=== PATIENT | female | born 1975 | race Caucasian/White ===

== ENCOUNTER → 2020-01-06 13:43 | Outpatient (BNVA) | payer OTHER, SELFPAY | PROVIDERS: Visit Provider Urology | DX: N13.30 Unspecified hydronephrosis (principal); Z87.440 Personal history of urinary (tract) infections | CPT/HCPCS: 81003; 99213 ==

== ENCOUNTER 2020-01-13 16:01 | Emergency (ER) | payer OTHER, SELFPAY ==
[2020-01-13 16:17] VITALS: BP 121/76; PULSE 82; RESP 17; TEMP 37.1; O2SAT 98
--- NOTE | 2020-01-13 16:25 | XR_ITS ---
EXAMINATION: XR CHEST CLINICAL INFORMATION: Cough, shortness of breath COMPARISON: Chest radiographs 01/02/2019 TECHNIQUE: Frontal view of the chest was obtained. FINDINGS: There are low lung volumes. The vascularity is normal. The lungs are clear. There is no airspace consolidation, groundglass opacity, or effusion. The cardiac and hilar and mediastinal contours are unremarkable. No acute bony abnormality. IMPRESSION: Unremarkable examination.
--- NOTE | 2020-01-13 16:42 | ED_ITS ---
HPI - SOB/Dyspnea General Chief Complaint: Dyspnea Stated Complaint: DIFFICULTY BREATHING Time Seen by Provider: 01/13/20 16:12 Source: patient Mode of arrival: ambulatory History of Present Illness HPI Narrative: 44-year-old female with a PMHx asthma, thrush, c/o dry cough, SOB, generalized fatigue x1 week. Admits tested negative for COVID-19 in late November. Reports has been using inhalers at home w/some relief, however believes she has thrush again. Reports ran out of nystatin at home. Admits to mild sore throat. Denies chest pain, productive cough, LE edema, recent travel, sick contacts, history of clots MD elicited complaint: shortness of breath and cough Pertinent past history: asthma Related Data Home Medications Medication Instructions Recorded Confirmed albuterol sulfate mg INHALATION 01/04/20 01/06/20 albuterol sulfate 90 mcg/actuation INHALATION 01/04/20 01/06/20 aerosol inhaler fluconazole 150 mg tablet 150 mg PO ONCE 01/04/20 01/06/20 fluticasone 232 mcg-salmeterol 14 1 inh PO BID 01/04/20 01/06/20 mcg/actuation breath activated powdr fluticasone propionate 50 2 spray INTRANASAL DAILY 01/04/20 01/06/20 mcg/actuation nasal spray,suspension levothyroxine 50 mcg tablet 50 mcg PO DAILY 01/04/20 01/06/20 mometasone-formoterol HFA 200 2 puff PO BID 01/04/20 01/06/20 mcg-5 mcg/actuation aerosol inhaler montelukast 10 mg tablet 10 mg PO DAILY 01/04/20 01/06/20 Previous Rx's Medication Instructions Recorded nitrofurantoin 1 cap PO DAILY #30 cap 01/06/20 monohydrate/macrocrystals 100 mg capsule albuterol sulfate 2.5 mg INHALATION Q4H PRN #30 ea 01/13/20 benzonatate [Tessalon Perles] 100 mg PO BID PRN #14 cap 01/13/20 nystatin 1 ml PO QID 7 Days #28 ml 01/13/20 Allergies Allergy/AdvReac Type Severity Reaction Status Date / Time doxycycline [DOXYCYCLINE] Allergy Intermediate ITCHY, Unverified 12/19/19 17:59 itching, itching amoxicillin [Augmentin] Allergy Unknown itching Verified 07/02/18 00:00 azithromycin [From ZITHROMAX] Allergy Unknown HIVES Unverified 12/19/19 17:59 ciprofloxacin [From CIPRO] Allergy Unknown ITCH Unverified 12/19/19 17:59 clavulanic acid [Augmentin] Allergy Unknown itching Verified 07/02/18 00:00 mold [MOLD] Allergy Unknown STUFFY NOSE Unverified 12/19/19 17:59 mushroom [MUSHROOM] Allergy Unknown DIARRHEA Unverified 12/19/19 17:59 Yeast [YEAST] Allergy Unknown DIARRHEA Unverified 12/19/19 17:59 From CIPRO Allergy Unknown ITCH Uncoded 12/19/19 17:59 Zithromax Allergy Unknown hives Uncoded 11/25/19 00:00 Review of Systems Review of Systems: Constitutional: No Weight loss, No Fever, No Chills ENT/Mouth: No Ear Pain, No Nasal Congestion, No Sinus Pain, No Hoarseness, + sore throat, No Rhinorrhea, No Swallowing Difficulty Cardiovascular: No Chest Pain, + SOB Respiratory: + Cough, No Sputum, No Wheezing Musculoskeletal: No LE edema Skin: No Skin Lesions, No rash Yes all other systems are reviewed and are negative PMFSH Past Medical History Attestation statement: The following information was validated with the patient. Medical History (Updated 01/13/20 @ 17:34 by TREE Lowe) Asthma History of urinary reflux History of urinary tract infection Thrush Social History Social History Smoking Status: Never smoker Use of substances other than those prescribed or required for medical reasons: No Advance Directives: No Advance Directives Information Provided: No Physical Exam Vital Signs: Vital Signs: Vital Signs Temp Pulse Resp BP Pulse Ox 01/13/20 16:17 98.8 F 82 17 121/76 98 Body Mass Index 0.8 Const: General: cooperative and healthy appearing Orientation/consciousness: patient oriented x3 Limitations: no limitations HENMT: Other: erythematous patches noted to tongue, no white patches appreciated. Posterior oropharynx WNL. Tonsils WNL Head: Yes normal to inspection Ears: hearing grossly normal bilaterally General nose exam: Normal external nose present Face and sinus: Yes normal facial exam Mouth: no drooling Throat: Yes posterior oropharynx normal and Yes uvula midline Eyes: General: appearance normal, both eyes and all related structures EOM: EOMs intact bilaterally Neck: Neck: Yes normal visual inspection, Yes no lymphadenopathy and Yes no meningeal signs Resp: Effort & Inspection: normal respiratory effort Auscultation: clear to auscultation bilaterally, no rales, no rhonchi and no wheezes Cardio: Rate: regular rate Heart sounds: S1 normal heart sound present and S2 normal heart sound present Skin: Rashes: no rashes Wounds: no wounds Neuro: General: patient oriented x3 and no meningeal signs Gait exam (Neuro): Normal gait present Extrem: General: Yes normal to inspection Course Course Course Narrative: - CXR unremarkable MDM - SOB/Dyspnea MDM Narrative Medical decision making narrative: On exam VSS, NAD/ well-appearing, lungs CTA. Oropharynx with red patches noted to tongue, likely early thrush. Concern for viral syndrome/COVID-19 vs asthma exacerbation. Low concern for ACS /PE. R/o PNA plan: CXR, COVID-19 Differential Diagnosis Differential diagnosis: Likely pneumonia and asthma with exacerbation Discharge Plan Discharge Clinical Impression: Thrush, Acute viral syndrome Patient Disposition: Home, Self-Care Instructions: COVID-19 (Coronavirus Disease 2019) (ED), Oral Candidiasis (ED) Additional Instructions: your x-ray was unremarkable today in the ED. You were tested for COVID-19, the results should be back in about 72 hours, we will call you positive or negative In the meantime you need to self isolate Use albuterol inhaler/ nebulizer at home Tessalon Perles for cough Nystatin cream is for your the oral thrush You need to follow-up with her doctor Based on your symptoms and history we have sent a COVID-19. Although your RESULT IS PENDING at this time. RESULTS should return within 72 hours. At this time you will be contacted with either NEGATIVE OR POSITIVE results. -Please wait until we contact you for your results. At this time you will be okay for discharge. Please plan for self quarantine for up to 14 days. Do not expose yourself to others. You may not go to work. If testing does come back negative you may return to activities as long as you are no longer having any symptoms for at least 3 days. Please continue to follow cold instructions and wash your hands frequently. You may take Tylenol as directed on the bottle for pain or fever. Patient seen in the emergency department on 09/27/2019 and should be excused from work until negative test results AND until 72 hours without any symptoms AND at least 10 days have passed since symptoms first appeared or since last exposure to COVID-19 positive patient CDC Guidelines for home isolation: - Stay away from others - WEAR A MASK if you are sick AND STAY HOME - Cover your mouth and nose with a tissue when you cough or sneeze. Dispose of tissues in a lined trash can and wash your hands immediately with soap and water for at least 20 seconds. If soap and water are not available, clean hands with alcohol-based hand circulating process inspector that contains at least 60% alcohol. - Clean your hands often with soap and water for at least 20 seconds - Avoid touching your eyes, nose and mouth with unwashed hands - Do not share dishes, drinking glasses, cups, eating utensils, towels, or bedding with other people in your home. After using these items, wash them thoroughly with soap and water or put in the psychologist experimental. - Clean high-touch surfaces in your isolation area ( sick room and bathroom) every day; let a caregiver clean and disinfect high-touch surfaces in other areas of the home. Clean the area or item with soap and water or another detergent if it is dirty. Then, use a household disinfectant. - Limit contact with pets and animals: If you must care for a pet, wash your hands before and after interacting with them) Prescriptions: New nystatin 100,000 unit/mL suspension 1 ml PO QID 7 Days Qty: 28 RF: 0 albuterol sulfate 2.5 mg/0.5 mL solution for nebulization 2.5 mg inhalation Q4H PRN (Reason: shortness of breath or wheezing) Qty: 30 RF: 0 benzonatate [Tessalon Perles] 100 mg capsule 100 mg PO BID PRN (Reason: cough) Qty: 14 RF: 0 No Action nitrofurantoin monohyd/m-cryst 100 mg capsule 1 cap PO DAILY Qty: 30 RF: 6 montelukast 10 mg tablet 10 mg PO DAILY RF: 0 Dulera 200-5 mcg/actuation HFA aerosol inhaler 2 puff PO BID RF: 0 albuterol sulfate 90 mcg/actuation HFA aerosol inhaler inhalation RF: 0 fluconazole 150 mg tablet 150 mg PO ONCE RF: 0 albuterol sulfate 2.5 mg /3 mL (0.083 %) solution for nebulization inhalation RF: 0 levothyroxine 50 mcg tablet 50 mcg PO DAILY RF: 0 fluticasone propionate 50 mcg/actuation spray,suspension 2 spray intranasal DAILY RF: 0 fluticasone propion-salmeterol 232-14 mcg/actuation aerosol powdr breath activated 1 inh PO BID RF: 0 Referrals: Physician,None [Primary Care Provider] - 3 days
== END 2020-01-13 18:16 | disposition home or self-care (01) ==
PROVIDERS: Physician Assistant; Emergency Provider Internal Medicine
DX: B34.9 Viral infection, unspecified (principal); Z20.828 Contact with and (suspected) exposure to other viral communicable diseases; B37.0 Candidal stomatitis; J45.909 Unspecified asthma, uncomplicated; Z79.899 Other long term (current) drug therapy; Z87.440 Personal history of urinary (tract) infections
CPT/HCPCS: 71045; 87635; 99283

== ENCOUNTER 2020-04-07 17:20 | Emergency (ER) | payer OTHER, SELFPAY ==
[2020-04-07 19:24] VITALS: BP 140/64; PULSE 85; RESP 18; TEMP 36.9; O2SAT 98; BMI 38.9
--- NOTE | 2020-04-07 20:22 | ED_ITS ---
HPI - URI/Sore Throat General Chief Complaint: Upper Respiratory Symptoms Stated Complaint: Flu like Time Seen by Provider: 04/07/20 20:02 Source: patient Mode of arrival: ambulatory Limitations: no limitations History of Present Illness HPI Narrative: Patient comes to emergency room complaining of cough for 1 week. Patient states it is mild, has history of asthma. Patient states that she has no significant symptoms, however her daughter brought in a friend to the house, whose family tested positive for coronavirus. Patient denies fever, no chills, no body aches MD elicited complaint: cough Related Data Home Medications Medication Instructions Recorded Confirmed albuterol sulfate mg INHALATION 01/04/20 01/06/20 albuterol sulfate 90 mcg/actuation INHALATION 01/04/20 01/06/20 aerosol inhaler fluconazole 150 mg tablet 150 mg PO ONCE 01/04/20 01/06/20 fluticasone 232 mcg-salmeterol 14 1 inh PO BID 01/04/20 01/06/20 mcg/actuation breath activated powdr fluticasone propionate 50 2 spray INTRANASAL DAILY 01/04/20 01/06/20 mcg/actuation nasal spray,suspension levothyroxine 50 mcg tablet 50 mcg PO DAILY 01/04/20 01/06/20 mometasone-formoterol HFA 200 2 puff PO BID 01/04/20 01/06/20 mcg-5 mcg/actuation aerosol inhaler Previous Rx's Medication Instructions Recorded nitrofurantoin 1 cap PO DAILY #30 cap 01/06/20 monohydrate/macrocrystals 100 mg capsule albuterol sulfate 2.5 mg INHALATION Q4H PRN #30 ea 01/13/20 benzonatate [Tessalon Perles] 100 mg PO BID PRN #14 cap 01/13/20 nystatin 1 ml PO QID 7 Days #28 ml 01/13/20 fluticasone 232mcg-salmeterol 1 inh INHALATION BID 30 Days #1 ea 02/07/20 14mcg/actuation breath act,powder sensor nitrofurantoin 25 mg/5 mL oral 50 mg PO BEDTIME 30 Days #20 ml 02/13/20 suspension montelukast 10 mg tablet 10 mg PO DAILY #30 tab 04/06/20 albuterol sulfate 2 puff INHALATION Q4-6H PRN #8.5 g 04/07/20 mometasone-formoterol [Dulera] 2 puff INHALATION BID #13 g 04/07/20 prednisone 50 mg PO DAILY #5 tab 04/07/20 Allergies Allergy/AdvReac Type Severity Reaction Status Date / Time doxycycline [DOXYCYCLINE] Allergy Intermediate ITCHY, Verified 04/07/20 19:24 itching, itching amoxicillin [Augmentin] Allergy Unknown itching Verified 04/07/20 19:24 azithromycin [From ZITHROMAX] Allergy Unknown HIVES Verified 04/07/20 19:24 ciprofloxacin [From CIPRO] Allergy Unknown ITCH Verified 04/07/20 19:24 clavulanic acid [Augmentin] Allergy Unknown itching Verified 04/07/20 19:24 mold [MOLD] Allergy Unknown STUFFY NOSE Verified 04/07/20 19:24 mushroom [MUSHROOM] Allergy Unknown DIARRHEA Verified 04/07/20 19:24 Yeast [YEAST] Allergy Unknown DIARRHEA Verified 04/07/20 19:24 From CIPRO Allergy Unknown ITCH Uncoded 12/19/19 17:59 Zithromax Allergy Unknown hives Uncoded 11/25/19 00:00 Review of Systems Review of Systems: Constitutional : No Weight loss, No Fever, No Chills, No Night Sweats, No Fatigue, No Malaise ENT/Mouth : No Hearing loss, No Ear Pain, No Nasal Congestion, No Sinus Pain, No Hoarseness, No sore throat, No Rhinorrhea, No Swallowing Difficulty Eyes: No Eye Pain, No Swelling, No Redness, No Foreign Body, No Discharge, No Vision Changes Cardiovascular : No Chest Pain, No SOB, No Dyspnea on Exertion, No Orthopnea, No Edema, No Palpitations Respiratory : Complaining of Cough, No Sputum, No Wheezing, No Smoke Exposure, No Dyspnea Gastrointestinal : No Nausea, No Vomiting, No Diarrhea, No Constipation, No abdominal Pain, No Hematochezia, No Melena Genitourinary : no irregular bleeding, No Dysuria, No Urinary Frequency, No Hematuria, No Urinary Incontinence, No Urgency, No Flank Pain, No Urinary Flow Changes, No Hesitancy Musculoskeletal : No joint pain, No Myalgias, No Joint Swelling Skin : No Skin Lesions, No rash Neuro : No Weakness, No Numbness, No Paresthesias, No Loss of Consciousness, No Dizziness, No Headache Psych : No Anxiety/Panic, No Depression, No SI/HI/AH/VH, No Social Issues, Heme/Lymph: No Bruising, No Bleeding,No Lymphadenopathy Endocrine : No Polyuria, No Polydipsia, No Temperature Intolerance [facility] Past Medical History Medical History Asthma History of urinary reflux History of urinary tract infection Thrush Social History Social History Alcohol intake: never Smoking Status: Never smoker Smoked in Last 30 Days: No Use of substances other than those prescribed or required for medical reasons: No Advance Directives: No Advance Directives Information Provided: Yes Physical Exam Vital Signs: Vital Signs: Last Vital Signs Temp 98.0 F 04/07/20 22:51 Pulse 78 04/07/20 22:51 Resp 16 04/07/20 22:51 BP 125/72 04/07/20 22:51 Pulse Ox 100 04/07/20 22:54 Body Mass Index 38.9 Appearance: Alert. Oriented X3. No acute distress. Eyes: Pupils equal, round and reactive to light. ENT: Pharynx normal. Neck: Normal inspection. Neck supple. No lymph nodes noted. No crepitus CVS: Normal heart rate and rhythm. Pulses normal. Normal S1 and S2 Respiratory: No respiratory distress. Breath sounds normal. No Wheezing. No rales Abdomen: Soft and nontender. No rigidity. No distention. good BS x4 Skin: Skin warm and dry. Normal skin color. Normal skin turgor. Extremities: No lower extremity edema. No lower extremity edema. No Lacerations. No Rash Neuro: Oriented X 3. No motor deficit. No sensory deficit. Moving all extermities. No slurred speech. Course Course Course Narrative: Patient tested for RSV/influenza, COVID-19. Patient's lung sounds are clear, no breathing treatment needed. Negative for coronavirus and influenza. MDM - URI/Sore Throat Lab Data Labs: Lab Results 04/07/20 Range/Units 20:37 Coronavirus (PCR) NEGATIVE (Negative) Influenza Type A (PCR) NEGATIVE (Negative) Influenza Type B (PCR) NEGATIVE (Negative) RSV RNA Qual (PCR) NEGATIVE (Negative) Discharge Plan Discharge Clinical Impression: Cough, Encounter for medication refill Patient Disposition: Home, Self-Care Instructions: Acute Cough (ED) Additional Instructions: Your test for COVID is negative. Please follow-up with your primary care physician tomorrow. If you have any worsening or new symptoms, please return to the emergency room or call 911 Prescriptions: New Dulera 200-5 mcg/actuation HFA aerosol inhaler 2 puff inhalation BID Qty: 13 RF: 0 albuterol sulfate 90 mcg/actuation HFA aerosol inhaler 2 puff inhalation Q4-6H PRN (Reason: shortness of breath or wheezing) Qty: 8.5 RF: 0 prednisone 50 mg tablet 50 mg PO DAILY Qty: 5 RF: 0 No Action AirDuo Digihaler 232-14 mcg/actuation aero powdr breath act w/sensor 1 inh inhalation BID 30 Days Qty: 1 RF: 3 nitrofurantoin 25 mg/5 mL suspension 50 mg PO BEDTIME 30 Days Qty: 20 RF: 3 montelukast 10 mg tablet 10 mg PO DAILY Qty: 30 RF: 1 nystatin 100,000 unit/mL suspension 1 ml PO QID 7 Days Qty: 28 RF: 0 albuterol sulfate 2.5 mg/0.5 mL solution for nebulization 2.5 mg inhalation Q4H PRN (Reason: shortness of breath or wheezing) Qty: 30 RF: 0 benzonatate [Tessalon Perles] 100 mg capsule 100 mg PO BID PRN (Reason: cough) Qty: 14 RF: 0 nitrofurantoin monohyd/m-cryst 100 mg capsule 1 cap PO DAILY Qty: 30 RF: 6 Dulera 200-5 mcg/actuation HFA aerosol inhaler 2 puff PO BID RF: 0 albuterol sulfate 90 mcg/actuation HFA aerosol inhaler inhalation RF: 0 fluconazole 150 mg tablet 150 mg PO ONCE RF: 0 albuterol sulfate 2.5 mg /3 mL (0.083 %) solution for nebulization inhalation RF: 0 levothyroxine 50 mcg tablet 50 mcg PO DAILY RF: 0 fluticasone propionate 50 mcg/actuation spray,suspension 2 spray intranasal DAILY RF: 0 fluticasone propion-salmeterol 232-14 mcg/actuation aerosol powdr breath activated 1 inh PO BID RF: 0
[2020-04-07 21:22] LABS: Influenza A PCR NEGATIVE (Negative); Influenza B PCR NEGATIVE (Negative); Resp Syncy Virus RNA Qual PCR NEGATIVE (Negative); SARS COV2 PCR INHOUSE NEGATIVE (Negative)
[2020-04-07 22:51] VITALS: BP 125/72; PULSE 78; RESP 16; TEMP 36.7; O2SAT 100
[2020-04-07 22:54] VITALS: O2SAT 100
== END 2020-04-07 23:45 | disposition home or self-care (01) ==
PROVIDERS: Emergency Provider Emergency Medicine
DX: R05 Cough (principal); Z20.828 Contact with and (suspected) exposure to other viral communicable diseases; J45.909 Unspecified asthma, uncomplicated; Z76.0 Encounter for issue of repeat prescription
CPT/HCPCS: 0241U; 36415; 99283; 99285

== ENCOUNTER 2020-04-13 14:29 | Outpatient (REF) | payer OTHER, SELFPAY ==
--- NOTE | 2020-04-13 14:37 | XR_ITS ---
EXAMINATION: XR CHEST CLINICAL INFORMATION: Asthma. COMPARISON: None TECHNIQUE: 2 views of the chest were obtained. FINDINGS: No significant abnormality is noted involving the heart, lungs, mediastinum, bony thorax or soft tissues. XR/XR chest 2V IMPRESSION: Unremarkable chest exam.
== END 2020-04-13 14:30 | disposition home or self-care (01) ==
LOC: HO.XRAY 14:29
PROVIDERS: Visit Provider Internal Medicine
DX: R05 Cough (principal); J40 Bronchitis, not specified as acute or chronic; J45.909 Unspecified asthma, uncomplicated
CPT/HCPCS: 71046

== ENCOUNTER 2020-04-19 16:08 | Emergency (ER) | payer OTHER, SELFPAY ==
[2020-04-19 16:49] VITALS: BP 119/60; PULSE 96; RESP 18; TEMP 36.3; O2SAT 97; BMI 38.9
[2020-04-19 16:59] VITALS: BP 119/60; PULSE 96; RESP 18; TEMP 36.3; O2SAT 97
--- NOTE | 2020-04-19 17:10 | ED_ITS ---
HPI - General Adult General Chief complaint: General Medical Stated complaint: Covid Symptoms Time Seen by Provider: 04/19/20 16:53 Source: patient Mode of arrival: ambulatory Limitations: no limitations History of Present Illness HPI narrative: Patient comes emergency room complaining of sinus pain in her forehead and under her eyes. Patient states that she is prone to sinus infections the rapidly complicate. Patient denies any fever, complaining of chills, headache. Denies cough, no vomiting no diarrhea. Patient was seen here on April 07, this is negative for COVID-19. MD complaint: Cold-like symptoms Related Data Home Medications Medication Instructions Recorded Confirmed albuterol sulfate mg INHALATION 01/04/20 01/06/20 albuterol sulfate 90 mcg/actuation INHALATION 01/04/20 01/06/20 aerosol inhaler fluconazole 150 mg tablet 150 mg PO ONCE 01/04/20 01/06/20 fluticasone 232 mcg-salmeterol 14 1 inh PO BID 01/04/20 01/06/20 mcg/actuation breath activated powdr fluticasone propionate 50 2 spray INTRANASAL DAILY 01/04/20 01/06/20 mcg/actuation nasal spray,suspension levothyroxine 50 mcg tablet 50 mcg PO DAILY 01/04/20 01/06/20 mometasone-formoterol HFA 200 2 puff PO BID 01/04/20 01/06/20 mcg-5 mcg/actuation aerosol inhaler Previous Rx's Medication Instructions Recorded nitrofurantoin 1 cap PO DAILY #30 cap 01/06/20 monohydrate/macrocrystals 100 mg capsule albuterol sulfate 2.5 mg INHALATION Q4H PRN #30 ea 01/13/20 benzonatate [Tessalon Perles] 100 mg PO BID PRN #14 cap 01/13/20 nystatin 1 ml PO QID 7 Days #28 ml 01/13/20 fluticasone 232mcg-salmeterol 1 inh INHALATION BID 30 Days #1 ea 02/07/20 14mcg/actuation breath act,powder sensor nitrofurantoin 25 mg/5 mL oral 50 mg PO BEDTIME 30 Days #20 ml 02/13/20 suspension montelukast 10 mg tablet 10 mg PO DAILY #30 tab 04/06/20 albuterol sulfate 2 puff INHALATION Q4-6H PRN #8.5 g 04/07/20 mometasone-formoterol [Dulera] 2 puff INHALATION BID #13 g 04/07/20 prednisone 50 mg PO DAILY #5 tab 04/07/20 levofloxacin 500 mg PO DAILY #7 tab 04/19/20 Allergies Allergy/AdvReac Type Severity Reaction Status Date / Time doxycycline [DOXYCYCLINE] Allergy Intermediate ITCHY, Verified 04/07/20 19:24 itching, itching amoxicillin [Augmentin] Allergy Unknown itching Verified 04/07/20 19:24 azithromycin [From ZITHROMAX] Allergy Unknown HIVES Verified 04/07/20 19:24 ciprofloxacin [From CIPRO] Allergy Unknown ITCH Verified 04/07/20 19:24 clavulanic acid [Augmentin] Allergy Unknown itching Verified 04/07/20 19:24 mold [MOLD] Allergy Unknown STUFFY NOSE Verified 04/07/20 19:24 mushroom [MUSHROOM] Allergy Unknown DIARRHEA Verified 04/07/20 19:24 Yeast [YEAST] Allergy Unknown DIARRHEA Verified 04/07/20 19:24 From CIPRO Allergy Unknown ITCH Uncoded 12/19/19 17:59 Zithromax Allergy Unknown hives Uncoded 11/25/19 00:00 Review of Systems Review of Systems: Constitutional : No Weight loss, No Fever, complaining of Chills, No Night Sweats, No Fatigue, No Malaise ENT/Mouth : , Complaining of sinus pain , complaining of copious discharge from the nostrils, No Hearing loss, No Ear Pain, No Nasal Congestion, No Sinus Pain, No Hoarseness, No sore throat, No Rhinorrhea, No Swallowing Difficulty Eyes: No Eye Pain, No Swelling, No Redness, No Foreign Body, No Discharge, No Vision Changes Cardiovascular : No Chest Pain, No SOB, No Dyspnea on Exertion, No Orthopnea, No Edema, No Palpitations Respiratory : No Cough, No Sputum, No Wheezing, No Smoke Exposure, No Dyspnea Gastrointestinal : No Nausea minimal, No Vomiting, No Diarrhea, No Constipation, No abdominal Pain, No Hematochezia, No Melena Genitourinary : no irregular bleeding, No Dysuria, No Urinary Frequency, No Hematuria, No Urinary Incontinence, No Urgency, No Flank Pain, No Urinary Flow Changes, No Hesitancy Musculoskeletal : No joint pain, No Myalgias, No Joint Swelling Skin : No Skin Lesions, No rash Neuro : No Weakness, No Numbness, No Paresthesias, No Loss of Consciousness, No Dizziness, No Headache Psych : No Anxiety/Panic, No Depression, No SI/HI/AH/VH, No Social Issues, Heme/Lymph: No Bruising, No Bleeding,No Lymphadenopathy Endocrine : No Polyuria, No Polydipsia, No Temperature Intolerance [facility] Past Medical History Medical History Asthma History of urinary reflux History of urinary tract infection Thrush Social History Social History Alcohol intake: never Smoking Status: Never smoker Smoked in Last 30 Days: No Use of substances other than those prescribed or required for medical reasons: No Advance Directives: No Advance Directives Information Provided: No Physical Exam Vital Signs: Vital Signs: Last Vital Signs Temp 97.4 F 04/19/20 16:59 Pulse 96 04/19/20 16:59 Resp 18 04/19/20 16:59 BP 119/60 04/19/20 16:59 Pulse Ox 97 04/19/20 16:59 Body Mass Index 38.9 Appearance: Alert. Oriented X3. No acute distress. Eyes: Pupils equal, round and reactive to light. ENT: Pharynx normal. Pre to palpation over the maxillary and frontal sinuses, n o significant discharge seen Neck: Normal inspection. Neck supple. No lymph nodes noted. No crepitus CVS: Normal heart rate and rhythm. Pulses normal. Normal S1 and S2 Respiratory: No respiratory distress. Breath sounds normal. No Wheezing. No rales Abdomen: Soft and nontender. No rigidity. No distention. good BS x4 Skin: Skin warm and dry. Normal skin color. Normal skin turgor. Extremities: No lower extremity edema. No lower extremity edema. No Lacerations. No Rash Neuro: Oriented X 3. No motor deficit. No sensory deficit. Moving all extermities. No slurred speech. Course Course Course Narrative: Patient's oxygen saturation within normal limits, lungs sound clear, no respiratory distress. Patient has multiple allergies to antibiotics, states that the only thing that works for her is Levaquin. Patient is allergic to ciprofloxacin, causing itching, but has never had any reaction to levofloxacin. Patient was tested for COVID-19, results pending Of note, Mendez test was order because there are no SARS-COV-2 PCR tests available in the hospital today Discharge Plan Discharge Clinical Impression: Sinusitis Qualifiers: Sinusitis location: maxillary Chronicity: acute Recurrence: recurrent Qualified Code(s): J01.01 - Acute recurrent maxillary sinusitis Patient Disposition: Home, Self-Care Instructions: Sinusitis (ED) Additional Instructions: You were tested for COVID-19, if your results are positive, you will receive a phone call in the next 72 hours. In the meantime, self quarantine until you get your results. Please follow-up with your primary care physician tomorrow. If you have any worsening or new symptoms, please return to the emergency room or call 911 Prescriptions: New levofloxacin 500 mg tablet 500 mg PO DAILY Qty: 7 RF: 0 No Action AirDuo Digihaler 232-14 mcg/actuation aero powdr breath act w/sensor 1 inh inhalation BID 30 Days Qty: 1 RF: 3 nitrofurantoin 25 mg/5 mL suspension 50 mg PO BEDTIME 30 Days Qty: 20 RF: 3 montelukast 10 mg tablet 10 mg PO DAILY Qty: 30 RF: 1 Dulera 200-5 mcg/actuation HFA aerosol inhaler 2 puff inhalation BID Qty: 13 RF: 0 albuterol sulfate 90 mcg/actuation HFA aerosol inhaler 2 puff inhalation Q4-6H PRN (Reason: shortness of breath or wheezing) Qty: 8.5 RF: 0 prednisone 50 mg tablet 50 mg PO DAILY Qty: 5 RF: 0 nystatin 100,000 unit/mL suspension 1 ml PO QID 7 Days Qty: 28 RF: 0 albuterol sulfate 2.5 mg/0.5 mL solution for nebulization 2.5 mg inhalation Q4H PRN (Reason: shortness of breath or wheezing) Qty: 30 RF: 0 benzonatate [Tessalon Perles] 100 mg capsule 100 mg PO BID PRN (Reason: cough) Qty: 14 RF: 0 nitrofurantoin monohyd/m-cryst 100 mg capsule 1 cap PO DAILY Qty: 30 RF: 6 Dulera 200-5 mcg/actuation HFA aerosol inhaler 2 puff PO BID RF: 0 albuterol sulfate 90 mcg/actuation HFA aerosol inhaler inhalation RF: 0 fluconazole 150 mg tablet 150 mg PO ONCE RF: 0 albuterol sulfate 2.5 mg /3 mL (0.083 %) solution for nebulization inhalation RF: 0 levothyroxine 50 mcg tablet 50 mcg PO DAILY RF: 0 fluticasone propionate 50 mcg/actuation spray,suspension 2 spray intranasal DAILY RF: 0 fluticasone propion-salmeterol 232-14 mcg/actuation aerosol powdr breath activated 1 inh PO BID RF: 0 Interventions: ED Discharge Assessment Last Done: 04/19/20 17:42
[2020-04-19 18:26] LABS: COVID-19 Test Positive (Negative); IDNOW Serial# 9DD0AD1C
== END 2020-04-19 18:23 | disposition home or self-care (01) ==
PROVIDERS: Emergency Provider Emergency Medicine
DX: J01.01 Acute recurrent maxillary sinusitis (principal); R51.9 Headache, unspecified; Z20.822 Contact with and (suspected) exposure to COVID-19; Z79.899 Other long term (current) drug therapy
CPT/HCPCS: 36415; 87635; 99283; 99284

== ENCOUNTER → 2020-06-01 14:36 | Outpatient (BNVA) | payer SELFPAY | PROVIDERS: PCP Internal Medicine; Visit Provider Internal Medicine ==

== ENCOUNTER 2020-07-31 09:27 | Outpatient (REF) | payer OTHER, SELFPAY ==
[2020-07-31 09:47] LABS: COVID-19 Test Negative (Negative)
== END 2020-07-31 09:28 | disposition home or self-care (01) ==
LOC: HO.LAB 09:27
PROVIDERS: Visit Provider Internal Medicine
DX: Z20.822 Contact with and (suspected) exposure to COVID-19 (principal)
CPT/HCPCS: 36415; 87635; C9803

== ENCOUNTER 2020-08-14 09:25 | Emergency (ER) | payer OTHER, SELFPAY ==
--- NOTE | ~2020-08-14 | XR_ITS ---
EXAMINATION: XR KNEE, LEFT CLINICAL INFORMATION: Fall with pain COMPARISON: None TECHNIQUE: Four views of the left knee. FINDINGS: Joint spaces are maintained. There is mild spurring of the patellofemoral joint. No effusion is seen. There is a 3 mm bony density seen about the proximal posterior aspect of the fibula which could represent an acute or chronic avulsion injury. XR/XR knee LT 4V IMPRESSION: Patellofemoral joint mild degenerative change. No left knee effusion. Either acute or chronic small avulsion fragment about the posterior proximal fibula.
[2020-08-14 10:21] VITALS: BP 133/82; PULSE 79; RESP 18; BMI 39.0
--- NOTE | 2020-08-14 11:38 | ED_ITS ---
HPI - General Adult General Chief complaint: Fall Stated complaint: FALL BODY ACHES Time Seen by Provider: 08/14/20 11:37 Source: patient Limitations: no limitations History of Present Illness HPI narrative: Patient complaining of left knee pain. Patient states last week she fell at [employer]. Patient states pain increases with range of motion and palpation symptoms have improved since the fall though. Patient felt a popping sound from the left knee. Symptoms mild to moderate. Patient complaining of chronic back pain from left trapezius says at times the lower back. Patient has had COVID-19 a pass and has been fully vaccinated. No other complaints this time no nausea vomiting chest pain shortness of breath. Related Data Home Medications Medication Instructions Recorded Confirmed levothyroxine 50 mcg tablet 50 mcg PO DAILY 01/04/20 01/06/20 Previous Rx's Medication Instructions Recorded nitrofurantoin 1 cap PO DAILY #30 cap 01/06/20 monohydrate/macrocrystals 100 mg capsule nystatin 1 ml PO QID 7 Days #28 ml 01/13/20 nitrofurantoin 25 mg/5 mL oral 50 mg PO BEDTIME 30 Days #20 ml 02/13/20 suspension montelukast 10 mg tablet 10 mg PO DAILY #30 tab 04/06/20 prednisone 50 mg PO DAILY #5 tab 04/07/20 fluticasone propionate 50 2 spray INTRANASAL DAILY 30 Days 06/01/20 mcg/actuation nasal #16 g spray,suspension mometasone-formoterol HFA 200 2 puff INHALATION BID 30 Days #13 g 06/01/20 mcg-5 mcg/actuation aerosol inhaler fluconazole 150 mg tablet 150 mg PO DAILY 2 Days #2 tab 07/15/20 albuterol sulfate 2.5 mg INHALATION Q4-6H PRN 30 08/11/20 Days #90 ml albuterol sulfate 90 mcg/actuation 2 puff INHALATION Q4-6H PRN #8.5 g 08/11/20 aerosol inhaler methocarbamol 750 mg PO TID PRN #20 tab 08/14/20 Allergies Allergy/AdvReac Type Severity Reaction Status Date / Time doxycycline [DOXYCYCLINE] Allergy Intermediate ITCHY, Verified 06/01/20 14:37 itching, itching amoxicillin [Augmentin] Allergy Unknown itching Verified 06/01/20 14:37 azithromycin [From ZITHROMAX] Allergy Unknown HIVES Verified 06/01/20 14:37 ciprofloxacin [From CIPRO] Allergy Unknown ITCH Verified 06/01/20 14:37 clavulanic acid [Augmentin] Allergy Unknown itching Verified 06/01/20 14:37 mold [MOLD] Allergy Unknown STUFFY NOSE Verified 06/01/20 14:37 mushroom [MUSHROOM] Allergy Unknown DIARRHEA Verified 06/01/20 14:37 Yeast [YEAST] Allergy Unknown DIARRHEA Verified 06/01/20 14:37 Review of Systems Constitutional: Constitutional: Reports as per HPI, Denies body ache(s), Denies chills, Denies fever(s) and Denies headache(s) Eyes: Eyes: Denies loss of vision ENT: Denies headache(s) Cardiovascular: Cardiovascular: Denies chest pain and Denies dyspnea Respiratory: Respiratory: Denies cough and Denies dyspnea Gastrointestinal: Gastrointestinal: Denies diarrhea, Denies nausea and Denies vomiting Musculoskeletal: Comments: Left knee pain Left upper back pain Integumentary/Breasts: Skin/Breast: Denies rash Neurologic: Denies headache(s) and Denies loss of vision Comments: Alert oriented x3 Hematologic/Lymphatic: Hematologic/Lymphatic: Denies easy bleeding Allergic/Immunologic: Allergic/Immunologic: Denies urticaria PMFSH Past Medical History Attestation statement: The following information was validated with the patient. Medical History Allergic rhinitis Asthma COVID-19 History of urinary reflux History of urinary tract infection Thrush Social History Social History Alcohol intake: never Smoking Status: Never smoker Advance Directives: No Advance Directives Information Provided: No Patient : No Physical Exam Vital Signs: Vital Signs: Last Vital Signs Pulse 79 08/14/20 10:21 Resp 18 08/14/20 10:21 BP 133/82 08/14/20 10:21 Body Mass Index 39.0 vital signs have been reviewed as normal and appeared to be correct. Blood pressure normal. Heart rate normal. Respiration rate normal. Temperature normal. Oxygen saturation normal. Appearance: Alert. Oriented X3. No acute distress. Head: Normal external exam. Normocephalic. Atraumatic. Eyes: PERRLA. EOMI. ENT: Pharynx normal. Uvula midline. Moist mucous membranes. Neck: Soft full range of motion CVS: Heart regular rate and rhythm no murmurs and rubs Respiratory: Breath sounds are clear to auscultation bilaterally. No accessory muscle use noted. Back: left trapezius tenderness Skin: Skin warm and dry. Normal skin color. Extremities: Left knee positive joint line tenderness no joint laxity positive range of motion Neuro: Oriented X 3. No motor deficit. No sensory deficit. Reflexes normal. Course Course Course Narrative: Differential diagnosis: Left knee contusion Left knee sprain Left knee fracture Left-sided trapezius 12:22 p.m. x-ray left knee is negative symptoms are consistent with her fall with a left knee contusion and left trapezius strain. Medical Decision Making Imaging Data knee: Radiologist's impression: [address] [id number] ReportSigned Patient: Liz Russell#: [id number]: 1975Acct:[id number]/Sex: 44 / FADM Date: 08/14/20Loc: HO.EDAttending Dr: Ordering Physician: Fernando Dockery Date of Service: 08/14/20 Procedure(s): XR knee LT 4V Accession Number(s): [id number] cc: Fernando Dockery ~ EXAMINATION: XR KNEE, LEFT CLINICAL INFORMATION: Fall with pain COMPARISON: None TECHNIQUE: Four views of the left knee. FINDINGS: Joint spaces are maintained. There is mild spurring of the patellofemoral joint. No effusion is seen. There is a 3 mm bony density seen about the proximal posterior aspect of the fibula which could represent an acute or chronic avulsion injury. XR/XR knee LT 4V IMPRESSION: Patellofemoral joint mild degenerative change. No left knee effusion. Either acute or chronic small avulsion fragment about the posterior proximal fibula. Dictated By:PIPO KHAN V MDSigned By:<Electronically signed by PIPO KHAN MD in OV>08/14/20 1215 DD/ [id number]/TT: Motor Equipment Captain: Discharge Plan Discharge Clinical Impression: Knee contusion, Trapezius muscle spasm Patient Disposition: Home, Self-Care Instructions: Knee Pain (ED) Additional Instructions: Rest ice elevation of the left knee X-rays negative for fracture or effusion Follow-up with the PCP as directed Prescriptions: New methocarbamol 750 mg tablet 750 mg PO TID PRN (Reason: pain (scale score 4-6)) Qty: 20 RF: 0 No Action nitrofurantoin 25 mg/5 mL suspension 50 mg PO BEDTIME 30 Days Qty: 20 RF: 3 montelukast 10 mg tablet 10 mg PO DAILY Qty: 30 RF: 1 fluconazole [Diflucan] 150 mg tablet 150 mg PO DAILY 2 Days Qty: 2 RF: 0 albuterol sulfate 2.5 mg /3 mL (0.083 %) solution for nebulization 2.5 mg inhalation Q4-6H PRN (Reason: shortness of breath or wheezing) 30 Days Qty: 90 RF: 3 albuterol sulfate 90 mcg/actuation HFA aerosol inhaler 2 puff inhalation Q4-6H PRN (Reason: shortness of breath or wheezing) Qty: 8.5 RF: 0 prednisone 50 mg tablet 50 mg PO DAILY Qty: 5 RF: 0 nystatin 100,000 unit/mL suspension 1 ml PO QID 7 Days Qty: 28 RF: 0 nitrofurantoin monohyd/m-cryst 100 mg capsule 1 cap PO DAILY Qty: 30 RF: 6 levothyroxine 50 mcg tablet 50 mcg PO DAILY RF: 0 Dulera 200-5 mcg/actuation HFA aerosol inhaler 2 puff inhalation BID 30 Days Qty: 13 RF: 3 fluticasone propionate [Children's Flonase Allergy Rlf] 50 mcg/actuation spray,suspension 2 spray intranasal DAILY 30 Days Qty: 16 RF: 3 Referrals: Pedro Walden MD [Primary Care Provider] - 2 days
== END 2020-08-14 12:35 | disposition home or self-care (01) ==
PROVIDERS: Emergency Provider Emergency Medicine; PCP Internal Medicine
DX: S80.02XA Contusion of left knee, initial encounter (principal); M25.562 Pain in left knee; M62.838 Other muscle spasm; W19.XXXA Unspecified fall, initial encounter; Y93.9 Activity, unspecified; Y92.512 Supermarket, store or market as the place of occurrence of the external cause; Y99.9 Unspecified external cause status; Z79.899 Other long term (current) drug therapy
CPT/HCPCS: 73564; 99283

== ENCOUNTER 2020-09-20 18:15 | Emergency (ER) | payer OTHER, SELFPAY ==
--- NOTE | ~2020-09-20 | XR_ITS ---
EXAMINATION: XR CHEST CLINICAL INFORMATION: Shortness of breath COMPARISON: 04/13/2020 TECHNIQUE: 2 views of the chest were obtained. FINDINGS: No focal consolidation, pulmonary edema, or pleural effusion. Stable cardiomediastinal silhouette. XR/XR chest 2V IMPRESSION: Unremarkable examination.
[2020-09-20 18:24] VITALS: BP 142/89; PULSE 87; RESP 18; TEMP 37; O2SAT 99; BMI 42.5
[2020-09-20 20:35] LABS: COVID-19 Test Negative (Negative)
--- NOTE | 2020-09-20 20:46 | ED.GENADULT ---
HPI - General Adult General Chief complaint: General Medical Stated complaint: mutiple complaints Time Seen by Provider: 09/20/20 20:37 Source: patient Mode of arrival: ambulatory Limitations: no limitations History of Present Illness HPI narrative: 44 yo female with history of asthma, allergic rhinitis, COVID in April 2020, history of pneumonia who presents to the ER with multiple complaints. She reports for the last 4-5 days she has had a dry cough, runny nose, post nasal drip and generally feeling unwell. She also has an itchy rash on her bilateral breasts, worse on the right. It has been keeping her up at night. No changes in soaps, lotions or detergents. She is not having fever or chills. Her had similar symptoms but felt better after a couple of days. She has been compliant with her asthma and allergy medications. MD complaint: URI symptoms Onset (ago): day(s) (5) Location: chest Radiation: non-radiation Severity: moderate Quality: aching Pain Consistency: intermittent Relieving factors: none Exacerbating factors: none Associated symptoms: cough, malaise and rash Treatments prior to arrival: none Related Data Home Medications Medication Instructions Recorded Confirmed levothyroxine 50 mcg tablet 50 mcg PO DAILY 01/04/20 01/06/20 Previous Rx's Medication Instructions Recorded nitrofurantoin 1 cap PO DAILY #30 cap 01/06/20 monohydrate/macrocrystals 100 mg capsule nystatin 1 ml PO QID 7 Days #28 ml 01/13/20 nitrofurantoin 25 mg/5 mL oral 50 mg PO BEDTIME 30 Days #20 ml 02/13/20 suspension montelukast 10 mg tablet 10 mg PO DAILY #30 tab 04/06/20 prednisone 50 mg PO DAILY #5 tab 04/07/20 fluticasone propionate 50 2 spray INTRANASAL DAILY 30 Days 06/01/20 mcg/actuation nasal #16 g spray,suspension mometasone-formoterol HFA 200 2 puff INHALATION BID 30 Days #13 g 06/01/20 mcg-5 mcg/actuation aerosol inhaler fluconazole 150 mg tablet 150 mg PO DAILY 2 Days #2 tab 07/15/20 methocarbamol 750 mg PO TID PRN #20 tab 08/14/20 albuterol sulfate 2.5 mg INHALATION Q4-6H PRN 30 08/24/20 Days #90 ml albuterol sulfate 90 mcg/actuation 2 puff INHALATION Q4-6H PRN #8.5 g 09/17/20 aerosol inhaler amoxicillin-pot clavulanate 1 tab PO BID #14 tab 09/20/20 [Augmentin] hydrocortisone 1 appl TOPICAL BID PRN #28 g 09/20/20 prednisone 40 mg PO DAILY #10 tab 09/20/20 Allergies Allergy/AdvReac Type Severity Reaction Status Date / Time doxycycline [DOXYCYCLINE] Allergy Intermediate ITCHY, Verified 06/01/20 14:37 itching, itching amoxicillin [Augmentin] Allergy Unknown itching Verified 06/01/20 14:37 azithromycin [From ZITHROMAX] Allergy Unknown HIVES Verified 06/01/20 14:37 ciprofloxacin [From CIPRO] Allergy Unknown ITCH Verified 06/01/20 14:37 clavulanic acid [Augmentin] Allergy Unknown itching Verified 06/01/20 14:37 mold [MOLD] Allergy Unknown STUFFY NOSE Verified 06/01/20 14:37 mushroom [MUSHROOM] Allergy Unknown DIARRHEA Verified 06/01/20 14:37 Yeast [YEAST] Allergy Unknown DIARRHEA Verified 06/01/20 14:37 Review of Systems Review of Systems: Constitutional: No Fever, No Chills ENT/Mouth: + sore throat, + Rhinorrhea, No Swallowing Difficulty Eyes: No Eye Pain, No Swelling, No Redness Cardiovascular: No Chest Pain, No SOB, No Orthopnea, No Edema Respiratory: + Cough, No Sputum, No Wheezing, No dyspnea Gastrointestinal: No Nausea, No Vomiting, No Diarrhea, No abdominal Pain, No Hematochezia, No Melena Genitourinary: No Dysuria, No Urinary Frequency, No Hematuria Musculoskeletal: No joint pain, + Myalgias Skin: No Skin Lesions, + rash Neuro: No Weakness, No Numbness, No Dizziness, + Headache Psych: No Anxiety/Panic, No Depression Heme/Lymph: No Bruising, No Lymphadenopathy Endocrine: No Polyuria, No Polydipsia PMFSH Past Medical History Attestation statement: The following information was validated with the patient. Medical History Allergic rhinitis Asthma COVID-19 History of urinary reflux History of urinary tract infection Thrush Social History Social History Alcohol intake: never Advance Directives: No Advance Directives Information Provided: No Patient : No Physical Exam Vital Signs: Vital Signs: Last Vital Signs Temp 98.6 F 09/20/20 18:24 Pulse 87 09/20/20 18:24 Resp 18 09/20/20 18:24 BP 142/89 H 09/20/20 18:24 Pulse Ox 99 09/20/20 18:24 Body Mass Index 42.5 Appearance: Alert. Oriented X3. No acute distress. Eyes: Pupils equal, round and reactive to light. ENT: Pharynx with mild generalized erythema, no exudates Neck: Normal inspection. Neck supple. CVS: Normal heart rate and rhythm. Pulses normal. Respiratory: No respiratory distress. Breath sounds diminished at the bilateral bases Abdomen: Soft and nontender. +BS x4 Skin: Skin warm and dry. Normal skin color. Normal skin turgor. mild pruritic maclopapular erythematous rash to lateral aspects of both breasts, no warmth or oozing Extremities: No lower extremity edema. Neuro: Oriented X 3. No motor deficit. No sensory deficit. Course Course Course Narrative: 44 y/o female presenting with URI and allergy type symptoms not improving with her home allergy and asthma medications. Hx bronchitis and pneumonia which she is concerned about now. She appears well and lung sounds slightly diminished at the bases. Will get CXR and COVID swab. Reevaluation(s) Reevaluation #1: CXR is normal. COVID negative. Given her asthma history will treat for acute bronchitis with abx and prednisone. She is agreeable with plan and stable for discharge home. Encouraged to f/u with her PCP. Medical Decision Making Lab Data Labs: Lab Results 09/20/20 Range/Units 20:15 COVID-19 (ROMA) Negative (Negative) COVID-19 Clin Com See Note Critical Care Time Critical Care Time Critical Care Time: No Discharge Plan Discharge Clinical Impression: Bronchitis Patient Disposition: Home, Self-Care Instructions: Acute Bronchitis (ED), Allergies (ED) Additional Instructions: Your chest x-ray was normal. Your COVID swab was negative. Take the prescribed medications as directed starting tomorrow, you were given 1st doses in the ER. Follow up with your doctor next week. Continue all of your allergy medications. Rest and stay hydrated. Recommend topical benadryl spray (over the counter) for the rash on your chest. Prescriptions: New prednisone 20 mg tablet 40 mg PO DAILY Qty: 10 RF: 0 amoxicillin-pot clavulanate [Augmentin] 875-125 mg tablet 1 tab PO BID Qty: 14 RF: 0 hydrocortisone 2.5 % cream 1 appl topical BID PRN (Reason: itching) Qty: 28 RF: 0 No Action nitrofurantoin 25 mg/5 mL suspension 50 mg PO BEDTIME 30 Days Qty: 20 RF: 3 montelukast 10 mg tablet 10 mg PO DAILY Qty: 30 RF: 1 fluconazole [Diflucan] 150 mg tablet 150 mg PO DAILY 2 Days Qty: 2 RF: 0 albuterol sulfate 2.5 mg /3 mL (0.083 %) solution for nebulization 2.5 mg inhalation Q4-6H PRN (Reason: shortness of breath or wheezing) 30 Days Qty: 90 RF: 3 albuterol sulfate 90 mcg/actuation HFA aerosol inhaler 2 puff inhalation Q4-6H PRN (Reason: for wheezing) Qty: 8.5 RF: 0 prednisone 50 mg tablet 50 mg PO DAILY Qty: 5 RF: 0 methocarbamol 750 mg tablet 750 mg PO TID PRN (Reason: pain (scale score 4-6)) Qty: 20 RF: 0 nystatin 100,000 unit/mL suspension 1 ml PO QID 7 Days Qty: 28 RF: 0 nitrofurantoin monohyd/m-cryst 100 mg capsule 1 cap PO DAILY Qty: 30 RF: 6 levothyroxine 50 mcg tablet 50 mcg PO DAILY RF: 0 Dulera 200-5 mcg/actuation HFA aerosol inhaler 2 puff inhalation BID 30 Days Qty: 13 RF: 3 fluticasone propionate [Children's Flonase Allergy Rlf] 50 mcg/actuation spray,suspension 2 spray intranasal DAILY 30 Days Qty: 16 RF: 3 Interventions: ED Discharge Assessment Last Done: 09/20/20 21:51 Discharge Date/Time: 09/20/20 21:53
[2020-09-20] MEDS: predniSONE 20 MG TABLET 40 MG PO (21:34)
[2020-09-20] MEDS: Amoxicillin/Potassium Clav 875 MG TABLET PO (21:34)
--- NOTE | 2020-09-20 21:38 | PC.NURSE ---
PT DOES IS NOT ALLERGIC TO AUGMENTIN BY JUST HAD BECOME ITCHY FROM IT ONE TIME. PT HAS TAKEN IT IN THE PAST. PT DOES WANT TO RECIEVE IT TODAY AND SHE WILL D/C IF SHE HAS ANY REACTION.
--- NOTE | 2020-09-20 21:49 | PC.NURSE ---
TREE LEONE SPOKE WITH PT AND SHE WILL GET AUGMENTIN AND SHE WILL WATCH FOR SENSITIVITIES AND D/C IF SHE HAS A REACTION. PT DOSE NOT WANT TO WAIT HERE SHE HAS TAKEN IT AND THE PAST AND HAD NO REACTIONS.
== END 2020-09-20 21:53 | disposition home or self-care (01) ==
PROVIDERS: Emergency Provider Emergency Medicine; PCP Internal Medicine
DX: J40 Bronchitis, not specified as acute or chronic (principal); J45.909 Unspecified asthma, uncomplicated; Z79.899 Other long term (current) drug therapy; Z20.822 Contact with and (suspected) exposure to COVID-19; Z86.16 Personal history of COVID-19
CPT/HCPCS: 36415; 71046; 87635; 99283

== ENCOUNTER → 2020-10-19 15:03 | Outpatient (BNVA) | payer OTHER, SELFPAY | PROVIDERS: PCP Internal Medicine; Visit Provider Internal Medicine | DX: J30.9 Allergic rhinitis, unspecified (principal); J45.909 Unspecified asthma, uncomplicated; B37.0 Candidal stomatitis | CPT/HCPCS: 99212 ==

== ENCOUNTER 2020-10-20 08:28 | Outpatient (REF) | payer OTHER, SELFPAY | END 2020-10-20 08:29 | disposition home or self-care (01) | LOC: HO.LAB 08:28 | PROVIDERS: PCP Internal Medicine; Visit Provider Internal Medicine | DX: Z20.822 Contact with and (suspected) exposure to COVID-19 (principal) | CPT/HCPCS: C9803; U0003; U0005 ==

== ENCOUNTER 2020-11-27 17:58 | Emergency (ER) | payer OTHER, SELFPAY ==
[2020-11-27 18:04] VITALS: BP 142/77; PULSE 97; RESP 18; TEMP 36.9; O2SAT 98; BMI 38.9
[2020-11-27 19:50] LABS: Influenza A PCR NEGATIVE (Negative); Influenza B PCR NEGATIVE (Negative); Resp Syncy Virus RNA Qual PCR NEGATIVE (Negative); SARS COV2 PCR INHOUSE NEGATIVE (Negative)
--- NOTE | 2020-11-27 20:45 | PC.NURSE ---
pt to room #14 with c/o facial swelling and pressure. pt arrives alert, respirations easy, n/l. skin w/d. will continue to monitor pt.
--- NOTE | 2020-11-27 21:46 | ED_ITS ---
HPI - General Adult General Chief complaint: General Medical Stated complaint: facial swelling Time Seen by Provider: 11/27/20 21:46 Source: patient Mode of arrival: ambulatory History of Present Illness HPI narrative: 44-year-old female who presents with left facial sinus infection that patient states has been ongoing for 1 week but denies any associated fever, chills but she states that has had some swelling. Related Data Home Medications Medication Instructions Recorded Confirmed ferrous sulfate 325 mg (65 mg 325 mg PO QAM 10/19/20 iron) tablet,delayed release levothyroxine 50 mcg tablet 75 mcg PO DAILY tab 10/19/20 Previous Rx's Medication Instructions Recorded montelukast 10 mg tablet 10 mg PO DAILY #30 tab 04/06/20 methocarbamol 750 mg tablet 750 mg PO TID PRN #20 tab 08/14/20 hydrocortisone 2.5 % topical cream 1 appl TOPICAL BID PRN #28 g 09/20/20 fluticasone 232mcg-salmeterol 1 inh INHALATION BID 30 Days #1 ea 10/19/20 14mcg/actuation breath act,powder sensor (AirDuo Digihaler) fluticasone propionate 50 2 spray INTRANASAL DAILY 30 Days 10/19/20 mcg/actuation nasal #16 g spray,suspension (Children's Flonase Allergy Relief) nystatin 100,000 unit/mL oral 1 ml PO QID 7 Days #28 ml 10/19/20 suspension albuterol sulfate 0.8333 mg INHALATION Q4-6H PRN #90 11/12/20 ml albuterol sulfate 90 mcg/actuation 2 puff PO Q4-6H PRN #8.5 g 11/12/20 aerosol inhaler cefdinir 300 mg capsule 300 mg PO Q12H 7 Days #14 cap 11/27/20 Allergies Allergy/AdvReac Type Severity Reaction Status Date / Time doxycycline [DOXYCYCLINE] Allergy Intermediate ITCHY, Verified 11/27/20 18:03 itching, itching amoxicillin [Augmentin] Allergy Unknown itching Verified 11/27/20 18:03 azithromycin [From ZITHROMAX] Allergy Unknown HIVES Verified 11/27/20 18:03 ciprofloxacin [From CIPRO] Allergy Unknown ITCH Verified 11/27/20 18:03 clavulanic acid [Augmentin] Allergy Unknown itching Verified 11/27/20 18:03 mold [MOLD] Allergy Unknown STUFFY NOSE Verified 11/27/20 18:03 mushroom [MUSHROOM] Allergy Unknown DIARRHEA Verified 11/27/20 18:03 Yeast [YEAST] Allergy Unknown DIARRHEA Verified 11/27/20 18:03 Review of Systems Review of Systems: Pertinent positives and negatives as stated in HPI 10 point review of systems otherwise negative. [facility] Past Medical History Source: nursing notes reviewed Medical History Allergic rhinitis Asthma COVID-19 History of urinary reflux History of urinary tract infection Thrush Social History Social History Alcohol intake: never Advance Directives: No Advance Directives Information Provided: Yes Patient : No Physical Exam Vital Signs: Vital Signs: Last Vital Signs Temp 98.5 F 11/27/20 18:04 Pulse 97 11/27/20 18:04 Resp 18 11/27/20 18:04 BP 142/77 H 11/27/20 18:04 Pulse Ox 98 11/27/20 18:04 Body Mass Index 38.9 VITAL SIGNS: Reviewed. GENERAL: Well developed, well nourished, in no acute distress. HEAD: Normocephalic/atraumatic, tenderness on palpation over left maxilla with mild swelling noted EYES: PERRLA, EOMI EARS: Ext canals without abnormality, TMs non-bulging and non-erythematous NOSE: Nares patent bilateral, no drainage, no boggy turbinates OROPHARYNX: no oral lesions noted, posterior pharynx clear, multiple dental caries NECK: Supple, no adenopathy LUNGS: Normal breath sounds. No adventitious sounds or accessory muscle use. SpO2<98> CARDIOVASCULAR: Regular rate and rhythm without noted murmurs ABDOMEN: Soft, non-tender, non-distended with bowel sounds. No rigidity. No guarding. No palpable masses or hernias noted NEUROLOGIC: Alert and oriented x 4. Course Course Course Narrative: 44-year-old female with history and clinical presentation most consistent with sinusitis but possible involvement of dental infection. Will treat with antibiotics and discharged with follow-up with her primary care provider. Medical Decision Making Lab Data Labs: Lab Results 11/27/20 Range/Units 18:08 Coronavirus (PCR) NEGATIVE (Negative) Influenza Type A (PCR) NEGATIVE (Negative) Influenza Type B (PCR) NEGATIVE (Negative) RSV RNA Qual (PCR) NEGATIVE (Negative) Discharge Plan Discharge Clinical Impression: Sinusitis Patient Disposition: Home, Self-Care Instructions: Sinusitis (ED) Additional Instructions: 1. Resume all home medications as prescribed. 2. Follow-up with your primary care provider in the next 2-3 days for re- evaluation. Return to the ER for acute worsening of symptoms. Prescriptions: New cefdinir 300 mg capsule 300 mg PO Q12H 7 Days Qty: 14 RF: 0 No Action montelukast 10 mg tablet 10 mg PO DAILY Qty: 30 RF: 1 albuterol sulfate 90 mcg/actuation HFA aerosol inhaler 2 puff PO Q4-6H PRN (Reason: for wheezing) Qty: 8.5 RF: 0 albuterol sulfate 2.5 mg /3 mL (0.083 %) solution for nebulization 0.8333 mg inhalation Q4-6H PRN (Reason: for wheezing) Qty: 90 RF: 1 methocarbamol 750 mg tablet 750 mg PO TID PRN (Reason: pain (scale score 4-6)) Qty: 20 RF: 0 hydrocortisone 2.5 % cream 1 appl topical BID PRN (Reason: itching) Qty: 28 RF: 0 levothyroxine 50 mcg tablet 75 mcg PO DAILY RF: 0 ferrous sulfate 325 mg (65 mg iron) tablet,delayed release (DR/EC) 325 mg PO QAM RF: 0 fluticasone propionate [Children's Flonase Allergy Rlf] 50 mcg/actuation spray,suspension 2 spray intranasal DAILY 30 Days Qty: 16 RF: 3 nystatin 100,000 unit/mL suspension 1 ml PO QID 7 Days Qty: 28 RF: 0 AirDuo Digihaler 232-14 mcg/actuation aero powdr breath act w/sensor 1 inh inhalation BID 30 Days Qty: 1 RF: 0 Referrals: Pedro Walden MD [Primary Care Provider] - 2 days
[2020-11-27] MEDS: Acetaminophen 325 MG TABLET 975 MG PO (22:06)
[2020-11-27] MEDS: Ibuprofen 400 MG TABLET PO (22:07)
== END 2020-11-27 22:29 | disposition home or self-care (01) ==
PROVIDERS: Emergency Provider Student in an Organized Health Care Education/Training Program; PCP Internal Medicine
DX: J32.9 Chronic sinusitis, unspecified (principal); Z20.822 Contact with and (suspected) exposure to COVID-19
CPT/HCPCS: 0241U; 36415; 99283

== ENCOUNTER 2021-02-12 09:54 | Emergency (ER) | payer SELFPAY ==
--- NOTE | ~2021-02-12 | XR_ITS ---
EXAMINATION: XR CHEST CLINICAL INFORMATION: Cough and wheezing COMPARISON: Previous chest x-ray most recent September 2020 TECHNIQUE: Frontal view of the chest was obtained. FINDINGS: No significant abnormality is noted involving the heart, lungs, mediastinum, bony thorax or soft tissues. XR/XR chest 1V IMPRESSION: Unremarkable examination.
[2021-02-12 09:55] VITALS: BP 139/78; PULSE 83; RESP 16; TEMP 36.7; O2SAT 98; BMI 38.9
--- NOTE | 2021-02-12 10:14 | ED.GENADULT ---
HPI - General Adult General Chief complaint: General Medical Stated complaint: UTI? Time Seen by Provider: 02/12/21 10:13 History of Present Illness HPI narrative: Patient is 45 years old presents today with having pain on urination. No fever no chills. Minimal coughing. Patient is vaccinated. Also claims she has a history of asthma. No diaphoresis. Symptoms been ongoing for few days. She has a long histo of urinary tract infection in the past. There is no vaginal discharge. Related Data Home Medications Medication Instructions Recorded Confirmed ferrous sulfate 325 mg (65 mg 325 mg PO QAM 10/19/20 iron) tablet,delayed release levothyroxine 50 mcg tablet 75 mcg PO DAILY tab 10/19/20 Previous Rx's Medication Instructions Recorded methocarbamol 750 mg tablet 750 mg PO TID PRN #20 tab 08/14/20 hydrocortisone 2.5 % topical cream 1 appl TOPICAL BID PRN #28 g 09/20/20 nystatin 100,000 unit/mL oral 1 ml PO QID 7 Days #28 ml 10/19/20 suspension cefdinir 300 mg capsule 300 mg PO Q12H 7 Days #14 cap 11/27/20 Ventolin HFA 90 mcg/actuation 2 puff PO Q4-6H PRN #18 g NS 12/17/20 aerosol inhaler (albuterol sulfate) fluticasone propionate 50 2 spray INTRANASAL DAILY 30 Days 12/17/20 mcg/actuation nasal #16 g spray,suspension (Children's Flonase Allergy Relief) montelukast 10 mg tablet 10 mg PO DAILY #30 tab 12/21/20 albuterol sulfate 2.5 mg (3 mL) INHALATION Q4-6H PRN 01/06/21 #180 ml fluticasone 232 mcg-salmeterol 14 1 inh PO BID #1 ea 01/19/21 mcg/actuation breath activated powdr (AirDuo RespiClick) fluconazole 150 mg tablet 150 mg PO DAILY #1 tab 02/12/21 (Diflucan) Allergies Allergy/AdvReac Type Severity Reaction Status Date / Time doxycycline [DOXYCYCLINE] Allergy Intermediate ITCHY, Verified 11/27/20 18:03 itching, itching amoxicillin [Augmentin] Allergy Unknown itching Verified 11/27/20 18:03 azithromycin [From ZITHROMAX] Allergy Unknown HIVES Verified 11/27/20 18:03 ciprofloxacin [From CIPRO] Allergy Unknown ITCH Verified 11/27/20 18:03 clavulanic acid [Augmentin] Allergy Unknown itching Verified 11/27/20 18:03 mold [MOLD] Allergy Unknown STUFFY NOSE Verified 11/27/20 18:03 mushroom [MUSHROOM] Allergy Unknown DIARRHEA Verified 11/27/20 18:03 Yeast [YEAST] Allergy Unknown DIARRHEA Verified 11/27/20 18:03 Review of Systems Review of Systems: Positive pain on urination Positive frequency All systems reviewed otherwise negative PMFSH Past Medical History Attestation statement: The following information was validated with the patient. Medical History Allergic rhinitis Asthma COVID-19 History of urinary reflux History of urinary tract infection Thrush Social History Social History Alcohol intake: never Advance Directives: No Advance Directives Information Provided: No Patient : No Physical Exam Vital Signs: Vital Signs: Last Vital Signs Temp 98.1 F 02/12/21 09:55 Pulse 83 02/12/21 09:55 Resp 16 02/12/21 09:55 BP 139/78 02/12/21 09:55 Pulse Ox 98 02/12/21 09:55 Body Mass Index 38.9 Appearance: Alert. Oriented X3. No acute distress. Eyes: Pupils equal, round and reactive to light. ENT: Pharynx normal. Neck: Normal inspection. Neck supple. No lymph nodes noted. No crepitus CVS: Normal heart rate and rhythm. Pulses normal. Normal S1 and S2 Respiratory: No respiratory distress. Breath sounds normal. No Wheezing. No rales Abdomen: Soft and nontender. No rigidity. No distention. good BS x4 Skin: Skin warm and dry. Normal skin color. Normal skin turgor. Extremities: No lower extremity edema. Neurovascular intact to all extremities. No Lacerations. No Rash Neuro: Oriented X 3. No motor deficit. No sensory deficit. Moving all extermities. No slurred speech Medical Decision Making MDM Narrative Medical decision making narrative: Well-appearing no acute distress. Patient's urine has no signs of infection. test was negative. Patient claims she has numerous yeast infection in the past. Has some whitish discharge. Patient is monogamous wit 1 partner. She claims she has had Diflucan in the past to work well for her. Will prescribe a dose of Diflucan. Currently in stable condition with discharge home Lab Data Labs: Lab Results 02/12/21 02/12/21 Range/Units 10:26 10:26 Urine Color YELLOW Urine Appearance CLEAR Urine pH 5.5 (5.0-8.0) Ur Specific [place] 1.010 (1.005-1.025) Urine Protein NEG (NEG-TRACE) MG/DL Urine Glucose (UA) NEG (NEG) MG/DL Urine Ketones NEG (NEG) MG/DL Urine Blood TRACE (NEG) Urine Nitrite NEG (NEG) Ur Leukocyte Esterase NEG (NEG) Urine RBC 0-2 (0) /HPF Urine WBC 0 (0-4) /HPF Ur Squamous Epith Cells TRACE /LPF Urine Bacteria NONE /LPF Urine Test NEGATIVE (NEGATIVE) Discharge Plan Discharge Clinical Impression: Vaginal yeast infection Patient Disposition: Home, Self-Care Instructions: Yeast Infection (ED) Prescriptions: New fluconazole [Diflucan] 150 mg tablet 150 mg PO DAILY Qty: 1 RF: 0 No Action fluticasone propionate [Children's Flonase Allergy Rlf] 50 mcg/actuation spray,suspension 2 spray intranasal DAILY 30 Days Qty: 16 RF: 3 albuterol sulfate [Ventolin HFA] 90 mcg/actuation HFA aerosol inhaler 2 puff PO Q4-6H PRN (Reason: for wheezing) Qty: 18 RF: 0 montelukast 10 mg tablet 10 mg PO DAILY Qty: 30 RF: 1 albuterol sulfate 2.5 mg /3 mL (0.083 %) solution for nebulization 2.5 mg inhalation Q4-6H PRN (Reason: for wheezing) Qty: 180 RF: 1 fluticasone propion-salmeterol [AirDuo RespiClick] 232-14 mcg/actuation aerosol powdr breath activated 1 inh PO BID Qty: 1 RF: 3 methocarbamol 750 mg tablet 750 mg PO TID PRN (Reason: pain (scale score 4-6)) Qty: 20 RF: 0 hydrocortisone 2.5 % cream 1 appl topical BID PRN (Reason: itching) Qty: 28 RF: 0 cefdinir 300 mg capsule 300 mg PO Q12H 7 Days Qty: 14 RF: 0 levothyroxine 50 mcg tablet 75 mcg PO DAILY RF: 0 ferrous sulfate 325 mg (65 mg iron) tablet,delayed release (DR/EC) 325 mg PO QAM RF: 0 nystatin 100,000 unit/mL suspension 1 ml PO QID 7 Days Qty: 28 RF: 0
[2021-02-12 10:34] LABS: Appearance Urine CLEAR; Color Urine YELLOW; Glucose Urine UA NEG (NEG); Leukocyte Esterase Urine NEG (NEG); Nitrite Urine NEG (NEG); PH 5.5 (5.0-8.0); UACC Culture Trigger NO; Urine Blood TRACE (NEG); Urine Ketones NEG (NEG); Urine Protein NEG (NEG-TRACE)
[2021-02-12 10:35] LABS: UPreg QC Valid YES
[2021-02-12 10:36] LABS: Urine Pregnancy NEGATIVE (NEGATIVE)
[2021-02-12 10:52] LABS: RBC Urine 0-2 /HPF (0); Squamous Epithelial Cell Urine TRACE /LPF; WBC Urine 0 /HPF (0-4)
== END 2021-02-12 11:45 | disposition home or self-care (01) ==
PROVIDERS: Emergency Provider Emergency Medicine Emergency Medical Services; PCP Internal Medicine
DX: B37.3 Candidiasis of vulva and vagina (principal); J45.909 Unspecified asthma, uncomplicated
CPT/HCPCS: 71045; 81001; 81025; 99282; 99283

== ENCOUNTER → 2021-03-15 15:14 | Outpatient (BNVA) | payer SELFPAY | PROVIDERS: PCP Internal Medicine; Visit Provider Internal Medicine | DX: J30.9 Allergic rhinitis, unspecified (principal); J45.909 Unspecified asthma, uncomplicated; E66.9 Obesity, unspecified | CPT/HCPCS: 99212 ==

== ENCOUNTER 2021-04-16 09:42 | Outpatient (REF) | payer SELFPAY ==
[2021-04-16 10:43] LABS: Binax Internal Control QC Valid; Binax Lot number: 9864; Binax Now Covid-19 Ag Negative (Negative)
== END 2021-04-16 09:43 | disposition home or self-care (01) ==
LOC: HO.LAB 09:42
PROVIDERS: Visit Provider Internal Medicine
DX: Z20.822 Contact with and (suspected) exposure to COVID-19 (principal)
CPT/HCPCS: C9803

== ENCOUNTER 2021-04-21 12:36 | Outpatient (REF) | payer OTHER, SELFPAY ==
[2021-04-21 13:21] LABS: COVID-19 Test Negative (Negative); IDNOW Serial# 16C4AD1C
== END 2021-04-21 12:37 | disposition home or self-care (01) ==
LOC: HO.LAB 12:36
PROVIDERS: Visit Provider Internal Medicine
DX: Z20.822 Contact with and (suspected) exposure to COVID-19 (principal)
CPT/HCPCS: 87635; C9803

== ENCOUNTER 2021-04-28 10:39 | Outpatient (REF) | payer SELFPAY ==
[2021-04-28 11:12] LABS: Binax Internal Control QC Valid; Binax Now Covid-19 Ag Negative (Negative)
== END 2021-04-28 10:40 | disposition home or self-care (01) ==
LOC: HO.LAB 10:39
PROVIDERS: Visit Provider Internal Medicine
DX: Z20.822 Contact with and (suspected) exposure to COVID-19 (principal)
CPT/HCPCS: C9803

== ENCOUNTER 2021-04-29 09:39 | Outpatient (REF) | payer SELFPAY ==
[2021-04-29 10:43] LABS: Appearance Urine CLEAR; Color Urine YELLOW; Glucose Urine UA NEG (NEG); Leukocyte Esterase Urine NEG (NEG); Nitrite Urine NEG (NEG); PH 5.5 (5.0-8.0); Specific Gravity - Urine 1.015 (1.005-1.025); Urine Blood TRACE (NEG); Urine Ketones NEG (NEG); Urine Protein NEG (NEG-TRACE)
[2021-04-29 11:07] LABS: Mucus Urine TRACE /LPF; RBC Urine 0 /HPF (0); Squamous Epithelial Cell Urine 1+ /LPF; WBC Urine 0-2 /HPF (0-4)
== END 2021-04-29 09:40 | disposition home or self-care (01) ==
LOC: HO.LAB 09:39
PROVIDERS: PCP Internal Medicine; Visit Provider Urology
DX: Z87.440 Personal history of urinary (tract) infections (principal)
CPT/HCPCS: 81001; 87086

== ENCOUNTER 2021-05-10 14:28 | Outpatient (REF) | payer OTHER, SELFPAY ==
[2021-05-10 14:51] LABS: COVID-19 Test Negative (Negative); IDNOW Serial# 16C4AD1C
== END 2021-05-10 14:29 | disposition home or self-care (01) ==
LOC: HO.LAB 14:28
PROVIDERS: PCP Internal Medicine; Visit Provider Internal Medicine
DX: Z20.822 Contact with and (suspected) exposure to COVID-19 (principal)
CPT/HCPCS: 87635; C9803

== ENCOUNTER 2021-07-03 12:23 | Emergency (ER) | payer SELFPAY ==
[2021-07-03 12:29] VITALS: BP 120/79; PULSE 87; RESP 18; TEMP 36.8; O2SAT 96; BMI 39.8
--- NOTE | 2021-07-03 12:39 | ED.GENADULT ---
HPI - General Adult General Chief complaint: Upper Respiratory Symptoms Stated complaint: flu like symptoms/body aches Time Seen by Provider: 07/03/21 12:39 Source: patient Mode of arrival: ambulatory Limitations: no limitations History of Present Illness HPI narrative: Patient is a 45 year old female presenting to the emergency department today with a cough and feeling generally unwell. Patient states that for the last few days, she has felt generally unwell. Patient states that she has had a cough and the cough medicine she's gotten in the past does not help. Patient denies any dizziness, lightheadedness, abdominal pain, nausea, vomiting, fever, chills, blurry vision, double vision, loss of vision, chest pain, difficulty breathing, shortness of breath, back pain, night sweats, pain with urination, increased urinary frequency, increased urinary urgency, blood in his urine or stool, syncope or a near syncopal episode, recent trauma or falls, bowel incontinence, bladder incontinence, bowel retention, bladder retention, or any other complaints at this time. Onset (ago): day(s) Relieving factors: none Exacerbating factors: none Associated symptoms: cough Treatments prior to arrival: none Related Data Home Medications Medication Instructions Recorded Confirmed ferrous sulfate 325 mg (65 mg 325 mg PO QAM 10/19/20 03/15/21 iron) tablet,delayed release levothyroxine 50 mcg tablet 75 mcg PO DAILY tab 10/19/20 03/15/21 Previous Rx's Medication Instructions Recorded methocarbamol 750 mg tablet 750 mg PO TID PRN #20 tab 08/14/20 hydrocortisone 2.5 % topical cream 1 appl TOPICAL BID PRN #28 g 09/20/20 nystatin 100,000 unit/mL oral 1 ml PO QID 7 Days #28 ml 10/19/20 suspension fluticasone 232 mcg-salmeterol 14 1 inh PO BID 30 Days #1 ea 03/15/21 mcg/actuation breath activated powdr (AirDuo RespiClick) fluticasone propionate 50 2 spray INTRANASAL DAILY 30 Days 03/16/21 mcg/actuation nasal #16 g spray,suspension (Children's Flonase Allergy Relief) Ventolin HFA 90 mcg/actuation 2 puff PO Q4-6H PRN #18 g NS 06/28/21 aerosol inhaler (albuterol sulfate) albuterol sulfate 2.5 mg (3 mL) INHALATION Q4-6H PRN 07/01/21 #90 ml albuterol sulfate 90 mcg/actuation 2 puff INHALATION Q4-6H PRN 30 07/01/21 aerosol inhaler (ProAir HFA) Days #8.5 g montelukast 10 mg tablet 10 mg PO DAILY #30 tab 07/01/21 Allergies Allergy/AdvReac Type Severity Reaction Status Date / Time doxycycline [DOXYCYCLINE] Allergy Intermediate ITCHY, Verified 03/15/21 15:42 itching, itching amoxicillin [Augmentin] Allergy Unknown itching Verified 03/15/21 15:42 azithromycin [From ZITHROMAX] Allergy Unknown HIVES Verified 03/15/21 15:42 ciprofloxacin [From CIPRO] Allergy Unknown ITCH Verified 03/15/21 15:42 clavulanic acid [Augmentin] Allergy Unknown itching Verified 03/15/21 15:42 mold [MOLD] Allergy Unknown STUFFY NOSE Verified 03/15/21 15:42 mushroom [MUSHROOM] Allergy Unknown DIARRHEA Verified 03/15/21 15:42 Yeast [YEAST] Allergy Unknown DIARRHEA Verified 03/15/21 15:42 Review of Systems Constitutional: Constitutional: Reports no additional constitutional complaints, Denies chills, Denies fever(s) and Denies night sweats Eyes: Eyes: Reports no additional eye complaints, Denies blurry vision, Denies change in vision, Denies diplopia, Denies eye discharge, Denies loss of vision and Denies eye pain ENT: Denies dizziness Cardiovascular: Cardiovascular: Reports no additional cardiovascular complaints, Denies chest pain, Denies lightheadedness, Denies Loss of Consciousness and Denies dyspnea Respiratory: Respiratory: Reports no additional respiratory complaints, Reports cough and Denies dyspnea Gastrointestinal: Gastrointestinal: Reports no additional gastrointestinal complaints, Denies abdominal pain, Denies melena, Denies hematochezia, Denies change in bowel habits and Denies change in stool character Genitourinary: Genitourinary: Denies hematuria, Denies urinary frequency, Denies dysuria, Denies urinary incontinence, Denies urinary hesitancy and Denies urinary urgency Musculoskeletal: Musculoskeletal: Reports no additional musculoskeletal complaints, Denies numbness and Denies tingling Neurologic: Denies dizziness, Denies loss of vision, Denies numbness and Denies tingling Psychiatric: Psychiatric: Reports no additional psychiatric complaints Endocrine: Endocrine: Reports no additional endocrine complaints Hematologic/Lymphatic: Hematologic/Lymphatic: Reports no additional hematologic/lymphatic complaints Allergic/Immunologic: Allergic/Immunologic: Reports no additional allergic/immunologic complaints PMFSH Past Medical History Attestation statement: The following information was validated with the patient. Source: old records reviewed Medical History Allergic rhinitis Asthma COVID-19 History of urinary reflux History of urinary tract infection Obesity Thrush Social History Social History Alcohol intake: never Advance Directives: No Advance Directives Information Provided: No Patient : No Physical Exam ED Vital Signs: Vital Signs - 24 hr 07/03/21 12:29 Temperature 98.2 F Pulse Rate 87 Respiratory Rate 18 Blood Pressure 120/79 Pulse Oximetry 96 BMI result Body Mass Index 39.8 Const General: cooperative, no acute distress, alert and awake Nutritional Appearance: well nourished Orientation/consciousness: patient oriented x3 Limitations: no limitations HENMT Head: Yes normal to inspection and Yes atraumatic Ears: hearing grossly normal bilaterally and external ears normal General nose exam: Normal external nose present, no nasal discharge noted and no epistaxis Face and sinus: Yes normal facial exam, No abrasion and No laceration Mouth: Normal oral and palatal mucosa present, no drooling and no muffled voice Eyes General: appearance normal, both eyes and all related structures Periorbital: periorbital findings normal Eyelids: Yes eyelids normal Conjunctivae: conjunctivae normal Pupils: Equal, round and reactive pupils present EOM: EOMs intact bilaterally Neck Neck: Yes normal visual inspection, Yes full ROM and Yes no lymphadenopathy Chest Chest palpation & inspection: normal inspection of the chest Resp Effort & Inspection: normal respiratory effort and able to speak in complete sentences Auscultation: clear to auscultation bilaterally Cardio Rate: regular rate Rhythm: regular rhythm GI Inspection: Yes normal to inspection Neuro General: patient oriented x3 and moves all extremities Cranial nerves: Yes Equal, round and reactive pupils present Cognition (Neuro): normal cognition Motor exam (neuro): 5/5 motor strength present throughout Sensory Exam: Normal double simultaneous stimulation for sensation Coordination: [id number] test normal Extrem General: Yes normal to inspection, Yes full ROM and Yes capillary refill normal Psych Appearance: grossly normal Mental Status: mental status grossly normal Affect: normal affect Attitude: cooperative Thought process: Normal thought process present Thought content: Normal thought content present Insight: Good insight present (Psych) Medical Decision Making MDM Narrative Medical decision making narrative: Patient is a 45 year old female presenting to the emergency department today with a cough and feeling generally unwell. Patient's physical exam was unremarkable. Patient's rapid COVID-19, Influenza, and Strep tests were negative. I explained my physical exam findings as well as all test results to the patient. I answered all questions asked by the patient. I stressed the importance of the patient taking her medication as prescribed. I stressed the importance of the patient following up with her primary care provider. I stressed the importance of the patient returning to the emergency department immediately if her symptoms were to worsen or if she were to develop any dizziness, shortness of breath, difficulty breathing, chest pain, blurry vision, loss of vision, nausea, vomiting, abdominal pain, fever, chills, back pain, or any other complaints. Patient verbalized agreement and understanding with this treatment plan and discharge. Differential Diagnosis Differential Diagnosis: URI, viral illness Medical Records Medical records reviewed: Yes I reviewed the patient's medical records. Lab Data Lab results reviewed: Yes I reviewed the patient's lab results. Labs: Lab Results 07/03/21 07/03/21 07/03/21 Range/Units 12:47 12:47 12:47 COVID-19 (ROMA) Negative (Negative) COVID-19 Clin Com See Note Influenza Type A (LACHELLE) Negative (Negative) Influenza Type B (LACHELLE) Negative (Negative) Influenza A & B Note See Note S. pyogenes GrpA LACHELLE Negative (Negative) Discharge Plan Discharge Clinical Impression: Upper respiratory infection Patient Disposition: Home, Self-Care Instructions: Upper Respiratory Infection (DC) Additional Instructions: Follow up with your primary care provider. Return to the emergency department immediately if your symptoms worsen or if you develop any dizziness, shortness of breath, difficulty breathing, chest pain, blurry vision, loss of vision, nausea, vomiting, abdominal pain, fever, chills, back pain, or any other complaints. Prescriptions: No Action fluticasone propionate [Children's Flonase Allergy Rlf] 50 mcg/actuation spray,suspension 2 spray intranasal DAILY 30 Days Qty: 16 3RF Rx Instructions: administer into each nostril albuterol sulfate [Ventolin HFA] 90 mcg/actuation HFA aerosol inhaler 2 puff PO Q4-6H PRN (Reason: for wheezing) Qty: 18 0RF albuterol sulfate 2.5 mg /3 mL (0.083 %) solution for nebulization 2.5 mg inhalation Q4-6H PRN (Reason: for wheezing) Qty: 90 3RF montelukast 10 mg tablet 10 mg PO DAILY Qty: 30 1RF albuterol sulfate [ProAir HFA] 90 mcg/actuation HFA aerosol inhaler 2 puff inhalation Q4-6H PRN (Reason: shortness of breath or wheezing) 30 Days Qty: 8.5 3RF methocarbamol 750 mg tablet 750 mg PO TID PRN (Reason: pain (scale score 4-6)) Qty: 20 0RF hydrocortisone 2.5 % cream 1 appl topical BID PRN (Reason: itching) Qty: 28 0RF levothyroxine 50 mcg tablet 75 mcg PO DAILY 0RF ferrous sulfate 325 mg (65 mg iron) tablet,delayed release (DR/EC) 325 mg PO QAM 0RF nystatin 100,000 unit/mL suspension 1 ml PO QID 7 Days Qty: 28 0RF Rx Instructions: swish and swallow fluticasone propion-salmeterol [AirDuo RespiClick] 232-14 mcg/actuation aerosol powdr breath activated 1 inh PO BID 30 Days Qty: 1 5RF Referrals: Pedro Walden MD [Primary Care Provider] - 2 days Interventions: ED Discharge Assessment Last Done: 07/03/21 13:57 Discharge Date/Time: 07/03/21 13:57 Print Language: Ethiopian
[2021-07-03 13:17] LABS: COVID-19 Test Negative (Negative); IDNOW Serial# 16C4AD1C
[2021-07-03 13:19] LABS: Strep A Nucleic Acid Negative (Negative)
[2021-07-03 13:29] LABS: IDNOW Serial# 08D9AD1C; Influenza A Negative (Negative); Influenza B2 Negative (Negative)
== END 2021-07-03 13:57 | disposition home or self-care (01) ==
PROVIDERS: Physician Assistant Medical; Emergency Provider Emergency Medicine; PCP Internal Medicine
DX: J06.9 Acute upper respiratory infection, unspecified (principal); Z20.822 Contact with and (suspected) exposure to COVID-19; J45.909 Unspecified asthma, uncomplicated
CPT/HCPCS: 87502; 87635; 87651; 99283

== ENCOUNTER 2021-07-10 09:54 | Emergency (ER) | payer SELFPAY ==
[2021-07-10 09:57] VITALS: BP 135/81; PULSE 78; RESP 16; TEMP 36.1; O2SAT 96; BMI 39.8
--- NOTE | 2021-07-10 10:05 | ED.URI ---
HPI - URI/Sore Throat General Chief Complaint: Upper Respiratory Symptoms Stated Complaint: SOB/Cough/Ear pain Time Seen by Provider: 07/10/21 10:05 Source: patient Mode of arrival: ambulatory Limitations: no limitations History of Present Illness HPI Narrative: Patient is a 45 year old female presenting to the emergency department today with a cough and feeling generally unwell. Patient states that she was evaluated here 1 week ago and advised it was a viral illness and to wait an additional week before beginning any sort of antibiotic course. Patient states that she was starting to get better and now it has gotten worse. Patient denies any dizziness, lightheadedness, abdominal pain, nausea, vomiting, fever, chills, blurry vision, double vision, loss of vision, chest pain, difficulty breathing, shortness of breath, back pain, night sweats, pain with urination, increased urinary frequency, increased urinary urgency, blood in her urine or stool, syncope or a near syncopal episode, recent trauma or falls, bowel incontinence, bladder incontinence, bowel retention, bladder retention, or any other complaints at this time. MD elicited complaint: cough Treatments prior to arrival: none Related Data Home Medications Medication Instructions Recorded Confirmed ferrous sulfate 325 mg (65 mg 325 mg PO QAM 10/19/20 03/15/21 iron) tablet,delayed release levothyroxine 50 mcg tablet 75 mcg PO DAILY tab 10/19/20 03/15/21 Previous Rx's Medication Instructions Recorded methocarbamol 750 mg tablet 750 mg PO TID PRN #20 tab 08/14/20 hydrocortisone 2.5 % topical cream 1 appl TOPICAL BID PRN #28 g 09/20/20 nystatin 100,000 unit/mL oral 1 ml PO QID 7 Days #28 ml 10/19/20 suspension fluticasone 232 mcg-salmeterol 14 1 inh PO BID 30 Days #1 ea 03/15/21 mcg/actuation breath activated powdr (AirDuo RespiClick) fluticasone propionate 50 2 spray INTRANASAL DAILY 30 Days 03/16/21 mcg/actuation nasal #16 g spray,suspension (Children's Flonase Allergy Relief) Ventolin HFA 90 mcg/actuation 2 puff PO Q4-6H PRN #18 g NS 06/28/21 aerosol inhaler (albuterol sulfate) albuterol sulfate 2.5 mg (3 mL) INHALATION Q4-6H PRN 07/01/21 #90 ml albuterol sulfate 90 mcg/actuation 2 puff INHALATION Q4-6H PRN 30 07/01/21 aerosol inhaler (ProAir HFA) Days #8.5 g montelukast 10 mg tablet 10 mg PO DAILY #30 tab 07/01/21 albuterol sulfate 90 mcg/actuation 2 inh INHALATION Q6-8H PRN 7 Days 07/10/21 aerosol inhaler (ProAir HFA) #6.7 g levofloxacin 750 mg tablet 750 mg PO DAILY 5 Days #5 tab 07/10/21 prednisone 20 mg tablet 20 mg PO DAILY 12 Days #26 tab 07/10/21 Allergies Allergy/AdvReac Type Severity Reaction Status Date / Time doxycycline [DOXYCYCLINE] Allergy Intermediate ITCHY, Verified 03/15/21 15:42 itching, itching amoxicillin [Augmentin] Allergy Unknown itching Verified 03/15/21 15:42 azithromycin [From ZITHROMAX] Allergy Unknown HIVES Verified 03/15/21 15:42 ciprofloxacin [From CIPRO] Allergy Unknown ITCH Verified 03/15/21 15:42 clavulanic acid [Augmentin] Allergy Unknown itching Verified 03/15/21 15:42 mold [MOLD] Allergy Unknown STUFFY NOSE Verified 03/15/21 15:42 mushroom [MUSHROOM] Allergy Unknown DIARRHEA Verified 03/15/21 15:42 Yeast [YEAST] Allergy Unknown DIARRHEA Verified 03/15/21 15:42 Review of Systems Constitutional: Constitutional: Reports no additional constitutional complaints, Denies chills, Denies fever(s) and Denies night sweats Eyes: Eyes: Reports no additional eye complaints, Denies blurry vision, Denies change in vision, Denies diplopia, Denies eye discharge, Denies loss of vision and Denies eye pain ENT: Denies dizziness Cardiovascular: Cardiovascular: Reports no additional cardiovascular complaints, Denies chest pain, Denies lightheadedness, Denies Loss of Consciousness and Denies dyspnea Respiratory: Respiratory: Reports no additional respiratory complaints, Reports cough and Denies dyspnea Gastrointestinal: Gastrointestinal: Reports no additional gastrointestinal complaints, Denies abdominal pain, Denies melena, Denies hematochezia, Denies change in bowel habits and Denies change in stool character Genitourinary: Genitourinary: Denies hematuria, Denies urinary frequency, Denies dysuria, Denies urinary incontinence, Denies urinary hesitancy and Denies urinary urgency Musculoskeletal: Musculoskeletal: Reports no additional musculoskeletal complaints, Denies numbness and Denies tingling Neurologic: Denies dizziness, Denies loss of vision, Denies numbness and Denies tingling Psychiatric: Psychiatric: Reports no additional psychiatric complaints Endocrine: Endocrine: Reports no additional endocrine complaints Hematologic/Lymphatic: Hematologic/Lymphatic: Reports no additional hematologic/lymphatic complaints Allergic/Immunologic: Allergic/Immunologic: Reports no additional allergic/immunologic complaints [facility] Past Medical History Attestation statement: The following information was validated with the patient. Source: old records reviewed Medical History Allergic rhinitis Asthma COVID-19 History of urinary reflux History of urinary tract infection Obesity Thrush Social History Social History Alcohol intake: never Advance Directives: No Advance Directives Information Provided: No Physical Exam Vital Signs: Vital Signs: Last Vital Signs Temp 96.9 F 07/10/21 09:57 Pulse 78 07/10/21 09:57 Resp 16 07/10/21 09:57 BP 135/81 07/10/21 09:57 Pulse Ox 96 07/10/21 09:57 BMI result Body Mass Index 39.8 Const: General: cooperative, no acute distress, alert and awake Nutritional Appearance: well nourished Orientation/consciousness: patient oriented x3 Limitations: no limitations HEENT: Head: Yes normal to inspection and Yes atraumatic Ears: hearing grossly normal bilaterally and external ears normal General nose exam: Normal external nose present, no nasal discharge noted and no epistaxis Face and sinus: Yes normal facial exam, No abrasion and No laceration Mouth: Normal oral and palatal mucosa present, no drooling and no muffled voice Eyes: General: appearance normal, both eyes and all related structures Periorbital: periorbital findings normal Eyelids: Yes eyelids normal Conjunctivae: conjunctivae normal Pupils: Equal, round and reactive pupils present EOM: EOMs intact bilaterally Neck: Neck: Yes normal visual inspection, Yes full ROM and Yes no lymphadenopathy Chest: Chest palpation & inspection: normal inspection of the chest Resp: Effort & Inspection: normal respiratory effort and able to speak in complete sentences Auscultation: clear to auscultation bilaterally Cardio: Rate: regular rate Rhythm: regular rhythm GI: Inspection: Yes normal to inspection Neuro: General: patient oriented x3 and moves all extremities Cranial nerves: Yes Equal, round and reactive pupils present Cognition (Neuro): normal cognition Motor exam (neuro): 5/5 motor strength present throughout Sensory Exam: Normal double simultaneous stimulation for sensation Coordination: [id number] test normal Extrem: General: Yes normal to inspection, Yes full ROM and Yes capillary refill normal Psych: Appearance: grossly normal Mental Status: mental status grossly normal Affect: normal affect Attitude: cooperative Thought process: Normal thought process present Thought content: Normal thought content present Insight: Good insight present (Psych) MDM - URI/Sore Throat MDM Narrative Medical decision making narrative: Patient is a 45 year old female presenting to the emergency department today with a cough and feeling generally unwell. Patient's physical exam was unremarkable. I explained my physical exam findings to the patient. I answered all questions asked by the patient. Together we discussed the risks vs. benefits of COVID-19 testing, influenza testing, and imaging. At this time, the patient stated she would rather be treated as though the infection is bacterial due to the length of time she has had it. Patient stated that she has had levoquin before and would prefer that antibiotic as it works best for her and she has had issues with other ABX before. I stressed the importance of the patient taking her medication as prescribed. I stressed the importance of the patient following up with her primary care provider. I stressed the importance of the patient returning to the emergency department immediately if her symptoms were to worsen or if she were to develop any dizziness, shortness of breath, difficulty breathing, chest pain, blurry vision, loss of vision, nausea, vomiting, abdominal pain, fever, chills, back pain, or any other complaints. Patient verbalized agreement and understanding with this treatment plan and discharge. Differential Diagnosis Differential diagnosis: Likely upper respiratory infection and bronchitis Medical Records Attestation: I reviewed the patient's medical records. Discharge Plan Discharge Clinical Impression: Bronchitis, Upper respiratory disease Patient Disposition: Home, Self-Care Instructions: Acute Bronchitis (ED) Additional Instructions: Follow up with your primary care provider. Return to the emergency department immediately if your symptoms worsen or if you develop any dizziness, shortness of breath, difficulty breathing, chest pain, blurry vision, loss of vision, nausea, vomiting, abdominal pain, fever, chills, back pain, or any other complaints. Prescriptions: New levofloxacin 750 mg tablet 750 mg PO DAILY 5 Days Qty: 5 0RF albuterol sulfate [ProAir HFA] 90 mcg/actuation HFA aerosol inhaler 2 inh inhalation Q6-8H PRN (Reason: shortness of breath or wheezing) 7 Days Qty: 6.7 0RF prednisone 20 mg tablet 20 mg PO DAILY 12 Days Qty: 26 0RF Rx Instructions: Take 3 tablets for 5 days THEN; Take 2 tablets for 4 days THEN; Take 1 tablet for 3 days No Action fluticasone propionate [Children's Flonase Allergy Rlf] 50 mcg/actuation spray,suspension 2 spray intranasal DAILY 30 Days Qty: 16 3RF Rx Instructions: administer into each nostril albuterol sulfate [Ventolin HFA] 90 mcg/actuation HFA aerosol inhaler 2 puff PO Q4-6H PRN (Reason: for wheezing) Qty: 18 0RF albuterol sulfate 2.5 mg /3 mL (0.083 %) solution for nebulization 2.5 mg inhalation Q4-6H PRN (Reason: for wheezing) Qty: 90 3RF montelukast 10 mg tablet 10 mg PO DAILY Qty: 30 1RF albuterol sulfate [ProAir HFA] 90 mcg/actuation HFA aerosol inhaler 2 puff inhalation Q4-6H PRN (Reason: shortness of breath or wheezing) 30 Days Qty: 8.5 3RF methocarbamol 750 mg tablet 750 mg PO TID PRN (Reason: pain (scale score 4-6)) Qty: 20 0RF hydrocortisone 2.5 % cream 1 appl topical BID PRN (Reason: itching) Qty: 28 0RF levothyroxine 50 mcg tablet 75 mcg PO DAILY 0RF ferrous sulfate 325 mg (65 mg iron) tablet,delayed release (DR/EC) 325 mg PO QAM 0RF nystatin 100,000 unit/mL suspension 1 ml PO QID 7 Days Qty: 28 0RF Rx Instructions: swish and swallow fluticasone propion-salmeterol [AirDuo RespiClick] 232-14 mcg/actuation aerosol powdr breath activated 1 inh PO BID 30 Days Qty: 1 5RF Referrals: Pedro Walden MD [Primary Care Provider] - (Follow up with your PCP as needed. ) Interventions: ED Discharge Assessment Last Done: 07/10/21 10:19 Discharge Date/Time: 07/10/21 10:20 Print Language: Liberian
== END 2021-07-10 10:20 | disposition home or self-care (01) ==
PROVIDERS: Emergency Provider Emergency Medicine; PCP Internal Medicine
DX: J40 Bronchitis, not specified as acute or chronic (principal); J06.9 Acute upper respiratory infection, unspecified
CPT/HCPCS: 99283

== ENCOUNTER 2021-09-06 15:39 | Emergency (ER) | payer OTHER, SELFPAY ==
[2021-09-06 15:58] VITALS: BP 152/90; PULSE 88; RESP 20; TEMP 36.8; O2SAT 98; BMI 39.8
[2021-09-06 16:27] LABS: COVID-19 Test Negative (Negative); IDNOW Serial# 16C4AD1C; Influenza A Negative (Negative); Influenza B2 Negative (Negative)
--- NOTE | 2021-09-06 18:01 | ED.URI ---
HPI - URI/Sore Throat General Chief Complaint: Headache Stated Complaint: ? Bronchitis Sinus Infection Time Seen by Provider: 09/06/21 17:52 Source: patient Mode of arrival: ambulatory Limitations: no limitations History of Present Illness HPI Narrative: Patient presents emergency department with concerns of a sinus infection. She states for 1 week she is developing sinus pressure, congestion, and headache that has become progressively worse. Has a scratchy throat but reports postnasal drip. She took an at home COVID-19 test which was negative. In addition, she reports rash to her tongue, secondary to the use of her inhalers despite ribs in her mouth, reports that she ran out of nystatin and is requesting refill. Denies fevers, chills, headache, vision changes, neck pain, neck stiffness, chest pain, palpitations, shortness of breath, difficulty breathing, nausea, vomiting, abdominal pain. Related Data Home Medications Medication Instructions Recorded Confirmed ferrous sulfate 325 mg (65 mg 325 mg PO QAM 10/19/20 03/15/21 iron) tablet,delayed release levothyroxine 50 mcg tablet 75 mcg PO DAILY tab 10/19/20 03/15/21 Previous Rx's Medication Instructions Recorded methocarbamol 750 mg tablet 750 mg PO TID PRN #20 tab 08/14/20 hydrocortisone 2.5 % topical cream 1 appl TOPICAL BID PRN #28 g 09/20/20 nystatin 100,000 unit/mL oral 1 ml PO QID 7 Days #28 ml 10/19/20 suspension fluticasone 232 mcg-salmeterol 14 1 inh PO BID 30 Days #1 ea 03/15/21 mcg/actuation breath activated powdr (AirDuo RespiClick) fluticasone propionate 50 2 spray INTRANASAL DAILY 30 Days 03/16/21 mcg/actuation nasal #16 g spray,suspension (Children's Flonase Allergy Relief) Ventolin HFA 90 mcg/actuation 2 puff PO Q4-6H PRN #18 g NS 06/28/21 aerosol inhaler (albuterol sulfate) albuterol sulfate 90 mcg/actuation 2 puff INHALATION Q4-6H PRN 30 07/01/21 aerosol inhaler (ProAir HFA) Days #8.5 g albuterol sulfate 90 mcg/actuation 2 inh INHALATION Q6-8H PRN 7 Days 07/10/21 aerosol inhaler (ProAir HFA) #6.7 g levofloxacin 750 mg tablet 750 mg PO DAILY 5 Days #5 tab 07/10/21 prednisone 20 mg tablet 20 mg PO DAILY 12 Days #26 tab 07/10/21 montelukast 10 mg tablet 10 mg PO DAILY #30 tab 07/27/21 albuterol sulfate 2.5 mg (3 mL) INHALATION Q4-6H PRN 08/13/21 #90 ml levofloxacin 750 mg tablet 750 mg PO DAILY 5 Days #5 tab 09/06/21 nystatin 100,000 unit/mL oral 1 ml PO DAILY #473 ml 09/06/21 suspension Allergies Allergy/AdvReac Type Severity Reaction Status Date / Time doxycycline [DOXYCYCLINE] Allergy Intermediate ITCHY, Verified 03/15/21 15:42 itching, itching amoxicillin [Augmentin] Allergy Unknown itching Verified 03/15/21 15:42 azithromycin [From ZITHROMAX] Allergy Unknown HIVES Verified 03/15/21 15:42 ciprofloxacin [From CIPRO] Allergy Unknown ITCH Verified 03/15/21 15:42 clavulanic acid [Augmentin] Allergy Unknown itching Verified 03/15/21 15:42 mold [MOLD] Allergy Unknown STUFFY NOSE Verified 03/15/21 15:42 mushroom [MUSHROOM] Allergy Unknown DIARRHEA Verified 03/15/21 15:42 Yeast [YEAST] Allergy Unknown DIARRHEA Verified 03/15/21 15:42 Review of Systems Review of Systems: Constitutional: No fever. No chills. No weakness. No fatigue. ENT/ Mouth: No Ear Pain, positive Nasal Congestion, positive sore throat, No Rhinorrhea, No Swallowing Difficulty. Positive discomfort to tongue Skin: No rash or itching. Cardiovascular: No chest pain. No palpitations. Respiratory: No shortness of breath. Positive cough. No sputum production. Gastrointestinal: No nausea. No vomiting. No diarrhea. No abdominal pain. Genitourinary: No burning micturition. No urinary frequency. Neurologic: No headache. No dizziness. No syncope. No numbness or tingling in the extremities. Musculoskeletal: No muscle pain. No back pain. No joint pain or stiffness. Yes all other systems are reviewed and are negative PMFSH Past Medical History Attestation statement: The following information was validated with the patient. Source: old records reviewed Medical History Allergic rhinitis Asthma COVID-19 History of urinary reflux History of urinary tract infection Obesity Thrush Social History Social History Alcohol intake: never Advance Directives: Yes Advance Directives Information Provided: Yes Advance Directives on File: No Physical Exam Vital Signs: Vital Signs: Last Vital Signs Temp 98.2 F 09/06/21 15:58 Pulse 88 09/06/21 15:58 Resp 20 09/06/21 15:58 BP 152/90 H 09/06/21 15:58 Pulse Ox 98 09/06/21 15:58 BMI result Body Mass Index 39.8 Vital signs have been reviewed as normal and appeared to be correct. Blood pressure normal.? Heart rate normal.? Respiration rate normal. Temperature normal.? Oxygen saturation normal. Appearance: Alert.?Oriented to person, place and time. No acute distress.?Normal affect. Eyes: Pupils equal, round and reactive to light.? ENT: TM normal bilaterally. Pharynx normal.??Uvula midline, no tonsillar adenopathy. White plaque to tongue. Tenderness over the maxillary sinuses. Neck: Normal inspection.? Neck supple.??No cervical adenopathy CVS: Heart sounds normal. Normal heart rate and rhythm.? Pulses normal.?? Respiratory: No respiratory distress.? Lung sounds clear to auscultation bilaterally?? Abdomen: Soft and non-tender. Normoactive bowel sounds. Skin: Skin warm and dry.? Normal skin color.? ? Extremities: No lower extremity edema.? Neuro: Moves all extremities spontaneously. Sensation intact bilaterally. No motor deficits. Ambulates with normal steady gait. Course Course Course Narrative: Patient is a 45-year-old female with past medical history of allergic rhinitis, asthma, thrush presenting for evaluation of upper respiratory symptoms, and sinus pain/pressure. COVID-19 testing negative. Influenza testing negative. At this time history and physical exam not consistent with ACS/PE/pneumonia. Well-appearing, nontoxic, afebrile, no tachycardia or tachypnea/hypoxia. Speaking clear full sentences, ambulatory with steady gait. Symptoms consistent with acute maxillary sinusitis, and oral thrush. Discussed conservative treatment including rest, hydration, Tylenol/ibuprofen as needed for fever and body aches, saline nasal spray, humidifier, [id number] cold medication. Given patient's medication allergies, she has taken Levaquin in the past without complication, will treat sinusitis with Levaquin x5 days, nystatin oral suspension for thrush. Advised to follow-up with primary care provider as needed, discussed reasons to return back to the emergency department. All questions were answered. Patient discharged home in stable condition. MDM - URI/Sore Throat Medical Records Attestation: I reviewed the patient's medical records. Lab Data Attestation: I reviewed the patient's lab results. Labs: Lab Results 09/06/21 09/06/21 Range/Units 16:04 16:04 COVID-19 (ROMA) Negative (Negative) COVID-19 Clin Com See Note Influenza Type A (LACHELLE) Negative (Negative) Influenza Type B (LACHELLE) Negative (Negative) Influenza A & B Note See Note Discharge Plan Discharge Clinical Impression: Acute maxillary sinusitis, Candidiasis of mouth Patient Disposition: Home, Self-Care Instructions: Sinusitis (ED), Oral Candidiasis (ED) Additional Instructions: Prescriptions were sent to your pharmacy, nystatin for thrush, Levaquin for sinus infection. Please remain well hydrated, drink plenty of fluids and rest as much as possible. Additional [id number] medications such as saline nasal spray, Flonase, Mucinex may assist in improvement congestion and phlegm expectoration. Tylenol/ibuprofen may be used as needed for headache/pain. Please return to the emergency department any new or worsening symptoms or concerns. Follow-up with the primary care provider as needed. Prescriptions: New levofloxacin 750 mg tablet 750 mg PO DAILY 5 Days Qty: 5 0RF nystatin 100,000 unit/mL suspension 1 ml PO DAILY Qty: 473 0RF Rx Instructions: swish and swallow No Action fluticasone propionate [Children's Flonase Allergy Rlf] 50 mcg/actuation spray,suspension 2 spray intranasal DAILY 30 Days Qty: 16 3RF Rx Instructions: administer into each nostril albuterol sulfate [Ventolin HFA] 90 mcg/actuation HFA aerosol inhaler 2 puff PO Q4-6H PRN (Reason: for wheezing) Qty: 18 0RF albuterol sulfate [ProAir HFA] 90 mcg/actuation HFA aerosol inhaler 2 puff inhalation Q4-6H PRN (Reason: shortness of breath or wheezing) 30 Days Qty: 8.5 3RF montelukast 10 mg tablet 10 mg PO DAILY Qty: 30 1RF albuterol sulfate 2.5 mg /3 mL (0.083 %) solution for nebulization 2.5 mg inhalation Q4-6H PRN (Reason: for wheezing) Qty: 90 2RF methocarbamol 750 mg tablet 750 mg PO TID PRN (Reason: pain (scale score 4-6)) Qty: 20 0RF hydrocortisone 2.5 % cream 1 appl topical BID PRN (Reason: itching) Qty: 28 0RF levofloxacin 750 mg tablet 750 mg PO DAILY 5 Days Qty: 5 0RF albuterol sulfate [ProAir HFA] 90 mcg/actuation HFA aerosol inhaler 2 inh inhalation Q6-8H PRN (Reason: shortness of breath or wheezing) 7 Days Qty: 6.7 0RF prednisone 20 mg tablet 20 mg PO DAILY 12 Days Qty: 26 0RF Rx Instructions: Take 3 tablets for 5 days THEN; Take 2 tablets for 4 days THEN; Take 1 tablet for 3 days levothyroxine 50 mcg tablet 75 mcg PO DAILY 0RF ferrous sulfate 325 mg (65 mg iron) tablet,delayed release (DR/EC) 325 mg PO QAM 0RF nystatin 100,000 unit/mL suspension 1 ml PO QID 7 Days Qty: 28 0RF Rx Instructions: swish and swallow fluticasone propion-salmeterol [AirDuo RespiClick] 232-14 mcg/actuation aerosol powdr breath activated 1 inh PO BID 30 Days Qty: 1 5RF
== END 2021-09-06 18:55 | disposition home or self-care (01) ==
PROVIDERS: Emergency Provider Emergency Medicine; PCP Internal Medicine
DX: J01.00 Acute maxillary sinusitis, unspecified (principal); B37.0 Candidal stomatitis; Z20.822 Contact with and (suspected) exposure to COVID-19
CPT/HCPCS: 87502; 87635; 99283

== ENCOUNTER 2021-09-16 16:02 | Outpatient (REF) | payer OTHER, SELFPAY ==
[2021-09-16 16:56] LABS: Alanine Aminotransferase 22 U/L (0-31); Albumin Level 4.1 g/dL (3.5-5.0); Alkaline Phosphatase 91 U/L (39-117); Aspartate Amino Transferase 18 U/L (5-31); Bilirubin Direct 0.2 mg/dL (0.0-0.5); Bilirubin Total 0.5 mg/dL (0.0-1.0); Total Protein 6.8 g/dL (6.5-8.0)
== END 2021-09-16 16:03 | disposition home or self-care (01) ==
LOC: HO.LAB 16:02
PROVIDERS: PCP Internal Medicine; Visit Provider Podiatrist
DX: B35.1 Tinea unguium (principal)
CPT/HCPCS: 36415; 80076

== ENCOUNTER → 2021-09-20 14:30 | Outpatient (BNVA) | payer OTHER, SELFPAY | PROVIDERS: PCP Internal Medicine; Visit Provider Internal Medicine | DX: J45.909 Unspecified asthma, uncomplicated (principal); J30.9 Allergic rhinitis, unspecified; E66.9 Obesity, unspecified; Z68.41 Body mass index [BMI] 40.0-44.9, adult; Z79.899 Other long term (current) drug therapy | CPT/HCPCS: 99212 ==

== ENCOUNTER 2021-11-02 16:24 | Inpatient (IN) | payer OTHER, SELFPAY ==
--- NOTE | ~2021-11-02 | US_ITS ---
EXAMINATION: US RETROPERITONEAL LIMITED (RENAL ONLY) CLINICAL INFORMATION: Pyelonephritis. COMPARISON: Ultrasound 12/22/2019 TECHNIQUE: Routine retroperitoneal imaging of kidneys was performed. FINDINGS: RIGHT KIDNEY: 10.4 x 4.3 x 4.4 cm (SAG x AP x TRV). The kidney is normal in size, contour, and echogenicity. Renal cortical thickness is normal. No calculi or focal parenchymal lesions. There is an echogenic calcification in the midpole compression small calcified vessel. There is no acoustic shadowing. No hydronephrosis. LEFT KIDNEY: 13.1 x 6.0 x 5.6 cm (SAG x AP x TRV). The kidney is normal in size, contour, and echogenicity except for mild heterogeneous texture lateral cortex. Renal cortical thickness is normal. No calculi or focal parenchymal lesions. There are clusters of cortical calcification in midpole and lower pole without any acoustic shadowing. They measure 0.6 x 0.2 x 0.5 cm. Incidental finding of a hypertrophied column of between in midpole. Nonspecific trace fluid surrounding the upper pole left kidney US/US renal BI IMPRESSION: Non shadowing calcifications in both kidneys without caliectasis or hydronephrosis. The left kidney is minimally larger compared to right kidney. Nonspecific trace fluid anterior to upper pole left kidney. Heterogeneous appearing lateral cortex left kidney likely represents edema secondary to pyelonephritis.
[2021-11-02 18:40] VITALS: BP 144/80; BP 186/99; PULSE 112; PULSE 113; RESP 18; TEMP 37.7; O2SAT 97; O2SAT 98; BMI 56.7
[2021-11-02 18:58] LABS: Basophils Percent Auto 0.1 % (0-2); Hematocrit 31.8 % (37.0-47.0); Imm Gran Abs Auto 0.17 X10*3/uL (0.00-0.03); Imm Gran Pct Auto 0.8 % (0.0-0.4); Lymphocytes Absolute Auto 0.8 X10*3/uL (1.2-4.9); Lymphocytes Percent Auto 3.5 % (20-40); MANUAL DIFF FLAG SCAN; Mean Corpuscular HGB Conc 31.4 g/dl (31.0-35.0); Mean Corpuscular Hemoglobin 23.1 pg (27.0-33.0); Mean Corpuscular Volume 73.4 fL (80.0-98.0); Mean Platelet Volume 10.3 fL (9.4-12.3); Monocytes Absolute Auto 2.1 X10*3/uL (0.1-1.2); Monocytes Percent Auto 9.6 % (2-11); Neutrophils Absolute Auto 18.9 x10*3/uL (2.0-8.3); Platelet Count 266 X10*3/uL (160-400); Red Blood Count 4.33 X10*6/uL (4.20-5.50); SCAN SMEAR FLAG 1; White Blood Count 21.9 X10*3/uL (4.8-10.8)
[2021-11-02 19:21] LABS: SLIDE REVIEW VERIFIED
[2021-11-02 19:23] LABS: Alanine Aminotransferase 18 U/L (0-31); Albumin Level 4.1 g/dL (3.5-5.0); Alkaline Phosphatase 91 U/L (39-117); Anion Gap 16 (12-20); Aspartate Amino Transferase 15 U/L (5-31); Bilirubin Total 0.8 mg/dL (0.0-1.0); Blood Urea Nitrogen 10 mg/dL (9-16); Carbon Dioxide 22 mmol/L (22-29); Chloride 99 mmol/L (96-108); Creatinine Clr Calc Pharmacy 86.2; Estimated Glomerular Filt Rate 51; Glucose Random 131 mg/dL (60-115); Sodium 133 mmol/L (135-145)
[2021-11-02 20:14] VITALS: BP 133/74; PULSE 115; RESP 16; TEMP 39.2; O2SAT 96
--- NOTE | 2021-11-02 20:15 | ED_ITS ---
HPI - General Adult General Chief complaint: General Medical Stated complaint: fever Time Seen by Provider: 11/02/21 20:00 Source: patient Mode of arrival: ambulatory Limitations: no limitations History of Present Illness HPI narrative: Patient comes to emergency room complaining of fevers, general body aches, urin hetal frequency, and low-grade temperature of less than 100.1. Denies URI symptoms, no abdominal pain Related Data Home Medications Medication Instructions Recorded Confirmed ferrous sulfate 325 mg (65 mg 325 mg PO QAM 10/19/20 03/15/21 iron) tablet,delayed release levothyroxine 50 mcg tablet 75 mcg PO DAILY 10/19/20 03/15/21 Previous Rx's Medication Instructions Recorded methocarbamol 750 mg tablet 750 mg PO TID PRN pain (scale 08/14/20 score 4-6) #20 tabs hydrocortisone 2.5 % topical cream 1 appl topical BID PRN itching #28 09/20/20 grams fluticasone 232 mcg-salmeterol 14 1 inh PO BID aSTHMA 30 days #1 ea 03/15/21 mcg/actuation breath activated powdr (AirDuo RespiClick) fluticasone propionate 50 2 spray intranasal DAILY 30 days 03/16/21 mcg/actuation nasal #16 grams spray,suspension (Children's Flonase Allergy Relief) albuterol sulfate 90 mcg/actuation 2 inh inhalation Q6-8H PRN 07/10/21 aerosol inhaler (ProAir HFA) shortness of breath or wheezing 7 days #6.7 grams montelukast 10 mg tablet 10 mg PO DAILY #30 tabs 07/27/21 albuterol sulfate 2.5 mg/3 mL 2.5 mg (3 mL) inhalation Q4-6H PRN 08/13/21 (0.083 %) solution for nebulization for wheezing #90 mL nystatin 100,000 unit/mL oral 1 ml PO DAILY #473 mL 09/06/21 suspension Allergies Allergy/AdvReac Type Severity Reaction Status Date / Time doxycycline [DOXYCYCLINE] Allergy Intermediate ITCHY, Verified 11/02/21 18:40 itching, itching amoxicillin [Augmentin] Allergy Unknown itching Verified 11/02/21 18:40 azithromycin [From ZITHROMAX] Allergy Unknown HIVES Verified 11/02/21 18:40 ciprofloxacin [From CIPRO] Allergy Unknown ITCH Verified 11/02/21 18:40 clavulanic acid [Augmentin] Allergy Unknown itching Verified 11/02/21 18:40 mold [MOLD] Allergy Unknown STUFFY NOSE Verified 11/02/21 18:40 mushroom [MUSHROOM] Allergy Unknown DIARRHEA Verified 11/02/21 18:40 Yeast [YEAST] Allergy Unknown DIARRHEA Verified 11/02/21 18:40 Review of Systems Review of Systems: Constitutional : No Weight loss, laying of fever and chills, No Night Sweats, No Fatigue, No Malaise ENT/Mouth : No Hearing loss, No Ear Pain, No Nasal Congestion, No Sinus Pain, No Hoarseness, No sore throat, No Rhinorrhea, No Swallowing Difficulty Eyes: No Eye Pain, No Swelling, No Redness, No Foreign Body, No Discharge, No Vision Changes Cardiovascular : No Chest Pain, No SOB, No Dyspnea on Exertion, No Orthopnea, No Edema, No Palpitations Respiratory : No Cough, No Sputum, No Wheezing, No Smoke Exposure, No Dyspnea Gastrointestinal : No Nausea, No Vomiting, No Diarrhea, No Constipation, No abdominal Pain, No Hematochezia, No Melena Genitourinary : Complaining of mild dysuria and dark color urine, No Urinary Frequency, No Hematuria, No Urinary Incontinence, No Urgency, No Flank Pain, No Urinary Flow Changes, No Hesitancy Musculoskeletal : No joint pain, No Myalgias, No Joint Swelling Skin : No Skin Lesions, No rash Neuro : No Weakness, No Numbness, No Paresthesias, No Loss of Consciousness, No Dizziness, No Headache Psych : No Anxiety/Panic, No Depression, No SI/HI/AH/VH, No Social Issues, Heme/Lymph: No Bruising, No Bleeding,No Lymphadenopathy Endocrine : No Polyuria, No Polydipsia, No Temperature Intolerance PMF Past Medical History Medical History Allergic rhinitis Asthma COVID-19 History of urinary reflux History of urinary tract infection Obesity Thrush Social History Social History Alcohol intake: never Patient Tobacco Use Status: Never used Tobacco Use of substances other than those prescribed or required for medical reasons: No Advance Directives: No Advance Directives Information Provided: No Patient : No Physical Exam ED Vital Signs: Vital Signs - 24 hr 11/02/21 18:40 11/02/21 20:14 Temperature 99.8 F 102.6 F H Pulse Rate 113 H 115 H Respiratory Rate 18 16 Blood Pressure 186/99 H 133/74 Pulse Oximetry 97 96 Oxygen Delivery Method Room Air BMI result Body Mass Index 56.7 Const Other: Appearance: Alert. Oriented X3. No acute distress. Eyes: Pupils equal, round and reactive to light. ENT: Pharynx normal. Bilateral ear canals within normal limits, normal tympanic membranes Neck: Normal inspection. Neck supple. No lymph nodes noted. No crepitus CVS: Normal heart rate and rhythm. Pulses normal. Normal S1 and S2 Respiratory: No respiratory distress. Breath sounds normal. No Wheezing. No rales Abdomen: Soft and nontender. No rigidity. No distention. No CVA tenderness Skin: Skin warm and dry. Normal skin color. Normal skin turgor. Extremities: No lower extremity edema. No Lacerations. No Rash Neuro: Oriented X 3. No motor deficit. No sensory deficit. Moving all extrem ities. No slurred speech. CN 2 through 12 grossly intact Psych: calm, cooperative, normal affect Course Course Course Narrative: Patient's white blood cell count is elevated, likely secondary to UTI given the reported symptoms. Urinalysis is not available at this time. (20:20). COVID test pending too At this time, patient is empirically being treated with IV fluids 2 L, and ceftriaxone 1 g. At this time, the weight does not seem to be accurate, I have asked to recheck the patient's weight, patient does not seem to weigh 145 kg as documented. Patient estimates that she has approximately 100 kg. Patient was given 3 L of fluid, ceftriaxone. Patient now reports flank pain. Clinically, patient has pyelonephritis. I discussed the patient with Dr. Villalta, patient being admitted. As of now, 21:08, the patient has real weight has not been updated I discussed the patient with Dr. Villalta, patient being admitted Medical Decision Making Lab Data Result diagrams: 11/02/21 18:51 11/02/21 18:51 Labs: Lab Results 11/02/21 11/02/21 11/02/21 Range/Units 18:51 18:51 20:28 WBC 21.9 H (4.8-10.8) X10*3/uL RBC 4.33 (4.20-5.50) X10*6/uL Hgb 10.0 L (12.0-16.0) g/dl Hct 31.8 L (37.0-47.0) % MCV 73.4 L (80.0-98.0) fL MCH 23.1 L (27.0-33.0) pg MCHC 31.4 (31.0-35.0) g/dl RDW 18.0 H (11.0-16.0) % Plt Count 266 (160-400) X10*3/uL MPV 10.3 (9.4-12.3) fL Immature Gran % (Auto) 0.8 H (0.0-0.4) % Neut % (Auto) 86.0 H (45-73) % Lymph % (Auto) 3.5 L (20-40) % [place] % (Auto) 9.6 (2-11) % Eos % (Auto) 0.0 (0-4) % Baso % (Auto) 0.1 (0-2) % Lymph # (Auto) 0.8 L (1.2-4.9) X10*3/uL [place] # (Auto) 2.1 H (0.1-1.2) X10*3/uL Eos # (Auto) 0.0 (0.0-0.4) X10*3/uL Baso # (Auto) 0.0 (0.0-0.2) X10*3/uL Abs Immat Gran (auto) 0.17 H (0.00-0.03) X10*3/uL Absolute Neuts (auto) 18.9 H (2.0-8.3) x10*3/uL Absolute Nucleated RBC 0.000 (0.0-0.012) X10*3/uL Nucleated RBC % (auto) 0.0 (0.0-0.2) /100WBC Smear Tech's Comments VERIFIED Sodium 133 L (135-145) mmol/L Potassium 4.0 (3.3-5.1) mmol/L Chloride 99 (96-108) mmol/L Carbon Dioxide 22 (22-29) mmol/L Anion Gap 16 (12-20) BUN 10 (9-16) mg/dL Creatinine 1.14 (0.5-1.4) mg/dL Estim Creat Clear Calc 86.2 Estimated GFR 51 Random Glucose 131 H (60-115) mg/dL Calcium 9.0 (8.4-10.2) mg/dL Total Bilirubin 0.8 (0.0-1.0) mg/dL AST 15 (5-31) U/L ALT 18 (0-31) U/L Alkaline Phosphatase 91 (39-117) U/L Total Protein 7.0 (6.5-8.0) g/dL Albumin 4.1 (3.5-5.0) g/dL Urine Color Urine Appearance Urine pH (5.0-8.0) Ur Specific [place] (1.005-1.025) Urine Protein (NEG-TRACE) MG/DL Urine Glucose (UA) (NEG) MG/DL Urine Ketones (NEG) MG/DL Urine Blood (NEG) Urine Nitrite (NEG) Ur Leukocyte Esterase (NEG) Urine RBC (0) /HPF Urine WBC (0-4) /HPF Ur Squamous Epith Cells /LPF Urine Bacteria /LPF COVID-19 (ROMA) Negative (Negative) COVID-19 Clin Com See Note 11/02/21 Range/Units 20:28 WBC (4.8-10.8) X10*3/uL RBC (4.20-5.50) X10*6/uL Hgb (12.0-16.0) g/dl Hct (37.0-47.0) % MCV (80.0-98.0) fL MCH (27.0-33.0) pg MCHC (31.0-35.0) g/dl RDW (11.0-16.0) % Plt Count (160-400) X10*3/uL MPV (9.4-12.3) fL Immature Gran % (Auto) (0.0-0.4) % Neut % (Auto) (45-73) % Lymph % (Auto) (20-40) % [place] % (Auto) (2-11) % Eos % (Auto) (0-4) % Baso % (Auto) (0-2) % Lymph # (Auto) (1.2-4.9) X10*3/uL [place] # (Auto) (0.1-1.2) X10*3/uL Eos # (Auto) (0.0-0.4) X10*3/uL Baso # (Auto) (0.0-0.2) X10*3/uL Abs Immat Gran (auto) (0.00-0.03) X10*3/uL Absolute Neuts (auto) (2.0-8.3) x10*3/uL Absolute Nucleated RBC (0.0-0.012) X10*3/uL Nucleated RBC % (auto) (0.0-0.2) /100WBC Smear Tech's Comments Sodium (135-145) mmol/L Potassium (3.3-5.1) mmol/L Chloride (96-108) mmol/L Carbon Dioxide (22-29) mmol/L Anion Gap (12-20) BUN (9-16) mg/dL Creatinine (0.5-1.4) mg/dL Estim Creat Clear Calc Estimated GFR Random Glucose (60-115) mg/dL Calcium (8.4-10.2) mg/dL Total Bilirubin (0.0-1.0) mg/dL AST (5-31) U/L ALT (0-31) U/L Alkaline Phosphatase (39-117) U/L Total Protein (6.5-8.0) g/dL Albumin (3.5-5.0) g/dL Urine Color YELLOW Urine Appearance HAZY Urine pH 6.0 (5.0-8.0) Ur Specific [place] 1.025 (1.005-1.025) Urine Protein 2+ H (NEG-TRACE) MG/DL Urine Glucose (UA) NEG (NEG) MG/DL Urine Ketones 40 (NEG) MG/DL Urine Blood 3+ H (NEG) Urine Nitrite POS H (NEG) Ur Leukocyte Esterase 1+ H (NEG) Urine RBC 10-14 H (0) /HPF Urine WBC 15-29 H (0-4) /HPF Ur Squamous Epith Cells 1+ /LPF Urine Bacteria 3+ /LPF COVID-19 (ROMA) (Negative) COVID-19 Clin Com Discharge Plan Discharge Clinical Impression: Pyelonephritis Patient Disposition: Admitted As Inpatient Prescriptions: No Action fluticasone propionate [Children's Flonase Allergy Rlf] 50 mcg/actuation spray,suspension 2 spray intranasal DAILY 30 Days Qty: 16 3RF Rx Instructions: administer into each nostril montelukast 10 mg tablet 10 mg PO DAILY Qty: 30 1RF albuterol sulfate 2.5 mg /3 mL (0.083 %) solution for nebulization 2.5 mg inhalation Q4-6H PRN (Reason: for wheezing) Qty: 90 2RF methocarbamol 750 mg tablet 750 mg PO TID PRN (Reason: pain (scale score 4-6)) Qty: 20 0RF hydrocortisone 2.5 % cream 1 appl topical BID PRN (Reason: itching) Qty: 28 0RF albuterol sulfate [ProAir HFA] 90 mcg/actuation HFA aerosol inhaler 2 inh inhalation Q6-8H PRN (Reason: shortness of breath or wheezing) 7 Days Qty: 6.7 0RF nystatin 100,000 unit/mL suspension 1 ml PO DAILY Qty: 473 0RF Rx Instructions: swish and swallow levothyroxine 50 mcg tablet 75 mcg PO DAILY ferrous sulfate 325 mg (65 mg iron) tablet,delayed release (DR/EC) 325 mg PO QAM fluticasone propion-salmeterol [AirDuo RespiClick] 232-14 mcg/actuation aerosol powdr breath activated 1 inh PO BID 30 Days Qty: 1 5RF
--- NOTE | 2021-11-02 20:32 | PC.NURSE ---
Pt ambulated to bathroom with steady gait. No complications or dizziness.
[2021-11-02] MEDS: Acetaminophen 325 MG TABLET 975 MG PO (20:37)
[2021-11-02 20:39] LABS: Appearance Urine HAZY; Color Urine YELLOW; Glucose Urine UA NEG (NEG); Leukocyte Esterase Urine 1+ (NEG); Nitrite Urine POS (NEG); Specific Gravity - Urine 1.025 (1.005-1.025); UACC Culture Trigger YES; Urine Blood 3+ (NEG); Urine Ketones 40 MG/DL (NEG); Urine Protein 2+ MG/DL (NEG-TRACE)
[2021-11-02 20:50] LABS: Bacteria Urine 3+ /LPF; Squamous Epithelial Cell Urine 1+ /LPF
[2021-11-02] MEDS: 0.9 % Sodium Chloride 2,000 ML 999 ML IVCONT (20:55)
[2021-11-02 20:56] LABS: COVID-19 Test Negative (Negative)
[2021-11-02] MEDS: cefTRIAXone sodium 1 GM in 0.9 % Sodium Chloride 50 ML IV (20:56)
[2021-11-02] MEDS: 0.9 % Sodium Chloride 1,000 ML 999 ML IVCONT (21:20)
[2021-11-02] MEDS: Enoxaparin Sodium 40 MG/0.4 ML SYRINGE SUBCUT (21:20)
[2021-11-02] MEDS: HYDROmorphone HCl 0.5 MG/0.5 ML SYRINGE IVPUSH (21:20)
--- NOTE | 2021-11-02 22:06 | PHA.MEDREC ---
Pharmacy Consult ? Medication Reconciliation Pharmacy has completed the medication reconciliation.
--- NOTE | 2021-11-02 22:34 | MHC.CM.PN ---
CM attempted to meet with admitted patient with bed assignment pending, but patient is sleeping. Review of medical record: Lives with . HCP/ Amauri Hope ([phone]). HCP #2 Kayli Russell ([phone]). CM will need to meet with patient to complete D/C planning.
[2021-11-02 23:56] LABS: Lactic Acid 1.2 mmol/L (0.5-2.0)
--- NOTE | 2021-11-02 23:57 | P.HPHOSP_ITS ---
History of Present Illness Date of Service: 11/02/21 Chief Complaint: Dysuria 45-year-old female with a past medical history of asthma, obesity, history of COVID-19 infection, history of UTI presented to the hospital today with a chief complaint of dysuria. Patient reported that for the past 3-4 days she has been having urinary frequency and dysuria. Also had pain in her right flank; denies any associated nausea vomiting. Denies any blood in the urine. Denies any chest pain palpitations lightheadedness or dizziness. Review of all other systems is negative except mentioned above ER course: Per ER team patient noted to have right flank tenderness; urinalysis abnormal consistent with UTI. Concern for pyelonephritis. Admitted to the hospital for further management. [facility] Medical History Allergic rhinitis Asthma COVID-19 History of urinary reflux History of urinary tract infection Obesity Thrush Pertinent family history: parents have diabetes Social History Household Members: Spouse and Children Housing: House Do you presently have visiting nurse or other home services: No Alcohol intake: never Patient Tobacco Use Status: Never used Tobacco Advance Directives Date on File: 11/03/21 service: No Current occupational status: unemployed Meds Allergies Allergy/AdvReac Type Severity Reaction Status Date / Time doxycycline [DOXYCYCLINE] Allergy Intermediate ITCHY, Verified 11/02/21 18:40 itching, itching amoxicillin [Augmentin] Allergy Unknown itching Verified 11/02/21 18:40 azithromycin [From ZITHROMAX] Allergy Unknown HIVES Verified 11/02/21 18:40 ciprofloxacin [From CIPRO] Allergy Unknown ITCH Verified 11/02/21 18:40 clavulanic acid [Augmentin] Allergy Unknown itching Verified 11/02/21 18:40 mold [MOLD] Allergy Unknown STUFFY NOSE Verified 11/02/21 18:40 mushroom [MUSHROOM] Allergy Unknown DIARRHEA Verified 11/02/21 18:40 Yeast [YEAST] Allergy Unknown DIARRHEA Verified 11/02/21 18:40 Active Medications: Current Medications Acetaminophen (Acetaminophen 325 Mg Tablet) 650 mg PO Q6H PRN PRN Reason: Pain, Mild (Pain Scale 1-3) Enoxaparin Sodium (Enoxaparin Sodium 40 Mg/0.4 Ml Syringe) 40 mg SUBCUT Q24H COUNTS INCLUDE 234 BEDS AT THE [facility] Last Admin: 11/02/21 21:20 Dose: 40 mg Hydromorphone HCl (Hydromorphone Hcl 0.5 Mg/0.5 Ml Syringe) 0.5 mg IVPUSH Q4H PRN; Protocol PRN Reason: Pain, Severe (Pain Scale 7-10) Last Admin: 11/02/21 21:20 Dose: 0.5 mg Ceftriaxone Sodium 1 gm/ (Sodium Chloride) 50 mls @ 100 mls/hr IV Q24H COUNTS INCLUDE 234 BEDS AT THE [facility] Melatonin (Melatonin 3 Mg Tablet) 6 mg PO BEDTIME PRN PRN Reason: Insomnia Senna (Sennosides 8.6 Mg Tablet) 17.2 mg PO BEDTIME PRN PRN Reason: Constipation Sodium Chloride (0.9 % Sodium Chloride Flush 3 Ml Syringe) 3 ml IVFLUSH QSHIFT COUNTS INCLUDE 234 BEDS AT THE [facility] Home Medications Medication Instructions Recorded Confirmed Last Taken Type ferrous sulfate 325 mg (65 mg 325 mg PO DAILY 10/19/20 11/02/21 11/02/21 History iron) tablet,delayed release albuterol sulfate 90 mcg/actuation 2 inh inhalation Q4-6H PRN 11/02/21 11/02/21 11/02/21 History aerosol inhaler (ProAir HFA) shortness of breath or wheezing famotidine 20 mg tablet (Pepcid) 20 mg PO BID 11/02/21 11/02/21 11/02/21 History hydroxyzine HCl 10 mg tablet 1 tab PO Q8H PRN itch 11/02/21 11/02/21 Unknown History ibuprofen 200 mg tablet (Advil) 200 mg PO DAILY PRN Pain (Scale 11/02/21 11/02/21 11/02/21 History Score 1-3) levothyroxine 75 mcg tablet 1 tab PO QAM 11/02/21 11/02/21 11/02/21 History pseudoephedrine HCl 30 mg tablet 30 mg PO BID PRN Allergy Symptoms 11/02/21 11/02/21 11/02/21 History (Sudafed) terbinafine HCl 250 mg tablet 1 tab PO DAILY 11/02/21 11/02/21 11/01/21 History Physical Exam Vital Signs and Narrative: Vital Signs: Last Vital Signs Temp 102.6 F H 11/02/21 20:14 Pulse 115 H 11/02/21 20:14 Resp 16 11/02/21 20:14 BP 133/74 11/02/21 20:14 Pulse Ox 96 11/02/21 20:14 O2 Del Method 11/02/21 20:14 BMI result Body Mass Index 56.7 Gen: Appears be in no acute distress HEENT: NCAT, Moist mucosa. Pulmonary: Vesicular breath sounds, fair air entry CVS: Normal S1-S2 Abdomen: BS+, Soft, Tender in the right flank, mild right CVA tenderness positive. Extremities: Warm well perfused Neuro: Alert and awake. Results Labs CBC and Chem 7: 11/04/21 05:42 11/04/21 05:42 Labs: Laboratory Results - last 24 hr 11/02/21 11/02/21 11/02/21 18:51 18:51 20:28 MCV 73.4 L MCH 23.1 L MCHC 31.4 RDW 18.0 H Plt Count 266 MPV 10.3 Immature Gran % (Auto) 0.8 H Neut % (Auto) 86.0 H Lymph % (Auto) 3.5 L [place] % (Auto) 9.6 Eos % (Auto) 0.0 Baso % (Auto) 0.1 Lymph # (Auto) 0.8 L [place] # (Auto) 2.1 H Eos # (Auto) 0.0 Baso # (Auto) 0.0 Abs Immat Gran (auto) 0.17 H Absolute Neuts (auto) 18.9 H Absolute Nucleated RBC 0.000 Nucleated RBC % (auto) 0.0 Smear Tech's Comments VERIFIED Anion Gap 16 Estim Creat Clear Calc 86.2 Estimated GFR 51 Random Glucose 131 H Lactic Acid Calcium 9.0 Total Bilirubin 0.8 AST 15 ALT 18 Alkaline Phosphatase 91 Total Protein 7.0 Albumin 4.1 Urine Color Urine Appearance Urine pH Ur Specific [place] Urine Protein Urine Glucose (UA) Urine Ketones Urine Blood Urine Nitrite Ur Leukocyte Esterase Urine RBC Urine WBC Ur Squamous Epith Cells Urine Bacteria COVID-19 (ROMA) Negative COVID-19 Clin Com See Note 11/02/21 11/02/21 20:28 23:41 MCV MCH MCHC RDW Plt Count MPV Immature Gran % (Auto) Neut % (Auto) Lymph % (Auto) [place] % (Auto) Eos % (Auto) Baso % (Auto) Lymph # (Auto) [place] # (Auto) Eos # (Auto) Baso # (Auto) Abs Immat Gran (auto) Absolute Neuts (auto) Absolute Nucleated RBC Nucleated RBC % (auto) Smear Tech's Comments Anion Gap Estim Creat Clear Calc Estimated GFR Random Glucose Lactic Acid 1.2 Calcium Total Bilirubin AST ALT Alkaline Phosphatase Total Protein Albumin Urine Color YELLOW Urine Appearance HAZY Urine pH 6.0 Ur Specific [place] 1.025 Urine Protein 2+ H Urine Glucose (UA) NEG Urine Ketones 40 Urine Blood 3+ H Urine Nitrite POS H Ur Leukocyte Esterase 1+ H Urine RBC 10-14 H Urine WBC 15-29 H Ur Squamous Epith Cells 1+ Urine Bacteria 3+ COVID-19 (ROMA) COVID-19 Clin Com Assessment and Plan (1) Pyelonephritis: Status: Acute Plan 45-year-old female with a past medical history of asthma, obesity, history of COVID-19 infection, history of UTI presented to the hospital today with a chief complaint of dysuria. Noted to have pyelonephritis. Admitted for further management. Pyelonephritis: Continue ceftriaxone Follow-up cultures Pain control Renal USG History of asthma: Stable History of GERD: Continue home Pepcid History of hypothyroidism: Continue home levothyroxine DVT prophylaxis: Lovenox Code status: Full code Quality Stroke Does the patient have a stroke diagnosis?: No VTE Prior VTE?: No VTE Risk Level:: Medical - moderate - high VTE Device Contraindication: Treatment Not Indicated VTE Drug Contraindication: N/A - Med Ordered
[2021-11-03] VITALS (8 sets, daily range): BP systolic 94–152; BP diastolic 58–87; PULSE 89–111; RESP 14–20; TEMP 36.7–37.2; O2SAT 96–100; BMI 38.9
[2021-11-03] MEDS: Ibuprofen 200 MG TABLET PO ×2 (00:29→21:36)
[2021-11-03] MEDS: 0.9 % Sodium Chloride Flush 3 ML SYRINGE IVFLUSH ×4 (00:43→21:37)
[2021-11-03] MEDS: 0.9 % Sodium Chloride 1,000 ML 999 ML IV (04:27)
[2021-11-03 06:32] LABS: Basophils Percent Auto 0.2 % (0-2); Hematocrit 27.7 % (37.0-47.0); Hemoglobin 8.3 g/dl (12.0-16.0); Imm Gran Abs Auto 0.11 X10*3/uL (0.00-0.03); Imm Gran Pct Auto 0.6 % (0.0-0.4); Lymphocytes Percent Auto 5.6 % (20-40); MANUAL DIFF FLAG SCAN; Mean Corpuscular Hemoglobin 22.6 pg (27.0-33.0); Mean Corpuscular Volume 75.5 fL (80.0-98.0); Mean Platelet Volume 10.7 fL (9.4-12.3); Monocytes Percent Auto 11.5 % (2-11); Neutrophils Absolute Auto 14.2 x10*3/uL (2.0-8.3); Neutrophils Percent Auto 82.1 % (45-73); Platelet Count 215 X10*3/uL (160-400); Red Blood Count 3.67 X10*6/uL (4.20-5.50); Red Cell Distribution Width 18.2 % (11.0-16.0); SCAN SMEAR FLAG 1; White Blood Count 17.4 X10*3/uL (4.8-10.8)
[2021-11-03] MEDS: Levothyroxine Sodium 75 MCG TABLET PO (06:33)
[2021-11-03 06:54] LABS: Anion Gap 15 (12-20); Blood Urea Nitrogen 10 mg/dL (9-16); Carbon Dioxide 19 mmol/L (22-29); Chloride 107 mmol/L (96-108); Creatinine Clr Calc Pharmacy 91.8; Estimated Glomerular Filt Rate 55; Glucose Random 112 mg/dL (60-115); Potassium 3.7 mmol/L (3.3-5.1); Sodium 137 mmol/L (135-145)
[2021-11-03 07:03] LABS: SLIDE REVIEW VERIFIED
[2021-11-03 07:23] LABS: Calcium 7.4 mg/dL (8.4-10.2)
[2021-11-03] MEDS: Famotidine 20 MG TABLET PO ×2 (08:46→21:36)
[2021-11-03] MEDS: Ferrous Sulfate 324 MG TABLET.DR PO (08:46)
[2021-11-03] MEDS: Acetaminophen 325 MG TABLET 650 MG PO ×2 (08:51→15:06)
--- NOTE | 2021-11-03 09:20 | P.PNIM_ITS ---
Subjective Subjective Date of Service: 11/03/21 Interval History: cc: left flank pain, fevers interval history:ongoing left flank pain Respiratory Respiratory: Reports no additional respiratory complaints Gastrointestinal Gastrointestinal: Reports no additional gastrointestinal complaints Physical Exam Vital Signs: Vital Signs: Last Vital Signs Temp 98.4 F 11/03/21 07:14 Pulse 97 11/03/21 07:14 Resp 14 11/03/21 07:14 BP 110/63 11/03/21 07:14 Pulse Ox 97 11/03/21 07:14 O2 Del Method 11/03/21 07:14 BMI result Body Mass Index 56.7 General: AO X 3, no acute distress Resp: CTA bilateral, no accessory muscles used CVS: S1,S2,RRR GI: soft, non tender, non distended Neuro: motor grossly intact, alert Psych: appropriate affect, appropriate insight : left flank tenderness Objective Data Active Medications Acetaminophen (Acetaminophen 325 Mg Tablet) 650 mg PO Q6H PRN PRN Reason: Pain, Mild (Pain Scale 1-3) Last Admin: 11/03/21 08:51 Dose: 650 mg Documented By: NATASHA Albuterol Sulfate (Albuterol Sulfate (0.083%) 2.5 Mg/3 Ml Vial.Neb) 2.5 mg INHALE Q4H PRN PRN Reason: for wheezing Albuterol Sulfate (Albuterol Sulfate 90 Mcg 8 Gm Inhaler) 2 puff INHALE Q4H PRN PRN Reason: shortness of breath or wheezing Enoxaparin Sodium (Enoxaparin Sodium 40 Mg/0.4 Ml Syringe) 40 mg SUBCUT Q24H [facility] Last Admin: 11/02/21 21:20 Dose: 40 mg Documented By: KYLE Famotidine (Famotidine 20 Mg Tablet) 20 mg PO BID [facility] Last Admin: 11/03/21 08:46 Dose: 20 mg Documented By: NATASHA Ferrous Sulfate (Ferrous Sulfate 324 Mg Tablet.) 324 mg PO DAILY [facility] Last Admin: 11/03/21 08:46 Dose: 324 mg Documented By: NATASHA Fluticasone Propionate (Fluticasone Propionate Nasal 16 Gm Timbo) 2 spray NOSTRIL-B DAILY [facility] Hydromorphone HCl (Hydromorphone Hcl 0.5 Mg/0.5 Ml Syringe) 0.5 mg IVPUSH Q4H PRN; Protocol PRN Reason: Pain, Severe (Pain Scale 7-10) Last Admin: 11/02/21 21:20 Dose: 0.5 mg Documented By: KYLE Hydroxyzine HCl (Hydroxyzine Hcl 10 Mg Tablet) 10 mg PO Q8H PRN PRN Reason: itch Ceftriaxone Sodium 1 gm/ (Sodium Chloride) 50 mls @ 100 mls/hr IV Q24H [facility] Ibuprofen (Ibuprofen 200 Mg Tablet) 200 mg PO DAILY PRN PRN Reason: Pain (Scale Score 1-3) Last Admin: 11/03/21 00:29 Dose: 200 mg Documented By: KYLE Levothyroxine Sodium (Levothyroxine Sodium 75 Mcg Tablet) 75 mcg PO DAILY@0630 [facility] Last Admin: 11/03/21 06:33 Dose: 75 mcg Documented By: KYLE Melatonin (Melatonin 3 Mg Tablet) 6 mg PO BEDTIME PRN PRN Reason: Insomnia Montelukast Sodium (Montelukast Sodium 10 Mg Tablet) 10 mg PO BEDTIME [facility] Non-Formulary Medication (Terbinafine Hcl) 1 tab PO DAILY [facility] Pseudoephedrine HCl (Pseudoephedrine Hcl 30 Mg Tablet) 30 mg PO BID PRN PRN Reason: Allergy Symptoms Senna (Sennosides 8.6 Mg Tablet) 17.2 mg PO BEDTIME PRN PRN Reason: Constipation Sodium Chloride (0.9 % Sodium Chloride Flush 3 Ml Syringe) 3 ml IVFLUSH QSHIFT [facility] Last Admin: 11/03/21 08:46 Dose: 3 ml Documented By: NATASHA Labs CBC & Chem 7: 11/03/21 05:41 11/03/21 05:41 Labs: Laboratory Results - last 24 hr 11/02/21 11/02/21 11/02/21 18:51 18:51 20:28 MCV 73.4 L MCH 23.1 L MCHC 31.4 RDW 18.0 H Plt Count 266 MPV 10.3 Immature Gran % (Auto) 0.8 H Neut % (Auto) 86.0 H Lymph % (Auto) 3.5 L [place] % (Auto) 9.6 Eos % (Auto) 0.0 Baso % (Auto) 0.1 Lymph # (Auto) 0.8 L [place] # (Auto) 2.1 H Eos # (Auto) 0.0 Baso # (Auto) 0.0 Abs Immat Gran (auto) 0.17 H Absolute Neuts (auto) 18.9 H Absolute Nucleated RBC 0.000 Nucleated RBC % (auto) 0.0 Smear Tech's Comments VERIFIED Anion Gap 16 Estim Creat Clear Calc 86.2 Estimated GFR 51 Random Glucose 131 H Lactic Acid Calcium 9.0 Total Bilirubin 0.8 AST 15 ALT 18 Alkaline Phosphatase 91 Total Protein 7.0 Albumin 4.1 Urine Color Urine Appearance Urine pH Ur Specific [place] Urine Protein Urine Glucose (UA) Urine Ketones Urine Blood Urine Nitrite Ur Leukocyte Esterase Urine RBC Urine WBC Ur Squamous Epith Cells Urine Bacteria COVID-19 ([facility]) Negative COVID-19 Clin Com See Note 11/02/21 11/02/21 11/03/21 20:28 23:41 05:41 MCV 75.5 L MCH 22.6 L MCHC 30.0 L RDW 18.2 H Plt Count 215 MPV 10.7 Immature Gran % (Auto) 0.6 H Neut % (Auto) 82.1 H Lymph % (Auto) 5.6 L [place] % (Auto) 11.5 H Eos % (Auto) 0.0 Baso % (Auto) 0.2 Lymph # (Auto) 1.0 L [place] # (Auto) 2.0 H Eos # (Auto) 0.0 Baso # (Auto) 0.0 Abs Immat Gran (auto) 0.11 H Absolute Neuts (auto) 14.2 H Absolute Nucleated RBC 0.000 Nucleated RBC % (auto) 0.0 Smear Tech's Comments VERIFIED Anion Gap Estim Creat Clear Calc Estimated GFR Random Glucose Lactic Acid 1.2 Calcium Total Bilirubin AST ALT Alkaline Phosphatase Total Protein Albumin Urine Color YELLOW Urine Appearance HAZY Urine pH 6.0 Ur Specific [place] 1.025 Urine Protein 2+ H Urine Glucose (UA) NEG Urine Ketones 40 Urine Blood 3+ H Urine Nitrite POS H Ur Leukocyte Esterase 1+ H Urine RBC 10-14 H Urine WBC 15-29 H Ur Squamous Epith Cells 1+ Urine Bacteria 3+ COVID-19 ([facility]) COVID-19 Clin Com 11/03/21 05:41 MCV MCH MCHC RDW Plt Count MPV Immature Gran % (Auto) Neut % (Auto) Lymph % (Auto) [place] % (Auto) Eos % (Auto) Baso % (Auto) Lymph # (Auto) [place] # (Auto) Eos # (Auto) Baso # (Auto) Abs Immat Gran (auto) Absolute Neuts (auto) Absolute Nucleated RBC Nucleated RBC % (auto) Smear Tech's Comments Anion Gap 15 Estim Creat Clear Calc 91.8 Estimated GFR 55 Random Glucose 112 Lactic Acid Calcium 7.4 L D Total Bilirubin AST ALT Alkaline Phosphatase Total Protein Albumin Urine Color Urine Appearance Urine pH Ur Specific [place] Urine Protein Urine Glucose (UA) Urine Ketones Urine Blood Urine Nitrite Ur Leukocyte Esterase Urine RBC Urine WBC Ur Squamous Epith Cells Urine Bacteria COVID-19 ([facility]) COVID-19 Clin Com Assessment and Plan (1) Pyelonephritis: Status: Acute Plan 45F presented with fever and left flank sepsis present on admission due to acute recurrent left pyelonephritis ceftriaxone, follow up cultures moderate persistent asthma stable, singulair, albuterol prn GERD pepcid hypothyroid synthroid dvt prophylaxis - lovenox full code reason for continued hospitalization:awaiting defervenscence and cultures Quality Stroke Does the patient have a stroke diagnosis?: No VTE Prior VTE?: No VTE Risk Level:: Medical - moderate - high VTE Device Contraindication: Treatment Not Indicated VTE Drug Contraindication: N/A - Med Ordered
--- NOTE | 2021-11-03 10:18 | MHC.CM.PN ---
Attempted to meet with patient in regards to discharge planning. Patient currently sleeping. No family present. Will attempt to meet again. Continue to monitor for d/c needs.
--- NOTE | 2021-11-03 11:30 | PC.NURSE ---
called floor to give report, had to tiger text nurse, awaiting call back
--- NOTE | 2021-11-03 11:47 | PC.NURSE ---
report given, room is being cleaned.
--- NOTE | 2021-11-03 15:42 | MHC.CM.PN ---
Female 45 DX Fever. UTI+ Patient lives with family. She is independent with all functional mobility. Vax 2x Pfizer. HCP on file. DP home no services C shuttle needed for transportation home.
[2021-11-03] MEDS: cefTRIAXone sodium 1 GM in 0.9 % Sodium Chloride 50 ML IV (21:35)
[2021-11-03] MEDS: Montelukast Sodium 10 MG TABLET PO (21:36)
[2021-11-03] MEDS: Enoxaparin Sodium 40 MG/0.4 ML SYRINGE SUBCUT (21:37)
[2021-11-04 03:44] VITALS: BP 100/60; PULSE 85; RESP 20; TEMP 36.8; O2SAT 98
[2021-11-04] MEDS: Levothyroxine Sodium 75 MCG TABLET PO (05:52)
[2021-11-04 05:59] LABS: Hematocrit 27.3 % (37.0-47.0); Hemoglobin 8.3 g/dl (12.0-16.0); Mean Corpuscular HGB Conc 30.4 g/dl (31.0-35.0); Mean Corpuscular Hemoglobin 22.7 pg (27.0-33.0); Mean Corpuscular Volume 74.8 fL (80.0-98.0); Mean Platelet Volume 10.4 fL (9.4-12.3); Platelet Count 220 X10*3/uL (160-400); Red Blood Count 3.65 X10*6/uL (4.20-5.50); Red Cell Distribution Width 18.2 % (11.0-16.0); White Blood Count 14.1 X10*3/uL (4.8-10.8)
[2021-11-04 06:16] LABS: Anion Gap 12 (12-20); Blood Urea Nitrogen 10 mg/dL (9-16); Calcium 8.2 mg/dL (8.4-10.2); Carbon Dioxide 22 mmol/L (22-29); Chloride 106 mmol/L (96-108); Creatinine Clr Calc Pharmacy 75.3; Estimated Glomerular Filt Rate 57; Glucose Fasting 115 mg/dL (60-99); Potassium 3.4 mmol/L (3.3-5.1); Sodium 137 mmol/L (135-145)
[2021-11-04 07:26] VITALS: BP 135/79; PULSE 98; RESP 20; TEMP 37.2; O2SAT 99
[2021-11-04] MEDS: 0.9 % Sodium Chloride Flush 3 ML SYRINGE IVFLUSH (10:13)
[2021-11-04] MEDS: Fluticasone Propionate Nasal 16 GM SPRAY 2 SPRAY NOSTRIL-B (10:13)
[2021-11-04] MEDS: Famotidine 20 MG TABLET PO (10:14)
[2021-11-04] MEDS: Ferrous Sulfate 324 MG TABLET.DR PO (10:14)
[2021-11-04] MEDS: Ibuprofen 200 MG TABLET PO (10:15)
--- NOTE | 2021-11-04 10:31 | PM.DS ---
DS: Providers Provider Date of Service: 11/04/21 Date of admission: 11/02/21 21:07 Primary care physician: Marcela Abbott NP DS: Diagnosis Discharge Diagnosis (1) Pyelonephritis: Status: Acute DS: Summary Hospital Course Hospital Course: from initial hpi: Chief Complaint: ? Dysuria ?45-year-old female with a past medical history of asthma, obesity, history of COVID-19 infection, history of UTI presented to the hospital today with a chief complaint of dysuria.? Patient reported that for the past 3-4 days she has been having urinary frequency and dysuria.? Also had pain in her right flank; denies any associated nausea vomiting.? Denies any blood in the urine.? Denies any chest pain palpitations lightheadedness or dizziness.? Review of all other systems is negative except mentioned above ER course: Per ER team patient noted to have right flank tenderness; urinalysis abnormal consistent with UTI.? Concern for pyelonephritis.? Admitted to the hospital for further management. hospital course: Patient was admitted for sepsis secondary to acute recurrent left pyelonephritis. She was ceftriaxone. Her blood cultures were negative. Her urine culture grew pansensitive E coli. Sepsis resolved. She will be transitioned to 7 days p.o. Levaquin. For moderate persistent asthma she will continue Singulair. For GERD she will continue Pepcid. For hypothyroidism she will continue Synthroid. For iron deficiency she will continue iron supplement. Time Spent with Patient Time attestation: Total time spent providing and/or coordinating discharge services: Discharge coordination time: Greater than 30 minutes Quality: Safe Use of Opioids Does Pt have an Active Cancer Diagnosis on the Problem List?: No Quality: Stroke Does the patient have a stroke diagnosis?: No Physical Exam Vital Signs: Vital Signs: Last Vital Signs Temp 98.9 F 11/04/21 07:26 Pulse 98 11/04/21 07:26 Resp 20 11/04/21 07:26 BP 135/79 11/04/21 07:26 Pulse Ox 99 11/04/21 07:26 O2 Del Method 11/04/21 07:26 BMI result Body Mass Index 38.9 General: AO X 3, no acute distress Resp: CTA bilateral, no accessory muscles used CVS: S1,S2,RRR GI: soft, non tender, non distended Neuro: motor grossly intact, alert Psych: appropriate affect, appropriate insight DS: Data Data Completed and Pending Labs on day of discharge: Laboratory Results - last 24 hr 11/04/21 11/04/21 05:42 05:42 WBC 14.1 H RBC 3.65 L Hgb 8.3 L Hct 27.3 L MCV 74.8 L MCH 22.7 L MCHC 30.4 L RDW 18.2 H Plt Count 220 MPV 10.4 Absolute Nucleated RBC 0.000 Nucleated RBC % (auto) 0.0 Sodium 137 Potassium 3.4 Chloride 106 Carbon Dioxide 22 Anion Gap 12 BUN 10 Creatinine 1.04 Estim Creat Clear Calc 75.3 Estimated GFR 57 Fasting Glucose 115 H Calcium 8.2 L D Preliminary micro results at discharge 11/02/21 23:54 Blood Culture - Preliminary Blood - Venous No growth after 24 hours. 11/02/21 23:50 Blood Culture - Preliminary Blood - Venous No growth after 24 hours. Discharge Plan Discharge Patient Disposition: Home, Self-Care Discharge Diagnosis: sepsis, pyelonephritis Referrals: Marcela Abbott PIPE [employer]TER SUPERVISOR [Primary Care Provider] - 1 Week Discharge Medications: New levofloxacin 750 mg tablet 750 mg PO DAILY Qty: 7 0RF oxycodone 5 mg tablet 5 mg PO QID PRN (Reason: moderate p) Qty: 10 0RF Rx Instructions: Partial Fill upon patient request. Continued fluticasone propionate [Children's Flonase Allergy Rlf] 50 mcg/actuation spray,suspension 2 spray intranasal DAILY 30 Days Qty: 16 3RF Rx Instructions: administer into each nostril montelukast 10 mg tablet 10 mg PO DAILY Qty: 30 1RF albuterol sulfate 2.5 mg /3 mL (0.083 %) solution for nebulization 2.5 mg inhalation Q4-6H PRN (Reason: for wheezing) Qty: 90 2RF levothyroxine 75 mcg tablet 1 tab PO QAM terbinafine HCl 250 mg tablet 1 tab PO DAILY hydroxyzine HCl 10 mg tablet 1 tab PO Q8H PRN (Reason: itch) albuterol sulfate [ProAir HFA] 90 mcg/actuation HFA aerosol inhaler 2 inh inhalation Q4-6H PRN (Reason: shortness of breath or wheezing) famotidine [Pepcid] 20 mg Tablet 20 mg PO BID ibuprofen [Advil] 200 mg Tablet 200 mg PO DAILY PRN (Reason: Pain (Scale Score 1-3)) pseudoephedrine HCl [Sudafed] 30 mg Tablet 30 mg PO BID PRN (Reason: Allergy Symptoms) Rx Instructions: DNExceed 4 doses/24h ferrous sulfate 325 mg (65 mg iron) tablet,delayed release (DR/EC) 325 mg PO DAILY Discharge Orders: Discharge Order (Routine); Ordered 11/04/21 Ordered By: Morgan Napier Diet: Advance to usual diet Activity on Discharge: As tolerated Stand Alone Forms: Patient Portal Discharge page Care Plan Goals: reocvery Health Concerns: recurrent pyelonephritis Plan of Treatment: 7 days levaquin, return for recurrent symptoms/fevers, follow up for prevention Assessment: see above
--- NOTE | 2021-11-04 11:53 | MHC.CM.PN ---
Female 45 DX UTI She is discharged today to home . No home services ordered or needed. The patient transporting home via Shuttle. A coupon was provided to the patient for the shuttle.
== END 2021-11-04 13:10 | disposition home or self-care (01) | DRG 720 ==
LOC: HO.ED 21:12 → HO.EDOVER 21:27 → HO.IMC 11-03 11:13
PROVIDERS: Admitting Provider Hospitalist; Emergency Provider Emergency Medicine; PCP Nurse Practitioner Family; Visit Provider Internal Medicine
DX: A41.9 Sepsis, unspecified organism (principal); B96.20 Unspecified Escherichia coli [E. coli] as the cause of diseases classified elsewhere; E03.9 Hypothyroidism, unspecified; K21.9 Gastro-esophageal reflux disease without esophagitis; E66.9 Obesity, unspecified; J45.40 Moderate persistent asthma, uncomplicated; Z20.822 Contact with and (suspected) exposure to COVID-19; Z87.440 Personal history of urinary (tract) infections; Z68.39 Body mass index [BMI] 39.0-39.9, adult; Z86.16 Personal history of COVID-19; Z56.0 Unemployment, unspecified; Z79.51 Long term (current) use of inhaled steroids; Z88.0 Allergy status to penicillin; Z88.1 Allergy status to other antibiotic agents; Z79.899 Other long term (current) drug therapy
CPT/HCPCS: 36415; 76775; 80048; 80053; 81001; 83605; 85025; 85027; 87040; 87086; 87088; 87186; 87635; 96361; 96374; 96375; 99285; J0696; J1170; J1650

== ENCOUNTER 2022-01-27 10:52 | Emergency (ER) | payer SELFPAY ==
--- NOTE | ~2022-01-27 | XR_ITS ---
EXAMINATION: XR CHEST CLINICAL INFORMATION: Cough and rhinorrhea COMPARISON: Chest radiograph 02/12/2021 TECHNIQUE: 2 views of the chest were obtained. FINDINGS: No significant abnormality is noted involving the heart, lungs, mediastinum, bony thorax or soft tissues. XR/XR chest 2V IMPRESSION: Unremarkable examination.
[2022-01-27 11:29] VITALS: BP 139/83; PULSE 77; RESP 18; TEMP 37.2; O2SAT 99; BMI 40.7
[2022-01-27 12:03] LABS: COVID-19 Test Negative (Negative); IDNOW Serial# 16C4AD1C
[2022-01-27 12:04] LABS: Strep A Nucleic Acid Negative (Negative)
--- OUTSIDE RECORDS SUMMARY | 2022-01-27 12:08 | XMS_ITS | Continuity of Care Document ---
:[address] [facility] [place] [facility] Address [address] [place] [address]- Care Team Providers Name Role Phone Victor M CLARKE, Jez Primary Care Physician [place] [facility] [place]): 12/08/20 - 01/07/[address] [facility] [place] [facility] [address] [place], [place] [address] Allergies, Adverse Reactions, Alerts Substance Reaction Severity Status Cipro Active Zithromax Active Augmentin Active Immunizations Given and Recorded Vaccine Date Status Refusal Reason Adacel (Tdap) (oldterm) 06/27/16 Given Medications Aerochamber See Instructions, # 1 each, Maintenance, for use with Dulera, 07/10/17 15:43:32 EDT, Compound Start Date: 07/10/17 Status: Orderedalbuterol 0.083% inhalation solution 3 mL = 2.5 mg, Inhalation, Every 6 hours, # 1,080 mL, 3 Refills, Maintenance, 11/28/17 12:40:00 EDT,Inhalation Solution Start Date: 11/28/17 Status: OrderedDaily Multi oral tablet TAKE 1 TABLET DAILY., 12/11/12 9:00:00 Start Date: 12/11/12 Status: Ordereddesoximetasone 0.25% topical cream APPLY TO AFFECTED AREA(S) TWICE DAILY NEEDED., 09/26/13 0:00:00 Start Date: 09/26/13 Status: OrderedDulera 200 mcg-5 mcg/inh inhalation aerosol 2 puffs, Inhalation, 2 times a day, rinse mouth and throat after use, # 1 cartridge, 11 Refills, Maintenance, 05/30/18 15:34:00 EST, Aerosol, ICD Code J45.909, 2 puffs Inhalation 2 times a day,Instr:rinse mouth and throat after use Start Date: 05/30/18 Status: OrderedDulera 200 mcg-5 mcg/inh inhalation aerosol 2 puffs, Inhalation, 2 times a day, rinse mouth and throat after use J45.909, # 1 each, 6 Refills, Maintenance, 03/15/18 14:07:00 EST, Aerosol, Will need PA, please fax to us and we will take care of this., 2 puffs Inhalation 2 times a day,Instr:rins... Start Date: 03/15/18 Status: Orderedformoterol-mometasone 5 mcg-200 mcg/inh inhalation aerosol 2 puffs, Inhalation, 2 times a day, # 13 Gm, 0 Refills, Maintenance, 08/22/17 17:06:00 EDT, Aerosol,2 puffs Inhalation 2 times a day,x30 days Start Date: 08/22/17 Stop Date: 09/21/17 Status: Orderedformoterol-mometasone 5 mcg-200 mcg/inh inhalation aerosol 2 puffs, Inhalation, 2 times a day, # 13 Gm, 0 Refills, Maintenance, 02/27/17 15:09:00, Aerosol Start Date: 02/27/17 Stop Date: 03/29/17 Status: OrderedhydrOXYzine hydrochloride 10 mg oral tablet 2 tablet = 20 mg, By Mouth, 4 times a day, 0 Refills, Maintenance, 06/27/16 11:20:21 Start Date: 06/27/16 Status: Orderedlevalbuterol CFC free 45 mcg/inh inhalation aerosol 2 puffs, Inhalation, Every 6 hours, # 15 Gm, 4 Refills, Maintenance, 01/02/18 15:01:25 EDT, Aerosol Start Date: 01/02/18 Status: Orderedlevothyroxine 0.05 mg oral tablet 1 tablet = 50 mcg, By Mouth, Daily, # 30 tablet, 0 Refills, Maintenance, 02/27/17 15:09:00, Tablet Start Date: 02/27/17 Stop Date: 03/29/17 Status: Orderedmultivitamin with iron Vitamin B Complex with Iron oral tablet 1 tablet, By Mouth, Daily, # 30 tablet, 11 Refills, Maintenance, 03/10/16 9:22:00, 1 tablet By MouthDaily Start Date: 03/10/16 Status: Orderedomeprazole 20 mg oral delayed release tablet = 20 mg, By Mouth, Daily, # 30 capsule, 0 Refills, Maintenance, 02/27/17 15:09:00, EC Tablet Start Date: 02/27/17 Stop Date: 03/29/17 Status: OrderedProAir HFA 90 mcg/inh inhalation aerosol with adapter 2, puffs, Inhalation, Every 4 hours, PRN, # 3 each, Refills 3, Tot. Refills 3, Maintenance, 05/30/1914:34:00 EST, Aerosol, Route to Pharmacy Electronically, [id number], [id number], ICD Code J45.909 Start Date: 05/30/18 Status: OrderedProAir HFA 90 mcg/inh inhalation aerosol with adapter 2, puffs, Inhalation, Every 4 hours, PRN, use with spacer chamber, # 3 each, Refills 3, Tot. Refills3, Maintenance, 03/15/18 13:07:30 EST, Aerosol, Route to Pharmacy Electronically, [id number], [id number], IC... Start Date: 03/15/18 Status: OrderedXopenex HFA 45 mcg/inh inhalation aerosol 2 puffs = 90 mcg, Inhalation, Every 4 hours, PRN for wheezing, # 1 each, 6 Refills, Maintenance, 09/28/17 16:20:29 EDT, Aerosol Start Date: 09/28/17 Status: OrderedZyrTEC 10 mg oral tablet 1 tablet = 10 mg, By Mouth, Daily, 0 Refills, Maintenance, 06/27/16 11:19:56 Start Date: 06/27/16 Status: Ordered Problem List Condition Effective Dates Status Health Status Informant Acquired deviated nasal Active septum(Confirmed) Allergic rhinitis(Confirmed) Active Anemia(Confirmed) Active Asthma(Confirmed) 06/27/93 Active Atopic dermatitis(Confirmed) Active Chronic sinusitis(Confirmed) Active Eustachian tube dysfunction(Confirmed) Active Epistaxis(Confirmed) Active Encounter for preventive health Active examination(Confirmed) Social History Social History Type Response Smoking Status Never smoker entered on: 06/27/16 Sex
[2022-01-27 12:16] LABS: Influenza A Negative (Negative); Influenza B2 Negative (Negative)
--- NOTE | 2022-01-27 13:09 | ED_ITS ---
HPI - URI/Sore Throat General Chief Complaint: Upper Respiratory Symptoms Stated Complaint: cold symptoms Time Seen by Provider: 01/27/22 12:22 Source: patient Mode of arrival: ambulatory History of Present Illness HPI Narrative: 46 year old female with a PMHx of asthma and allergic rhinitis, presenting to the ED c/o rhinorrhea and productive cough with greenish sputum x 4 days. She reports sick contact with RSV. Admits has been using inhaler and neb machine at home with relief, denies recent steroid use. Also c/o left ear itchiness and right nasal tenderness. denies fever, chills, sore throat, GUILLEN, chest pain, SOB, recent travel, pedal edema MD elicited complaint: cough, rhinorrhea and nasal congestion Pertinent past history: asthma and seasonal allergies Onset (ago): day(s) (4) Description of mucous: green Able to tolerate fluids by mouth: Yes Relieving factors: nothing Context: sick contacts (Grandson,+RSV) Related Data Home Medications Medication Instructions Recorded Confirmed ferrous sulfate 325 mg (65 mg 325 mg PO DAILY 10/19/20 11/02/21 iron) tablet,delayed release famotidine 20 mg tablet (Pepcid) 20 mg PO BID 11/02/21 11/02/21 hydroxyzine HCl 10 mg tablet 1 tab PO Q8H PRN itch 11/02/21 11/02/21 ibuprofen 200 mg tablet (Advil) 200 mg PO DAILY PRN Pain (Scale 11/02/21 11/02/21 Score 1-3) levothyroxine 75 mcg tablet 1 tab PO QAM 11/02/21 11/02/21 pseudoephedrine HCl 30 mg tablet 30 mg PO BID PRN Allergy Symptoms 11/02/21 11/02/21 (Sudafed) terbinafine HCl 250 mg tablet 1 tab PO DAILY 11/02/21 11/02/21 Previous Rx's Medication Instructions Recorded fluticasone propionate 50 2 spray intranasal DAILY 30 days 03/16/21 mcg/actuation nasal #16 grams spray,suspension (Children's Flonase Allergy Relief) albuterol sulfate 2.5 mg/3 mL 2.5 mg (3 mL) inhalation Q4-6H PRN 08/13/21 (0.083 %) solution for nebulization for wheezing #90 mL levofloxacin 750 mg tablet 750 mg PO DAILY #7 tabs 11/04/21 oxycodone 5 mg tablet 5 mg PO QID PRN moderate p #10 tabs 11/04/21 montelukast 10 mg tablet 10 mg PO DAILY #30 tabs 12/08/21 albuterol sulfate 90 mcg/actuation 2 puff inhalation Q4-6H PRN for 01/18/22 aerosol inhaler wheezing #1 ea prednisone 20 mg tablet 40 mg PO DAILY 5 days #10 tabs 01/27/22 Allergies Allergy/AdvReac Type Severity Reaction Status Date / Time doxycycline [DOXYCYCLINE] Allergy Intermediate ITCHY, Verified 11/02/21 18:40 itching, itching amoxicillin [Augmentin] Allergy Unknown itching Verified 11/02/21 18:40 azithromycin [From ZITHROMAX] Allergy Unknown HIVES Verified 11/02/21 18:40 ciprofloxacin [From CIPRO] Allergy Unknown ITCH Verified 11/02/21 18:40 clavulanic acid [Augmentin] Allergy Unknown itching Verified 11/02/21 18:40 mold [MOLD] Allergy Unknown STUFFY NOSE Verified 11/02/21 18:40 mushroom [MUSHROOM] Allergy Unknown DIARRHEA Verified 11/02/21 18:40 Yeast [YEAST] Allergy Unknown DIARRHEA Verified 11/02/21 18:40 Review of Systems Review of Systems: Constitutional: No Fever, No Chills ENT/Mouth: No Ear Pain, +Ear itchiness, +Nasal Congestion, No Sinus Pain, No Hoarseness, No sore throat, +Rhinorrhea, No Swallowing Difficulty Cardiovascular: No Chest Pain, No SOB Respiratory: + Cough, + Sputum, No Wheezing Gastrointestinal: No Nausea, No Vomiting, No Diarrhea, No Constipation, No Abdominal pain Genitourinary: No Dysuria, No Urinary Frequency, No Hematuria, No Urinary Incontinence/retention, No Urgency, No Flank Pain Musculoskeletal: No joint pain, No Myalgias, No Joint Swelling Skin: No Skin Lesions, No rash Neuro: No Weakness, No Numbness, No Paresthesias Constitutional: Constitutional: Reports as per HPI, Reports no additional constitutional complaints, Denies fever(s), Denies headache(s), Denies night sweats and Denies poor appetite Eyes: Eyes: Reports as per HPI and Reports no additional eye complaints ENT: Denies headache(s) Neurologic: Denies headache(s) [facility] Past Medical History Attestation statement: The following information was validated with the patient. Medical History Allergic rhinitis Asthma COVID-19 History of urinary reflux History of urinary tract infection Obesity Thrush Social History Social History Household Members: Spouse and Children Housing: House Do you presently have visiting nurse or other home services: No Alcohol intake: never Patient Tobacco Use Status: Never used Tobacco Advance Directives: Yes Advance Directives on File: Yes Advance Directives Date on File: 11/03/21 service: No Current occupational status: unemployed Physical Exam Vital Signs: Vital Signs: Last Vital Signs Temp 98.9 F 01/27/22 11:29 Pulse 77 01/27/22 11:29 Resp 18 01/27/22 11:29 BP 139/83 01/27/22 11:29 Pulse Ox 99 01/27/22 11:29 O2 Del Method 01/27/22 11:29 BMI result Body Mass Index 40.7 Const: General: cooperative, no acute distress, alert, awake and Physically active HEENT: Head: Yes normal to inspection and Yes atraumatic Ears: external ears normal, TM's normal bilaterally, EAC's normal and mastoids normal General nose exam: Normal external nose present and Normal nares present Face and sinus: Yes normal facial exam and Yes sinuses nontender Mouth: Normal oral and palatal mucosa present, tongue normal and no muffled voice Throat: Yes posterior oropharynx normal, Yes tonsils normal, Yes uvula midline, No peritonsillar mass, No uvula laterally displaced and No uvular edema Eyes: General: appearance normal, both eyes and all related structures Pupils: Equal, round and reactive pupils present Neck: Neck: Yes normal visual inspection, Yes no lymphadenopathy, Yes no m eningeal signs, Yes supple and No anterior neck swelling Chest: Chest palpation & inspection: normal inspection of the chest Resp: Effort & Inspection: normal respiratory effort, able to speak in complete sentences, Actively coughing and no stridor Auscultation: clear to auscultation bilaterally, no crackles, no rales, no rhonchi and no wheezes Cardio: Rate: regular rate Rhythm: regular rhythm Heart sounds: S1 normal heart sound present and S2 normal heart sound present Skin: General skin exam: no rashes or lesions noted Neuro: General: gait normal, tone normal, moves all extremities and no meningeal signs Cranial nerves: Yes Equal, round and reactive pupils present Extrem: General: Yes normal to inspection, Yes no pedal edema and Yes no calf tenderness Course Course Course Narrative: -[id number]--COVID-19/influenza/RSV negative. CXR unremarkable Results discussed with patient including worrisome signs and symptoms and strict return precautions, and when to return to the emergency department. They verbalized understanding and feel safe for discharge at this time. MDM - URI/Sore Throat MDM Narrative Medical decision making narrative: 46 year old female with a PMHx of asthma and allergic rhinitis, presenting to the ED c/o rhinorrhea and productive cough with greenish sputum x 4 days. On examination VSS, lungs CTA, TM unremarkable bilaterally. No lymphadenopathy, no exudates, uvula midline, no pedal edema. Concern for viral infection including RSV vs asthma exacerbation vs Bronchitis vs Pneumonia vs pharyngitis. Low suspicion for ACS, PE, CHF. No evidence of otitis or [employer] Plan: Xray, RSV/Flu/COVID, Rapid strep Differential Diagnosis Differential diagnosis: Likely upper respiratory infection, bronchitis, influenza and pharyngitis Medical Records Attestation: I reviewed the patient's medical records. Lab Data Attestation: I reviewed the patient's lab results. Labs: Lab Results 01/27/22 01/27/22 01/27/22 Range/Units 11:43 11:43 11:43 COVID-19 (ROMA) Negative (Negative) COVID-19 Clin Com See Note Influenza Type A (LACHELLE) Negative (Negative) Influenza Type A (PCR) (Negative) Influenza Type B (LACHELLE) Negative (Negative) Influenza Type B (PCR) (Negative) Influenza A & B Note See Note RSV RNA Qual (PCR) (Negative) SARS-CoV-2 RNA (RT-PCR) (Negative) S. pyogenes GrpA LACHELLE Negative (Negative) 01/27/22 Range/Units 13:38 COVID-19 (ROMA) (Negative) COVID-19 Clin Com Influenza Type A (LACHELLE) (Negative) Influenza Type A (PCR) NEGATIVE (Negative) Influenza Type B (LACHELLE) (Negative) Influenza Type B (PCR) NEGATIVE (Negative) Influenza A & B Note RSV RNA Qual (PCR) NEGATIVE (Negative) SARS-CoV-2 RNA (RT-PCR) NEGATIVE (Negative) S. pyogenes GrpA LACHELLE (Negative) Discharge Plan Discharge Clinical Impression: Upper respiratory infection Patient Disposition: Home, Self-Care Instructions: Upper Respiratory Infection (ED) Additional Instructions: Your x-rays unremarkable. You tested negative for COVID-19, flu, and RSV Please continue using neb machine and inhalers at home, additionally prednisone dysuria, please take as prescribed Rest Stay hydrated Please follow-up with her doctor If symptoms persist or worsen return to the emergency department Prescriptions: New prednisone 20 mg tablet 40 mg PO DAILY 5 Days Qty: 10 0RF No Action fluticasone propionate [Children's Flonase Allergy Rlf] 50 mcg/actuation spray,suspension 2 spray intranasal DAILY 30 Days Qty: 16 3RF Rx Instructions: administer into each nostril albuterol sulfate 2.5 mg /3 mL (0.083 %) solution for nebulization 2.5 mg inhalation Q4-6H PRN (Reason: for wheezing) Qty: 90 2RF montelukast 10 mg tablet 10 mg PO DAILY Qty: 30 1RF albuterol sulfate 90 mcg/actuation HFA aerosol inhaler 2 puff inhalation Q4-6H PRN (Reason: for wheezing) Qty: 1 3RF levothyroxine 75 mcg tablet 1 tab PO QAM terbinafine HCl 250 mg tablet 1 tab PO DAILY hydroxyzine HCl 10 mg tablet 1 tab PO Q8H PRN (Reason: itch) famotidine [Pepcid] 20 mg Tablet 20 mg PO BID ibuprofen [Advil] 200 mg Tablet 200 mg PO DAILY PRN (Reason: Pain (Scale Score 1-3)) pseudoephedrine HCl [Sudafed] 30 mg Tablet 30 mg PO BID PRN (Reason: Allergy Symptoms) Rx Instructions: DNExceed 4 doses/24h levofloxacin 750 mg tablet 750 mg PO DAILY Qty: 7 0RF oxycodone 5 mg tablet 5 mg PO QID PRN (Reason: moderate p) Qty: 10 0RF Rx Instructions: Partial Fill upon patient request. ferrous sulfate 325 mg (65 mg iron) tablet,delayed release (DR/EC) 325 mg PO DAILY Referrals: Philly Newton MD [Primary Care Provider] - 5 days Interventions: ED Discharge Assessment Last Done: 01/27/22 15:15 Discharge Date/Time: 01/27/22 15:16
[2022-01-27 14:27] LABS: Influenza A PCR NEGATIVE (Negative); Influenza B PCR NEGATIVE (Negative); Resp Syncy Virus RNA Qual PCR NEGATIVE (Negative); SARS COV2 PCR INHOUSE NEGATIVE (Negative)
== END 2022-01-27 15:16 | disposition home or self-care (01) ==
PROVIDERS: Physician Assistant; Emergency Provider Emergency Medicine; PCP Internal Medicine
DX: J06.9 Acute upper respiratory infection, unspecified (principal); J34.89 Other specified disorders of nose and nasal sinuses; R05.9 Cough, unspecified; Z20.822 Contact with and (suspected) exposure to COVID-19; Z79.899 Other long term (current) drug therapy
CPT/HCPCS: 0241U; 71046; 87502; 87635; 87651; 99282; 99283

== ENCOUNTER 2022-02-08 09:55 | Emergency (ER) | payer SELFPAY ==
--- NOTE | ~2022-02-08 | XR_ITS ---
EXAMINATION: XR chest 2V CLINICAL INFORMATION: Cough COMPARISON: No prior chest x-ray available in our system for comparison at the time of this dictation. TECHNIQUE: XR chest 2V Lungs and Darby: Both lungs are clear. Pleura: Normal. Costophrenic angles are sharp. No pneumothorax. Heart: The heart is normal in size. Mediastinum: The mediastinum is within normal limits.. Bones: Skeletal structures included are normal for patient's age. XR/XR chest 2V IMPRESSION: No radiographic evidence of acute cardiopulmonary disease, no evidence of pneumonia.
[2022-02-08 10:05] VITALS: BP 131/73; PULSE 85; RESP 20; TEMP 36.4; O2SAT 100; BMI 38.9
== END 2022-02-08 16:35 | disposition left against medical advice (07) ==
PROVIDERS: Emergency Provider Emergency Medicine; PCP Internal Medicine
DX: R05.9 Cough, unspecified (principal); R09.81 Nasal congestion
CPT/HCPCS: 71046; 99281; 99283

== ENCOUNTER 2022-03-13 18:11 | Emergency (ER) | payer OTHER, SELFPAY ==
[2022-03-13 18:26] VITALS: BP 139/83; PULSE 84; RESP 18; TEMP 36.7; O2SAT 100; BMI 38.9
--- NOTE | 2022-03-13 19:16 | ED_ITS ---
HPI - General Adult General Source: patient, RN notes reviewed and old records reviewed Mode of arrival: ambulatory Limitations: no limitations History of Present Illness HPI narrative: 46 years old female with past medical history of pyelonephritis, allergic rhinitis, COVID 19, asthma is here today for complaining of bilateral sinus tenderness. Patient was diagnosed with sinusitis and bronchitis couple weeks ag o and was placed on doxycycline. Patient states that she continues to have sinus pressure, blowing her nose with green discharge. Patient denies fever or chills. Denies any respiratory distress. Denies any CP, PND, presyncope or syncope. Onset (ago): week(s) Related Data Home Medications Medication Instructions Recorded Confirmed ferrous sulfate 325 mg (65 mg 325 mg PO DAILY 10/19/20 11/02/21 iron) tablet,delayed release famotidine 20 mg tablet (Pepcid) 20 mg PO BID 11/02/21 11/02/21 hydroxyzine HCl 10 mg tablet 1 tab PO Q8H PRN itch 11/02/21 11/02/21 ibuprofen 200 mg tablet (Advil) 200 mg PO DAILY PRN Pain (Scale 11/02/21 11/02/21 Score 1-3) levothyroxine 75 mcg tablet 1 tab PO QAM 11/02/21 11/02/21 pseudoephedrine HCl 30 mg tablet 30 mg PO BID PRN Allergy Symptoms 11/02/21 11/02/21 (Sudafed) terbinafine HCl 250 mg tablet 1 tab PO DAILY 11/02/21 11/02/21 Previous Rx's Medication Instructions Recorded fluticasone propionate 50 2 spray intranasal DAILY 30 days 03/16/21 mcg/actuation nasal #16 grams spray,suspension (Children's Flonase Allergy Relief) levofloxacin 750 mg tablet 750 mg PO DAILY #7 tabs 11/04/21 oxycodone 5 mg tablet 5 mg PO QID PRN moderate p #10 tabs 11/04/21 albuterol sulfate 90 mcg/actuation 2 puff inhalation Q4-6H PRN for 01/18/22 aerosol inhaler wheezing #1 ea prednisone 20 mg tablet 40 mg PO DAILY 5 days #10 tabs 01/27/22 clindamycin HCl 300 mg capsule 300 mg PO Q8H 7 days #21 caps 03/13/22 tramadol 50 mg tablet 50 mg PO BID PRN pain #7 tabs 03/13/22 albuterol sulfate 2.5 mg/3 mL 2.5 mg (3 mL) inhalation Q4-6H PRN 03/14/22 (0.083 %) solution for nebulization for wheezing #90 mL montelukast 10 mg tablet 10 mg PO DAILY #30 tabs 03/31/22 Allergies Allergy/AdvReac Type Severity Reaction Status Date / Time doxycycline [DOXYCYCLINE] Allergy Intermediate ITCHY, Verified 11/02/21 18:40 itching, itching amoxicillin [Augmentin] Allergy Unknown itching Verified 11/02/21 18:40 azithromycin [From ZITHROMAX] Allergy Unknown HIVES Verified 11/02/21 18:40 ciprofloxacin [From CIPRO] Allergy Unknown ITCH Verified 11/02/21 18:40 clavulanic acid [Augmentin] Allergy Unknown itching Verified 11/02/21 18:40 mold [MOLD] Allergy Unknown STUFFY NOSE Verified 11/02/21 18:40 mushroom [MUSHROOM] Allergy Unknown DIARRHEA Verified 11/02/21 18:40 Yeast [YEAST] Allergy Unknown DIARRHEA Verified 11/02/21 18:40 Review of Systems Review of Systems: Constitutional : No Weight loss, No Fever, No Chills, No Night Sweats, No Fatigue, No Malaise ENT/Mouth : No Hearing loss, No Ear Pain, Nasal Congestion, Sinus Pain, No Hoarseness, No sore throat, Rhinorrhea, No Swallowing Difficulty Eyes: No Eye Pain, No Swelling, No Redness, No Foreign Body, No Discharge, No Vision Changes Cardiovascular : No Chest Pain, No SOB, No Dyspnea on Exertion, No Orthopnea, No Edema, No Palpitations Respiratory : No Cough, No Sputum, No Wheezing, No Smoke Exposure, No Dyspnea Musculoskeletal : No joint pain, No Myalgias, No Joint Swelling Skin : No Skin Lesions, No rash Yes all other systems are reviewed and are negative PMFSH Past Medical History Medical History Allergic rhinitis Asthma COVID-19 History of urinary reflux History of urinary tract infection Obesity Thrush Social History Social History Household Members: Spouse and Children Housing: House Do you presently have visiting nurse or other home services: No Alcohol intake: never Patient Tobacco Use Status: Never used Tobacco Advance Directives on File: Yes Advance Directives Date on File: 11/03/21 service: No Current occupational status: unemployed Physical Exam ED Vital Signs: Vital Signs - 24 hr 03/13/22 18:26 Temperature 98.1 F Pulse Rate 84 Respiratory Rate 18 Blood Pressure 139/83 Pulse Oximetry 100 Oxygen Delivery Method Room Air BMI result Body Mass Index 38.9 Const General: cooperative, healthy appearing and comfortable Nutritional Appearance: average body habitus Orientation/consciousness: patient oriented x3 Limitations: no limitations HENMT Head: Yes normal to inspection, Yes normocephalic and Yes atraumatic Ears: hearing grossly normal bilaterally and TM's normal bilaterally Face and sinus: Yes sinus tenderness Mouth: Normal oral and palatal mucosa present Neck Neck: Yes normal visual inspection, Yes full ROM and Yes trachea midline Cardio Rate: regular rate Rhythm: regular rhythm Heart sounds: S1 normal heart sound present and S2 normal heart sound present GI Inspection: Yes normal to inspection General: Yes Bimanual renal exam normal bilaterally Neuro General: patient oriented x3 Course Course Course Narrative: 46 years old female with past medical history of pyelonephritis, allergic rhinitis, COVID 19, asthma is here today for complaining of bilateral sinus tenderness. Patient was diagnosed with sinusitis and bronchitis couple weeks ago and was placed on doxycycline. Patient states that she continues to have sinus pressure, blowing her nose with green discharge. Patient denies fever or chills. Denies any respiratory distress. Denies any CP, PND, presyncope or syncope. Will medicate patient with clindamycin. Check for COVID, flu, RSV. Reevaluation(s) Reevaluation #1: Patient continues to have sinus pressure and pain. Will give patient Ultram for pain. Patient states that she took ibuprofen and Tylenol throughout the day without any results. Swab negative for COVID, flu, RSV. Patient will be sent home on antibiotic and pain management Medications Administered Discontinued Medications Generic Name Dose Route Start Last Admin Trade Name Robinq PRN Reason Stop Dose Admin Clindamycin HCl 300 mg 03/13/22 19:18 03/13/22 19:27 Clindamycin Hcl 300 Mg Capsule PO 03/13/22 19:19 300 mg ONCE ONE Administration Tramadol HCl 50 mg 03/13/22 20:17 03/13/22 20:21 Tramadol Hcl 50 Mg Tablet PO 03/13/22 20:18 50 mg ONCE ONE Administration Discharge Plan Discharge Clinical Impression: Sinusitis Patient Disposition: Home, Self-Care Instructions: Sinusitis (ED) Additional Instructions: You were seen here today for facial pain. Please make sure you take all the antibiotics. You will be also given pain medication. Make sure that you do not drink alcohol when taking this medication or drive while on this medication. Please return to emergency department if your symptoms will get worse or if you experience any additional concerning symptoms. Prescriptions: New clindamycin HCl 300 mg capsule 300 mg PO Q8H 7 Days Qty: 21 0RF tramadol 50 mg tablet 50 mg PO BID PRN (Reason: pain) Qty: 7 0RF No Action fluticasone propionate [Children's Flonase Allergy Rlf] 50 mcg/actuation spray,suspension 2 spray intranasal DAILY 30 Days Qty: 16 3RF Rx Instructions: administer into each nostril albuterol sulfate 90 mcg/actuation HFA aerosol inhaler 2 puff inhalation Q4-6H PRN (Reason: for wheezing) Qty: 1 3RF albuterol sulfate 2.5 mg /3 mL (0.083 %) solution for nebulization 2.5 mg inhalation Q4-6H PRN (Reason: for wheezing) Qty: 90 3RF montelukast 10 mg tablet 10 mg PO DAILY Qty: 30 1RF levothyroxine 75 mcg tablet 1 tab PO QAM terbinafine HCl 250 mg tablet 1 tab PO DAILY hydroxyzine HCl 10 mg tablet 1 tab PO Q8H PRN (Reason: itch) famotidine [Pepcid] 20 mg Tablet 20 mg PO BID ibuprofen [Advil] 200 mg Tablet 200 mg PO DAILY PRN (Reason: Pain (Scale Score 1-3)) pseudoephedrine HCl [Sudafed] 30 mg Tablet 30 mg PO BID PRN (Reason: Allergy Symptoms) Rx Instructions: DNExceed 4 doses/24h levofloxacin 750 mg tablet 750 mg PO DAILY Qty: 7 0RF oxycodone 5 mg tablet 5 mg PO QID PRN (Reason: moderate p) Qty: 10 0RF Rx Instructions: Partial Fill upon patient request. prednisone 20 mg tablet 40 mg PO DAILY 5 Days Qty: 10 0RF ferrous sulfate 325 mg (65 mg iron) tablet,delayed release (DR/EC) 325 mg PO DAILY Interventions: ED Discharge Assessment Last Done: 03/13/22 20:32 Discharge Date/Time: 03/13/22 20:35
[2022-03-13] MEDS: Clindamycin HCL 300 MG CAPSULE PO (19:27)
[2022-03-13 20:19] LABS: Influenza A PCR NEGATIVE (Negative); Influenza B PCR NEGATIVE (Negative); Resp Syncy Virus RNA Qual PCR NEGATIVE (Negative); SARS COV2 PCR INHOUSE NEGATIVE (Negative)
[2022-03-13] MEDS: traMADoL HCL 50 MG TABLET PO (20:21)
== END 2022-03-13 20:35 | disposition home or self-care (01) ==
PROVIDERS: Nurse Practitioner Family; Emergency Provider Internal Medicine
DX: J32.9 Chronic sinusitis, unspecified (principal); Z20.822 Contact with and (suspected) exposure to COVID-19; Z79.899 Other long term (current) drug therapy
CPT/HCPCS: 0241U; 99283; 99284

== ENCOUNTER → 2022-05-24 15:12 | Outpatient (BNVA) | payer OTHER, SELFPAY | PROVIDERS: PCP Internal Medicine; Visit Provider Internal Medicine | DX: J45.909 Unspecified asthma, uncomplicated (principal); E66.9 Obesity, unspecified; Z68.35 Body mass index [BMI] 35.0-35.9, adult | CPT/HCPCS: 99212 ==

== ENCOUNTER → 2022-06-08 09:10 | Outpatient (BNVA) | payer OTHER, SELFPAY | PROVIDERS: PCP Internal Medicine; Visit Provider Nurse Practitioner Family | DX: N39.0 Urinary tract infection, site not specified (principal); Z87.440 Personal history of urinary (tract) infections | CPT/HCPCS: 51798; 99202 ==

== ENCOUNTER 2022-07-12 12:16 | Emergency (ER) | payer OTHER, SELFPAY ==
[2022-07-12 12:25] VITALS: BP 140/96; PULSE 86; RESP 18; TEMP 36.4; O2SAT 98; BMI 38.8
--- NOTE | 2022-07-12 12:25 | ED.NAVMDI ---
HPI - Nausea/Vomiting/Diarrhea General Chief complaint: Nausea/Vomiting/Diarrhea <TREE Villanueva Last Filed: 07/12/22 12:30> Stated complaint: Diarrhea/yeast infection <TREE Villanueva Last Filed: 07/12/22 12:30> Time Seen by Provider: 07/12/22 13:21 <TREE Villanueva Last Filed: 07/12/22 12:30> Source: patient <TREE Garrett Last Filed: 07/12/22 14:12> Mode of arrival: ambulatory <TREE Garrett Last Filed: 07/12/22 14:12> Limitations: no limitations <TREE Garrett Last Filed: 07/12/22 14:12> History of Present Illness HPI Narrative: Patient is a 46 year old assigned female at with a history of asthma presenting to the emergency department today with diarrhea and a vaginal yeast infection. Patient states that over the last couple days she has had loose stools every 1/2 but they have now stopped. Patient states that she is having yeast like vaginal symptoms. Patient denies any dizziness, lightheadedness, abdominal pain, nausea, vomiting, fever, chills, blurry vision, double vision, loss of vision, chest pain, difficulty breathing, shortness of breath, back pain, night sweats, pain with urination, increased urinary frequency, increased urinary urgency, blood in her urine or stool, syncope or a near syncopal episode, recent trauma or falls, bowel incontinence, bladder incontinence, bowel retention, bladder retention, or any other complaints at this time. <TREE Garrett Last Filed: 07/12/22 14:12> MD elicited complaint: diarrhea <TREE Garrett Last Filed: 07/12/22 14:12> Related Data Home medications: Home Medications Medication Instructions Recorded Confirmed ferrous sulfate 325 mg (65 mg 325 mg PO DAILY 10/19/20 11/02/21 iron) tablet,delayed release famotidine 20 mg tablet (Pepcid) 20 mg PO BID 11/02/21 11/02/21 hydroxyzine HCl 10 mg tablet 1 tab PO Q8H PRN itch 11/02/21 11/02/21 ibuprofen 200 mg tablet (Advil) 200 mg PO DAILY PRN Pain (Scale 11/02/21 11/02/21 Score 1-3) levothyroxine 75 mcg tablet 1 tab PO QAM 11/02/21 11/02/21 pseudoephedrine HCl 30 mg tablet 30 mg PO BID PRN Allergy Symptoms 11/02/21 11/02/21 (Sudafed) Previous Rx's Medication Instructions Recorded tramadol 50 mg tablet 50 mg PO BID PRN pain #7 tabs 03/13/22 montelukast 10 mg tablet 10 mg PO DAILY #30 tabs 03/31/22 fluticasone propionate 50 2 spray intranasal DAILY #16 grams 04/07/22 mcg/actuation nasal spray,suspension nitrofurantoin macrocrystal 50 mg 50 mg PO BEDTIME 90 days #90 caps 06/08/22 capsule nystatin 100,000 unit/gram topical 1 appl topical TID #15 grams 06/08/22 powder Ventolin HFA 90 mcg/actuation 2 puff PO Q4-6H PRN for wheezing 06/20/22 aerosol inhaler (albuterol sulfate) 30 days #18 grams albuterol sulfate 2.5 mg/3 mL 2.5 mg (3 mL) inhalation Q4-6H PRN 06/20/22 (0.083 %) solution for nebulization for wheezing #180 mL fluticasone 232 mcg-salmeterol 14 1 inh PO BID #1 ea 06/20/22 mcg/actuation breath activated powdr (AirDuo RespiClick) fluconazole 150 mg tablet 150 mg PO Q3D 2 doses #2 tabs 07/12/22 (Diflucan) <TREE Villanueva - Last Filed: 07/12/22 12:30> Allergies/Adverse reactions: Allergies Allergy/AdvReac Type Severity Reaction Status Date / Time doxycycline [DOXYCYCLINE] Allergy Intermediate ITCHY, Verified 07/12/22 12:29 itching, itching amoxicillin [Augmentin] Allergy Unknown itching Verified 07/12/22 12:29 azithromycin [From ZITHROMAX] Allergy Unknown HIVES Verified 07/12/22 12:29 ciprofloxacin [From CIPRO] Allergy Unknown ITCH Verified 07/12/22 12:29 clavulanic acid [Augmentin] Allergy Unknown itching Verified 07/12/22 12:29 mold [MOLD] Allergy Unknown STUFFY NOSE Verified 07/12/22 12:29 mushroom [MUSHROOM] Allergy Unknown DIARRHEA Verified 07/12/22 12:29 Yeast [YEAST] Allergy Unknown DIARRHEA Verified 07/12/22 12:29 <TREE Villanueva - Last Filed: 07/12/22 12:30> Review of Systems Constitutional: Constitutional: Reports no additional constitutional complaints, Denies chills, Denies fever(s) and Denies night sweats <TREE Garrett Last Filed: 07/12/22 14:12> Eyes: Eyes: Reports no additional eye complaints, Denies blurry vision, Denies change in vision, Denies diplopia, Denies eye discharge, Denies loss of vision and Denies eye pain <TREE Garrett - Last Filed: 07/12/22 14:12> ENT: Denies dizziness <TREE Garrett - Last Filed: 07/12/22 14:12> Cardiovascular: Cardiovascular: Reports no additional cardiovascular complaints, Denies chest pain, Denies lightheadedness, Denies Loss of Consciousness and Denies dyspnea <TREE Garrett Last Filed: 07/12/22 14:12> Respiratory: Respiratory: Reports no additional respiratory complaints and Denies dyspnea <TREE Garrett Last Filed: 07/12/22 14:12> Gastrointestinal: Gastrointestinal: Reports no additional gastrointestinal complaints, Denies abdominal pain, Denies melena, Denies hematochezia, Denies change in bowel habits, Denies change in stool character and Reports diarrhea <TREE Garrett Last Filed: 07/12/22 14:12> Genitourinary: Genitourinary: Denies hematuria, Denies urinary frequency, Denies dysuria, Denies urinary incontinence, Denies urinary hesitancy, Denies urinary urgency and Reports vaginal discharge (white) <TREE Garrett Last Filed: 07/12/22 14:12> Musculoskeletal: Musculoskeletal: Reports no additional musculoskeletal complaints, Denies numbness and Denies tingling <TREE Garrett Last Filed: 07/12/22 14:12> Neurologic: Denies dizziness, Denies loss of vision, Denies numbness and Denies tingling <TREE Garrett - Last Filed: 07/12/22 14:12> Psychiatric: Psychiatric: Reports no additional psychiatric complaints <TREE Garrett - Last Filed: 07/12/22 14:12> Endocrine: Endocrine: Reports no additional endocrine complaints <TREE Garrett - Last Filed: 07/12/22 14:12> Hematologic/Lymphatic: Hematologic/Lymphatic: Reports no additional hematologic/lymphatic complaints <TREE Garrett - Last Filed: 07/12/22 14:12> Allergic/Immunologic: Allergic/Immunologic: Reports no additional allergic/immunologic complaints <TREE Garrett - Last Filed: 07/12/22 14:12> COUNT INCLUDES THE [facility] Past Medical History Attestation statement: The following information was validated with the patient. <TREE Garrett - Last Filed: 07/12/22 14:12> Source: old records reviewed and nursing notes reviewed <TREE Garrett - Last Filed: 07/12/22 14:12> Medical History: Medical History Allergic rhinitis Asthma COVID-19 History of urinary reflux History of urinary tract infection Obesity Thrush <TREE Villanueva - Last Filed: 07/12/22 12:30> Social History Social History: Social History Household Members: Spouse and Children Housing: House Do you presently have visiting nurse or other home services: No Alcohol intake: never Patient Tobacco Use Status: Never used Tobacco Advance Directives: Yes Advance Directives on File: Yes Advance Directives Date on File: 11/03/21 service: No Current occupational status: unemployed <TREE Villanueva - Last Filed: 07/12/22 12:30> Physical Exam Vital Signs: Vital Signs: Last Vital Signs Temp 97.5 F 07/12/22 12:25 Pulse 86 07/12/22 12:25 Resp 18 07/12/22 12:25 BP 140/96 H 07/12/22 12:25 Pulse Ox 98 07/12/22 12:25 O2 Del Method Room Air 07/12/22 12:25 BMI result Body Mass Index 38.8 <TREE Villanueva - Last Filed: 07/12/22 12:30> Vital Signs: Last Vital Signs Temp 97.5 F 07/12/22 12:25 Pulse 86 07/12/22 12:25 Resp 18 07/12/22 12:25 BP 140/96 H 07/12/22 12:25 Pulse Ox 98 07/12/22 12:25 O2 Del Method Room Air 07/12/22 12:25 BMI result Body Mass Index 38.8 <TREE Garrett - Last Filed: 07/12/22 14:12> Const: General: cooperative, no acute distress, alert and awake <TREE Garrett - Last Filed: 07/12/22 14:12> Nutritional Appearance: well nourished <TREE Garrett - Last Filed: 07/12/22 14:12> Orientation/consciousness: patient oriented x3 <TREE Garrett - Last Filed: 07/12/22 14:12> Limitations: no limitations <TREE Garrett - Last Filed: 07/12/22 14:12> HEENT: Head: Yes normal to inspection and Yes atraumatic <TREE Garrett - Last Filed: 07/12/22 14:12> Ears: hearing grossly normal bilaterally and external ears normal <TREE Garrett - Last Filed: 07/12/22 14:12> General nose exam: Normal external nose present, no nasal discharge noted and no epistaxis <TREE Garrett - Last Filed: 07/12/22 14:12> Face and sinus: Yes normal facial exam, No abrasion and No laceration <TREE Garrett - Last Filed: 07/12/22 14:12> Mouth: Normal oral and palatal mucosa present, no drooling and no muffled voice <TREE Garrett - Last Filed: 07/12/22 14:12> Eyes: General: appearance normal, both eyes and all related structures <TREE Garrett - Last Filed: 07/12/22 14:12> Periorbital: periorbital findings normal <TREE Garrett - Last Filed: 07/12/22 14:12> Eyelids: Yes eyelids normal <TREE Garrett - Last Filed: 07/12/22 14:12> Conjunctivae: conjunctivae normal <Maricruz Diallo PA - Last Filed: 07/12/22 14:12> Pupils: Equal, round and reactive pupils present <Maricruz Diallo HI - Last Filed: 07/12/22 14:12> EOM: EOMs intact bilaterally <Maricruz Diallo HI - Last Filed: 07/12/22 14:12> Neck: Neck: Yes normal visual inspection, Yes full ROM and Yes no lymphadenopathy <Maricruz Diallo HI - Last Filed: 07/12/22 14:12> Chest: Chest palpation & inspection: normal inspection of the chest <Maricruz Diallo HI - Last Filed: 07/12/22 14:12> Resp: Effort & Inspection: normal respiratory effort and able to speak in complete sentences <Maricruz Diallo HI - Last Filed: 07/12/22 14:12> GI: Inspection: Yes normal to inspection <Maricruz Diallo HI - Last Filed: 07/12/22 14:12> Palpation (GI): Soft to palpation, not firm, nontender and no guarding <Maricruz Diallo HI - Last Filed: 07/12/22 14:12> Neuro: General: patient oriented x3 and moves all extremities <Maricruz Diallo HI - Last Filed: 07/12/22 14:12> Cranial nerves: Yes Equal, round and reactive pupils present <Maricruz Diallo HI - Last Filed: 07/12/22 14:12> Cognition (Neuro): normal cognition <Maricruz Diallo HI - Last Filed: 07/12/22 14:12> Motor exam (neuro): 5/5 motor strength present throughout <Maricruz Diallo HI - Last Filed: 07/12/22 14:12> Sensory Exam: Normal double simultaneous stimulation for sensation <Maricruz Diallo HI - Last Filed: 07/12/22 14:12> Coordination: [id number] test normal <Maricruz Diallo HI - Last Filed: 07/12/22 14:12> Extrem: General: Yes normal to inspection, Yes full ROM and Yes capillary refill normal <Maricruz Diallo HI - Last Filed: 07/12/22 14:12> Psych: Appearance: grossly normal <Maricruz Diallo, HI - Last Filed: 07/12/22 14:12> Mental Status: mental status grossly normal <TREE Garrett Last Filed: 07/12/22 14:12> Affect: normal affect <TREE Garrett Last Filed: 07/12/22 14:12> Attitude: cooperative <TREE Garrett Last Filed: 07/12/22 14:12> Thought process: Normal thought process present <TREE Garrett Last Filed: 07/12/22 14:12> Thought content: Normal thought content present <TREE Garrett Last Filed: 07/12/22 14:12> Insight: Good insight present (Psych) <TREE Garrett Last Filed: 07/12/22 14:12> Course Course Course Narrative: RME--46yo F w/PMHx Asthma, c/o loose nonbloody diarrhea x3 days going [id number] & suspected yeast infection w/vaginal discharge and pruritis. Also reports cracked lip x years. Denies abd pain, N/V, dysuria. denies travel or recent abx use abd soft and nontender. cracked lip noted without erythema or lesion Labs, UA, stool studies including C diff and BV ordered <TREE Villanueva - Last Filed: 07/12/22 12:30> Medical Decision Making Medical Decision Making MDM Narrative: Patient is a 46 year old assigned female at with a history of asthma presenting to the emergency department today with diarrhea and vaginal yeast. Patient's physical exam was unremarkable. Patient's blood work was unremarkable. I explained my physical exam findings as well as all test results to the patient. I answered all questions asked by the patient. I stressed the importance of the patient taking her medication as prescribed. I stressed the importance of the patient following up with her primary care provider. I stressed the importance of the patient returning to the emergency department immediately if her symptoms were to worsen or if she were to develop any dizziness, shortness of breath, difficulty breathing, chest pain, blurry vision, loss of vision, nausea, vomiting, abdominal pain, fever, chills, back pain, or any other complaints. Patient verbalized agreement and understanding with this treatment plan and discharge. <TREE Garrett Last Filed: 07/12/22 14:12> Differential Diagnosis Differential Diagnoses: The differential diagnosis associated with the presentation includes <TREE Garrett - Last Filed: 07/12/22 14:12> viral illness <TREE Garrett - Last Filed: 07/12/22 14:12> Lab Data MDM Lab Attestation statement: I reviewed the patient's lab results. <TREE Garrett - Last Filed: 07/12/22 14:12> Result Diagrams: 07/12/22 12:36 07/12/22 12:36 <TREE Villanueva - Last Filed: 07/12/22 12:30> Labs: Lab Results 07/12/22 07/12/22 Range/Units 12:36 12:36 WBC 8.7 (4.8-10.8) X10*3/uL RBC 4.96 D (4.20-5.50) X10*6/uL Hgb 12.2 D (12.0-16.0) g/dl Hct 37.9 D (37.0-47.0) % MCV 76.4 L (80.0-98.0) fL MCH 24.6 L (27.0-33.0) pg MCHC 32.2 (31.0-35.0) g/dl RDW 23.0 H (11.0-16.0) % Plt Count 263 (160-400) X10*3/uL MPV 8.9 L (9.4-12.3) fL Immature Gran % (Auto) 0.2 (0.0-0.4) % Neut % (Auto) 70.5 (45-73) % Lymph % (Auto) 16.5 L (20-40) % [place] % (Auto) 10.3 (2-11) % Eos % (Auto) 2.2 (0-4) % Baso % (Auto) 0.3 (0-2) % Lymph # (Auto) 1.4 (1.2-4.9) X10*3/uL [place] # (Auto) 0.9 (0.1-1.2) X10*3/uL Eos # (Auto) 0.2 (0.0-0.4) X10*3/uL Baso # (Auto) 0.0 (0.0-0.2) X10*3/uL Abs Immat Gran (auto) 0.02 (0.00-0.03) X10*3/uL Absolute Neuts (auto) 6.2 (2.0-8.3) x10*3/uL Absolute Nucleated RBC 0.000 (0.0-0.012) X10*3/uL Nucleated RBC % (auto) 0.0 (0.0-0.2) /100WBC Sodium 139 (135-145) mmol/L Potassium 4.3 D (3.3-5.1) mmol/L Chloride 104 (96-108) mmol/L Carbon Dioxide 29 (22-29) mmol/L Anion Gap 10 L (12-20) BUN 12 (9-16) mg/dL Creatinine 1.12 (0.5-1.4) mg/dL Estim Creat Clear Calc 63.9 Estimated GFR 52 Random Glucose 93 (60-115) mg/dL Calcium 9.4 D (8.4-10.2) mg/dL Magnesium 2.0 (1.6-2.6) mg/dL Total Bilirubin 0.4 (0.0-1.0) mg/dL Direct Bilirubin 0.1 (0.0-0.5) mg/dL AST 12 (5-31) U/L ALT 17 (0-31) U/L Alkaline Phosphatase 100 (39-117) U/L Total Protein 6.6 (6.5-8.0) g/dL Albumin 4.0 (3.5-5.0) g/dL Lipase 40 (8-78) U/L <TREE Villanueva - Last Filed: 07/12/22 12:30> Lab Results 07/12/22 07/12/22 Range/Units 12:36 12:36 WBC 8.7 (4.8-10.8) X10*3/uL RBC 4.96 D (4.20-5.50) X10*6/uL Hgb 12.2 D (12.0-16.0) g/dl Hct 37.9 D (37.0-47.0) % MCV 76.4 L (80.0-98.0) fL MCH 24.6 L (27.0-33.0) pg MCHC 32.2 (31.0-35.0) g/dl RDW 23.0 H (11.0-16.0) % Plt Count 263 (160-400) X10*3/uL MPV 8.9 L (9.4-12.3) fL Immature Gran % (Auto) 0.2 (0.0-0.4) % Neut % (Auto) 70.5 (45-73) % Lymph % (Auto) 16.5 L (20-40) % [place] % (Auto) 10.3 (2-11) % Eos % (Auto) 2.2 (0-4) % Baso % (Auto) 0.3 (0-2) % Lymph # (Auto) 1.4 (1.2-4.9) X10*3/uL [place] # (Auto) 0.9 (0.1-1.2) X10*3/uL Eos # (Auto) 0.2 (0.0-0.4) X10*3/uL Baso # (Auto) 0.0 (0.0-0.2) X10*3/uL Abs Immat Gran (auto) 0.02 (0.00-0.03) X10*3/uL Absolute Neuts (auto) 6.2 (2.0-8.3) x10*3/uL Absolute Nucleated RBC 0.000 (0.0-0.012) X10*3/uL Nucleated RBC % (auto) 0.0 (0.0-0.2) /100WBC Sodium 139 (135-145) mmol/L Potassium 4.3 D (3.3-5.1) mmol/L Chloride 104 (96-108) mmol/L Carbon Dioxide 29 (22-29) mmol/L Anion Gap 10 L (12-20) BUN 12 (9-16) mg/dL Creatinine 1.12 (0.5-1.4) mg/dL Estim Creat Clear Calc 63.9 Estimated GFR 52 Random Glucose 93 (60-115) mg/dL Calcium 9.4 D (8.4-10.2) mg/dL Magnesium 2.0 (1.6-2.6) mg/dL Total Bilirubin 0.4 (0.0-1.0) mg/dL Direct Bilirubin 0.1 (0.0-0.5) mg/dL AST 12 (5-31) U/L ALT 17 (0-31) U/L Alkaline Phosphatase 100 (39-117) U/L Total Protein 6.6 (6.5-8.0) g/dL Albumin 4.0 (3.5-5.0) g/dL Lipase 40 (8-78) U/L <TREE Garrett - Last Filed: 07/12/22 14:12> Discharge Plan Discharge Clinical Impression: Viral illness, Yeast infection <TREE Villanueva - Last Filed: 07/12/22 12:30> Patient Disposition: Home, Self-Care <TREE Villanueva - Last Filed: 07/12/22 12:30> Instructions: Yeast Infection (ED), Viral Syndrome (ED) <TREE Villanueva - Last Filed: 07/12/22 12:30> Additional Instructions: Follow up with your primary care provider. Return to the emergency department immediately if your symptoms worsen or if you develop any dizziness, shortness of breath, difficulty breathing, chest pain, blurry vision, loss of vision, nausea, vomiting, abdominal pain, fever, chills, back pain, or any other complaints. <TREE Villanueva - Last Filed: 07/12/22 12:30> Prescriptions: New fluconazole [Diflucan] 150 mg tablet 150 mg PO Q3D Qty: 2 0RF No Action montelukast 10 mg tablet 10 mg PO DAILY Qty: 30 1RF fluticasone propionate 50 mcg/actuation spray,suspension 2 spray intranasal DAILY Qty: 16 3RF albuterol sulfate [Ventolin HFA] 90 mcg/actuation HFA aerosol inhaler 2 puff PO Q4-6H PRN (Reason: for wheezing) 30 Days Qty: 18 3RF albuterol sulfate 2.5 mg /3 mL (0.083 %) solution for nebulization 2.5 mg inhalation Q4-6H PRN (Reason: for wheezing) Qty: 180 3RF fluticasone propion-salmeterol [AirDuo RespiClick] 232-14 mcg/actuation aerosol powdr breath activated 1 inh PO BID Qty: 1 3RF levothyroxine 75 mcg tablet 1 tab PO QAM hydroxyzine HCl 10 mg tablet 1 tab PO Q8H PRN (Reason: itch) famotidine [Pepcid] 20 mg Tablet 20 mg PO BID ibuprofen [Advil] 200 mg Tablet 200 mg PO DAILY PRN (Reason: Pain (Scale Score 1-3)) pseudoephedrine HCl [Sudafed] 30 mg Tablet 30 mg PO BID PRN (Reason: Allergy Symptoms) Rx Instructions: DNExceed 4 doses/24h tramadol 50 mg tablet 50 mg PO BID PRN (Reason: pain) Qty: 7 0RF ferrous sulfate 325 mg (65 mg iron) tablet,delayed release (DR/EC) 325 mg PO DAILY nitrofurantoin macrocrystal 50 mg capsule 50 mg PO BEDTIME 90 Days Qty: 90 1RF Rx Instructions: must administer with a meal/food nystatin 100,000 unit/gram powder 1 appl topical TID Qty: 15 3RF <TREE Villanueva - Last Filed: 07/12/22 12:30> Referrals: Philly Newton MD [Primary Care Provider] - <TREE Villanueva - Last Filed: 07/12/22 12:30> Stand Alone Forms: Work/School Release <TREE Villanueva - Last Filed: 07/12/22 12:30> Print Language: Gabonese <TREE Villanueva - Last Filed: 07/12/22 12:30>
[2022-07-12 12:39] LABS: MANUAL DIFF FLAG NO
[2022-07-12 12:41] LABS: Basophils Percent Auto 0.3 % (0-2); Eosinophils Absolute Auto 0.2 X10*3/uL (0.0-0.4); Eosinophils Percent Auto 2.2 % (0-4); Hematocrit 37.9 % (37.0-47.0); Hemoglobin 12.2 g/dl (12.0-16.0); Imm Gran Abs Auto 0.02 X10*3/uL (0.00-0.03); Imm Gran Pct Auto 0.2 % (0.0-0.4); Lymphocytes Absolute Auto 1.4 X10*3/uL (1.2-4.9); Lymphocytes Percent Auto 16.5 % (20-40); Mean Corpuscular HGB Conc 32.2 g/dl (31.0-35.0); Mean Corpuscular Hemoglobin 24.6 pg (27.0-33.0); Mean Corpuscular Volume 76.4 fL (80.0-98.0); Mean Platelet Volume 8.9 fL (9.4-12.3); Monocytes Absolute Auto 0.9 X10*3/uL (0.1-1.2); Monocytes Percent Auto 10.3 % (2-11); Neutrophils Absolute Auto 6.2 x10*3/uL (2.0-8.3); Neutrophils Percent Auto 70.5 % (45-73); Platelet Count 263 X10*3/uL (160-400); Red Blood Count 4.96 X10*6/uL (4.20-5.50); White Blood Count 8.7 X10*3/uL (4.8-10.8)
[2022-07-12 13:11] LABS: Alanine Aminotransferase 17 U/L (0-31); Alkaline Phosphatase 100 U/L (39-117); Anion Gap 10 (12-20); Aspartate Amino Transferase 12 U/L (5-31); Bilirubin Direct 0.1 mg/dL (0.0-0.5); Bilirubin Total 0.4 mg/dL (0.0-1.0); Blood Urea Nitrogen 12 mg/dL (9-16); Calcium 9.4 mg/dL (8.4-10.2); Carbon Dioxide 29 mmol/L (22-29); Chloride 104 mmol/L (96-108); Creatinine Clr Calc Pharmacy 63.9; Estimated Glomerular Filt Rate 52; Glucose Random 93 mg/dL (60-115); Lipase 40 U/L (8-78); Potassium 4.3 mmol/L (3.3-5.1); Sodium 139 mmol/L (135-145); Total Protein 6.6 g/dL (6.5-8.0)
--- NOTE | 2022-07-12 14:21 | PC.NURSE ---
pt pleasant, calm, and cooperative. loose stools stopped, no GI panel/c. diff specimens collected, along with bacterial vaginosis and clean catch urine. pt educated and advised to follow up with outpatient doctor. pt had no further questions and was discharged.
== END 2022-07-12 14:24 | disposition home or self-care (01) ==
PROVIDERS: Physician Assistant; Emergency Provider Emergency Medicine; PCP Internal Medicine
DX: B34.9 Viral infection, unspecified (principal); B37.31 Acute candidiasis of vulva and vagina; R19.7 Diarrhea, unspecified; Z79.899 Other long term (current) drug therapy
CPT/HCPCS: 36415; 80048; 80076; 83690; 83735; 85025; 99283; 99284

== ENCOUNTER 2022-08-12 09:49 | Outpatient (REF) | payer OTHER, SELFPAY ==
--- NOTE | ~2022-08-12 | US_ITS ---
EXAMINATION: US RETROPERITONEAL COMPLETE (RENAL) CLINICAL INFORMATION: Urinary tract infection, site not specified. COMPARISON: Renal ultrasound 11/03/2021 and 12/30/2019. CT abdomen and pelvis 05/16/2018. TECHNIQUE: Real-time imaging of the kidneys and bladder. FINDINGS: RIGHT KIDNEY: 9.3 x 4.1 x 5.8 cm (SAG x AP x TRV). The kidney is small with areas of cortical scarring. There are multiple echogenic foci without clinical which may reflect parenchymal calcification. No calculi or focal parenchymal lesions. No hydronephrosis. LEFT KIDNEY: 10.6 x 5.2 x 4.8 cm (SAG x AP x TRV). The kidney is normal in size, contour, and echogenicity. Renal cortical thickness is normal. No hydronephrosis. 6 mm simple cyst in the upper pole. 4 mm nonobstructing calculus in the mid kidney. 3 mm nonobstructing calculus in the mid kidney. BLADDER: Well distended and normal. Bilateral ureteral jets are demonstrated. Prevoid bladder volume is 234.4 mL. Postvoid bladder volume is 41.2 mL. US/US retroperitoneal comp IMPRESSION: Small nonobstructing calculi in the left kidney. No hydronephrosis. Small right kidney with focal areas of cortical scarring consistent with prior infection or infarct.
== END 2022-08-12 09:50 | disposition home or self-care (01) ==
LOC: HO.US 09:49
PROVIDERS: PCP Internal Medicine; Visit Provider Nurse Practitioner Family
DX: N39.0 Urinary tract infection, site not specified (principal)
CPT/HCPCS: 76770

== ENCOUNTER → 2022-08-24 13:24 | Outpatient (BNVA) | payer OTHER, SELFPAY | PROVIDERS: PCP Internal Medicine; Visit Provider Nurse Practitioner Family | DX: N39.0 Urinary tract infection, site not specified (principal); N28.1 Cyst of kidney, acquired; N20.0 Calculus of kidney | CPT/HCPCS: 51798; 99212 ==

== ENCOUNTER 2023-01-16 10:14 | Outpatient (AMB) | payer OTHER, SELFPAY ==
[2023-01-16 10:16] VITALS: BP 122/74; PULSE 80; O2SAT 99; BMI 37.1
--- NOTE | 2023-01-16 10:16 | MHC.OFFVIS ---
Intake Vital Signs 01/16/23 10:16 Height 5 ft 3 in Weight 209 lb 7.026 oz BMI 37.1 BP 122/74 Blood Pressure Location Lt brachial Position Sitting Pulse 80 Pulse Source Doppler Pulse Oximetry (%) 99 Oxygen Delivery Method Room Air Intake Visit Reasons: asthma Intake Note: Patient is here for a follow up on asthma, patient stated she finished a course of antibiotics due to bronchitis diagnosed at urgent care beginning of January.. Allergies doxycycline [DOXYCYCLINE] Allergy (Intermediate, Verified 01/16/23 10:26) ITCHY, itching, itching amoxicillin [Augmentin] Allergy (Unknown, Verified 01/16/23 10:26) itching azithromycin [From ZITHROMAX] Allergy (Unknown, Verified 01/16/23 10:26) HIVES ciprofloxacin [From CIPRO] Allergy (Unknown, Verified 01/16/23 10:26) ITCH clavulanic acid [Augmentin] Allergy (Unknown, Verified 01/16/23 10:26) itching mold [MOLD] Allergy (Unknown, Verified 01/16/23 10:26) STUFFY NOSE mushroom [MUSHROOM] Allergy (Unknown, Verified 01/16/23 10:26) DIARRHEA Yeast [YEAST] Allergy (Unknown, Verified 01/16/23 10:26) DIARRHEA Medication List - Last Reconciled 01/16/23 by Freida Montoya MD albuterol sulfate 2.5 mg (3 mL) inhalation Q4-6H PRN ascorbic acid (vitamin C) 1 g PO DAILY 90 days famotidine (Pepcid) 20 mg PO BID ferrous sulfate 325 mg PO DAILY fluconazole (Diflucan) 150 mg PO Q3D 2 doses fluticasone propion-salmeterol 232-14 mcg/actuation 1 inh PO BID fluticasone propionate 50 mcg/actuation 2 sprays intranasal DAILY hydroxyzine HCl 1 tab PO Q8H PRN ibuprofen (Advil) 200 mg PO DAILY PRN levothyroxine 1 tab PO QAM methenamine hippurate 1 g PO DAILY 90 days montelukast 10 mg PO DAILY nitrofurantoin macrocrystal 50 mg PO BEDTIME 90 days nystatin 1 appl topical TID pseudoephedrine HCl (Sudafed) 30 mg PO BID PRN pyridoxine (vitamin B6) 100 mg PO DAILY 90 days tramadol 50 mg PO BID PRN Ventolin HFA 90 mcg/actuation (albuterol sulfate) 2 puffs PO Q4-6H PRN NS Do you need a note to return to daycare/school/sports/work: No HPI asthma HPI Details This 47 years old female is a case of chronic obstructive pulmonary disease as well as chronic allergic rhinitis. She comes for follow-up only once or twice a year. This time she is coming for her 6 months follow-up. About 3 weeks ago she had an acute upper respiratory infection and was seen at an urgent care. Treated with a course of Augmentin for 10 days which she completed more than a week ago. She has no residual fever, are wheezing. Breathing is at her baseline. However continues to have mild intermittent cough. She is prone to have increase in her cough due to increased allergy symptoms. Currently has only mild nasal congestion. [employer]. [facility] Medical History Obesity Allergic rhinitis COVID-19 Thrush Asthma History of urinary tract infection History of urinary reflux Social History Household Members: Spouse and Children Housing: House Do you presently have visiting nurse or other home services: No Alcohol intake: never Patient Tobacco Use Status: Never used Tobacco Advance Directives Date on File: 11/03/21 service: No Current occupational status: unemployed Review of Systems Const All systems reviewed & are unremarkable except as noted in HPI and below Eyes Reports no additional complaints ENT Reports nasal congestion (MILD OFF AND ON ) Card Reports no additional complaints Resp Denies cough and Denies wheezing GI Reports no additional complaints Reports no additional complaints Musc Reports no additional complaints Skin/Breast Reports system reviewed and no additional complaints, except as documented Neuro Reports no additional complaints Psych Reports no additional complaints Sujit/Lymph Reports no additional complaints Aller/Immun Denies wheezing Physical Exam Vital Signs: Last Vital Signs Pulse 80 01/16/23 10:16 BP 122/74 01/16/23 10:16 Pulse Ox 99 01/16/23 10:16 Oxygen Delivery Method Room Air 01/16/23 10:16 BMI result Body Mass Index 37.1 She is quite overweight but appears quite comfortable and healthy. Const General: comfortable, no acute distress, alert and awake Orientation/consciousness: patient oriented x3 HEENT Head: Yes normal to inspection General nose exam: No nasal polyps present and No nasal discharge present Face and sinus: Yes sinuses nontender Mouth: oropharynx normal Throat: Yes posterior oropharynx normal Eyes General: appearance normal, both eyes and all related structures Neck Neck: Yes normal visual inspection, Yes no lymphadenopathy, Yes trachea midline and Yes no JVD Thyroid: Thyroid normal Chest Chest palpation & inspection: normal inspection of the chest, normal palpation of entire chest wall and no tenderness Resp Other: Percussion note resonant, breath sounds are equal and vesicular on both sides. No wheezes or rhonchi heard today . Cardio Palpation: normal PMI Rate: regular rate Rhythm: regular rhythm Heart sounds: no gallops and no murmurs Peripheral pulses: Peripheral pulses 2+ throughout GI Palpation (GI): Soft to palpation, nontender, No hepatosplenomegaly present, no masses and Other GI palpation findings present (Abdomen is obese and somewhat protuberant) Auscultation: normal bowel sounds Back/Spine/Pelvis Thoracic/Lumbar Spine: thoracic and lumbar spine normal to inspection Skin General skin exam: no rashes or lesions noted Neuro General: patient oriented x3 and no focal motor deficits Cranial nerves: Yes CN's II-XII intact bilaterally Extrem General: Yes normal to inspection, Yes no clubbing, cyanosis or edema and Yes no calf tenderness Psych Appearance: grossly normal and well kempt Speech and movement: Normal speech and movement present Assessment & Plan Assessment & Plan (1) Asthma: Comment: SHE HAS CHRONIC RESPIRATORY SYMPTOMS, PREDOMINANTLY DUE TO BRONCHIAL ASTHMA , WELL CONTROLLED AT THIS TIME . TX : AIRDUO 232-14 ONE INH BID , Script renewed . PROAIR OR VENTOLIN 2 PUFFS Q 4 HRS PRN , WHEN OUTDOORS. ALBUTEROL SOLUTIONS 0.83 % 2 ML IN NEB . Q 4-6 HRS PRN * I ADVISED HER TO USE ALBUTEROL IN THE NEBULIZER ONLY WHEN SHE HAS ATTACKS OF WHEEZING, Code(s): J45.909 - Unspecified asthma, uncomplicated (2) Allergic rhinitis: Comment: SHE HAS CHRONIC ALLERGIC RHINITIS SYMPTOMS. CLAIMS THAT HER NASAL CONGESTION BOTHERS HER OFF AND ON. TX : Continue using Montelukast 10 mg daily and Flonase nasal spray 2 spray each nostril daily. May also use saline spray in each nostril every few hours p.r.n. if the nose feels dry Code(s): J30.9 - Allergic rhinitis, unspecified Medications: Refilled Ventolin HFA 90 mcg/actuation (albuterol sulfate) 2 puffs PO Q4-6H PRN 18 grams 3RF for wheezing NS fluticasone propion-salmeterol 232-14 mcg/actuation 1 inh PO BID 1 ea 5RF Asthma Coding Level of Care Code Est Pt Level 3 (55425) Diagnoses Asthma J45.909 Allergic rhinitis J30.9
== END 2023-01-16 10:36 | disposition home or self-care (01) ==
PROVIDERS: PCP Internal Medicine; Visit Provider Internal Medicine
DX: J45.909 Unspecified asthma, uncomplicated (principal); J30.9 Allergic rhinitis, unspecified
CPT/HCPCS: 99213

== ENCOUNTER → 2023-01-16 10:14 | Outpatient (BNVA) | payer OTHER, SELFPAY | PROVIDERS: PCP Internal Medicine; Visit Provider Internal Medicine | DX: J45.909 Unspecified asthma, uncomplicated (principal) | CPT/HCPCS: 99212 ==

== ENCOUNTER 2023-04-12 15:59 | Outpatient (AMB) | payer OTHER, SELFPAY ==
--- NOTE | 2023-04-12 16:08 | A.OFFVIS_ITS ---
Intake Vital Signs 04/12/23 16:13 Height 5 ft 1 in Weight 212 lb 11.937 oz BMI 40.2 BP 138/96 H Blood Pressure Location Lt brachial Position Sitting Pulse 75 Pulse Source Pulse Oximeter Pulse Oximetry (%) 99 Oxygen Delivery Method Room Air Intake Visit Reasons: cough/wheeze Intake Note: pt is here for sick visit, she has not been feeling well for 2 weeks, coughing, nasal irritation and dryness, blowing is causing discomfort on right side. She just doesn't feel well. 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 Required: No Allergies doxycycline [DOXYCYCLINE] Allergy (Intermediate, Verified 04/12/23 16:25) ITCHY, itching, itching amoxicillin [Augmentin] Allergy (Unknown, Verified 04/12/23 16:25) itching azithromycin [From ZITHROMAX] Allergy (Unknown, Verified 04/12/23 16:25) HIVES ciprofloxacin [From CIPRO] Allergy (Unknown, Verified 04/12/23 16:25) ITCH clavulanic acid [Augmentin] Allergy (Unknown, Verified 04/12/23 16:25) itching mold [MOLD] Allergy (Unknown, Verified 04/12/23 16:25) STUFFY NOSE mushroom [MUSHROOM] Allergy (Unknown, Verified 04/12/23 16:25) DIARRHEA Yeast [YEAST] Allergy (Unknown, Verified 04/12/23 16:25) DIARRHEA Medication List - Last Reconciled 04/12/23 by Freida Montoya MD albuterol sulfate 2.5 mg (3 mL) PO Q4-6H ascorbic acid (vitamin C) 1 g PO DAILY 90 days famotidine (Pepcid) 20 mg PO BID ferrous sulfate 325 mg PO DAILY fluconazole (Diflucan) 150 mg PO Q3D 2 doses fluticasone propion-salmeterol 232-14 mcg/actuation 1 inh PO BID fluticasone propionate 50 mcg/actuation 2 sprays intranasal DAILY hydroxyzine HCl 1 tab PO Q8H PRN ibuprofen (Advil) 200 mg PO DAILY PRN levothyroxine 1 tab PO QAM methenamine hippurate 1 g PO DAILY 90 days montelukast 10 mg PO BEDTIME 30 days nitrofurantoin macrocrystal 50 mg PO BEDTIME 90 days nystatin 1 appl topical TID pseudoephedrine HCl (Sudafed) 30 mg PO BID PRN pyridoxine (vitamin B6) 100 mg PO DAILY 90 days tramadol 50 mg PO BID PRN Ventolin HFA 90 mcg/actuation (albuterol sulfate) 2 puffs PO Q4-6H PRN NS Do you need a note to return to daycare/school/sports/work: No HPI cough/wheeze HPI Details 47 years old female, comes for an urgent visit because for the last 2 weeks she is having stuffiness of the nose with, sinus congestion, and cough. No fever or chills . She had a course of prednisone prescribed by her primary care physician but it did not make any difference. Complains cough which is mostly dry, and soreness over the cheeks. Denies postnasal discharge. She is also having increased wheezing especially at night. [facility] Medical History Obesity Allergic rhinitis COVID-19 Thrush Asthma History of urinary tract infection History of urinary reflux Social History Household Members: Spouse and Children Housing: House Do you presently have visiting nurse or other home services: No Alcohol intake: never Patient Tobacco Use Status: Never used Tobacco Advance Directives Date on File: 11/03/21 service: No Current occupational status: unemployed Review of Systems Const All systems reviewed & are unremarkable except as noted in HPI and below Eyes Reports no additional complaints ENT Reports nasal congestion (MILD OFF AND ON ) Card Reports no additional complaints Resp Denies cough and Denies wheezing GI Reports no additional complaints Reports no additional complaints Musc Reports no additional complaints Skin/Breast Reports system reviewed and no additional complaints, except as documented Neuro Reports no additional complaints Psych Reports no additional complaints Sujit/Lymph Reports no additional complaints Aller/Immun Denies wheezing Physical Exam Vital Signs: Last Vital Signs Pulse 75 04/12/23 16:13 BP 138/96 H 04/12/23 16:13 Pulse Ox 99 04/12/23 16:13 Oxygen Delivery Method Room Air 04/12/23 16:13 BMI result Body Mass Index 40.2 She is quite overweight but appears quite comfortable and healthy. Const General: comfortable, no acute distress, alert and awake Orientation/consciousness: patient oriented x3 HEENT Head: Yes normal to inspection General nose exam: No nasal polyps present and No nasal discharge present Face and sinus: No sinuses nontender (She has mild maxillary tenderness on both sides.) Mouth: oropharynx normal Throat: Yes posterior oropharynx normal Eyes General: appearance normal, both eyes and all related structures Neck Neck: Yes normal visual inspection, Yes no lymphadenopathy, Yes trachea midline and Yes no JVD Thyroid: Thyroid normal Chest Chest palpation & inspection: normal inspection of the chest, normal palpation of entire chest wall and no tenderness Resp Other: Percussion note resonant, breath sounds are equal and vesicular on both sides. No wheezes or rhonchi heard today . Cardio Palpation: normal PMI Rate: regular rate Rhythm: regular rhythm Heart sounds: no gallops and no murmurs Peripheral pulses: Peripheral pulses 2+ throughout GI Palpation (GI): Soft to palpation, nontender, No hepatosplenomegaly present, no masses and Other GI palpation findings present (Abdomen is obese and somewhat protuberant) Auscultation: normal bowel sounds Back/Spine/Pelvis Thoracic/Lumbar Spine: thoracic and lumbar spine normal to inspection Skin General skin exam: no rashes or lesions noted Neuro General: patient oriented x3 and no focal motor deficits Cranial nerves: Yes CN's II-XII intact bilaterally Extrem General: Yes normal to inspection, Yes no clubbing, cyanosis or edema and Yes no calf tenderness Psych Appearance: grossly normal and well kempt Speech and movement: Normal speech and movement present Assessment & Plan Assessment & Plan (1) Allergic rhinitis: Comment: SHE HAS CHRONIC ALLERGIC RHINITIS SYMPTOMS. CLAIMS THAT HER NASAL CONGESTION BOTHERS HER OFF AND ON. Code(s): J30.9 - Allergic rhinitis, unspecified Plan: TX : Continue using Montelukast 10 mg daily and Flonase nasal spray 2 spray each nostril daily. May also use saline spray in each nostril every few hours p.r.n. if the nose feels dry (2) Sinusitis: Comment: Patient does have history of recurrent sinus infection. At present she seems to have low-grade sinusitis. Code(s): J32.9 - Chronic sinusitis, unspecified Qualifiers: Chronicity: acute Recurrence: recurrent Sinusitis location: maxillary Qualified Code(s): J01.01 - Acute recurrent maxillary sinusitis Plan: Steam inhalation 2 to 3 times a day Course of doxycycline 100 b.i.d. for 10 days is prescribed. (3) Asthma: Comment: SHE HAS CHRONIC RESPIRATORY SYMPTOMS, PREDOMINANTLY DUE TO BRONCHIAL ASTHMA , WELL CONTROLLED AT THIS TIME . Code(s): J45.909 - Unspecified asthma, uncomplicated Plan: TX : SASCHAO 232-14 ONE INH BID , Script renewed . PROAIR OR VENTOLIN 2 PUFFS Q 4 HRS PRN , WHEN OUTDOORS. ALBUTEROL SOLUTIONS 0.83 % 2 ML IN NEB . Q 4-6 HRS PRN * I ADVISED HER TO USE ALBUTEROL IN THE NEBULIZER ONLY WHEN SHE HAS ATTACKS OF WHEEZING, Coding Level of Care Code Est Pt Level 3 (81456) Diagnoses Allergic rhinitis J30.9 Sinusitis J01.01 Chronicity: acute Recurrence: recurrent Sinusitis location: maxillary Asthma J45.909
[2023-04-12 16:13] VITALS: BP 138/96; PULSE 75; O2SAT 99; BMI 40.2
== END 2023-04-12 16:29 | disposition home or self-care (01) ==
PROVIDERS: PCP Internal Medicine; Visit Provider Internal Medicine
DX: J30.9 Allergic rhinitis, unspecified (principal); J01.01 Acute recurrent maxillary sinusitis; J45.909 Unspecified asthma, uncomplicated
CPT/HCPCS: 99213

== ENCOUNTER → 2023-04-12 15:59 | Outpatient (BNVA) | payer OTHER, SELFPAY | PROVIDERS: PCP Internal Medicine; Visit Provider Internal Medicine | DX: J45.909 Unspecified asthma, uncomplicated (principal); J01.01 Acute recurrent maxillary sinusitis | CPT/HCPCS: 99212 ==

== ENCOUNTER 2023-07-24 14:11 | Outpatient (AMB) | payer OTHER, SELFPAY ==
[2023-07-24 14:23] VITALS: BP 130/70; PULSE 80; O2SAT 99; BMI 38.7
--- NOTE | 2023-07-24 14:23 | A.OFFVIS_ITS ---
Vital Signs 07/24/23 14:23 Height 5 ft 3 in Weight 218 lb 4.122 oz BMI 38.7 BP 130/70 Blood Pressure Location Lt brachial Position Sitting Pulse 80 Pulse Source Pulse Oximeter Pulse Oximetry (%) 99 Oxygen Delivery Method Room Air Intake Visit Reasons: asthma Intake Note: pt is here for follow up and had covid last week, and today still coughing, very congested in nose and chest and a lot of coughing, so much that her whole body is hurting her, and coughing all night. Defensive Fire Control Systems Operator Required: No Allergies doxycycline [DOXYCYCLINE] Allergy (Intermediate, Verified 07/24/23 14:43) ITCHY, itching, itching amoxicillin [Augmentin] Allergy (Unknown, Verified 07/24/23 14:43) itching azithromycin [From ZITHROMAX] Allergy (Unknown, Verified 07/24/23 14:43) HIVES ciprofloxacin [From CIPRO] Allergy (Unknown, Verified 07/24/23 14:43) ITCH clavulanic acid [Augmentin] Allergy (Unknown, Verified 07/24/23 14:43) itching mold [MOLD] Allergy (Unknown, Verified 07/24/23 14:43) STUFFY NOSE mushroom [MUSHROOM] Allergy (Unknown, Verified 07/24/23 14:43) DIARRHEA Yeast [YEAST] Allergy (Unknown, Verified 07/24/23 14:43) DIARRHEA Medication List - Last Reconciled 07/24/23 by Freida Montoya MD albuterol sulfate 2.5 mg (3 mL) PO Q4-6H ascorbic acid (vitamin C) 1 g PO DAILY 90 days famotidine (Pepcid) 20 mg PO BID ferrous sulfate 325 mg PO DAILY fluconazole (Diflucan) 150 mg PO Q3D 2 doses fluticasone propion-salmeterol 232-14 mcg/actuation 1 inh PO BID fluticasone propionate 50 mcg/actuation 2 sprays intranasal DAILY 90 days hydroxyzine HCl 1 tab PO Q8H PRN ibuprofen (Advil) 200 mg PO DAILY PRN levothyroxine 1 tab PO QAM methenamine hippurate 1 g PO DAILY 90 days montelukast 10 mg PO BEDTIME 30 days nitrofurantoin macrocrystal 50 mg PO BEDTIME 90 days nystatin 1 appl topical TID pseudoephedrine HCl (Sudafed) 30 mg PO BID PRN pyridoxine (vitamin B6) 100 mg PO DAILY 90 days tramadol 50 mg PO BID PRN Ventolin HFA 90 mcg/actuation (albuterol sulfate) 2 puffs PO Q4-6H PRN NS Do you need a note to return to daycare/school/sports/work: No HPI HPI asthma: Details: This 47 years old female is here for her routine follow-up. However last week she was inflicted with COVID infection contracted from some family members visiting. Denies any fever or chills. She has had increased cough and congested feeling. She is using all her regular medications and still continues to have cough Cough is mostly dry. She is generally weak but there is no increase in shortness of breath. She is afraid that she may be getting bronchitis or pneumonia. [facility] Medical History Bronchitis Obesity Allergic rhinitis COVID-19 Thrush Asthma History of urinary tract infection History of urinary reflux Social History Household Members: Spouse and Children Housing: House Do you presently have visiting nurse or other home services: No Alcohol intake: never Patient Tobacco Use Status: Never used Tobacco Advance Directives Date on File: 11/03/21 service: No Current occupational status: unemployed Review of Systems Const All systems reviewed & are unremarkable except as noted in HPI and below Eyes Reports no additional complaints ENT Reports nasal congestion (MILD OFF AND ON ) Card Reports no additional complaints Resp Denies cough and Denies wheezing GI Reports no additional complaints Reports no additional complaints Musc Reports no additional complaints Skin/Breast Reports system reviewed and no additional complaints, except as documented Neuro Reports no additional complaints Psych Reports no additional complaints Sujit/Lymph Reports no additional complaints Aller/Immun Denies wheezing Physical Exam Vital Signs: Last Vital Signs Pulse 80 07/24/23 14:23 BP 130/70 07/24/23 14:23 Pulse Ox 99 07/24/23 14:23 Oxygen Delivery Method Room Air 07/24/23 14:23 BMI result Body Mass Index 38.7 She is quite overweight but appears quite comfortable and healthy. Const General: comfortable, no acute distress, alert and awake Orientation/consciousness: patient oriented x3 HEENT Head: Yes normal to inspection General nose exam: No nasal polyps present and No nasal discharge present Face and sinus: No sinuses nontender (She has mild maxillary tenderness on both sides.) Mouth: oropharynx normal Throat: Yes posterior oropharynx normal Eyes General: appearance normal, both eyes and all related structures Neck Neck: Yes normal visual inspection, Yes no lymphadenopathy, Yes trachea midline and Yes no JVD Thyroid: Thyroid normal Chest Chest palpation & inspection: normal inspection of the chest, normal palpation of entire chest wall and no tenderness Resp Other: Percussion note resonant, breath sounds are equal and vesicular on both sides. No wheezes or rhonchi heard today . Cardio Palpation: normal PMI Rate: regular rate Rhythm: regular rhythm Heart sounds: no gallops and no murmurs Peripheral pulses: Peripheral pulses 2+ throughout GI Palpation (GI): Soft to palpation, nontender, No hepatosplenomegaly present, no masses and Other GI palpation findings present (Abdomen is obese and somewhat protuberant) Auscultation: normal bowel sounds Back/Spine/Pelvis Thoracic/Lumbar Spine: thoracic and lumbar spine normal to inspection Skin General skin exam: no rashes or lesions noted Neuro General: patient oriented x3 and no focal motor deficits Cranial nerves: Yes CN's II-XII intact bilaterally Extrem General: Yes normal to inspection, Yes no clubbing, cyanosis or edema and Yes no calf tenderness Psych Appearance: grossly normal and well kempt Speech and movement: Normal speech and movement present Assessment & Plan Assessment & Plan (1) COVID-19: Comment: HAD COVID INFECTION IN APRIL AND NOW AGAIN SHE IS RECOVERING FROM COVID INFECTION SINCE 1 WEEK AGO. HER SYMPTOMS ARE MAINLY FEELING CONGESTED AND INCREASED COUGH. Code(s): U07.1 - COVID-19 Category: Medical Plan: CONTINUE ALL THE PRESENT MEDICATIONS. .REST AT HOME STEAM INHALATIONS 3 TIMES A DAY. CHEST X-RAY IS ORDERED. BENZONATATE 150 MG B.I.D. FOR COUGH. (2) Allergic rhinitis: Comment: SHE HAS CHRONIC ALLERGIC RHINITIS SYMPTOMS. CLAIMS THAT HER NASAL CONGESTION BOTHERS HER OFF AND ON. Code(s): J30.9 - Allergic rhinitis, unspecified Category: Medical Plan: CONTINUE FLONASE 2 SPRAY IN EACH. NOSTRIL DAILY MONTELUKAST 10 MG DAILY. PSEUDOEPHEDRINE 30 MG B.I.D. P.R.N., ADVISED THAT SHE SHOULD USE IT SPARINGLY. (3) Asthma: Comment: SHE HAS CHRONIC RESPIRATORY SYMPTOMS, PREDOMINANTLY DUE TO BRONCHIAL ASTHMA , WELL CONTROLLED AT THIS TIME . Code(s): J45.909 - Unspecified asthma, uncomplicated Category: Medical Plan: FLUTICASONE 232-14 1 INHALATION B.I.D. VENTOLIN 2 PUFFS Q 4-6 HOURS P.R.N. Plan VENTOLIN 2 PUFFS Q 4-6 HOURS P.R.N. FLUTICASONE 232-14 1 INHALATION B.I.D. Orders: Orders XR chest 2V Today J40 - Bronchitis, not specified as acute or chronic, U07.1 - COVID-19 Medications: New benzonatate 150 mg PO BID 15 days 30 caps 2RF Refilled fluticasone propion-salmeterol 232-14 mcg/actuation 1 inh PO BID 1 ea 5RF Asthma Ventolin HFA 90 mcg/actuation (albuterol sulfate) 2 puffs PO Q4-6H PRN 18 grams 2RF for wheezing NS
== END 2023-07-24 14:41 | disposition home or self-care (01) ==
LOC: HO.HPS 14:13
PROVIDERS: PCP Internal Medicine; Visit Provider Internal Medicine
DX: U07.1 COVID-19 (principal); J30.9 Allergic rhinitis, unspecified; J45.909 Unspecified asthma, uncomplicated
CPT/HCPCS: 99213

== ENCOUNTER 2023-07-24 14:13 | Outpatient (REF) | payer OTHER, SELFPAY ==
--- NOTE | ~2023-07-24 | XR_ITS ---
EXAMINATION: XR CHEST CLINICAL INFORMATION: Persistent pain and cough. COMPARISON: Most recent chest radiograph dated 02/08/2022. TECHNIQUE: 2 views of the chest were obtained. FINDINGS: Hypoinflation of the lungs. No airspace consolidation. No pleural effusion or pneumothorax. Stable cardiomediastinal silhouette. XR/XR chest 2V IMPRESSION: Hypoinflation of the lungs without acute cardiopulmonary findings.
== END 2023-07-24 14:14 | disposition home or self-care (01) ==
LOC: HO.XRAY 14:13
PROVIDERS: PCP Internal Medicine; Visit Provider Internal Medicine
DX: U07.1 COVID-19 (principal); J40 Bronchitis, not specified as acute or chronic; J30.9 Allergic rhinitis, unspecified
CPT/HCPCS: 71046; 99212

== ENCOUNTER → 2023-07-27 10:01 | Outpatient (BNVA) | payer OTHER, SELFPAY | PROVIDERS: PCP Internal Medicine; Visit Provider Internal Medicine | DX: Z71.89 Other specified counseling (principal) | CPT/HCPCS: 99211 ==

== ENCOUNTER 2023-09-06 13:53 | Outpatient (AMB) | payer OTHER, SELFPAY ==
--- NOTE | 2023-09-06 14:13 | A.OFFVIS_ITS ---
Vital Signs 09/06/23 14:14 Height 5 ft 3 in Weight 220 lb BMI 39.0 BP 120/82 Blood Pressure Location Lt brachial Position Sitting Pulse 90 Pulse Source Pulse Oximeter Pulse Oximetry (%) 99 Oxygen Delivery Method Room Air Intake Visit Reasons: asthma exacerbation Intake Note: pt is here for sick visit, for asthma that started last weekend, coughing, wheezing and using incentive spirometry with help but started not feeling well. Top Frame Maker Required: No Allergies doxycycline [DOXYCYCLINE] Allergy (Intermediate, Verified 09/06/23 14:33) ITCHY, itching, itching amoxicillin [Augmentin] Allergy (Unknown, Verified 09/06/23 14:33) itching azithromycin [From ZITHROMAX] Allergy (Unknown, Verified 09/06/23 14:33) HIVES ciprofloxacin [From CIPRO] Allergy (Unknown, Verified 09/06/23 14:33) ITCH clavulanic acid [Augmentin] Allergy (Unknown, Verified 09/06/23 14:33) itching mold [MOLD] Allergy (Unknown, Verified 09/06/23 14:33) STUFFY NOSE mushroom [MUSHROOM] Allergy (Unknown, Verified 09/06/23 14:33) DIARRHEA Yeast [YEAST] Allergy (Unknown, Verified 09/06/23 14:33) DIARRHEA Medication List - Last Reconciled 09/06/23 by Freida Montoya MD albuterol sulfate 2.5 mg (3 mL) PO Q4-6H ascorbic acid (vitamin C) 1 g PO DAILY 90 days benzonatate 150 mg PO BID 15 days benzonatate 200 mg PO BID PRN 15 days famotidine (Pepcid) 20 mg PO BID ferrous sulfate 325 mg PO DAILY fluconazole (Diflucan) 150 mg PO Q3D 2 doses fluticasone propion-salmeterol 232-14 mcg/actuation (AirDuo RespiClick) 1 inh PO BID fluticasone propionate 50 mcg/actuation 2 sprays intranasal DAILY 90 days hydroxyzine HCl 1 tab PO Q8H PRN ibuprofen (Advil) 200 mg PO DAILY PRN levothyroxine 1 tab PO QAM methenamine hippurate 1 g PO DAILY 90 days montelukast 10 mg PO BEDTIME 30 days nitrofurantoin macrocrystal 50 mg PO BEDTIME 90 days nystatin 1 appl topical TID pseudoephedrine HCl (Sudafed) 30 mg PO BID PRN pyridoxine (vitamin B6) 100 mg PO DAILY 90 days tramadol 50 mg PO BID PRN Ventolin HFA 90 mcg/actuation (albuterol sulfate) 2 puffs PO Q4-6H PRN NS Do you need a note to return to daycare/school/sports/work: No HPI HPI asthma exacerbation: Details: Chantel comes after 2 months for follow-up. Overall she has been doing well. Now for the past few days she claims having increased nasal congestion with some cough. She has no fever chills or any expectoration. She does use AirDuo 1 inhalation b.i.d. Flonase 2 spray in each nostril daily and montelukast 10 mg daily. Also has Ventolin inhaler on hand but has not used it much. She gets quite concerned when she has slight increase in the nasal congestion and cough , which is due to intermittent increased symptoms of allergic rhinitis. [facility] Medical History Bronchitis Obesity Allergic rhinitis COVID-19 Thrush Asthma History of urinary tract infection History of urinary reflux Social History Household Members: Spouse and Children Housing: House Do you presently have visiting nurse or other home services: No Alcohol intake: never Patient Tobacco Use Status: Never used Tobacco Advance Directives Date on File: 11/03/21 service: No Current occupational status: unemployed Review of Systems Const All systems reviewed & are unremarkable except as noted in HPI and below Eyes Reports no additional complaints ENT Reports nasal congestion (MILD OFF AND ON ) Card Reports no additional complaints Resp Denies cough and Denies wheezing GI Reports no additional complaints Reports no additional complaints Musc Reports no additional complaints Skin/Breast Reports system reviewed and no additional complaints, except as documented Neuro Reports no additional complaints Psych Reports no additional complaints Sujit/Lymph Reports no additional complaints Aller/Immun Denies wheezing Physical Exam Vital Signs: Last Vital Signs Pulse 90 09/06/23 14:14 BP 120/82 09/06/23 14:14 Pulse Ox 99 09/06/23 14:14 Oxygen Delivery Method Room Air 09/06/23 14:14 BMI result Body Mass Index 39.0 She is quite overweight but appears quite comfortable and healthy. Const General: comfortable, no acute distress, alert and awake Orientation/consciousness: patient oriented x3 HEENT Head: Yes normal to inspection General nose exam: No nasal polyps present and No nasal discharge present Face and sinus: Yes sinuses nontender Mouth: oropharynx normal Throat: Yes posterior oropharynx normal Eyes General: appearance normal, both eyes and all related structures Neck Neck: Yes normal visual inspection, Yes no lymphadenopathy, Yes trachea midline and Yes no JVD Thyroid: Thyroid normal Chest Chest palpation & inspection: normal inspection of the chest, normal palpation of entire chest wall and no tenderness Resp Other: Percussion note resonant, breath sounds are equal and vesicular on both sides. No wheezes or rhonchi heard today . Cardio Palpation: normal PMI Rate: regular rate Rhythm: regular rhythm Heart sounds: no gallops and no murmurs Peripheral pulses: Peripheral pulses 2+ throughout GI Palpation (GI): Soft to palpation, nontender, No hepatosplenomegaly present, no masses and Other GI palpation findings present (Abdomen is obese and somewhat protuberant) Auscultation: normal bowel sounds Back/Spine/Pelvis Thoracic/Lumbar Spine: thoracic and lumbar spine normal to inspection Skin General skin exam: no rashes or lesions noted Neuro General: patient oriented x3 and no focal motor deficits Cranial nerves: Yes CN's II-XII intact bilaterally Extrem General: Yes normal to inspection, Yes no clubbing, cyanosis or edema and Yes no calf tenderness Psych Appearance: grossly normal and well kempt Speech and movement: Normal speech and movement present Assessment & Plan Assessment & Plan (1) Asthma: Comment: SHE HAS CHRONIC RESPIRATORY SYMPTOMS, PREDOMINANTLY DUE TO BRONCHIAL ASTHMA , WELL CONTROLLED AT THIS TIME . Code(s): J45.909 - Unspecified asthma, uncomplicated Category: Medical Plan: Advised to continue using AirDuo 232-14 1 inhalation b.i.d.. Use Ventolin 2 puffs Q 4-6 hours p.r.n. (2) Allergic rhinitis: Comment: SHE HAS CHRONIC ALLERGIC RHINITIS SYMPTOMS. THE NASAL CONGESTION SYMPTOMS FLUCTUATE DUE TO CHANGE IN THE TEMPERATURE AND WEATHER. THE EXAMINATION AT THIS TIME SHOWS THAT THERE IS NO ACTIVE NASAL CONGESTION. Code(s): J30.9 - Allergic rhinitis, unspecified Category: Medical Plan: CONTINUE FLONASE -50 2 SPRAY IN EACH NOSTRIL DAILY. CONTINUE MONTELUKAST 10 MG DAILY. (3) Obesity: Comment: DISCUSSED AND EXPLAINED TO HER THAT SHE IS GROSSLY OVERWEIGHT AND NEEDS TO LOSE WEIGHT. SHE WILL TRY TO WATCH HER DIET AND TRY TO DO SOME PHYSICAL ACTIVITY ON A DAILY BASIS. Code(s): E66.9 - Obesity, unspecified Category: Medical Plan: ABOVE Coding Level of Care Code Est Pt Level 3 (55735) Diagnoses Asthma J45.909 Allergic rhinitis J30.9 Obesity E66.9
[2023-09-06 14:14] VITALS: BP 120/82; PULSE 90; O2SAT 99; BMI 39.0
== END 2023-09-06 14:35 | disposition home or self-care (01) ==
PROVIDERS: PCP Internal Medicine; Visit Provider Internal Medicine
DX: J45.909 Unspecified asthma, uncomplicated (principal); J30.9 Allergic rhinitis, unspecified; E66.9 Obesity, unspecified
CPT/HCPCS: 99213

== ENCOUNTER → 2023-09-06 13:53 | Outpatient (BNVA) | payer OTHER, SELFPAY | PROVIDERS: PCP Internal Medicine; Visit Provider Internal Medicine | DX: J45.909 Unspecified asthma, uncomplicated (principal); E66.9 Obesity, unspecified; Z68.39 Body mass index [BMI] 39.0-39.9, adult | CPT/HCPCS: 99212 ==

== ENCOUNTER 2023-09-19 09:54 | Outpatient (REF) | payer OTHER, SELFPAY ==
[2023-09-19 10:55] LABS: Appearance Urine Clear; Color Urine Yellow; Glucose Urine UA Negative (Negative); Leukocyte Esterase Urine Negative (Negative); Nitrite Urine Negative (Negative); PH 6.5 (5.0-9.0); Specific Gravity - Urine <= 1.005 (1.005-1.025); Urine Blood Negative (Negative); Urine Ketones Negative (Negative); Urine Protein Negative (Neg-Trace)
[2023-09-19 11:04] LABS: Bacteria Urine None Seen (None Seen); Hyaline Casts Urine 0-2 /LPF (0-2); RBC Urine 0-2 /HPF (0-2); Squamous Epithelial Cell Urine 0-2 /HPF (0-2); WBC Urine 0-5 /HPF (0-5)
== END 2023-09-19 09:55 | disposition home or self-care (01) ==
LOC: HO.LAB 09:54
PROVIDERS: PCP Internal Medicine; Visit Provider Nurse Practitioner Family
DX: N39.0 Urinary tract infection, site not specified (principal)
CPT/HCPCS: 81001; 87086

== ENCOUNTER 2024-01-29 13:35 | Outpatient (AMB) | payer OTHER, SELFPAY ==
--- NOTE | 2024-01-29 13:36 | A.OFFVIS_ITS ---
Intake Visit Reasons: follow up/PVR Intake Note: Patient is present for follow up ultrasound/recurrent uti (imaging 08/12/22) Urology Medications: macrobid Blood Thinner: none PVR:0ml's Gerentological Physiotherapist Required: No Accompanied by: Self / Same As Patient Allergies doxycycline [DOXYCYCLINE] Allergy (Intermediate, Verified 01/29/24 20:46) ITCHY, itching, itching amoxicillin [Augmentin] Allergy (Unknown, Verified 01/29/24 20:46) itching azithromycin [From ZITHROMAX] Allergy (Unknown, Verified 01/29/24 20:46) HIVES ciprofloxacin [From CIPRO] Allergy (Unknown, Verified 01/29/24 20:46) ITCH clavulanic acid [Augmentin] Allergy (Unknown, Verified 01/29/24 20:46) itching mold [MOLD] Allergy (Unknown, Verified 01/29/24 20:46) STUFFY NOSE mushroom [MUSHROOM] Allergy (Unknown, Verified 01/29/24 20:46) DIARRHEA Yeast [YEAST] Allergy (Unknown, Verified 01/29/24 20:46) DIARRHEA Medication List - Last Reconciled 01/29/24 by COURTNEY Gunn albuterol sulfate 2.5 mg (3 mL) PO Q4-6H PRN benzonatate 150 mg PO BID 15 days benzonatate 200 mg PO BID PRN 15 days famotidine (Pepcid) 20 mg PO BID ferrous sulfate 325 mg PO DAILY fluconazole 150 mg PO Q3D 2 doses fluticasone propion-salmeterol 232-14 mcg/actuation (AirDuo RespiClick) 1 inh PO BID fluticasone propionate 50 mcg/actuation 2 sprays intranasal DAILY 90 days hydroxyzine HCl 1 tab PO Q8H PRN ibuprofen (Advil) 200 mg PO DAILY PRN levothyroxine 1 tab PO QAM montelukast 10 mg PO BEDTIME 30 days nitrofurantoin macrocrystal 50 mg PO BEDTIME 90 days nystatin 1 appl topical TID 10 days pseudoephedrine HCl (Sudafed) 30 mg PO BID PRN Ventolin HFA 90 mcg/actuation (albuterol sulfate) 2 puffs PO Q4-6H PRN NS HPI Comments Details: Chantel is a pleasant 48-year-old female patient of Dr. Lama.?She has a past medical history of bronchitis, allergic rhinitis, and asthma. She presents to the office today for follow-up of her recurrent urinary tract in fections as well as nephrolithiasis. In discussion with the patient today she reports no bothersome urinary issues or concerns. She reports compliance with prophylactic Macrobid for suppression as prescribed. She reports no bothersome urinary issues or concerns since her last office visit here however in review of patient's chart it appears he she called the office approximately 4 months ago to report UTI like symptoms at which time a urine culture was ordered and performed that noted 10,000 to 50,000 cfu/ml Mixed bacterial christina characteristic of urogenital contamination. However, does not recall any UTI like symptoms since her last office visit here. She reports she has since stopped her methenamine, vitamin-C, and vitamin B6 as she feels her symptoms have improved. She discusses her main concern is a rash she developed in her abdominal folds and groin over the weekend. Upon assessment of the patient today it appears patient with fungal rash to bilateral groins and abdominal pannus. She reports this happened previously over a year ago and was given p.o. medications that she felt helped. In review of patient's chart it appears Diflucan was ordered previously. In office urinalysis results reviewed with the patient today. PVR 0 mL. Discussed obtaining renal ultrasound for surveillance monitoring of nephrolithiasis as previous imaging 08/23 noted right kidney with no calculi, lesions, and or hydronephrosis noted. Left kidney with 6 mm simple cyst in the upper pole. 4 mm and 3 mm nonobstructing calculus in the middle kidney. The bladder is well distended and normal. She currently denies any UTI like symptoms. When asked patient denies urinary urgency, urinary frequency, incontinence, nocturia, hematuria, dysuria, foul smelling urine, changes to urinary stream, flank pain, fever, and or chills. Discussed at length importance of drinking adequate amount of water daily for recurrent UTI as well as nephrolithasis. Patient denies any issues with constipation. She otherwise offers no other issues or concerns at this time. [facility] Medical History Bronchitis Obesity Allergic rhinitis COVID-19 Thrush Asthma History of urinary tract infection History of urinary reflux Social History Household Members: Spouse and Children Housing: House Do you presently have visiting nurse or other home services: No Alcohol intake: never Patient Tobacco Use Status: Never used Tobacco Advance Directives Date on File: 11/03/21 service: No Current occupational status: unemployed Review of Systems Const Reports as per HPI Eyes Reports no additional complaints ENT Reports no additional complaints Card Reports no additional complaints Resp Details: Patient reports she follows up with pulmonology GI Reports no additional complaints Reports as per HPI Musc Reports no additional complaints Skin/Breast Reports as per HPI Neuro Reports no additional complaints Psych Reports no additional complaints Endo Reports no additional complaints Sujit/Lymph Reports as per HPI Aller/Immun Reports no additional complaints Physical Exam Const General: cooperative, healthy appearing, comfortable, no acute distress, well developed, alert and awake Nutritional Appearance: overweight Orientation/consciousness: patient oriented x3 Limitations: no limitations HEENT Head: Yes normal to inspection, Yes normocephalic and Yes atraumatic Ears: hearing grossly normal bilaterally Eyes General: appearance normal, both eyes and all related structures Neck Neck: Yes normal visual inspection and Yes trachea midline Chest Chest palpation & inspection: normal inspection of the chest Resp Effort & Inspection: normal respiratory effort and able to speak in complete sentences Cardio Rate: regular rate GI Inspection: Yes normal to inspection General: Yes no CVA tenderness Back/Spine/Pelvis Back: no CVA tenderness Skin Other: as per HPI Neuro General: patient oriented x3 Extrem General: Yes normal to inspection Psych Appearance: grossly normal and well kempt Mental Status: mental status grossly normal Speech and movement: Normal speech and movement present and Clear speech present Affect: normal affect Attitude: cooperative Thought process: Normal thought process present Thought content: Normal thought content present Insight: Fair insight present (Psych) Judgement: Fair judgement present (Psych) Office Procedures Post Void Residual Post Residual Void Post Void Residual (PVR): 0 [id number] Void Residual by ultrasound Results AMB Urinalysis, Automated UA Leukoctes 0 Dipak/uL Last Edit by Clint Adler on 01/29/24 15:00 UA Nitrite Last Edit by Clint Adler on 01/29/24 15:00 UA Urobilinogen 0.2 mg/dL Last Edit by Clint Adler on 01/29/24 15:00 UA Protein 0 mg/dL Last Edit by Clint Adler on 01/29/24 15:00 UA pH 6.0 Last Edit by Clint Adler on 01/29/24 15:00 UA Blood 25 Perry/uL Last Edit by Clint Adler on 01/29/24 15:00 UA Specific [employer] 1.015 Last Edit by Clint Adler on 01/29/24 15:00 UA Ketone Last Edit by Clint Adler on 01/29/24 15:00 UA Bilirubin 0 mg/dL Last Edit by Clint Adler on 01/29/24 15:00 UA Glucose 0 mg/dL Last Edit by Clint Adler on 01/29/24 15:00 Results Reviewed Results Reviewed: Laboratory Last Values Urine pH (Auto) 6.0 01/29/24 14:57 Specific [employer] (Auto) 1.015 01/29/24 14:57 Urine Protein (Auto) 0 mg/dL 01/29/24 14:57 Glucose (UA)(Auto) 0 mg/dL 01/29/24 14:57 Urine Blood (Auto) 25 Perry/uL 01/29/24 14:57 Urine Bilirubin (Auto) 0 mg/dL 01/29/24 14:57 Urine Urobilinogen (Auto) 0.2 mg/dL 01/29/24 14:57 Leukocyte Esterase (Auto) 0 Dipak/uL 01/29/24 14:57 Assessment & Plan Assessment & Plan (1) Recurrent UTI: Code(s): N39.0 - Urinary tract infection, site not specified Category: Medical (2) Renal cyst: Code(s): N28.1 - Cyst of kidney, acquired Category: Medical (3) Nephrolithiasis: Code(s): N20.0 - Calculus of kidney Category: Medical (4) Tinea cruris: Code(s): B35.6 - Tinea cruris Category: Medical Plan In office urinalysis results reviewed with the patient today; as noted above; will send for urine cytology. Patient currently denies any bothersome urinary issues. Discussed importance of keeping skin clean and dry Prescription provided for Diflucan as well as nystatin powder. Will send [facility]. Continue Macrobid as discussed and prescribed; refill provided. She currently denies any UTI like symptoms. She is happy with her current voiding parameters. Discussed, educated, and stressed the importance of adequate hydration relation to nephrolithiasis and overall health and well-being. Will obtain renal ultrasound in 6 months. Follow-up in 6 months with imaging and PVR to be completed prior; or sooner with any issues, concerns, and or questions. Orders: Orders US renal BI 6 Months N20.0 - Calculus of kidney AMB Urinalysis Automated Today Z13.9 - Encounter for screening, unspecified AMB Post Void Residual by ultrasound Today N39.0 - Urinary tract infection, site not specified Medications: New nystatin Applied to abdominal folds and bilateral groin area; to affected area 1 appl topical TID 10 days 60 grams 0RF Changed From fluconazole (Diflucan) 150 mg PO Q3D 2 tabs 0RF To fluconazole 150 mg PO Q3D 2 tabs 0RF Refilled nitrofurantoin macrocrystal must administer with a meal/food 50 mg PO BEDTIME 90 days 90 caps 1RF N39.0 - Urinary tract infection, site not specified Discontinued methenamine hippurate Discontinued Reason: Patient no longer taking 1 g PO DAILY 90 days 90 tabs 1RF N39.0 - Urinary tract infection, site not specified ascorbic acid (vitamin C) Discontinued Reason: Patient no longer taking 1 g PO DAILY 90 days 90 tabs 1RF N39.0 - Urinary tract infection, site not specified pyridoxine (vitamin B6) Discontinued Reason: Doctor's Order 100 mg PO DAILY 90 days 90 tabs 1RF nystatin Discontinued Reason: Doctor's Order 1 appl topical TID 15 grams 3RF Patient Instructions: The patient had an opportunity to ask questions regarding the treatment plan. All questions were answered. Physical exam, labs, and imaging were discussed and reviewed in detail. As well as risks, benefits, and discussion of treatment choices. No major barriers to understanding were identified. The patient expressed understanding and agreement with the above treatment plan. The patient was made aware they should contact our office by phone for worsening of their current condition, the appearance of new symptoms, or with any questions or concerns. Compliance is encouraged with any medications and follow up testing that is ordered. It is a privilege to be allowed the opportunity to participate in? your urological care.? Again, if you have any questions or concerns If you have any questions or concerns please do not hesitate to contact me. The office is [phone]. This note is constructed using voice recognition software. While every effort has been made to ensure accuracy log roper errors may have been included. Yours sincerely, COURTNEY Gunn Coding Level of Care Code Est Pt Level 4 (12371) Diagnoses Recurrent UTI N39.0 Renal cyst N28.1 Nephrolithiasis N20.0 Tinea cruris B35.6 CPT Codes Post Residual Void - PVR CPT Code: 92491-Igme Void Residual by ultrasound ([id number])
== END 2024-01-29 14:25 | disposition home or self-care (01) ==
LOC: HO.HUSH 13:35
PROVIDERS: PCP Internal Medicine; Visit Provider Nurse Practitioner Family
DX: N39.0 Urinary tract infection, site not specified (principal); N28.1 Cyst of kidney, acquired; N20.0 Calculus of kidney; B35.6 Tinea cruris; Z13.9 Encounter for screening, unspecified
CPT/HCPCS: 99214

== ENCOUNTER → 2024-01-29 13:35 | Outpatient (BNVA) | payer OTHER, SELFPAY | PROVIDERS: PCP Internal Medicine; Visit Provider Nurse Practitioner Family | DX: N39.0 Urinary tract infection, site not specified (principal); N28.1 Cyst of kidney, acquired; N20.0 Calculus of kidney; B35.6 Tinea cruris | CPT/HCPCS: 51798; 81003; 99212 ==

== ENCOUNTER 2024-06-02 19:52 | Emergency (ER) | payer OTHER, SELFPAY ==
[2024-06-02 20:07] VITALS: BP 142/93; PULSE 62; RESP 18; TEMP 36.4; O2SAT 99; BMI 37.6
--- NOTE | 2024-06-02 20:11 | ED_ITS ---
HPI - Female Genitourinary General Chief complaint: Urogenital-Female Stated complaint: UTI? Time Seen by Provider: 06/02/24 22:47 Source: patient Mode of arrival: ambulatory Limitations: no limitations History of Present Illness ED Provider: Dr. Charlene Duran HPI Narrative: Patient comes to the emergency room complaining of dysuria. Patient states it has been 4 days since she had the symptoms. Patient denies abdominal pain, denies nausea vomiting or diarrhea, denies fever or chills. Patient states that she takes nitrofurantoin prophylactically every day. Related Data Home Medications ?Medication ?Instructions ?Recorded ?Confirmed ferrous sulfate 325 mg (65 mg 325 mg PO DAILY 10/19/20 01/29/24 iron) tablet,delayed release famotidine 20 mg tablet (Pepcid) 20 mg PO BID 11/02/21 01/29/24 hydroxyzine HCl 10 mg tablet 1 tab PO Q8H PRN itch 11/02/21 01/29/24 ibuprofen 200 mg tablet (Advil) 200 mg PO DAILY PRN Pain (Scale 11/02/21 01/29/24 Score 1-3) levothyroxine 75 mcg tablet 1 tab PO QAM 11/02/21 01/29/24 pseudoephedrine HCl 30 mg tablet 30 mg PO BID PRN Allergy Symptoms 11/02/21 01/29/24 (Sudafed) Previous Rx's ?Medication ?Instructions ?Recorded montelukast 10 mg tablet 10 mg PO BEDTIME 30 days #30 tabs 03/28/23 fluticasone propionate 50 2 spray intranasal DAILY 90 days 04/17/23 mcg/actuation nasal #16 grams spray,suspension benzonatate 150 mg capsule 150 mg PO BID 15 days #30 caps 07/24/23 benzonatate 200 mg capsule 200 mg PO BID PRN cough 15 days 07/25/23 #30 caps interdry #30 ea 01/29/24 nitrofurantoin macrocrystal 50 mg 50 mg PO BEDTIME 90 days #90 caps 01/29/24 capsule nystatin 100,000 unit/gram topical 1 appl topical TID 10 days #60 01/29/24 powder grams fluconazole 150 mg tablet 150 mg PO Q3D 2 doses #2 tabs 03/04/24 ketorolac 10 mg tablet 10 mg PO Q8H PRN pain 3 days #9 03/13/24 tabs prednisone 20 mg tablet 20 mg PO DAILY 3 days #3 tabs 03/13/24 tamsulosin 0.4 mg capsule 0.4 mg PO BEDTIME 14 days #14 caps 03/13/24 Ventolin HFA 90 mcg/actuation 2 puff PO Q4-6H PRN for wheezing 04/29/24 aerosol inhaler (albuterol sulfate) #18 grams fluticasone 232 mcg-salmeterol 14 1 inh PO BID Asthma #1 ea 04/29/24 mcg/actuation breath activated powdr (AirDuo RespiClick) albuterol sulfate 2.5 mg/3 mL 2.5 mg (3 mL) PO Q4-6H PRN for 05/06/24 (0.083 %) solution for nebulization wheezing #180 mL phenazopyridine 100 mg tablet 100 mg PO TID PRN pain 6 doses #6 06/02/24 tabs Allergies Allergy/AdvReac Type Severity Reaction Status Date / Time doxycycline [DOXYCYCLINE] Allergy Intermediate ITCHY, Verified 06/02/24 20:09 itching, itching amoxicillin [Augmentin] Allergy Unknown itching Verified 06/02/24 20:09 azithromycin [From ZITHROMAX] Allergy Unknown HIVES Verified 06/02/24 20:09 ciprofloxacin [From CIPRO] Allergy Unknown ITCH Verified 06/02/24 20:09 clavulanic acid [Augmentin] Allergy Unknown itching Verified 06/02/24 20:09 mold [MOLD] Allergy Unknown STUFFY NOSE Verified 06/02/24 20:09 mushroom [MUSHROOM] Allergy Unknown DIARRHEA Verified 06/02/24 20:09 Yeast [YEAST] Allergy Unknown DIARRHEA Verified 06/02/24 20:09 Review of Systems 2 Review of Systems: Constitutional : No Weight loss, No Fever, No Chills, No Night Sweats, No Fatigue, No Malaise ENT/Mouth : No Hearing loss, No Ear Pain, No Nasal Congestion, No Sinus Pain, No Hoarseness, No sore throat, No Rhinorrhea, No Swallowing Difficulty Eyes: No Eye Pain, No Swelling, No Redness, No Foreign Body, No Discharge, No Vision Changes Cardiovascular : No Chest Pain, No SOB, No Dyspnea on Exertion, No Orthopnea, No Edema, No Palpitations Respiratory : No Cough, No Sputum, No Wheezing, No Smoke Exposure, No Dyspnea Gastrointestinal : No Nausea, No Vomiting, No Diarrhea, No Constipation, No abdominal Pain, No Hematochezia, No Melena Genitourinary Complaining of Dysuria, No Urinary Frequency, No Hematuria, No Urinary Incontinence, No Urgency, No Flank Pain, No Urinary Flow Changes, No Hesitancy Musculoskeletal : No joint pain, No Myalgias, No Joint Swelling Skin : No Skin Lesions, No rash Neuro : No Weakness, No Numbness, No Paresthesias, No Loss of Consciousness, No Dizziness, No Headache Psych : No Anxiety/Panic, No Depression, No SI/HI/AH/VH, No Social Issues, Heme/Lymph: No Bruising, No Bleeding,No Lymphadenopathy Endocrine : No Polyuria, No Polydipsia, No Temperature Intolerance COUNTS INCLUDE 234 BEDS AT THE [facility] Past Medical History Medical History Bronchitis Obesity Allergic rhinitis COVID-19 Thrush Asthma History of urinary tract infection History of urinary reflux Social History Social History Household Members: Spouse and Children Housing: House Do you presently have visiting nurse or other home services: No Alcohol intake: never Patient Tobacco Use Status: Never used Tobacco Smoked in Last 30 Days: No Use of substances other than those prescribed or required for medical reasons: No Advance Directives: Yes Advance Directives on File: Yes Advance Directives Date on File: 11/03/21 Do you have a plan to hurt others: No Plan Patient : No service: No Current occupational status: unemployed Physical Exam 2 Vital Signs: Vital Signs: Last Vital Signs Temp 98.1 F 06/02/24 23:20 Pulse 69 06/02/24 23:20 Resp 17 06/02/24 23:20 BP 149/97 H 06/02/24 23:20 Pulse Ox 97 06/02/24 23:20 O2 Del Method Room Air 06/02/24 23:20 BMI result Body Mass Index 37.6 Const: Other: Appearance: Alert. Oriented X3. No acute distress. Well-appearing Eyes: Pupils equal, round and reactive to light. ENT: Pharynx normal. Neck: Normal inspection. Neck supple. No lymph nodes noted. No crepitus CVS: Normal heart rate and rhythm. Pulses normal. Normal S1 and S2 Respiratory: No respiratory distress. Breath sounds normal. No Wheezing. No rales Abdomen: Soft and nontender. No rigidity. No distention. Skin: Skin warm and dry. Normal skin color. Normal skin turgor. Extremities: No lower extremity edema. No Lacerations. No Rash Neuro: Oriented X 3. No motor deficit. No sensory deficit. Moving all extremities. No slurred speech. CN 2 through 12 grossly intact Psych: calm, cooperative, normal affect Course Course Course Narrative: RME: 48-year-old female presents to ED for burning on urination and dysuria without any abdominal pain. History of chronic UTIs. Patient on nitrofurantoin prophylactically. Labs ordered Medications Administered Discontinued Medications Generic Name Dose Route Start Last Admin Trade Name Freq PRN Reason Stop Dose Admin Phenazopyridine HCl 100 mg 06/02/24 23:00 06/02/24 23:05 Phenazopyridine Hcl 100 Mg Tablet PO 06/02/24 23:01 100 mg ONCE ONE Administration Medical Decision Making Medical Decision Making [facility] Narrative: my interpretation of labs: Normal white blood cell count, normal chemistry, urinalysis negative for UTI. I discussed with the patient that she may have an inflammation of the bladder is/ cystitis. At this time, antibiotics are not indicated. Patient was given 1 dose of phenazopyridine and the rest will be sent to her pharmacy. Patient agrees with plan. Lab Data [facility] Lab Attestation statement: I reviewed the patient's lab results. 06/02/24 20:33 06/02/24 20:33 Labs: Lab Results 06/02/24 Range/Units 20:33 WBC 8.2 (4.8-10.8) X10*3/uL RBC 4.48 (4.20-5.50) X10*6/uL Hgb 12.0 (12.0-16.0) g/dl Hct 36.3 L (37.0-47.0) % MCV 81.0 (80.0-98.0) fL MCH 26.8 L (27.0-33.0) pg MCHC 33.1 (31.0-35.0) g/dl RDW 15.9 (11.0-16.0) % Plt Count 256 (160-400) X10*3/uL MPV 9.9 (9.4-12.3) fL Immature Gran % (Auto) 0.2 (0.0-0.4) % Neut % (Auto) 65.2 (45-73) % Lymph % (Auto) 20.5 (20-40) % [place] % (Auto) 11.5 H (2-11) % Eos % (Auto) 2.1 (0-4) % Baso % (Auto) 0.5 (0-2) % Lymph # (Auto) 1.7 (1.2-4.9) X10*3/uL [place] # (Auto) 0.9 (0.1-1.2) X10*3/uL Eos # (Auto) 0.2 (0.0-0.4) X10*3/uL Baso # (Auto) 0.0 (0.0-0.2) X10*3/uL Abs Immat Gran (auto) 0.02 (0.00-0.03) X10*3/uL Absolute Neuts (auto) 5.4 (2.0-8.3) x10*3/uL Absolute Nucleated RBC 0.000 (0.0-0.012) X10*3/uL Nucleated RBC % (auto) 0.0 (0.0-0.2) /100WBC Sodium 140 (135-145) mmol/L Potassium 3.9 (3.3-5.1) mmol/L Chloride 106 (96-108) mmol/L Carbon Dioxide 26 (22-29) mmol/L Anion Gap 12 (12-20) BUN 18 H (9-16) mg/dL Creatinine 0.99 (0.5-1.4) mg/dL Estim Creat Clear Calc 75.0 Estimated GFR 59 Random Glucose 84 (60-115) mg/dL Calcium 9.0 (8.4-10.2) mg/dL Total Bilirubin 0.4 (0.0-1.0) mg/dL AST 21 (5-31) U/L ALT 30 (0-31) U/L Alkaline Phosphatase 87 (39-117) U/L Total Protein 7.2 (6.5-8.0) g/dL Albumin 4.0 (3.5-5.0) g/dL Urine Color Yellow Urine Appearance Clear Urine pH 6.5 (5.0-9.0) Ur Specific [place] 1.015 (1.005-1.025) Urine Protein Negative (Neg-Trace) mg/dL Urine Glucose (UA) Negative (Negative) mg/dL Urine Ketones Negative (Negative) mg/dL Urine Blood Negative (Negative) Urine Nitrite Negative (Negative) Ur Leukocyte Esterase Negative (Negative) Urine Test NEGATIVE (NEGATIVE) Discharge Plan Discharge Clinical Impression: Dysuria Patient Disposition: Home, Self-Care Instructions: Dysuria (ED) Additional Instructions: Please follow-up with your primary care physician tomorrow. If you have any worsening or new symptoms, please return to the emergency room or call 911 Prescriptions: New phenazopyridine 100 mg tablet 100 mg PO TID PRN (Reason: pain) Qty: 6 0RF No Action montelukast 10 mg tablet 10 mg PO BEDTIME 30 Days Qty: 30 5RF fluticasone propionate 50 mcg/actuation spray,suspension 2 spray intranasal DAILY 90 Days Qty: 16 3RF benzonatate 200 mg capsule 200 mg PO BID PRN (Reason: cough) 15 Days Qty: 30 2RF (DME) interdry See Rx Instructions .Route .MEDSUPPLY Qty: 30 5RF Rx Instructions: As directed once daily fluconazole 150 mg tablet 150 mg PO Q3D Qty: 2 0RF Rx Instructions: take one tablet once daily every three days for a total of 2 doses tamsulosin 0.4 mg capsule 0.4 mg PO BEDTIME 14 Days Qty: 14 0RF prednisone 20 mg tablet 20 mg PO DAILY 3 Days Qty: 3 0RF ketorolac 10 mg tablet 10 mg PO Q8H PRN (Reason: pain) 3 Days Qty: 9 0RF fluticasone propion-salmeterol [AirDuo RespiClick] 232-14 mcg/actuation aerosol powdr breath activated 1 inh PO BID Qty: 1 5RF albuterol sulfate [Ventolin HFA] 90 mcg/actuation HFA aerosol inhaler 2 puff PO Q4-6H PRN (Reason: for wheezing) Qty: 18 2RF albuterol sulfate 2.5 mg /3 mL (0.083 %) solution for nebulization 2.5 mg PO Q4-6H PRN (Reason: for wheezing) Qty: 180 1RF levothyroxine 75 mcg tablet 1 tab PO QAM hydroxyzine HCl 10 mg tablet 1 tab PO Q8H PRN (Reason: itch) famotidine [Pepcid] 20 mg Tablet 20 mg PO BID ibuprofen [Advil] 200 mg Tablet 200 mg PO DAILY PRN (Reason: Pain (Scale Score 1-3)) pseudoephedrine HCl [Sudafed] 30 mg Tablet 30 mg PO BID PRN (Reason: Allergy Symptoms) Rx Instructions: DNExceed 4 doses/24h ferrous sulfate 325 mg (65 mg iron) tablet,delayed release (DR/EC) 325 mg PO DAILY benzonatate 150 mg capsule 150 mg PO BID 15 Days Qty: 30 2RF nitrofurantoin macrocrystal 50 mg capsule 50 mg PO BEDTIME 90 Days Qty: 90 1RF Rx Instructions: must administer with a meal/food nystatin 100,000 unit/gram powder 1 appl topical TID 10 Days Qty: 60 0RF Rx Instructions: Applied to abdominal folds and bilateral groin area; to affected area Interventions: ED Discharge Assessment Last Done: 06/02/24 23:20 Discharge Date/Time: 06/02/24 23:21 Print Language: Vietnamese
--- OUTSIDE RECORDS SUMMARY | 2024-06-02 20:36 | XMS_ITS | Clinical Summary ---
Author Organization 175 [facility] Address [address] [place] [address] Phone Care Team Providers Care Computer Forensics Analyst Name Role Phone Philly Headley MD Primary Care Prov ider Allergies Active Allergy Reactions Criticality Noted Date Comments Amoxicillin-Pot Clavulanate Itching 07/10/19 14 Azithromycin Hives 11/10/2009 Cefuroxime 03/30/2014 itching Ciprofloxacin Itching 09/18/2017 Ciprofloxacin-Hydrocortisone Medium 012 itchy Dicloxacillin Sodium Hives Medium 10/19/2011 Doxycycline Itching 09/18/2017 Mold 05/31/2012 Skin testing positive Yeast 05/31/2012 Diarrhea with bread Medications albuterol 2.5 mg /3 mL (0.083 %) nebulizer solution USE 1 VIAL 3 ML) INHALED BY NEBULIZATION EVERY 4 TO 6 HOYURS NEEDED FOR WHEEZING 023 Active albuterol sulfate (ProAir RespiClick) 90 mcg/actuation aerosol powdr breath activated Inhale 2 puffs by mouth. Active fluticasone propion-salmete roL (AirDuo RespiClick) 232-14 mcg/actuation aerosol powdr breath activated inhaler Inhale 1 puff by mouth 2 (two) times a day. Active cetirizine (ZyrTEC) 10 mg tablet Take 1 tablet (10 mg total) by mouth. Active cholecalciferol (VITAMIN D-3) 25 mcg (1,000 unit) tablet Take 1 tablet (1,000 Units total) by mouth 1 (one) time each day. Active EPINEPHrine (EpiPen 2-Dada) 0.3 mg/0.3 mL injection Inject 0.3 mL (0.3 mg total) as directed. Active famotidine (PEPCID) 20 mg tablet Take 1 tablet (20 mg total) by mouth 2 (two) times a day. Active ferrous sulfate 325 mg (65 mg iron) EC tablet Take 1 tablet (325 mg total) by mouth. Active fluticasone propionate (FLONASE) 50 mcg/actuation nasal spray Administer 2 sprays into affected nostril(s). Active hydrocortisone 2.5 % cream APPLY 1 APPLICATION TOPICAL TWICE A DAY NEEDED FOR ITCHING. Active ketotifen (ZADITOR) 0.025 % ophthalmic solution INSTILL ONE DROP INTO BOTH EYE TWICE A DAY NEEDED FOR ITCH, TEAR OR REDNESS Active levothyroxine (SYNTHROID, LEVOTHROID) 75 mcg tablet Take 1 tablet (75 mcg total) by mouth. Active methenamine hippurate (HIPREX) 1 gram tablet Take 1 tablet (1 g total) by mouth 1 (one) time each day. Active montelukast (SINGULAIR) 10 mg tablet Take 1 tablet (10 mg total) by mouth. Active ibuprofen (ADVIL,MOTRIN) 600 mg tablet Take 1 tablet (600 mg total) by mouth every 6 (six) hours if needed. Active multivitamin with iron (Daily Multiple Vitamins/Iron) Take 1 tablet by mouth 1 (one) time each day. Active triamcinolone (KENALOG) 0.025 % cream Apply topically. Apply to affected area twice daily for 2 weeks. Active Ventolin HFA 90 mcg/actuation inhaler INHALE TWO PUFFS BY MOUTH EVERY 4 TO 6 HOURS NEEDED FOR WHEEZING Active tamsulosin (FLOMAX) 0.4 mg 24 hr capsule Active methylPREDNISol one (MEDROL DOSPAK) 4 mg tablet Follow schedule on package instructions 21 each Active Additional Information Patient not taking.Reported on 05/30/2024 hydrOXYzine HCL (ATARAX) 25 mg tablet TAKE ONE TABLET BY MOUTH THREE TIMES A DAY NEEDED FOR ITCHING 90 tablet Active silver sulfADIAZINE (Silvadene) 1 % cream Apply topically 1 (one) time each day. 50 g 2025 Active clindamycin (Cleocin HCL) 300 mg capsule Take 1 capsule (300 mg total) by mouth 4 (four) times a day for 10 days. 40 each 2024 Active hydrOXYzine HCL (ATARAX) 25 mg tablet TAKE ONE TABLET BY MOUTH THREE TIMES A DAY NEEDED FOR ITCHING. 2024 Discontinued fluconazole (DIFLUCAN) 200 mg tablet Take 1 tablet (200 mg total) by mouth 1 (one) time each day. Take once a week for 12 weeks 2024 Discontinued(T herapy completed) ketorolac (TORADOL) 10 mg tablet Take 1 tablet (10 mg total) by mouth. 2024 Discontinued(T herapy completed) predniSONE (DELTASONE) 20 mg tablet 2024 Discontinued(T herapy completed) cefpodoxime (VANTIN) 100 mg tablet Take 1 tablet (100 mg total) by mouth 2 (two) times a day for 7 days. 14 tablet 2024 Active Problems Problem Noted Date Diagnosed Date Kidney disease 01/04/2024 Overview (01/04/2024): Undefined- chronic; pt states 1 kidney smaller. At risk for renal insufficiency. Dr. Argu[place], Rosacea 08/31/2023 Microcytic anemia 04/19/2022 Severe obesity (BMI 35.0-39.9) with comorbidity 04/14/2022 Personal history of COVID-19 05/31/2021 Overview (01/04/2024): 04/2020 Gastroesophageal reflux disease 07/28/2020 Menorrhagia with regular cycle 07/28/2020 Iron deficiency anemia 06/03/2020 Overview (01/04/2024): 06/2020 with hgb 8.2 Assessment & Plan (05/20/2024 1:46 PM EST): Last Hgb 11.2. She is currently taking iron pills every day. Denies any palpitations, dizziness, weakness, shortness of breath. Instructed to continue taking this medication. We will recheck CBC and iron studies at least every year as per recommendation of heme-onc. Abnormal ultrasound of kidney 04/29/2020 Overview (01/04/2024): She notes kidneys are different sizes, following with urology, on nitrofurantoin to prevent UTIs. 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 Recent exacerbation, on ab and pdn cycle. Pending CT chest. Assessment & Plan (02/26/2024 8:18 AM EST): 48 y/o F presents with 2 weeks of URI symptoms with known asthma history. She appears to have a mild exacerbation of her asthma. I initially discussed and prescribed prednisone. She later contacted the office as she recalled this caused heart racing for her in the past. Instead, we called in methylprednisolone. She will follow- up if she is not improved in a few days. Sooner if she has any new or worsening symptoms. She is asked to call with questions or concerns. Allergic rhinitis 08/23/2011 Acne 05/10/2011 Overview (01/04/2024): Dr Pruett Eczema 05/10/2011 Hypothyroidism 05/07/2010 Assessment & Plan (05/20/2024 1:46 PM EST): Currently on levothyroxine 75 mcg a day. Last TSH within normal limits, resulting stable over the last years. We will continue same dose. Orders: Thyroid stimulating hormone; Future Encounters Date Type Department Care Team Description 05/30/2024 9:15 AM EST Office Visit [facility] [address] [phone] Carl Bryant DPM Cellulitis of left foot (Primary Dx); Dermatophytosis of nail 05/27/2024 1:45 PM EST Office Visit [facility] [address] [phone] Yari Bolanos PA Bursitis of left shoulder (Primary Dx) 05/20/2024 12:00 PM EST Telemedicine Adult Medicine [address] [phone] Philly Headley MD Hypothyroidism, unspecified type (Primary Dx); Mild persistent asthma without complication; Iron deficiency anemia, unspecified iron deficiency anemia type 05/16/2024 2:00 PM EST Office Visit Adult [address] [phone] Shannon Finn PA Persistent cough (Primary Dx); Mild persistent asthma without complication; Acute recurrent maxillary sinusitis 05/13/2024 10:00 AM EST Office Visit [facility] [address] [phone] Carl Bryant DPM Dermatophytosis of nail (Primary Dx); Ingrowing nail 05/09/2024 Telephone Adult Medicine [facility] [address] [phone] Shena Jimenez MA triage (cough) 04/23/2024 Telephone Orthopedic [facility] 250 175 [facility] 250 [place] [phone] Yari Bolanos PA 04/15/2024 1:15 PM EST Office Visit Adult [address] [phone] Shannon Finn PA Persistent cough (Primary Dx); Mild persistent asthma without complication 03/20/2024 Nurse Triage [address] [phone] Philly Headley MD Cough 03/19/2024 Telephone [facility] Hematology Oncology [address] [place] [phone] Valery Hong MA 03/15/2024 9:45 AM EST Office Visit [address] [phone] Shannon Finn PA Productive cough (Primary Dx); Mild persistent asthma without complication 03/12/[address] [phone] Philly Headley MD Cough 03/07/2024 12:00 PM EST - 03/07/2024 11:59 PM EST Hospital Encounter [address] [phone] Subacute cough Discharge Disposition: Home or Self Care 03/07/2024 11:00 AM EST Office Visit Adult [address] [phone] Jose Alfredo Hansen PA Subacute cough (Primary Dx) from Last 3 Months Immunizations Name Administration Dates Next Due Influenza Quadravalent, MDCK , 0.5ml, preservative free (Flucelvax) 6mo and older 04/14/2022 Influenza trivalent, 0.5mL, preservative free (Fluarix; FluLaval; Fluzone) ages 6mo and older (Afluria) 3 years and older 12/08/2009 Influenza trivalent, with pr eservative (Fluzone; Afluria) 6mo and older 01/19/2014,01/14/2013,12/18/2011,12/28 Pneumococcal polysaccharide 23 valent (Pneumovax 23) 2yo and older 11/01/2012 Tdap Tetanus diptheria acell ular pertussis (Boostrix; Adacel) 7yo and older 06/27/2016,02/23/2015,12/08/2009 Surgical History Surgery Date Site/Laterality Comments HERNIA REPAIR PROCEDURE: HISTORICAL HERNIA REPAIR/ING; COMMENT: child OTHER SURGICAL HISTORY PROCEDURE: HISTORICAL ARM SURGERY; COMMENT: left arm, two benign moles/lesions removed OVARIAN CYST REMOVAL 2011 PROCEDURE: CO OVARIAN CYSTECTOMY UNI/BI; COMMENT: possibly right (?) OTHER SURGICAL HISTORY Bilateral PROCEDURE: HISTORY OTHER; COMMENT: Bilateral ureteroneocystostomies '76, right side '79 Medical History Medical History Date Comments Seasonal allergies DX:Seasonal a llergies Hypothyroidism DX:Hypothyroidis m Asthma 09/18/2017 DX:Asthma Environmental allergies 09/21/2010 DX:Envir onmental allergies; COMMENT: Molds, trees, seen with Dr. Moore , getting allergy shots from his office Allergic rhinitis 08/23/2011 DX:Allergic rh initis Eczema 05/10/2011 DX:Eczema Acne 05/10/2011 DX:Acne; COMMENT : Dr Pruett Kidney disease DX:Kidney diseas e; COMMENT: Undefined- chronic; pt states 1 kidney smaller. At risk for renal insufficiency. Dr. 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 age Mother Other Social History Tobacco Use Types Packs/Day Years Used Date Smoking Tobacco: Never Smokeless Tobacco: Never Tobacco Cessation:Counseling Given: Not Answered Alcohol Use Standard Drinks/Week Comments Yes 0 [...] Record ed Within the last 3 months, homer sanchez many times did you visit the emergency [...] care for your loved ones. For example, children teacher or elderly care for an older adult? [...] Date Recorded What is your living situation? 1 04/23/2023 Comments No Sex and Gender Information Value Date Recorded Sex Assigned at Not on file Legal Sex Female 1:02 PM EST Gender Identity Not on file Sexual Orientation Not on file Obstetrics History Last Filed Vital Signs Vital Sign Reading Time Taken Comments Blood Pressure 99/71 05/16/2024 1:58 PM EST Pulse 78 05/16/2024 1:58 PM EST Temperature 36.4 ??C (97.5 ??F) 05/16/2024 1:58 PM ES T Respiratory Rate 15 05/16/2024 1:58 PM EST Oxygen Saturation 98% 04/15/2024 1:26 PM EST Inhaled Oxygen Concentration - - Weight 96.2 kg (212 lb) 05/30/2024 9:30 AM EST Height 160 cm (5' 2.99 ) 05/30/2024 9:30 AM EST Body Mass Index 37.56 05/30/2024 9:30 AM EST Plan of Treatment Upcoming Encounters Date Type Department Care Team (Late st Contact Info) Description 06/03/2024 11:[address] Scan - [address] [phone] 06/13/2024 10:00 AM EDT Office Visit [facility] [address] [phone] Carl Bryant, DPM [address] [phone] 07/08/2024 1:30 PM EDT Office Visit [facility] [place] [address] [facility] [address] [place] [phone] Yari Bolanos PA 174 [facility] [address] [place] [phone] 07/09/2024 11:15 AM EDT Office Visit Obstetrics and Gynecology - [place] [address] [place] [phone] Stella Quinonez, [facility] [address] [place] [address] Health Maintenance Due Date Last Done Comments Hepatitis B Vaccines (1 of 3 - 19+ 3-dose series) 1992 Pneumococcal Vaccine: 50+ Years (2 of 2 - PCV) 11/01/2013 11/01/2012 Pneumococcal Vaccine: Pediatrics (0 to 5 Years) and At-Risk Patients (6 to 64 Years) (2 of 2 - PCV) 11/01/2013 11/01/2012 Zoster Vaccines (1 of 2) 11/30/2023 COVID-19 Vaccine ( - 2023- season) 2023 07/21/2020, 06/29/2020 Breast Cancer Screening 08/18/2024 08/18/2022 Influenza Vaccine (#1) 2024 , 02/23/2015, 01/19/2014, Additional history exists Postponed from 12/03/2023 (Patient Ill Today) Social Influencers of Health Screening 02/21/2025 02/22/2024 Depression Screening 05/15/2025 05/15/2024, 04/06/19 24 DTaP,Tdap,and Td Vaccines (4 - Td or Tdap) 06/27/2026 06/27/2016, 02/23/2015, 12/08/2009 Colorectal Cancer Screening: FIT-DNA (Cologuard) 02/02/2027 02/03/2024 Cervical Cancer Screening: HPV 06/10/2027 06/09/2022 Cholesterol Screening (Lipid Panel) 11/16/2028 11/17/2023, 11/17/2023 HIV Screening Completed 06/09/2022 Hepatitis C Screening Completed 06/09/2022 HIB Vaccines Aged Out No longer eligi ble based on patient's age to complete this topic HPV Vaccines Aged Out No longer eligi ble based on patient's age to complete this topic Hepatitis A Vaccines Aged Out No long er eligible based on patient's age to complete this topic IPV Vaccines Aged Out No longer eligi ble based on patient's age to complete this topic MMR Vaccines Aged Out No longer eligi ble based on patient's age to complete this topic Meningococcal ACWY Vaccine Aged Out N o longer eligible based on patient's age to complete this topic Meningococcal B Vacine Aged Out No lo nger eligible based on patient's age to complete this topic RSV Immunization Patients Under 20 months Aged Out No longer eligible based on patient's age to complete this topic Varicella Vaccines Aged Out No longer eligible based on patient's age to complete this topic Procedures Procedure Name Priority Date/Time Associated Diagnosis Comments XR SHOULDER 2+ VIEWS LEFT Routine 05/27/2024 2:08 PM EST Pain IRON AND TIBC Routine 03/18/2024 1:33 PM EST Iron deficiency anemia, unspecified Iron deficiency anemia secondary to blood loss (chronic) FERRITIN Routine 03/18/2024 1:33 PM EST Iron deficiency anemia, unspecified Iron deficiency anemia secondary to blood loss (chronic) COMPLETE BLOOD COUNT Routine 03/18/2024 1:33 PM EST Iron deficiency anemia, unspecified Iron deficiency anemia secondary to blood loss (chronic) RESPIRATORY VIRUS PANEL MOLECULAR STUDY Routine 03/15/2024 11:04 AM EST Productive cough [id number], RSV, FLU A AND B QUALITATIVE RT-PCR, LOCAL REFERENCE LAB Routine 03/07/2024 1:25 PM EST Subacute cough XR CHEST 2 VIEWS Routine 03/07/2024 12:0 1 PM EST Subacute cough EXTERNAL COLOGUARD (FIT-DNA) REPORT 02/03/2024 LIPID PANEL Routine 11/17/2023 DEPRESSION SCREENING Routine 04/06/2023 DIAGNOSTIC MAMMOGRAPHY INCLUDING CAD BILATERAL Routine 08/18/2022 9:49 AM EDT Localized swelling, mass and lump, right upper limb HPV Routine 06/09/2022 HEPATITIS C SCREENING Routine 06/09/2022 HIV SCREENING Routine 06/09/2022 from Last 3 Months or Most Recently Relevant to Health Maintenance Results * XR Shoulder 2+ Views Left (05/27/2024 2:08 PM EST) Anatomical Region Laterality Modality Upper Extremities, Shoulder Left Comp uted Radiography Narrative 05/27/2024 4:28 PM EST Date of Visit: 05/27/2024 Reason for visit: Left shoulder pain Views: AP, ??Grashey Y and axillary of the left shoulder. Comparison: None Findings: No fracture, dislocation or lytic lesions. ??Bone spurring off the lateral aspect of the acromion. ??Mild narrowing of subacromial space. ?? No calcifications. ??No proximal migration humeral head Impression: Transformation of acromion. ??Mild narrowing of subacromial space no acute findings. us Yari LEAVITT IMG XR PROCEDURES Final Resul t * (ABNORMAL) Iron and TIBC (03/18/2024 1:33 PM EST) Iron 20(L) 40 - 150 mcg/dL LAB CHEMISTRY METHOD 03/18/2024 7:18 PM EST [facility] TIBC 383 250 - 450 mcg/dL LAB CHEMISTRY METHOD 03/18/2024 7:18 PM EST [facility] Iron Saturation 5(L) 15 - 50 % LAB CHEMISTRY METHOD 03/18/2024 7:18 PM EST [facility] Blood Venous blood specimen / Unknown Venipuncture / Unknown 03/18/2024 1:33 PM EST 03/18/2024 4:37 PM EST Samara Holbrook MD LAB BLOOD ORDERABLES Final R esult [facility] [address] [place] [address], * (ABNORMAL) Complete blood count (03/18/2024 1:33 PM EST) WBC 6.6 4.8 - 10.8 K/mcL LAB HEMETOLOGY METHOD 03/18/2024 4:43 PM [facility] RBC 4.30 3.80 - 4.80 M/mcL LAB HEMETOLOGY METHOD 03/18/2024 4:43 PM [facility] Hemoglobin 11.2(L) 11.5 - 16.0 g/dL LAB HEMETOLOGY METHOD 03/18/2024 4:43 PM [facility] Hematocrit 35.5 35.0 - 47.0 % LAB HEMETOLOGY METHOD 03/18/2024 4:43 PM [facility] MCV 82.0 79.0 - 98.0 FL LAB HEMETOLOGY METHOD 03/18/2024 4:43 PM [facility] MCH 25.9(L) 27.0 - 32.0 pcg LAB HEMETOLOGY METHOD 03/18/2024 4:43 PM [facility] MCHC 31.5(L) 32.0 - 37.0 g/dL LAB HEMETOLOGY METHOD 03/18/2024 4:43 PM [facility] RDW 16.1(H) 11.0 - 15.0 % LAB HEMETOLOGY METHOD 03/18/2024 4:43 PM [facility] Platelets 256 130 - 400 K/mcL LAB HEMETOLOGY METHOD 03/18/2024 4:43 PM EST [facility] MPV 10.2 7.0 - 11.0 FL LAB HEMETOLOGY METHOD 03/18/2024 4:43 PM EST [facility] NRBC 0.0 <1.0 % LAB HEMETOLOGY METHOD 03/18/2024 4:43 PM EST [facility] NRBC Absolute 0.00 <0.10 K/[facility] LAB HEMETOLOGY METHOD 03/18/2024 4:43 PM EST [facility] Blood Venous blood specimen / Unknown Venipuncture / Unknown 03/18/2024 1:33 PM EST 03/18/2024 4:36 PM EST Samara Holbrook MD LAB BLOOD ORDERABLES Final R esult [facility] [address] [place] [address], [place] [phone] * Ferritin (03/18/2024 1:33 PM EST) [facility] Ferritin 14 8 - 252 ng/mL LAB CHEMISTRY METHOD 03/18/2024 7:18 PM EST [facility] Blood Venous blood specimen / Unknown Venipuncture / Unknown 03/18/2024 1:33 PM EST 03/18/2024 4:37 PM EST Samara Holbrook MD LAB BLOOD ORDERABLES Final R esult [facility] [address] [place] [address], [place] [phone] * Respiratory virus panel molecular study (03/15/2024 11:04 AM EST) [facility] Adenovirus Detection by PCR Not Detected Not Detected LAB MICROBIOLOGY METHOD 03/15/2024 5:39 PM [facility] Influenza A PCR Not Detected Not Detected LAB MICROBIOLOGY METHOD 03/15/2024 5:39 PM [facility] Influenza B PCR Not Detected Not Detected LAB MICROBIOLOGY METHOD 03/15/2024 5:39 PM [facility] Coronavirus 229E Not Detected Not Detected LAB MICROBIOLOGY METHOD 03/15/2024 5:39 PM [facility] Coronavirus HKU1 Not Detected Not Detected LAB MICROBIOLOGY METHOD 03/15/2024 5:39 PM [facility] Coronavirus OC43 Not Detected Not Detected LAB MICROBIOLOGY METHOD 03/15/2024 5:39 PM [facility] Coronavirus NL63 Not Detected Not Detected LAB MICROBIOLOGY METHOD 03/15/2024 5:39 PM [facility] Parainfluenza Virus 1 Not Detected Not Detected LAB MICROBIOLOGY METHOD 03/15/2024 5:39 PM [facility] Parainfluenza Virus 2 Not Detected Not Detected LAB MICROBIOLOGY METHOD 03/15/2024 5:39 PM [facility] Parainfluenza Virus 3 Not Detected Not Detected LAB MICROBIOLOGY METHOD 03/15/2024 5:39 PM [facility] Parainfluenza Virus 4 Not Detected Not Detected LAB MICROBIOLOGY METHOD 03/15/2024 5:39 PM [facility] RSV PCR Not Detected Not Detected LAB MICROBIOLOGY METHOD 03/15/2024 5:39 PM [facility] Human Metapneumovirus A and B Not Detected Not Detected LAB MICROBIOLOGY METHOD 03/15/2024 5:39 PM [facility] Rhinovirus/Entero virus Not Detected Not Detected LAB MICROBIOLOGY METHOD 03/15/2024 5:39 PM [facility] Bordetella pertussis Not Detected Not Detected LAB MICROBIOLOGY METHOD 03/15/2024 5:39 PM [facility] Bordetella parapertussis Not Detected Not Detected LAB MICROBIOLOGY METHOD 03/15/2024 5:39 PM EST [facility] Mycoplasma pneumo by PCR Not Detected Not Detected LAB MICROBIOLOGY METHOD 03/15/2024 5:39 PM EST [facility] Chlamydia pneumoniae Not Detected Not Detected LAB MICROBIOLOGY METHOD 03/15/2024 5:39 PM EST [facility] SARS COV-2 Not Detected Not Detected LAB MICROBIOLOGY METHOD 03/15/2024 5:39 PM EST [facility] Swab Both anterior nares / Unknown Non-blood Collection / Unknown 03/15/2024 11:04 AM EST 03/15/2024 11:04 AM EST [facility] - 03/15/2024 5:39 PM EST Testing was performed using the [employer] Respiratory Pathogen PCR Assay. All results must be correlated with the clinical findings. Results should not be used as the sole basis for diagnosis. False Negative results may occur from the presence of sequence variants in the region targeted by the assay or the presence of inhibitors. Results may be affected by concurrent antiviral/antimicrobial therapy or levels of organisms that are below the limit of detection. Shannon LEAVITT LAB MICROBIOLOGY - GENERAL ORDER NICK Final Result [facility] [address] [place] [address], * [id number], RSV, Influenza A and B qualitative RT-PCR (03/07/2024 1:25 PM EST) SARS COV-2 Not Detected Not Detected LAB MOLECULAR DIAGNOSTICS METHOD 03/08/2024 9:32 AM EST [facility] Comment: Disclaimer: The manner in which this information is used to guide patient care is the responsibility of the healthcare provider. Testing was performed using the [employer] Al[employer] m SARS-CoV-2 test. This test has been authorized by FDA under an Emergency Use Authorization (EUA). This test is only authorized for the duration of time the declaration that circumstances exist justifying the authorization of the emergency use of in vitro diagnostic tests for detection of SARS-CoV-2 virus and/or diagnosis of COVID-19 infection under section 564(b)(1) of the Act, 21 U.S.C. 360bbb- 3(b)(1), unless the authorization is terminated or revoked sooner. Fact sheet for Healthcare Providers can be found at: https://www.fda.gov/media/419160/download Fact sheet for Patients can be found at: https://www.fda.gov/media/823314/download Influenza A PCR Not Detected Not Detected LAB MOLECULAR DIAGNOSTICS METHOD 03/08/2024 9:32 AM EST [facility] Influenza B PCR Not Detected Not Detected LAB MOLECULAR DIAGNOSTICS METHOD 03/08/2024 9:32 AM [facility] RSV PCR Not Detected Not Detected LAB MOLECULAR DIAGNOSTICS METHOD 03/08/2024 9:32 AM [facility] Swab Nasopharyngeal structure / Unknown Non-blood Collection / Unknown 03/07/2024 1:25 PM EST 03/07/2024 1:26 PM EST us Jose Alfredo LEAVITT LAB MICROBIOLOGY - GENER AL ORDERABLES Final Result Performing Organization Address City/State/[facility] Co de Phone Number [facility] [address] [place] [address], * XR Chest 2 Views (03/07/2024 12:01 PM EST) Anatomical Region Laterality Modality Body Radiographic Marie ging 03/07/2024 12:1 3 PM EST Impressions 03/07/2024 12:15 PM EST Impression: No evidence of active pathology in the chest. -------- FINAL REPORT -------- Dictated By: Martin Rasmussen Dictated Date: 03/07/2024 12:13 ET Assigned Physician: Martin Rasmussen Reviewed and Electronically Signed By: Martin Rasmussen Signed Date: 03/07/2024 12:15 ET Workstation ID: [id number] Transcribed By: Self Edit Transcribed Date: 03/07/2024 12:13 ET Narrative 03/07/2024 12:15 PM EST History: Cough. Chest PA and lateral: The lungs are clear. There are no infiltrates or effusions. ??The vasculature is not congested. The cardiac and mediastinal silhouettes appear normal. ??There are very mild degenerative changes in the spine. Procedure Note Martin Rasmussen MD - 03/07/2024 History: Cough. Chest PA and lateral: The lungs are clear. There are no infiltrates oreffusions. The vasculature is not congested. The cardiac and mediastinalsilhouettes appear normal. There are very mild degenerative changes inthe spine. IMPRESSION: Impression: No evidence of active pathology in the chest. -------- FINAL REPORT -------- Dictated By: Martin Rasmussen Dictated Date: 03/07/2024 12:13 ET Assigned Physician: Martin Rasmussen Reviewed and Electronically Signed By: Martin Rasmussen Signed Date: 03/07/2024 12:15 ET Workstation ID: [id number] Transcribed By: Self Edit Transcribed Date: 03/07/2024 12:13 ET Result [facility] Jose Alfredo LEAVITT IMG XR PROCEDURES Final Result * External Cologuard (FIT-DNA) Report (02/03/2024) Result [facility] Provider Onbase LAB BODY FLUIDS AND STOOLS OR DERABLES Final Result * (ABNORMAL) Lipid panel (11/17/2023) LDL/HDL Ratio 4 0 - 4 Triglycerides 127 0 - 150 mg/dL Cholesterol 211(A) 0 - 200 mg/dL HDL 57 >=40 mg/dL LDL Cholesterol 129(A) 0 - 100 mg/dL Blood Venous blood specimen / Unknown Result [facility] Historical Provider LAB BLOOD ORDERABLES Carolina l Result * Depression Screening (04/06/2023) Pathologist [facility] Depression Screening abstracted Result [facility] Historical Provider HEALTH MAINTENANCE Final Result * DIAGNOSTIC MAMMOGRAPHY INCLUDING CAD BILATERAL (08/18/2022 9:49 AM EDT) Anatomical Region Laterality Modality Mammography 06/30/2022 10:2 7 AM EDT Narrative 08/18/2022 10:06 AM EDT This is a summary report. The complete report is available in the patient's medical record. If you cannot access the medical record, please contact the sending organization for a detailed fax or copy. History: Palpable abnormality, right axilla. Bilateral diagnostic mammography and limited ultrasound of the right axilla: Bilateral digital mammography was performed using tomosynthesis, reviewed with computer-aided detection and compared to previous. ??The breasts consist of a mixture of fatty and fibroglandular elements. ??There are no suspicious masses or microcalcifications. ??Axillary structures are unchanged and symmetrical. ??Ultrasound of the right axilla was performed. ??The area of indicated palpable abnormality was evaluated. ??There is no appreciable sonographic abnormality. ??There is no evidence of adenopathy, collection, cyst or mass. Impression: Negative bilateral mammography and limited right axillary ultrasound. BI-RADS Category 1, negative. 5 year breast cancer risk assessment 1.0 % Lifetime breast cancer risk assessment 10.2 % Breast cancer risk category Low (<15%) Procedure Note Martin Rasmussen MD - 05/09/2023 This is a summary report. The complete report is available in thepatient's medical record. If you cannot access the medical record, pleasecontact the sending organization for a detailed fax or copy. History: Palpable abnormality, right axilla. Bilateral diagnostic mammography and limited ultrasound of the rightaxilla: Bilateral digital mammography was performed using tomosynthesis,reviewed with computer- aided detection and compared to previous. Thebreasts consist of a mixture of fatty and fibroglandular elements. Thereare no suspicious masses or microcalcifications. Axillary structures areunchanged and symmetrical. Ultrasound of the right axilla was performed.The area of indicated palpable abnormality was evaluated. There is noappreciable sonographic abnormality. There is no evidence of adenopathy,collection, cyst or mass. Impression: Negative bilateral mammography and limited right axillaryultrasound. BI-RADS Category 1, negative. 5 year breast cancer risk assessment 1.0 % Lifetime breast cancer risk assessment 10.2 % Breast cancer risk category Low (<15%) Result [facility] Makayla LEAVITT IMG BI PROCEDURES Final Result * Cervical Cancer Screening: HPV (06/09/2022) Cervical Cancer Screening: HPV Negative abstracted Result [facility] Historical Provider HEALTH MAINTENANCE Final Result * HIV Screening (06/09/2022) Pathologist [facility] HIV Screening abstracted Historical Provider HEALTH MAINTENANCE Final Result * Hepatitis C Screening (06/09/2022) Pathologist [facility] Hepatitis C Screening abstracted Historical Provider HEALTH MAINTENANCE Final Result from Last 3 Months or Most Recently Relevant to Health Maintenance Insurance [facility] Care Teams Computer Forensics Analyst Relationship Specialty Start Date End Date Philly Headley MD [address] [place] [id number] PCP - General Internal Medicine 12/13/21
--- OUTSIDE RECORDS SUMMARY | 2024-06-02 20:36 | XMS_ITS | Encounter Summary ---
Author Organization [facility] [place] [address] Care Team Providers Care Food Preparer Name Role Phone Philly Headley MD Primary Care Prov ider Encounter Details Date Type Department Care Team (Late st Contact Info) Description 01/03/2024 10:23 AM EDT Hospital Encounter TH HISTORIC ENCOUNTERS EASTERN CONVERSION ONLY Samara Holbrook MD [address] [place] [phone] Social History Tobacco Use Types Packs/Day Years [...] care for your loved ones. For example, child care associate or elderly care for an older adult? [...] documented in this encounter Plan of Treatment Upcoming Encounters Date Type Department Care Team (Late st Contact Info) Description 06/03/2024 11:[address] Scan - [address] [phone] 06/13/2024 10:00 AM EDT Office Visit Orthopedic Surgery - [place] [address] [phone] Carl Bryant DPFreida [address] [address] 07/08/2024 1:30 PM EDT Office Visit Orthopedic Surgery [facility] [address] [phone] Yari Bolanos PA [address] [phone] 07/09/2024 11:15 AM EDT Office Visit Obstetrics and Gynecology - [address] [phone] Stella Quinonez, CNM [address] [place] [address] documented as of this encounter Visit Diagnoses Not on filedocumented in this encounter Additional Health Concerns Infection Onset Date Last Indicated Resolved Time Respiratory Rule-Out 03/07/2024 03/07/2024 9:32 AM EST COVID-19 Rule-Out 03/07/2024 03/07/2024 03/08/2024 9:32 AM EST Respiratory Rule-Out 03/15/2024 03/15/2024 5:39 PM EST COVID-19 Rule-Out 03/15/2024 03/15/2024 03/15/2024 5:39 PM EST documented as of this encounter Care Teams Food Preparer Relationship Specialty Start Date End Date Philly Headley MD [address] [place] [phone] PCP - General Internal Medicine 12/13/21 documented as of this encounter
--- OUTSIDE RECORDS SUMMARY | 2024-06-02 20:36 | XMS_ITS | Encounter Summary ---
Author Organization [facility] Address [address] [place] [address] Care Team Providers Care Pmp Certified Project Manager Name Role Phone Philly Headley MD Primary Care Prov ider Reason for Visit * Reason Comments Consult Nail fungus Encounter Details Date Type Department Care Team ([facility] st Contact Info) Description 05/13/2024 10:00 AM EST Office Visit Orthopedic Surgery - [place] [address] [phone] Carl Bryant, DPM [address] [phone] Dermatophytosis of nail (Primary Dx); Ingrowing nail Social History Tobacco Use Types Packs/Day Years [...] for your loved ones. For example, children's entertainer or elderly care for an older adult? [...] Sign Reading Time Taken Comments Blood Pressure - - Pulse - - Temperature - - Respiratory Rate - - Oxygen Saturation - - Inhaled Oxygen Concentration - - Weight 96.6 kg (213 lb) 05/13/2024 10:04 AM EST Height 160 cm (5' 2.99 ) 05/13/2024 10:04 AM EST Body Mass Index 37.74 05/13/2024 10:04 AM EST documented in this encounter Ordered Prescriptions Prescription Sig Dispense Quantity Refills Last Filled Start Date End Date silver sulfADIAZINE (Silvadene) 1 % cream Apply topically 1 (one) time each day. 50 g 05/13/2024 documented in this encounter Progress Notes * Carl Bryant DPM - 05/13/2024 10:00 AM EST Leave bandaging clean dry intact until tomorrow Take bandaging off in shower Perform warm water soaks either in the shower or out of the shower for 10 to 15 minutes Apply ointment and bandage to be changed daily Follow-up in 2 weeks * Carl Bryant DPM - 05/13/2024 10:00 AM EST S Patient presents complaining of pain in her feet she notes she has tried and failed Lamisil states she is very frustrated feels like her nails elongated painful thickened fungal he and odorous she states she is very cosmetically concerned and is uncomfortable and states pain is a 5-10 visual anal patient does not that she did have biopsies taken last appointment has been doing well overall does note that her nails all do bother her and she wants to know if there is other options to treat them aside from oral medication or oral medication is an option for her given her history of failing Lamisil as well as a soles and other topical medication options with chronic pain discomfort of the nail ROS: GENERAL: Pt denies nausea, fever, vomiting, chills, or shortness of breath. Pt in NAD. CARDIOLOGY: pt denies chest pain, palpitations LUNGS: pt denies shortness of breath MUSCULOSKELETAL: See HPI, otherwise no joint pain or swelling, back pain, or muscle pain. SKIN: see HPI, otherwise no lesions, rash or itching NEURO: No persistent headache, weakness or numbness The remainder of the review of systems is noncontributory PAST MEDICAL HISTORY: Patient Active Problem List Diagnosis Abnormal ultrasound of kidney Acne Adnexal mass Allergic rhinitis Asthma Eczema Gastroesophageal reflux disease Hypothyroidism Iron deficiency anemia Microcytic anemia Kidney disease Menorrhagia with regular cycle Personal history of COVID-19 Rosacea Severe obesity (BMI 35.0-39.9) with comorbidity (CMS/HCC) Uterine fibroid Vitamin D deficiency SOCIAL HISTORY: Social History Tobacco Use Smoking status: Never Smokeless tobacco: Never Substance Use Topics Alcohol use: Yes ACTIVE MEDICATIONS: Outpatient Medications Marked as Taking for the 05/13/24 encounter (Office Visit) with Carl Wade DPM Medication Sig Dispense Refill albuterol 2.5 mg /3 mL (0.083 %) nebulizer solution USE 1 VIAL 3 ML) INHALED BY NEBULIZATION EVERY 4 TO 6 HOYURS NEEDED FOR WHEEZING albuterol sulfate (ProAir RespiClick) 90 mcg/actuation aerosol powdr breath activated Inhale 2 puffs by mouth. cetirizine (ZyrTEC) 10 mg tablet Take 1 tablet (10 mg total) by mouth. cholecalciferol (VITAMIN D-3) 25 mcg (1,000 unit) tablet Take 1 tablet (1,000 Units total) by mouth1 (one) time each day. EPINEPHrine (EpiPen 2-Dada) 0.3 mg/0.3 mL injection Inject 0.3 mL (0.3 mg total) as directed. famotidine (PEPCID) 20 mg tablet Take 1 tablet (20 mg total) by mouth 2 (two) times a day. ferrous sulfate 325 mg (65 mg iron) EC tablet Take 1 tablet (325 mg total) by mouth. fluconazole (DIFLUCAN) 200 mg tablet Take 1 tablet (200 mg total) by mouth 1 (one) time each day. Take once a week for 12 weeks fluticasone propion-salmeteroL (AirDuo RespiClick) 232-14 mcg/actuation aerosol powdr breath activated inhaler Inhale 1 puff by mouth 2 (two) times a day. fluticasone propionate (FLONASE) 50 mcg/actuation nasal spray Administer 2 sprays into affected nostril(s). hydrocortisone 2.5 % cream APPLY 1 APPLICATION TOPICAL TWICE A DAY NEEDED FOR ITCHING. hydrOXYzine HCL (ATARAX) 25 mg tablet TAKE ONE TABLET BY MOUTH THREE TIMES A DAY NEEDED FOR ITCHING. ibuprofen (ADVIL,MOTRIN) 600 mg tablet Take 1 tablet (600 mg total) by mouth every 6 (six) hours ifneeded. ketorolac (TORADOL) 10 mg tablet Take 1 tablet (10 mg total) by mouth. ketotifen (ZADITOR) 0.025 % ophthalmic solution INSTILL ONE DROP INTO BOTH EYE TWICE A DAY NEEDED FOR ITCH, TEAR OR REDNESS levothyroxine (SYNTHROID, LEVOTHROID) 75 mcg tablet Take 1 tablet (75 mcg total) by mouth. methenamine hippurate (HIPREX) 1 gram tablet Take 1 tablet (1 g total) by mouth 1 (one) time each day. methylPREDNISolone (MEDROL DOSPAK) 4 mg tablet Follow schedule on package instructions 21 each 0 montelukast (SINGULAIR) 10 mg tablet Take 1 tablet (10 mg total) by mouth. multivitamin with iron (Daily Multiple Vitamins/Iron) Take 1 tablet by mouth 1 (one) time each day. tamsulosin (FLOMAX) 0.4 mg 24 hr capsule triamcinolone (KENALOG) 0.025 % cream Apply topically. Apply to affected area twice daily for 2 weeks. Ventolin HFA 90 mcg/actuation inhaler INHALE TWO PUFFS BY MOUTH EVERY 4 TO 6 HOURS NEEDED FOR WHEEZING ALLERGIES: Allergies Allergen Reactions Ciprofloxacin-Hydrocortisone itchy Dicloxacillin Sodium Hives Amoxicillin-Pot Clavulanate Itching Azithromycin Hives Cefuroxime itching Ciprofloxacin Itching Doxycycline Itching Mold Skin testing positive Yeast Diarrhea with bread PHYSICAL EXAM: Visit Vitals Ht 1.6 m (62.99 ) Wt 96.6 kg (213 lb) LMP 04/02/2024 BMI 37.74 kg/m?? OB Status Having periods Smoking Status Never BSA 1.99 m?? PODIATRIC EXAMINATION: GENERAL: Patient appears well nourished, with NAD. VASCULAR: Dorsalis pedis pulses are 2/4 bilaterally and Posterior tibial pulses are 2/4 bilaterally. Capillary filling time within normal limits the digits. No pallor on elevation or rubor on dependency. Positive hair growth. No varicosities. Denies rest pain or claudication pain. NEUROLOGICAL: Sharp/dull sensation intact, protective sensation intact 10/10 with 5.07 semmes ami bilaterally, vibratory sensation with tuning fork intact to the tibial tuberosity. ORTHOPEDIC: Good muscle strength 5/5 of all flexors and extensors. Dorsi flexion of ankle ,10 degrees, plantar flexion WNL. No muscle atrophy. DERMATOLOGICAL:. Toenails: Left Toenail(s) 1-5: Crumbling upon debridement, subungual debris, discoloration, dystrophy, elongation, mycotic appearance, onychomycosis, pain and thickening. Right Toenail(s) 1-5: Crumbling upon debridement, subungual debris, discoloration, dystrophy, elongation, mycotic appearance, onychomycosis, pain and thickening. Severely deformed left great toenail Annular scaling bilateral feet moccasin distribution significantly improved BIOMECHANICS: STJ ROM wnl, MTJ ROM wnl, 1st MPJ ROM wnl. Biopsy results reviewed positive for onychomycosis IMAGING: IMPRESSION: 1. Dermatophytosis of nail 2. Ingrowing nail PLAN: Pt was seen and examined, history reviewed. Biopsy results reviewed with patient in detail given that she has a history of failing Lamisil withpositive onychomycosis on biopsy surgical options and nonsurgical options were reviewed Fluconazole was has finished course of 200 mg tablets per take once weekly can continue with medication Labs reviewed Minor surgical procedure specific to removal of nail with nail avulsion procedure versus removal ofnail with nail avulsion and matrixectomy were discussed and reviewed differences between the procedures were reviewed discussed with patient there is a chance that her nail may grow back normal whilebeing on antifungal medications with removal of the nail plate recover from minor surgical procedure was discussed specific to 4 weeks of healing versus 6 to 8 weeks of healing with matrixectomy after lengthy discussion of risk benefits and procedures patient states is willing consider this but would like to hold off on at this time Yamilex prescribed Procedure [id number]: Avulsion single toenail -complete nail removal left great toe informed consent wasobtained from the patient. Partial avulsion with incision and drainage was performed on the toe. Sterile prep was performed. After the site was prepared with Ethyl Chloride spray, 6 ml of 1% Lidocaine was injected without difficulty. Complete nail removal performed with [place] elevator. DSD applied with topical antibiotic ointment. The patient was instructed on signs and symptoms of infection and what to look for,and was told to call and come in immediately should any problems and/or questions arise. Discussed partial nail avulsion with matrixectomy of the affected hallux if symptoms persist Carl Bryant DPM documented in this encounter Plan of Treatment Upcoming Encounters Date Type Department Care Team (Late st Contact Info) Description 06/03/2024 11:[address] Scan - [address] [phone] 06/13/2024 10:00 AM EDT Office Visit Orthopedic Surgery [facility] [address] [phone] Carl Bryant DPM [address] [address] 07/08/2024 1:30 PM EDT Office Visit Orthopedic Surgery [facility] [address] [phone] Yari Bolanos PA [address] [phone] 07/09/2024 11:15 AM EDT Office Visit Obstetrics and Gynecology - [address] [phone] Stella Quinonez, [address] documented as of this encounter Visit Diagnoses Diagnosis Dermatophytosis of nail- Primary Ingrowing nail documented in this encounter Additional Health Concerns Assessment Noted Time PHQ-9 Depression Total Score: 1 02/22/20 24 1:01 PM EST documented as of this encounter Care Teams Pmp Certified Project Manager Relationship Specialty Start Date End Date Philly Headley MD [address] [place] [address] PCP - General Internal Medicine 9/12/22 documented as of this encounter
--- OUTSIDE RECORDS SUMMARY | 2024-06-02 20:36 | XMS_ITS | Encounter Summary ---
Author Organization [facility] Address [address] [place] [address] Care Team Providers Care Stock Broker Name Role Phone Philly Headley MD Primary Care Prov ider Reason for Referral * Consultation (Routine) - Pending Review Specialty Diagnoses / Procedures Referred By Wilmar dejesus Referred To Contact Physical Therapy Diagnoses Bursitis of left shoulder Yari Bolanos PA [address] [facility] [address] [place] [address] Phone: tel: fax: Referral ID Status Reason Start Date Expiration Date Visits Requested Visits Authorized [id number] Pending Review Specialty Services Required 05/27/2024 05/27/2025 1 1 Reason for Visit * Reason Comments Pain Encounter Details Date Type Department Care Team (Late st Contact Info) Description 05/27/2024 1:45 PM EST Office Visit Orthopedic Surgery [place] [address] [place] [address] Yari Bolanos PA [address] [facility] [address] [place] [address] Bursitis of left shoulder (Primary Dx) Social History Tobacco Use Types Packs/Day Years [...] your loved ones. For example, child care lead teacher or elderly care for an older [...] on file documented as of this encounter Progress Notes * TREE Hobson - 05/27/2024 1:45 PM EST CHIEF COMPLAINT: Pain of the Left Hand had concerns including Pain of the Left Hand. IDENTIFIER: Chantel Russell is a 48 y.o. old female SUBJECTIVE: Chantel Russell is here for follow up on 05/27/2024 for different problem of left wrist injury and left shoulder pain. I previously saw her for her right wrist which has been overall doing okay. About amonth ago she fell onto her left wrist on ice. She described pain over the palm of the hand as wellas pain in her shoulder. She noticed some bruising of the left hand. The left hand pain is subsidedand she is having no issues with the left hand or wrist. She has continued to have left shoulder pain she localizes more anterolaterally no numbness tingling or radicular symptoms. She does have somepain with certain movements and at night in her left shoulder. She will take Advil for pain. PAST MEDICAL/SURGICAL HISTORY: Patient Active Problem List Diagnosis Date Noted Kidney disease 01/04/2024 Rosacea 08/31/2023 Microcytic anemia 04/19/2022 Severe obesity (BMI 35.0-39.9) with comorbidity ([facility]) 04/14/2022 Personal history of COVID-19 05/31/2021 Gastroesophageal reflux disease 07/28/2020 Menorrhagia with regular cycle 07/28/2020 Iron deficiency anemia 06/03/2020 Abnormal ultrasound of kidney 04/29/2020 Vitamin D deficiency 04/29/2020 Adnexal mass 08/17/2018 Uterine fibroid 08/17/2018 Asthma 09/18/2017 Allergic rhinitis 08/23/2011 Acne 05/10/2011 Eczema 05/10/2011 Hypothyroidism 05/07/2010 Past Surgical History: Procedure Laterality Date HERNIA REPAIR PROCEDURE: HISTORICAL HERNIA REPAIR/ING; COMMENT: child OTHER SURGICAL HISTORY PROCEDURE: HISTORICAL ARM SURGERY; COMMENT: left arm, two benign moles/lesions removed OTHER SURGICAL HISTORY Bilateral PROCEDURE: HISTORY OTHER; COMMENT: Bilateral ureteroneocystostomies '76, right side '79 OVARIAN CYST REMOVAL 2011 PROCEDURE: [place] OVARIAN CYSTECTOMY UNI/BI; COMMENT: possibly right (?) MEDICATIONS DISCONTINUED/REORDERED: There are no discontinued medications. ACTIVE MEDICATIONS: Current Outpatient Medications on File Prior to Visit Medication Sig Dispense Refill albuterol 2.5 mg /3 mL (0.083 %) nebulizer solution USE 1 VIAL 3 ML) INHALED BY NEBULIZATION EVERY 4 TO 6 HOYURS NEEDED FOR WHEEZING albuterol sulfate (ProAir RespiClick) 90 mcg/actuation aerosol powdr breath activated Inhale 2 puffs by mouth. [] cefpodoxime (VANTIN) 100 mg tablet Take 1 tablet (100 mg total) by mouth 2 (two) times a day for 7 days. 14 tablet 0 cetirizine (ZyrTEC) 10 mg tablet Take 1 [...] 1 tablet (325 mg total) by mouth. fluticasone propion-salmeteroL (AirDuo RespiClick) 232-14 mcg/actuation aerosol [...] A DAY NEEDED FOR ITCHING 90 tablet 0 ibuprofen (ADVIL,MOTRIN) 600 mg tablet Take 1 tablet (600 mg total) by mouth every 6 (six) hours ifneeded. ketotifen (ZADITOR) 0.025 % ophthalmic solution INSTILL [...] by mouth 1 (one) time each day. silver sulfADIAZINE (Silvadene) 1 % cream Apply topically 1 (one) time each day. 50 g 0 tamsulosin (FLOMAX) 0.4 mg 24 hr capsule triamcinolone (KENALOG) 0.025 % cream Apply topically. Apply to affected area twice daily for 2 weeks. Ventolin HFA 90 mcg/actuation inhaler INHALE TWO PUFFS BY MOUTH EVERY 4 TO 6 HOURS NEEDED FOR WHEEZING No current facility-administered medications on file prior to visit. ALLERGIES: Allergies Allergen Reactions Ciprofloxacin-Hydrocortisone itchy Dicloxacillin Sodium Hives Amoxicillin-Pot Clavulanate Itching Azithromycin Hives Cefuroxime itching Ciprofloxacin Itching Doxycycline Itching Mold Skin testing positive Yeast Diarrhea with bread PHYSICAL EXAM: Visit Vitals OB Status Having periods Smoking Status Never APPEARANCE: Alert and in no acute distress EXTREMITIES: Extremities warm and well perfused without clubbing, cyanosis, or edema Left wrist no swelling or ecchymoses. She can make a full fist. Full wrist flexion and extension. Mild pain to palpation although the volar proximal pole of the scaphoid. No snuffbox tenderness. No distal radius tenderness. Left shoulder active forward flexion is 160, external rotation 50. Negativedrop arm test and strength intact in IR ER and supraspinatus. Intact belly press. Positive Neer's and Matthews test. Pain is localized to subacromial space. VASCULAR:well perfused with normal pulses in the distal extremities and no peripheral edema noted NEURO: Awake, alert and oriented SKIN: Skin color, texture, turgor normal. No rashes or lesions. PSYCH: does not appear depressed or anxious and oriented to time, place and person LABS/IMAGING: Lab Results Component Value Date HGBA1C 5.6 11/16/2014 Xrays reviewed: XR Shoulder 2+ Views Left Date of Visit: 05/27/2024 Reason for visit: Left shoulder pain Views: AP, Grashey Y and axillary of the left shoulder. Comparison: None Findings: No fracture, dislocation or lytic lesions. Bone spurring off the lateral aspect of the acromion. Mild narrowing of subacromial space. No calcifications. No proximal migration humeral head Impression: Transformation of acromion. Mild narrowing of subacromial space no acute findings. IMPRESSION: 1. Bursitis of left shoulder PLAN: The details of the visit were reviewed with the patient. Pertinent history, and objective findings were reviewed, along with the diagnoses: Left hand pain after the fall has resolved but she continues to have left shoulder pain. Discussed with patient treatment options. No evidence of rotator cuff tear. Recommended physical therapy for the left shoulder to start and if symptoms persist could consider further treatment possible cortisone injection. She will follow-up with me in 6 to 8 weeks timefor clinical recheck. Physical therapy order was placed. Chantel Russell acknowledges understanding of the above plan and agrees to follow recommendations and/or take medications as prescribed. Orders Placed This Encounter Procedures Ambulatory referral to Physical Therapy and Athletic Training @[email or web address]@ documented in this encounter Plan of Treatment Upcoming Encounters Date Type Department Care Team (Late st Contact Info) Description 06/03/2024 11:[address] Scan - [address] [phone] 06/13/2024 10:00 AM EDT Office Visit Orthopedic Surgery - [place] [address] [phone] Carl Bryant, DPM [address] [address] 07/08/2024 1:30 PM EDT Office Visit Orthopedic Surgery - [place] 175 [facility] [address] [place] [phone] Yari Bolanos PA 174 [facility] [address] [place] [address] 07/09/2024 11:15 AM EDT Office Visit Obstetrics and Gynecology - [place] [address] [place] [address] Stella Quinonez, [facility] [address] [place] [address] Scheduled Referrals Name Type Priority Associated Diagnoses Order Schedule Ambulatory referral to Physical Therapy and Athletic Training Outpatient Referral Routine Bursitis of left shoulder 1 Occurrences starting 05/27/2024 until 05/27/2025 documented as of this encounter Visit Diagnoses Diagnosis Bursitis of left shoulder- Primary documented in this encounter Additional Health Concerns Assessment Noted Time PHQ-9 Depression Total Score: 1 05/15/19 25 5:42 PM EST documented as of this encounter Care Teams Stock Broker Relationship Specialty Start Date End Date Philly Headley MD [address] [place] [address] PCP - General Internal Medicine 12/13/21 documented as of this encounter
--- OUTSIDE RECORDS SUMMARY | 2024-06-02 20:36 | XMS_ITS | Encounter Summary ---
Author Organization [facility] Address [address] [place] [address] Care Team Providers Care Wall Washer Name Role Phone Philly Headley MD Primary Care Prov ider Reason for Visit * Reason Comments Follow-up Toenail fungus Encounter Details Date Type Department Care Team ([facility] st Contact Info) Description 05/30/2024 9:15 AM EST Office Visit Orthopedic Surgery - [place] [address] [phone] Carl Bryant, DPM [address] [address] Cellulitis of left foot (Primary Dx); Dermatophytosis of nail Social History Tobacco Use Types Packs/Day [...] for your loved ones. For example, child support case officer or elderly care for an older adult? [...] - Inhaled Oxygen Concentration - - Weight 96.2 kg (212 lb) 05/30/2024 9:30 AM EST Height 160 cm (5' 2.99 ) 05/30/2024 9:30 AM EST Body Mass Index 37.56 05/30/2024 9:30 AM EST documented in this encounter Ordered Prescriptions Prescription Sig Dispense Quantity Refills Last Filled Start Date End Date clindamycin (Cleocin HCL) 300 mg capsule Take 1 capsule (300 mg total) by mouth 4 (four) times a day for 10 days. 40 each 05/30/2024 documented in this encounter Progress Notes * Carl Bryant DPM - 05/30/2024 9:15 AM EST S Patient presents complaining of [...] to treat them aside from oral medication has been taking fluconazole as prescribed does note minimal improvement does note that her left great toe she feels it is red and swollen irritating her she states that she fe els it is infected she notes some minimal odor to the area she also notes that she is getting some irritation on top of her left foot pain discomfort is a 6 out of 10 on a visual analog scale ROS: GENERAL: Pt denies nausea, fever, vomiting, [...] Outpatient Medications Marked as Taking for the 05/30/24 encounter (Office Visit) with Carl Wade DPM [...] by mouth 1 (one) time each day. montelukast (SINGULAIR) 10 mg tablet Take 1 [...] Vitals Ht 1.6 m (62.99 ) Wt 96.2 kg (212 lb) BMI 37.56 kg/m?? OB Status Having periods Smoking Status Never BSA 1.98 m?? PODIATRIC EXAMINATION: GENERAL: Patient appears well [...] No muscle atrophy. DERMATOLOGICAL:. Toenails: Left Toenail(s) 2-5: Crumbling upon debridement, subungual debris, discoloration, dystrophy, elongation, mycotic appearance, onychomycosis, pain and thickening. Right Toenail(s) 1-5: Crumbling upon debridement, subungual debris, discoloration, dystrophy, elongation, mycotic appearance, onychomycosis, pain and thickening. Annular scaling bilateral feet moccasin distribution significantly improved Cellulitic changes of the left great toe localized to the left great toe without purulent drainage normal wound formation BIOMECHANICS: STJ ROM wnl, MTJ ROM wnl, 1st MPJ ROM wnl. Biopsy results reviewed positive for onychomycosis IMAGING: IMPRESSION: 1. Cellulitis of left foot 2. Dermatophytosis of nail PLAN: Pt was seen and examined, history reviewed. Biopsy results reviewed with patient in detail given that she has a history of failing Lamisil withpositive onychomycosis on biopsy surgical options and nonsurgical options were reviewed Fluconazole was has finished course of 200 mg tablets per take once weekly can continue with medication Concerns for cellulitis of left great toe was discussed and reviewed After review of patient's multiple allergies 9 total discussed and reviewed appropriate oral antibiotics Cleocin prescribed for prescription drug management of cellulitis of the left great toe Follow-up in 2 weeks Carl Bryant DPM documented in this encounter Plan of Treatment Upcoming Encounters Date Type Department Care Team (Late st Contact Info) Description 06/03/2024 11:[address] Scan [address] [address] 06/13/2024 10:00 AM EDT Office Visit Orthopedic Surgery [facility] [address] [phone] Carl Bryant DPM [address] [address] 07/08/2024 1:30 PM EDT Office Visit Orthopedic [facility] [address] [phone] Yari Bolanos PA 174 [facility] 140 [place] [address] 07/09/2024 11:15 AM EDT Office Visit Obstetrics and Gynecology - [address] [phone] Stella Quinonez, [facility] [address] [place] [address] documented as of this encounter Visit Diagnoses Diagnosis Cellulitis of left foot- Primary Dermatophytosis of nail documented in this encounter Additional Health Concerns Assessment Noted Time PHQ-9 Depression Total Score: 1 05/15/19 25 5:42 PM EST documented as of this encounter Care Teams Wall Washer Relationship Specialty Start Date End Date Philly Headley MD [address] [place] [address] PCP - General Internal Medicine 12/13/21 documented as of this encounter
--- OUTSIDE RECORDS SUMMARY | 2024-06-02 20:36 | XMS_ITS | Encounter Summary ---
Author Organization [facility] Address [address] [place] [address] Care Team Providers Care Master Baker Name Role Phone Philly Headley MD Primary Care Prov ider Encounter Details Date Type Department Care Team (Late st Contact Info) Description 05/20/2024 12:00 PM [facility] Adult Medicine [address] [phone] Philly Headley MD [address] [place] [address] Hypothyroidism, unspecified type (Primary Dx); Mild persistent asthma without complication; Iron deficiency anemia, unspecified iron deficiency anemia type Social History Tobacco Use Types Packs/Day Years [...] your loved ones. For example, child care team lead or elderly care for an older adult? [...] as of this encounter Progress Notes * Philly Headley MD - 05/20/2024 12:00 PM ESTAssociated Problem(s): Hypothyroidism Currently on levothyroxine 75 mcg a day. Last TSH within normal limits, resulting stable over the last years. We will continue same dose. Orders: Thyroid stimulating hormone; Future * Philly Headley MD - 05/20/2024 12:00 PM ESTAssociated Problem(s): Asthma Patient currently on albuterol as needed, montelukast every night,Cetirizine and AirDuo. Recent exacerbation, on ab and pdn cycle. Pending CT chest. * Philly Headley MD - 05/20/2024 12:00 PM ESTAssociated Problem(s): Iron deficiency anemia Last Hgb 11.2. She is currently taking iron pills every day. Denies any palpitations, dizziness, weakness, shortness of breath. Instructed to continue taking this medication. We will recheck CBC and iron studies at least every year as per recommendation of heme-onc. * Philly Headley MD - 05/20/2024 12:00 PM EST Images from the original note were not included. Telemedicine Visit Chantel Russell is a 48 y.o. female presenting for No chief complaint on file. Patient with a pmh of hypothyroidism, PEACE, asthma, is seen today for med follow up. She states she feels well, compliant with medications, she had a recent asthma exacerbation managedat home. No recent admissions to the hospital. No fever, or chills. Taking cefpodoxime, pending CT of the lungs. The following portions of the patient's history were reviewed by a provider in this encounter and updated as appropriate: There were no vitals taken for this visit. Physical exam is deferred due to being a telehealth visit. Assessment & Plan Hypothyroidism, unspecified type Currently on levothyroxine 75 mcg a day. Last TSH within normal limits, resulting stable over the last years. We will continue same dose. Orders: Thyroid stimulating hormone; Future Mild persistent asthma without complication Patient currently on albuterol as needed, montelukast every night,Cetirizine and AirDuo. Recent exacerbation, on ab and pdn cycle. Pending CT chest. Iron deficiency anemia, unspecified iron deficiency anemia type Last Hgb 11.2. She is currently taking iron pills every day. Denies any palpitations, dizziness, weakness, shortness of breath. Instructed to continue taking this medication. We will recheck CBC and iron studies at least every year as per recommendation of heme-onc. All questions and concerns were addressed. Patient verbalizes understanding and agrees with above treatment plan. Patient was advised to contact the office with any worsening symptoms or if new or existing problems arise. Patient to follow- up in 6 months. I have applied the code G2211 to this patient???s visit as the primary care provider dealing with (hypothyroidism, asthma, PEACE) leading to the extensive work up, and management associated with the medical care of this patient. This patient???s serious conditions and complex medical conditions also required several consultants needing management and coordination through my office. I have reviewed all information as it pertains to the management of this patient for final approval. Philly Lama MD [facility] [address] [address] Dept: [phone] Dept Telehealth Statement Patient was identified by name and . I conducted this virtual encounter from a non-medical private location via HIPAA compliant real time video and audio, a total time of 15 minutes was spent providing counseling and direct care Chantel Russell was located at home. Prior to the interview, the risks and benefits of telemedicine were discussed with the patient and verbal consent was obtained. documented in this encounter Plan of Treatment Upcoming Encounters Date Type Department Care Team (Late st Contact Info) Description 06/03/2024 11:[address] Scan - [address] [phone] 06/13/2024 10:00 AM EDT Office Visit Orthopedic Surgery [facility] [address] [facility] [address] [place] [phone] Carl Bryant, DPM 175 [facility] [address] [place] [address] 07/08/2024 1:30 PM EDT Office Visit Orthopedic Surgery [facility] 175 [facility] [address] [place] [phone] Yari Bolanos PA 174 [facility] [address] [place] [phone] 07/09/2024 11:15 AM EDT Office Visit Obstetrics and Gynecology - [address] [phone] Stella Quinonez, [facility] [address] [place] [address] Scheduled Orders Name Type Priority Associated Diagnoses Orde r Schedule Thyroid stimulating hormone Lab Routine Hypothyroidism, unspecified type 1 Occurrences starting 05/20/2024 until 05/20/2025 documented as of this encounter Visit Diagnoses Diagnosis Hypothyroidism, unspecified type- Primary Mild persistent asthma without complication Iron deficiency anemia, unspecified iron deficiency anemia type documented in this encounter Discontinued Medications Medication Sig Discontinue Reason Start Date End Da te fluconazole (DIFLUCAN) 200 mg tablet Take 1 tablet (200 mg total) by mouth 1 (one) time each day. Take once a week for 12 weeks Therapy completed 05/20/2024 ketorolac (TORADOL) 10 mg tablet Take 1 tablet (10 mg total) by mouth. Therapy completed 03/13/2024 05/20/2024 predniSONE (DELTASONE) 20 mg tablet Therapy completed 03/13/2024 05/20/2024 documented as of this encounter Additional Health Concerns Assessment Noted Time PHQ-9 Depression Total Score: 1 05/15/19 25 5:42 PM EST documented as of this encounter Care Teams Master Baker Relationship Specialty Start Date End Date Philly Headley MD [address] [place] [address] PCP - General Internal Medicine 12/13/21 documented as of this encounter
--- OUTSIDE RECORDS SUMMARY | 2024-06-02 20:36 | XMS_ITS | Encounter Summary ---
Author Organization [facility] Address [address] [place] [address] Care Team Providers Care Porcelain Enamel Sprayer Name Role Phone Philly Headley MD Primary Care Prov ider Reason for Visit * Reason Comments Cough Encounter Details Date Type Department Care Team (Late st Contact Info) Description 05/16/2024 2:00 PM EST Office Visit Adult Medicine [address] [phone] Shannon Finn PA [address] [place], [place] Persistent cough (Primary Dx); Mild persistent asthma without complication; Acute recurrent maxillary sinusitis Social History Tobacco Use Types Packs/Day Years [...] for your loved ones. For example, children's tutor nursery or elderly care for an older adult? [...] 15 05/16/2024 1:58 PM EST Oxygen Saturation - - Inhaled Oxygen Concentration - - Weight 96.5 kg (212 lb 12.8 oz) 05/16/2024 1:58 PM EST Height 160 cm (5' 3 ) 05/16/2024 1:58 PM EST Body Mass Index 37.7 05/16/2024 1:58 PM EST documented in this encounter Ordered Prescriptions Prescription Sig Dispense Quantity Refills Last Filled Start Date End Date cefpodoxime (VANTIN) 100 mg tablet Take 1 tablet (100 mg total) by mouth 2 (two) times a day for 7 days. 14 tablet 05/16/2024 05/23/2024 documented in this encounter Progress Notes * TREE Srinivasan - 05/16/2024 2:00 PM EST CHIEF COMPLAINT: Cough IDENTIFIER: Chantel Russell is a 48 y.o. old female. HPI: Patient is a 48-year-old female who presents to the office today for ongoing evaluation of productive cough x months. She now has nasal congestion, maxillary sinus pressure/tenderness. She has an upcoming appointment with her polymer tester this month. She was seen 4x for this. On 02/22/2024, she was treated with asthma exacerbation with methylprednisolone which helped temporarily. On 03/07/2024 she was complaining of persistent productive cough. COVID-19, RSV and flu swab was negative. Chest x-ray was unremarkable. On 03/15/2024, respiratory panel was unremarkable. She was given cough syrup with codeine which helped temporarily. On 04/15/2024, she was again given methylprednisolone which helped temporarily. Chest CT scan was ordered, never completed. She does have it scheduled on 05/27/2024.She is currently on montelukast, air duo and albuterol inhaler as needed. She is not a smoker. She i s overdue for PFTs. ROS: GENERAL: No malaise, significant weight loss or fever HEENT: See HPI RESPIRATORY: See HPI CARDIOVASCULAR: No chest pain, leg swelling or palpitations NEURO: No persistent headache PAST MEDICAL HISTORY: Patient Active Problem List Diagnosis Date Noted Kidney disease 01/04/2024 Rosacea 08/31/2023 Microcytic anemia 04/19/2022 Severe obesity (BMI 35.0-39.9) with comorbidity (CMS/HCC) 04/14/2022 Personal history of COVID-19 05/31/2021 Gastroesophageal [...] side '79 OVARIAN CYST REMOVAL 2011 PROCEDURE: [place] OVARIAN CYSTECTOMY UNI/BI; COMMENT: possibly right (?) SOCIAL HISTORY: Social History Tobacco Use Smoking status: Never Smokeless tobacco: Never Substance Use Topics Alcohol use: Yes FAMILY HISTORY: Family History Problem Relation Name Age of Onset Anemia Mother Hypertension Father Diabetes Father Breast cancer Father's side p grt grm 60.00 great grandmother Other (Other: adopted) Other Ovarian cancer Neg Hx Uterine cancer Neg Hx MEDICATIONS DISCONTINUED/REORDERED: Medications Discontinued During This Encounter Medication Reason predniSONE (DELTASONE) 20 mg tablet Therapy completed ACTIVE MEDICATIONS: Outpatient Medications Marked as Taking for the 05/16/24 encounter (Office Visit) with TREE Srinivasan Medication Sig Dispense Refill albuterol 2.5 mg [...] positive Yeast Diarrhea with bread PHYSICAL EXAM: Blood pressure 99/71, pulse 78, temperature 36.4 ??C (97.5 ??F), temperature source Temporal, resp.rate 15, height 1.6 m (63 ), weight 96.5 kg (212 lb 12.8 oz). Body mass index is 37.7 kg/m??. BMI is greater than 25.0 (above the normal range) - see Plan APPEARANCE: Alert and in no acute distress EYES: PERRLA, conjunctiva and sclera normal EARS: External ears normal. Canals clear. TMs normal NOSE/SINUS: Nares normal. Septum midline. Mucosa normal. Maxillary sinus tenderness THROAT: No erythema or exudates NECK: Neck supple, no adenopathy HEART: RRR with normal S1 and S2, no murmurs, no gallops LUNG: Clear to auscultation EXTREMITIES: No edema NEURO: Awake, alert LABS: Negative respiratory panel IMAGING: History: Cough. Chest PA and lateral: The lungs are clear. There are no infiltrates or effusions. The vasculature is not congested. The cardiac and mediastinal silhouettes appear normal. There are very mild degenerative changes in the spine. IMPRESSION: Impression: No evidence of active pathology in the chest. Chest CT pending IMPRESSION/PLAN: 1. Persistent cough 2. Mild persistent asthma without complication 3. Acute recurrent maxillary sinusitis Medication and lab orders: No orders of the defined types were placed in this encounter. Other orders: None 1/2/3. Persistent productive cough, now with nasal congestion, postnasal drip and maxillary sinus tenderness. No wheezing on exam. Oxygen saturation 98%. Previous chest x-ray was unremarkable. COVID-19, flu and RSV swab negative. Respiratory panel negative. She is allergic to several antibiotics but does tolerate cefpodoxime. Cefpodoxime 100 mg twice daily x 7 days sent to the pharmacy. Discussedside effects. She has an appointment with her polymer tester this month. Continue current asthma regimen. Chest CT pending. She is overdue for PFTs, will defer to polymer tester. I have applied the code G2211 to this patient???s visit as the primary care provider dealing with (productive cough, asthma, sinusitis) leading to the extensive work up, and management associated with the medical care of this patient. I have reviewed all information as it pertains to the managementof this patient for final approval. Advised the patient to call me if any problems. Patient understands the plan. Patient is in agreement with the plan. Today's documentation was made using voice recognition software.This note may contain grammatical errors secondary to this software. Shannon Finn PA-C documented in this encounter Plan of Treatment Upcoming Encounters Date Type Department Care Team (Late st Contact Info) Description 06/03/2024 11:[address] Scan - [address] [phone] 06/13/2024 10:00 AM EDT Office Visit Orthopedic Surgery [facility] 250 175 [facility] 250 [place] [phone] Carl Bryant DPM [address] [address] 07/08/2024 1:30 PM EDT Office Visit Orthopedic Surgery [facility] 175 [facility] 140 [place] [phone] Yari Bolanos PA 174 [facility] 140 [place] [phone] 07/09/2024 11:15 AM EDT Office Visit Obstetrics and Gynecology - [address] [phone] Stella Quinonez, [place]ISS[place] 444 [place] [address] documented as of this encounter Visit Diagnoses Diagnosis Persistent cough- Primary Mild persistent asthma without complication Acute recurrent maxillary sinusitis documented in this encounter Discontinued Medications Medication Sig Discontinue Reason Start Date End Da te predniSONE (DELTASONE) 20 mg tablet Therapy completed 03/13/2024 05/20/2024 documented as of this encounter Additional Health Concerns Assessment Noted Time PHQ-9 Depression Total Score: 1 05/15/19 25 5:42 PM EST documented as of this encounter Care Teams Porcelain Enamel Sprayer Relationship Specialty Start Date End Date Philly Headley MD [address] [place] [address] PCP - General Internal Medicine 12/13/21 documented as of this encounter
--- OUTSIDE RECORDS SUMMARY | 2024-06-02 20:36 | XMS_ITS | Encounter Summary ---
Author Organization [facility] [place] [address] Care Team Providers Care Car Shunter Name Role Phone Philly Headley MD Primary Care Prov ider Reason for Visit * Reason Onset Date Comments triage 05/09/2024 cough Encounter Details Date Type Department Care Team ([facility] st Contact Info) Description 05/09/2024 Telephone Adult Medicine [address] [phone] Shena Jmienez [place] triage (cough) Social History Tobacco Use Types Packs/Day Years [...] your loved ones. For example, child care center assistant director or elderly care for an older adult? [...] as of this encounter Progress Notes * Janice Pepper RN - 05/09/2024 1:13 PM EST Called and spokew ith pt. Asked if this is the same cough we have seen pt for three times already.,she sts it is but still coughing up a lot of mucous no fever green mucous. Sts is seeing pulmonary later this month. Advised next step would be to see them. Pt requests appt with doris or dr zavala offered today or tomorrow unable appt for monday * Shena Jimenez MA - 05/09/2024 12:43 PM EST Patient call requires triage: Symptoms patient is presenting: cough, green mucus How long has patient had these symptoms?: yesterday For ALL patients calling to schedule any appointment (routine, sick visit, follow up, consult, etc.) in the outpatient setting please ask the following questions: Do you have fever of higher than 101, sore throat with difficulty swallowing or severe shortness ofbreath? no If YES to any of these above symptoms, send a message to triage and do not book. Red dot. If no, an audio or video visit should be booked. Have you had close contact with someone with Coronavirus in the last 14 days? no Have you traveled abroad? no Have you traveled recently to another state outside of [place], [place], [place], [place], [place], [place], [place]? no o If yes, did you quarantine for 14 days or have a negative covid test? no If yes to any of the above, patient is not to be scheduled in office until after 14 day quarantine or negative covid test. If pain or injury related was it due to an accident at work or from a motor vehicle accident? If yes, date of accident/Injury: No If yes, gather 3rd green party insurance information Third Republican Information: not applicable PCP: Philly Lama MD Payor: [employer] PLAN / Plan: [employer] QHP / Product Type: *No Product type* / documented in this encounter Plan of Treatment Upcoming Encounters Date Type Department Care Team (Late st Contact Info) Description 06/03/2024 11:[address] Scan [address] [phone] 06/13/2024 10:00 AM EDT Office Visit Orthopedic Surgery - [place] 250 175 [facility] 250 [place] [phone] Carl Bryant, DPM 175 [facility] 250 [place] [address] 07/08/2024 1:30 PM EDT Office Visit Orthopedic Surgery [facility] 175 [facility] 140 [place] [address] Yari Bolanos PA 174 [facility] 140 [place] [address] 07/09/2024 11:15 AM EDT Office Visit Obstetrics and Gynecology - [address] [phone] Stella Quinonez, [facility] 444 [place] [address] documented as of this encounter Visit Diagnoses Not on filedocumented in this encounter Additional Health Concerns Assessment Noted Time PHQ-9 Depression Total Score: 1 02/22/20 24 1:01 PM EST documented as of this encounter Care Teams Car Shunter Relationship Specialty Start Date End Date Philly Headley MD [address] [place] [address] PCP - General Internal Medicine 12/13/21 documented as of this encounter
--- OUTSIDE RECORDS SUMMARY | 2024-06-02 20:36 | XMS_ITS | Clinical Summary ---
Author Organization [facility] Address [address] [place] [address] Care Team Providers Care Second Operator Name Role Phone Philly Newton MD Primary Care Prov ider Allergies Active Allergy Reactions Criticality Noted Date Comments Amoxicillin-Pot Clavulanate Itching 07/10/19 14 Ciprofloxacin Itching 09/18/2017 Doxycycline Itching 09/18/2017 Azithromycin Hives 04/19/2022 Medications Medication Sig Dispensed Refills Start Date End Date Status albuterol (PROVENTIL) (2.5 MG/3ML) 0.083% nebulizer solution USE 1 VIAL 3 ML) INHALED BY NEBULIZATION EVERY 4 TO 6 HOYURS NEEDED FOR WHEEZING 0 04/06/2022 Active Ventolin HFA 108 (90 Base) MCG/ACT inhaler INHALE TWO PUFFS BY MOUTH EVERY 4 TO 6 HOURS NEEDED FOR WHEEZING 0 04/06/2022 Active hydrOXYzine (ATARAX) 10 MG tablet TAKE ONE TABLET BY MOUTH EVERY 8 HOURS NEEDED FOR ITCHING 0 04/07/2022 Active cetirizine (ZyrTEC) 10 MG tablet Take 1 tablet (10 mg total) by mouth. 0 06/27/2016 Active Cholecalciferol 25 MCG (1000 UT) tablet TAKE ONE TABLET BY MOUTH EVERY DAY. 0 07/14/2021 Active famotidine (PEPCID) 20 MG tablet Take 1 tablet (20 mg total) by mouth 2 (two) times a day. 0 11/26/2020 Active fluticasone (FLONASE) 50 MCG/ACT nasal spray spray or apply 2 sprays inside Nose. 0 09/20/2021 Active Fluticasone-Salmete rol 232-14 MCG/ACT AEPB Take 1 puff by mouth 2 (two) times a day. 0 04/08/2022 Active hydrocortisone 2.5 % cream APPLY 1 APPLICATION TOPICAL TWICE A DAY NEEDED FOR ITCHING. 0 10/06/2020 Active levothyroxine (SYNTHROID) tablet 75 mcg Take 1 tablet (75 mcg total) by mouth daily. 0 04/14/2022 Active montelukast (SINGULAIR) 10 MG tablet Take 1 tablet (10 mg total) by mouth every night at bedtime. 0 04/14/2022 Active Nebulizers (My MDI Portable Nebuliser) MISC DIRECTED FOUR TIMES DAILY NEEDED 0 11/20/2019 Active Active Problems Problem Noted Date Diagnosed Date Microcytic anemia 04/19/2022 Social History Tobacco Use Types Packs/Day Years Used Date Smoking Tobacco: Never Passive Smoke Exposure: Past Smokeless Tobacco: Never Tobacco Cessation:Counseling Given: Not Answered Alcohol Use Standard Drinks/Week Comments Not Currently 0 (1 standard drink = 0.6 oz pur e alcohol) maybe 2 drinks a year Sex and Gender Information Value Date Recorded Sex Assigned at Female 05/11/2022 11:04 AM EST Gender Identity Not on file Sexual Orientation Not on file Job Start Date Occupation Industry Not on file Not on file Not on file Last Filed Vital Signs Vital Sign Reading Time Taken Comments Blood Pressure 132/84 01/03/2024 10:26 AM EDT Pulse 76 01/03/2024 10:26 AM EDT Temperature 36.7 ??C (98 ??F) 01/03/2024 10:26 AM EDT Respiratory Rate 18 01/18/2023 2:43 PM EDT Oxygen Saturation 100% 01/03/2024 10:26 AM EDT Inhaled Oxygen Concentration - - Weight 98.4 kg (217 lb) 01/03/2024 10:26 AM EDT Height - - Body Mass Index - - Plan of Treatment Health Maintenance Due Date Last Done Comments Hepatitis B Vaccines (1 of 3 - 3-dose series) 1973 Hepatitis C Screening 1973 Depression Screening 1985 Preventative Health Evaluation 11/30/1991 Cervical Cancer Screening (Pap Smear) 1994 Colon Cancer Screening (Colonoscopy) 2018 Breast Cancer Screening (Mammogram) 11/30/2023 Shingrix-Zoster Vaccine (1 o f 2) 11/30/2023 COVID-19 Vaccine (3 - 2023-2 5 season) 2023 07/21/2020, 06/29/2020 Influenza Vaccine (#1) 2023 04/14/2022 DTap / Tdap / Td (4 - Td or Tdap) 06/27/2026 06/27/2016, 02/23/2015, 12/08/2009 Pneumococcal Vaccine Aged Out 11/01/2012 No long er eligible based on patient's age to complete this topic RSV Ped < 20 months Aged Out No longe r eligible based on patient's age to complete this topic Care Teams Second Operator Relationship Specialty Start Date End Date Philly Newton MD [address] [place] [address] PCP - General Internal Medicine 04/19/22
[2024-06-02 20:39] LABS: MANUAL DIFF FLAG NO
[2024-06-02 20:40] LABS: Basophils Percent Auto 0.5 % (0-2); Eosinophils Absolute Auto 0.2 X10*3/uL (0.0-0.4); Eosinophils Percent Auto 2.1 % (0-4); Hematocrit 36.3 % (37.0-47.0); Imm Gran Abs Auto 0.02 X10*3/uL (0.00-0.03); Imm Gran Pct Auto 0.2 % (0.0-0.4); Lymphocytes Absolute Auto 1.7 X10*3/uL (1.2-4.9); Lymphocytes Percent Auto 20.5 % (20-40); Mean Corpuscular HGB Conc 33.1 g/dl (31.0-35.0); Mean Corpuscular Hemoglobin 26.8 pg (27.0-33.0); Mean Platelet Volume 9.9 fL (9.4-12.3); Monocytes Absolute Auto 0.9 X10*3/uL (0.1-1.2); Monocytes Percent Auto 11.5 % (2-11); Neutrophils Absolute Auto 5.4 x10*3/uL (2.0-8.3); Neutrophils Percent Auto 65.2 % (45-73); Platelet Count 256 X10*3/uL (160-400); Red Blood Count 4.48 X10*6/uL (4.20-5.50); Red Cell Distribution Width 15.9 % (11.0-16.0); White Blood Count 8.2 X10*3/uL (4.8-10.8)
[2024-06-02 20:42] LABS: Appearance Urine Clear; Color Urine Yellow; Glucose Urine UA Negative (Negative); Leukocyte Esterase Urine Negative (Negative); Nitrite Urine Negative (Negative); PH 6.5 (5.0-9.0); Specific Gravity - Urine 1.015 (1.005-1.025); Urine Blood Negative (Negative); Urine Ketones Negative (Negative); Urine Protein Negative (Neg-Trace)
[2024-06-02 20:43] LABS: UPreg QC Valid YES; Urine Pregnancy NEGATIVE (NEGATIVE)
[2024-06-02 20:54] LABS: Alanine Aminotransferase 30 U/L (0-31); Alkaline Phosphatase 87 U/L (39-117); Anion Gap 12 (12-20); Aspartate Amino Transferase 21 U/L (5-31); Bilirubin Total 0.4 mg/dL (0.0-1.0); Blood Urea Nitrogen 18 mg/dL (9-16); Carbon Dioxide 26 mmol/L (22-29); Chloride 106 mmol/L (96-108); Estimated Glomerular Filt Rate 59; Glucose Random 84 mg/dL (60-115); Potassium 3.9 mmol/L (3.3-5.1); Sodium 140 mmol/L (135-145); Total Protein 7.2 g/dL (6.5-8.0)
[2024-06-02] MEDS: Phenazopyridine HCL 100 MG TABLET PO (23:05)
[2024-06-02 23:19] VITALS: BP 149/97; PULSE 69; RESP 17; TEMP 36.7; O2SAT 97
[2024-06-02 23:20] VITALS: BP 149/97; PULSE 69; RESP 17; TEMP 36.7; O2SAT 97
== END 2024-06-02 23:21 | disposition home or self-care (01) ==
PROVIDERS: Physician Assistant; Emergency Provider Emergency Medicine; PCP Internal Medicine
DX: R30.0 Dysuria (principal); Z79.899 Other long term (current) drug therapy
CPT/HCPCS: 36415; 80053; 81003; 81025; 85025; 99283; 99284

== ENCOUNTER 2024-06-10 10:34 | Outpatient (REF) | payer OTHER, SELFPAY ==
--- OUTSIDE RECORDS SUMMARY | 2024-06-10 11:56 | XMS_ITS | Encounter Summary ---
Author Organization [facility] [place] [address] Care Team Providers Care Student Life Advisor Name Role Phone Philly Headley MD Primary Care Prov ider Encounter Details Date Type Department Care Team (Late st Contact Info) Description 01/03/2024 10:23 AM EDT Hospital Encounter TH HISTORIC ENCOUNTERS EASTERN CONVERSION ONLY Samara Holbrook MD [address] [place] [phone] Social History Tobacco Use Types Packs/Day Years [...] for your loved ones. For example, child guidance counselor or elderly care for an older adult? [...] Care Team (Late st Contact Info) Description 06/11/2024 10:00 AM EDT Office Visit Adult Medicine [address] [phone] Philly Headley MD [address] [place] [address] 06/13/2024 10:00 AM EDT Office Visit Orthopedic Surgery [facility] [address] [phone] Carl Bryant DPM [address] [address] 07/08/2024 1:30 PM EDT Office Visit Orthopedic Surgery [facility] [address] [phone] Yari Bolanos PA [address] [phone] 07/09/2024 11:15 AM EDT Office Visit Obstetrics and Gynecology [facility] [address] [place] [phone] Stella Quinonez, CN [address] [place] [address] documented as of this encounter Visit Diagnoses Not on filedocumented in this encounter Additional Health Concerns Infection Onset Date Last Indicated Resolved Time Respiratory Rule-Out 03/07/2024 03/07/2024 024 9:32 AM EST COVID-19 Rule-Out 03/07/2024 03/07/2024 03/08/2024 9:32 AM EST Respiratory Rule-Out 03/15/2024 03/15/2024 024 5:39 PM EST COVID-19 Rule-Out 03/15/2024 03/15/2024 03/15/2024 5:39 PM EST documented as of this encounter Care Teams Student Life Advisor Relationship Specialty Start Date End Date Philly Headley MD [address] [place] [address] PCP - General Internal Medicine 12/13/21 documented as of this encounter
--- OUTSIDE RECORDS SUMMARY | 2024-06-10 11:56 | XMS_ITS | Clinical Summary ---
Author Organization [facility] Address [address] [place] [address] Care Team Providers Care Dramatic Reader Name Role Phone Philly Newton MD Primary [...] age to complete this topic Care Teams Dramatic Reader Relationship Specialty Start Date End Date Philly Newton MD [address] [place] [address] PCP - General Internal Medicine 04/19/22
--- OUTSIDE RECORDS SUMMARY | 2024-06-10 11:56 | XMS_ITS | Encounter Summary ---
Author Organization [facility] [place] [address] Care Team Providers Care Cylinder Machine Operator Name Role Phone Philly Headley MD Primary Care Prov ider Reason for Visit * Reason Onset Date Comments ER Follow-Up 06/06/2024 [facility] Cough 06/06/2024 With mucus Sore Throat 06/06/2024 sneezing 06/06/2024 Difficulty Urinating 06/06/2024 Encounter Details Date Type Department Care Team (Late st Contact Info) Description 06/06/2024 Telephone Adult Medicine [address] [phone] Philly Headley MD [address] [place] [address] ER Follow-Up ([facility] ); Cough (With mucus); Sore Throat; sneezing; Difficulty Urinating Social History Tobacco Use Types Packs/Day Years [...] for your loved ones. For example, children's aide or elderly care for an older adult? [...] Progress Notes * Janice Pepper RN - 06/06/2024 4:41 PM EST Called pt appt for 06/11 * Oxana López - 06/06/2024 4:37 PM EST Patient calling you back regarding an appointment. * Janice Pepper RN - 06/06/2024 4:16 PM EST Called pt left vm to return call PT has bene seen here 5 x for cough * David Parker - 06/06/2024 3:46 PM EST Hospital/ER follow up appointment needed Hospital patient was treated at: [facility] Was this only an ER visit or was the patient admitted to the hospital? ER Visit only Date of visit if ER visit only: 06/02/24 If patient was admitted what was the date of discharge? Reason/diagnosis for visit or stay: Dysuria When was the patient told to follow up? RM Was visit or stay related to an injury? If yes, what was the date of injury (DOI)? No If yes, was the injury due to: Not 3rd green party related documented in this encounter Plan of Treatment Upcoming Encounters Date Type Department Care Team (Late st Contact Info) Description 06/11/2024 10:00 AM EDT Office Visit Adult Medicine [address] [phone] Philly Headley MD [address] [place] [address] 06/13/2024 10:00 AM EDT Office Visit Orthopedic Surgery - [place] 250 175 [facility] 250 [place] [address] Carl Bryant, DPM [address] [address] 07/08/2024 1:30 PM EDT Office Visit Orthopedic Surgery - [place] 175 [facility] 140 [place] [address] Yari Bolanos PA 174 [facility] 140 [place] [phone] 07/09/2024 11:15 AM EDT Office Visit Obstetrics and Gynecology - [address] [phone] Stella Quinonez, [facility] 444 [place] [address] documented as of this encounter Visit Diagnoses Not on filedocumented in this encounter Additional Health Concerns Assessment Noted Time PHQ-9 Depression Total Score: 1 05/15/19 25 5:42 PM EST documented as of this encounter Care Teams Cylinder Machine Operator Relationship Specialty Start Date End Date Philly Headley MD [address] [place] [address] PCP - General Internal Medicine 12/13/21 documented as of this encounter
--- OUTSIDE RECORDS SUMMARY | 2024-06-10 11:56 | XMS_ITS | Clinical Summary ---
Author Organization 175 [facility] Address 175 [place] [address] Phone Care Team Providers Care Adult Neurologist Name Role Phone Philly Headley MD Primary [...] time each day. 50 g 2025 Active hydrOXYzine HCL (ATARAX) 25 mg tablet [...] day for 7 days. 14 tablet 2024 clindamycin (Cleocin HCL) 300 mg capsule Take 1 capsule (300 mg total) by mouth 4 (four) times a day for 10 days. 40 each 2024 Active Problems Problem Noted Date Diagnosed [...] Overview (01/04/2024): 05/2018 U/s showing complex cyst; Seed Tester following Uterine fibroid 08/17/2018 Asthma 09/18/2017 Assessment [...] Encounters Date Type Department Care Team Description 06/06/2024 Telephone Adult Medicine [address] [address] Philly Headley MD ER Follow-Up ([facility] ); Cough (With mucus); Sore Throat; sneezing; Difficulty Urinating 05/30/2024 9:15 AM EST Office Visit Orthopedic Surgery [facility] 250 175 [facility] 250 [place] [phone] Carl Bryant DPM Cellulitis of left foot (Primary Dx); Dermatophytosis of nail 05/27/2024 1:45 PM EST Office Visit Orthopedic [facility] 175 [facility] 140 [place] [phone] Yari Bolanos PA Bursitis of left shoulder (Primary Dx) 05/20/2024 12:00 PM EST Telemedicine Adult Medicine [address] [phone] Philly Headley MD Hypothyroidism, unspecified type (Primary Dx); Mild persistent asthma without complication; Iron deficiency anemia, unspecified iron deficiency anemia type 05/16/2024 2:00 PM EST Office Visit Adult Medicine [address] [phone] Shannon Finn PA Persistent cough (Primary Dx); Mild persistent asthma without complication; Acute recurrent maxillary sinusitis 05/13/2024 10:00 AM EST Office Visit Orthopedic [place] [address] [phone] Carl Bryant, DPM Dermatophytosis of nail (Primary Dx); Ingrowing nail 05/09/2024 Telephone Adult [address] [phone] Shena Jimenez MA triage (cough) 04/23/2024 Telephone Orthopedic [facility] [address] [phone] Yari Bolanos PA 04/15/2024 1:15 PM EST Office Visit [address] [phone] Shannon Finn PA Persistent cough (Primary Dx); Mild persistent asthma without complication 03/20/2024 Nurse Triage [address] [phone] Philly Headley MD Cough 03/19/[address] [facility] Hematology Oncology [address] [place] [phone] Valery Hong [place] 03/15/2024 9:45 AM EST Office Visit Adult [address] [phone] Shannon Finn PA Productive cough (Primary Dx); Mild persistent asthma without complication 03/12/2024 Telephone Adult [address] [phone] Philly Headley MD Cough from Last 3 Months Immunizations Name Administration [...] (BMI) of 40.0 to 44.9 in adult ([facility]) 03/07/2018 DX:Morbid obesity with body mass index (BMI) of 40.0 to 44.9 in adult ([facility]) History of sepsis 08/17/2018 DX:History of sepsis; COMMENT: 05/2018 Pyelonephritis Uterine fibroid 08/17/2018 DX:Uterine fibro id Adnexal mass 08/17/2018 DX:Adnexal mass; COMMENT: 05/2018 U/s showing complex cyst; Seed Tester following Hx of migraines DX:Hx of migrain [...] your loved ones. For example, child support specialist or elderly care for an older adult? [...] 10:00 AM EDT Office Visit Adult Medicine [address] [phone] Philly Headley MD [address] [place] [address] 06/13/2024 10:00 AM EDT Office Visit Orthopedic Surgery [facility] [address] [phone] Carl Bryant, DPM [address] [address] 07/08/2024 1:30 PM EDT Office Visit Orthopedic Surgery - [place] [address] [facility] [address] [place] [address] Yari Bolanos PA [address] [place] [address] [place] [phone] 07/09/2024 11:15 AM EDT Office Visit Obstetrics and Gynecology - [place] 444 [place] [address] Stella Quinonez, [facility] 444 [place] [address] Health Maintenance Due Date Last Done Comments Hepatitis B Vaccines (1 of 3 - 19+ 3-dose series) 1992 Pneumococcal Vaccine: 50+ Years (2 of 2 - PCV) 11/01/2013 11/01/2012 Pneumococcal Vaccine: Pediatrics (0 to 5 Years) and At-Risk Patients (6 to 64 Years) (2 of 2 - PCV) 11/01/2013 11/01/2012 Zoster Vaccines (1 of 2) 11/30/2023 COVID-19 Vaccine (3 - 2023- season) 2023 07/21/2020, 06/29/2020 Breast [...] Routine 03/15/2024 11:04 AM EST Productive cough EXTERNAL COLOGUARD (FIT-DNA) REPORT 02/03/2024 LIPID PANEL Routine 11/17/2023 HM DEPRESSION SCREENING Routine 04/06/2023 DIAGNOSTIC MAMMOGRAPHY INCLUDING [...] LAB CHEMISTRY METHOD 03/18/2024 7:18 PM EST [facility] TIBC 383 250 - 450 mcg/dL LAB CHEMISTRY METHOD 03/18/2024 7:18 PM EST [facility] Iron Saturation 5(L) 15 - 50 % LAB CHEMISTRY METHOD 03/18/2024 7:18 PM EST [facility] Blood Venous blood specimen / Unknown Venipuncture / Unknown 03/18/2024 1:33 PM EST 03/18/2024 4:37 PM EST us Samara Holbrook MD LAB BLOOD ORDERABLES Final R esult [facility] [address] [place] [address], * (ABNORMAL) Complete blood count (03/18/2024 1:33 PM EST) WBC 6.6 4.8 - 10.8 K/mcL LAB HEMETOLOGY METHOD 03/18/2024 4:43 PM [facility] RBC 4.30 3.80 - 4.80 M/mcL LAB HEMETOLOGY METHOD 03/18/2024 4:43 PM [facility] Hemoglobin 11.2(L) 11.5 - 16.0 g/dL LAB HEMETOLOGY METHOD 03/18/2024 4:43 PM [facility] Hematocrit 35.5 35.0 - 47.0 % LAB HEMETOLOGY METHOD 03/18/2024 4:43 PM [facility] MCV 82.0 79.0 - 98.0 FL LAB HEMETOLOGY METHOD 03/18/2024 4:43 PM [facility] MCH 25.9(L) 27.0 - 32.0 pcg LAB HEMETOLOGY METHOD 03/18/2024 4:43 PM [facility] MCHC 31.5(L) 32.0 - 37.0 g/dL LAB HEMETOLOGY METHOD 03/18/2024 4:43 PM [facility] RDW 16.1(H) 11.0 - 15.0 % LAB HEMETOLOGY METHOD 03/18/2024 4:43 PM [facility] Platelets 256 130 - 400 K/mcL LAB HEMETOLOGY METHOD 03/18/2024 4:43 PM [facility] MPV 10.2 7.0 - 11.0 FL LAB HEMETOLOGY METHOD 03/18/2024 4:43 PM [facility] NRBC 0.0 <1.0 % LAB HEMETOLOGY METHOD 03/18/2024 4:43 PM EST [facility] NRBC Absolute 0.00 <0.10 K/mcL LAB HEMETOLOGY METHOD 03/18/2024 4:43 PM EST [facility] Blood Venous blood specimen / Unknown Venipuncture / Unknown 03/18/2024 1:33 PM EST 03/18/2024 4:36 PM EST us Samara Holbrook MD LAB BLOOD ORDERABLES Final R esult [facility] [address] [place] [address], [place] [phone] * Ferritin (03/18/2024 1:33 PM EST) [facility] Ferritin 14 8 - 252 ng/mL LAB CHEMISTRY METHOD 03/18/2024 7:18 PM EST [facility] Blood Venous blood specimen / Unknown Venipuncture / Unknown 03/18/2024 1:33 PM EST 03/18/2024 4:37 PM EST Samara Holbrook MD LAB BLOOD ORDERABLES Final R esult [facility] [address] [place] [address], [place] [phone] * Respiratory virus panel molecular study (03/15/2024 11:04 AM EST) [facility] Adenovirus Detection by PCR Not Detected Not Detected LAB MICROBIOLOGY METHOD 03/15/2024 5:39 PM EST [facility] Influenza A PCR Not Detected Not Detected LAB MICROBIOLOGY METHOD 03/15/2024 5:39 PM EST [facility] Influenza B PCR Not Detected Not Detected LAB MICROBIOLOGY METHOD 03/15/2024 5:39 PM EST [facility] Coronavirus 229E Not Detected Not Detected LAB MICROBIOLOGY METHOD 03/15/2024 5:39 PM [facility] Coronavirus HKU1 Not Detected Not Detected LAB MICROBIOLOGY METHOD 03/15/2024 5:39 PM [facility] Coronavirus OC43 Not Detected Not Detected LAB MICROBIOLOGY METHOD 03/15/2024 5:39 PM [facility] Coronavirus NL63 Not Detected Not Detected LAB MICROBIOLOGY METHOD 03/15/2024 5:39 PM [facility] Parainfluenza Virus 1 Not Detected Not Detected LAB MICROBIOLOGY METHOD 03/15/2024 5:39 PM [facility] Parainfluenza Virus 2 Not Detected Not Detected LAB MICROBIOLOGY METHOD 03/15/2024 5:39 PM [facility] Parainfluenza Virus 3 Not Detected Not Detected LAB MICROBIOLOGY METHOD 03/15/2024 5:39 PM [facility] Parainfluenza Virus 4 Not Detected Not Detected LAB MICROBIOLOGY METHOD 03/15/2024 5:39 PM [facility] RSV PCR Not Detected Not Detected LAB MICROBIOLOGY METHOD 03/15/2024 5:39 PM [facility] Human Metapneumovirus A and B Not Detected Not Detected LAB MICROBIOLOGY METHOD 03/15/2024 5:39 PM [facility] Rhinovirus/Entero virus Not Detected Not Detected LAB MICROBIOLOGY METHOD 03/15/2024 5:39 PM [facility] Bordetella pertussis Not Detected Not Detected LAB MICROBIOLOGY METHOD 03/15/2024 5:39 PM [facility] Bordetella parapertussis Not Detected Not Detected LAB MICROBIOLOGY METHOD 03/15/2024 5:39 PM [facility] Mycoplasma pneumo by PCR Not Detected Not Detected LAB MICROBIOLOGY METHOD 03/15/2024 5:39 PM [facility] Chlamydia pneumoniae Not Detected Not Detected LAB MICROBIOLOGY METHOD 03/15/2024 5:39 PM EST [facility] SARS COV-2 Not Detected Not Detected LAB MICROBIOLOGY METHOD 03/15/2024 5:39 PM EST [facility] Swab Both anterior nares / Unknown Non-blood Collection / Unknown 03/15/2024 11:04 AM EST 03/15/2024 11:04 AM EST Narrative [facility] - 03/15/2024 5:39 PM EST Testing was performed using the [employer] Respiratory Pathogen PCR Assay. All results must [...] MICROBIOLOGY - GENERAL ORDER NICK Final Result [facility] [address] [place] [address], [place] [phone] * External Cologuard (FIT-DNA) Report (02/03/2024) Provider Onbase LAB BODY FLUIDS AND STOOLS OR DERABLES Final Result * (ABNORMAL) Lipid panel (11/17/2023) Pathologist [facility] LDL/HDL Ratio 4 0 - 4 Triglycerides 127 0 - 150 mg/dL Cholesterol 211(A) 0 - 200 mg/dL HDL 57 >=40 mg/dL LDL Cholesterol 129(A) 0 - 100 mg/dL Blood Venous blood specimen / Unknown Historical Provider LAB BLOOD ORDERABLES Carolina l Result * Depression Screening (04/06/2023) Pathologist [facility] Depression Screening abstracted Historical Provider HEALTH MAINTENANCE Final [...] % Breast cancer risk category Low (<15%) Makayla LEAVITT IMG BI PROCEDURES Final Result * Cervical Cancer Screening: HPV (06/09/2022) [facility] Cervical Cancer Screening: HPV Negative abstracted Result [facility] Historical Provider HEALTH MAINTENANCE Final Result * HIV Screening (06/09/2022) [facility] HIV Screening abstracted Historical Provider HEALTH MAINTENANCE Final Result * Hepatitis C Screening (06/09/2022) [facility] Hepatitis C Screening abstracted Result [facility] Historical Provider HEALTH MAINTENANCE Final Result from Last 3 Months or Most Recently Relevant to Health Maintenance Insurance [facility] [place] [address] Care Teams Adult Neurologist Relationship Specialty Start Date End Date Philly Headley MD [address] [place] [phone] PCP - General Internal Medicine 12/13/21
--- OUTSIDE RECORDS SUMMARY | 2024-06-10 11:56 | XMS_ITS | Encounter Summary ---
Author Organization [facility] Address [address] [place] [address] Care Team Providers Care Courtesy Car Driver Name Role Phone Philly Headley MD Primary Care Prov ider Reason for Referral * Consultation (Routine) - Pending Review Specialty Diagnoses / Procedures Referred By Wilmar dejesus Referred To Contact Physical Therapy Diagnoses Bursitis of left shoulder Yari Bolanos PA [address] [facility] 140 [place] [address] Phone: tel: fax: Referral ID Status Reason Start Date Expiration Date Visits Requested Visits Authorized [id number] Pending Review Specialty Services Required 05/27/2024 05/27/2025 1 1 Reason for Visit * Reason Comments Pain Encounter Details Date Type Department Care Team (Late st Contact Info) Description 05/27/2024 1:45 PM EST Office Visit Orthopedic Surgery - [place] [address] [facility] [address] [place] [address] Yari Bolanos PA [address] [place] [address] Bursitis of left shoulder (Primary [...] care for your loved ones. For example, maternal child nurse or elderly care for an older adult? [...] 04/19/2022 Severe obesity (BMI 35.0-39.9) with comorbidity ([facility]) 04/14/2022 Personal history of COVID-19 05/31/2021 Gastroesophageal [...] side '79 OVARIAN CYST REMOVAL 2011 PROCEDURE: [place] OVARIAN CYSTECTOMY UNI/BI; COMMENT: possibly right (?) [...] 10:00 AM EDT Office Visit Adult Medicine [address] [phone] Philly Headley MD [address] [place] [address] 06/13/2024 10:00 AM EDT Office Visit Orthopedic Surgery - [address] [phone] Carl Bryant, DPM 175 [facility] 250 [place] [address] 07/08/2024 1:30 PM EDT Office Visit Orthopedic Surgery - [place] 175 [facility] [address] [place] [phone] Yari Bolanos, PA 174 [facility] 140 [place] [phone] 07/09/2024 11:15 AM EDT Office Visit Obstetrics and Gynecology - [place] [address] [place] [address] Stella Quinonez, [facility] 444 [place] [address] Scheduled Referrals Name Type Priority Associated Diagnoses [...] documented as of this encounter Care Teams Courtesy Car Driver Relationship Specialty Start Date End Date Philly Headley MD [address] [place] [address] PCP - General Internal Medicine 12/13/21 documented as of this encounter
--- OUTSIDE RECORDS SUMMARY | 2024-06-10 11:56 | XMS_ITS | Encounter Summary ---
Author Organization [facility] Address [address] [place] [address] Care Team Providers Care Defence Force Senior Officer Name Role Phone Philly Headley MD Primary Care Prov ider Encounter Details Date Type Department Care Team (Late st Contact Info) Description 05/20/2024 12:00 PM [facility] Adult Medicine [address] [phone] Philly Headley MD [address] [place] [address] Hypothyroidism, unspecified type (Primary Dx); Mild persistent [...] patient for final approval. Philly Lama MD [facility] [address] Dept: [phone] Dept Telehealth Statement Patient was identified by [...] 10:00 AM EDT Office Visit Adult Medicine [facility] - [address] [phone] Philly Headley MD [address] [place] [address] 06/13/2024 10:00 AM EDT Office Visit Orthopedic Surgery [place] [address] [phone] Carl Bryant, DPM [address] [address] 07/08/2024 1:30 PM EDT Office Visit Orthopedic Surgery [facility] [address] [phone] Yari Bolanos PA [address] [phone] 07/09/2024 11:15 AM EDT Office Visit Obstetrics and Gynecology [address] [phone] Stella Quinonez, [facility] 444 [place], [place] Scheduled Orders Name Type Priority Associated Diagnoses [...] documented as of this encounter Care Teams Defence [employer] Senior Officer Relationship Specialty Start Date End Date Philly Headley MD [address] [place] [phone] PCP - General Internal Medicine 12/13/21 documented as of this encounter
--- OUTSIDE RECORDS SUMMARY | 2024-06-10 11:56 | XMS_ITS | Encounter Summary ---
Author Organization [facility] Address [address] [place] [address] Care Team Providers Care In Class Special Education Teacher Name Role Phone Philly Headley MD Primary Care Prov ider Reason for Visit * Reason Comments Cough Encounter Details Date Type Department Care Team (Late st Contact Info) Description 05/16/2024 2:00 PM EST Office Visit Adult Medicine [address] [phone] Shannon Finn PA [address] [place], [place] Persistent cough (Primary Dx); Mild persistent [...] She has an upcoming appointment with her management services technician this month. She was seen 4x for [...] side '79 OVARIAN CYST REMOVAL 2011 PROCEDURE: [place] OVARIAN CYSTECTOMY UNI/BI; COMMENT: possibly right (?) [...] effects. She has an appointment with her management services technician this month. Continue current asthma regimen. Chest CT pending. She is overdue for PFTs, will defer to management services technician. I have applied the code G2211 to [...] 10:00 AM EDT Office Visit Adult Medicine [address] [phone] Philly Headley MD [address] [place] [address] 06/13/2024 10:00 AM EDT Office Visit Orthopedic Surgery [facility] [address] [phone] Carl Bryant DPM [address] [address] 07/08/2024 1:30 PM EDT Office Visit Orthopedic Surgery [facility] [address] [phone] Yari Bolanos PA [address] [phone] 07/09/2024 11:15 AM EDT Office Visit Obstetrics and Gynecology - [address] [address] Stella Quinonez, [facility] 444 [place] [address] documented as of this encounter Visit Diagnoses [...] documented as of this encounter Care Teams In Class Special Education Teacher Relationship Specialty Start Date End Date Philly Headley MD [address] [place] [address] PCP - General Internal Medicine 12/13/21 documented as of this encounter
--- OUTSIDE RECORDS SUMMARY | 2024-06-10 11:56 | XMS_ITS | Encounter Summary ---
Author Organization [facility] Address [address] [place] [address] Care Team Providers Care Manager Operations Research Name Role Phone Philly Headley MD Primary Care Prov ider Reason for Visit * Reason Comments Consult Nail fungus Encounter Details Date Type Department Care Team ([facility] st Contact Info) Description 05/13/2024 10:00 AM EST Office Visit Orthopedic Surgery - [place] [address] [phone] Carl Bryant, DPM [address] [address] Dermatophytosis of nail (Primary Dx); Ingrowing nail [...] for your loved ones. For example, child development director or elderly care for an older [...] on at this time Yamilex prescribed Procedure 99571: Avulsion single toenail -complete nail removal left great toe informed consent wasobtained from the patient. Partial avulsion with incision and drainage was performed on the toe. Sterile prep was performed. After the site was prepared with Ethyl Chloride spray, 6 ml of 1% Lidocaine was injected without difficulty. Complete nail removal performed with [place] elevator. DSD applied with topical antibiotic ointment. [...] 10:00 AM EDT Office Visit Adult Medicine [facility] [address] [place] [phone] Philly Headley MD [address] [place] [address] 06/13/2024 10:00 AM EDT Office Visit Orthopedic Surgery [facility] [address] [phone] Carl Bryant DPM [address] [address] 07/08/2024 1:30 PM EDT Office Visit Orthopedic Surgery [facility] [address] [phone] Yari Bolanos PA [address] [address] 07/09/2024 11:15 AM EDT Office Visit Obstetrics and Gynecology [address] [phone] Stella Quinonez, [facility] 444 [place] [address] documented as of this encounter Visit Diagnoses Diagnosis Dermatophytosis of nail- Primary Ingrowing nail documented in this encounter Additional Health Concerns Assessment Noted Time PHQ-9 Depression Total Score: 1 02/22/20 24 1:01 PM EST documented as of this encounter Care Teams Manager Operations Research Relationship Specialty Start Date End Date Philly Headley MD [address] [place] [phone] PCP - General Internal Medicine 12/13/21 documented as of this encounter
--- OUTSIDE RECORDS SUMMARY | 2024-06-10 11:56 | XMS_ITS | Encounter Summary ---
Author Organization [facility] Address [address] [place] [address] Care Team Providers Care Press Operator Apprentice Name Role Phone Philly Headley MD Primary Care Prov ider Reason for Visit * Reason Comments Follow-up Toenail fungus Encounter Details Date Type Department Care Team ([facility] st Contact Info) Description 05/30/2024 9:15 AM EST Office Visit Orthopedic Surgery - [place] [address] [phone] Carl Bryant, DPM [address] [address] Cellulitis of left foot (Primary Dx); Dermatophytosis [...] care for your loved ones. For example, early childhood assistant or elderly care for an older adult? [...] 06/11/2024 10:00 AM EDT Office Visit Adult [address] [phone] Philly Headley MD [address] [place] [address] 06/13/2024 10:00 AM EDT Office Visit Orthopedic Surgery [facility] [address] [phone] Carl Bryant DPM [address] [address] 07/08/2024 1:30 PM EDT Office Visit Orthopedic Surgery [facility] 175 [facility] 140 [place] [phone] Yari Bolanos PA [address] [phone] 07/09/2024 11:15 AM EDT Office Visit Obstetrics and Gynecology - [address] [phone] Stella Quinonez, [address] [address] documented as of this encounter Visit Diagnoses Diagnosis Cellulitis of left foot- Primary Dermatophytosis of nail documented in this encounter Additional Health Concerns Assessment Noted Time PHQ-9 Depression Total Score: 1 05/15/19 25 5:42 PM EST documented as of this encounter Care Teams Press Operator Apprentice Relationship Specialty Start Date End Date Philly Headley MD [address] [place] [phone] PCP - General Internal Medicine 12/13/21 documented as of this encounter
[2024-06-10 12:14] LABS: Appearance Urine Clear; Color Urine Yellow; Glucose Urine UA Negative (Negative); Leukocyte Esterase Urine Negative (Negative); Nitrite Urine Negative (Negative); PH 6.5 (5.0-9.0); Specific Gravity - Urine <= 1.005 (1.005-1.025); Urine Blood Negative (Negative); Urine Ketones Negative (Negative); Urine Protein Negative (Neg-Trace)
[2024-06-10 12:16] LABS: Bacteria Urine None Seen (None Seen); Hyaline Casts Urine 0-2 /LPF (0-2); RBC Urine 0-2 /HPF (0-2); Squamous Epithelial Cell Urine 0-2 /HPF (0-2); WBC Urine 0-5 /HPF (0-5)
== END 2024-06-10 10:35 | disposition home or self-care (01) ==
LOC: HO.LAB 10:34
PROVIDERS: PCP Internal Medicine; Visit Provider Nurse Practitioner Family
DX: N20.0 Calculus of kidney (principal); N39.0 Urinary tract infection, site not specified
CPT/HCPCS: 81001; 87086

== ENCOUNTER 2024-06-12 08:24 | Outpatient (REF) | payer OTHER, SELFPAY ==
--- NOTE | ~2024-06-12 | US_ITS ---
.EXAMINATION: ULTRASOUND RENAL THE BILATERALLY. CLINICAL INFORMATION: Calculus of the kidney. COMPARISON: November 03, 2021 and August 12, 2022. TECHNIQUE: Real-time ultrasound of the kidneys using grayscale and color Doppler technique. FINDINGS: Right kidney: 9 x 4 x 5 cm. Volume: 108 cc. Increased echotexture. Renal cortical thinning. No hydronephrosis. No solid or cystic lesion. Left kidney: 11 x 5 x 5 cm. Volume: 130 cc. Increased echotexture. Renal cortical thinning. No hydronephrosis. No gross solid or cystic lesion. US/US renal BI IMPRESSION: Medical renal disease without gross hydronephrosis. No gross nephrolithiasis. Spectral Doppler analysis: Right Kidney: -Peak systolic velocity in the proximal right renal artery = cm/s. Normal waveforms. -Peak systolic velocity in the mid right renal artery = cm/s. Normal waveforms. -Peak systolic velocity in the distal right renal artery = cm/s. Normal waveforms. -Patent right renal vein. -Upper pole interlobar artery resistive index of . -Midpole interlobar artery resistive index of . -Lower pole interlobar artery resistive index of . RAR right = Left Kidney: -Peak systolic velocity in the proximal left renal artery = cm/s. Normal waveforms. -Peak systolic velocity in the mid left renal artery = cm/s. Normal waveforms. -Peak systolic velocity in the distal left renal artery = cm/s. Normal waveforms. -Patent left renal vein. -Upper pole interlobar artery resistive index of . -Mid pole interlobar artery resistive index of . -lower pole interlobar artery resistive index of . RAR left = Aorta: -Peak systolic velocity = cm/s. Electronically signed by: Luis M Schwartz MD 06/12/2024 09:14 AM EDT
--- OUTSIDE RECORDS SUMMARY | 2024-06-12 08:51 | XMS_ITS | Encounter Summary ---
Author Organization [facility] Address [address] [place] [address] Care Team Providers Care Buttonhole Tacker Name Role Phone Philly Headley MD Primary Care Prov ider Encounter Details Date Type Department Care Team (Late st Contact Info) Description 06/10/2024 Telephone Orthopedic Surgery - [place] [address] [phone] Carl Bryant, DPM 175 [facility] 250 [place] [address] Social History Tobacco Use Types Packs/Day Years [...] ed Within the last 3 months, ho daniel many times did you visit the emergency [...] your loved ones. For example, child care development specialist or elderly care for an older [...] as of this encounter Progress Notes * Fiona Velazco - 06/10/2024 4:12 PM EDT Chantel is calling stating she dropped a mop bucket on her left great toe and it has been bleeding and she believes it is infected. Toes is red, bleeding, and swollen. Chantel would like a call as to what she can do till her appt 06/13 documented in this encounter Plan of Treatment Upcoming Encounters Date Type Department Care Team (Late st Contact Info) Description 06/12/2024 9:45 AM EDT Office Visit Walk-In Clinic - [address] [phone] Adriana Craig NP 305 [place] [address] 06/13/2024 10:00 AM EDT Office Visit Orthopedic Surgery [facility] [address] [phone] Carl Bryant, DPM [address] [address] 07/08/2024 1:30 PM EDT Office Visit Orthopedic Surgery [facility] [address] [phone] Yari Bolanos, TREE [address] [address] 07/09/2024 11:15 AM EDT Office Visit Obstetrics and Gynecology - [address] [phone] Stella Quinonez, [address] 08/09/2024 12:00 PM EDT Office Visit Adult Medicine East - [address] [phone] Philly Headley MD [address] [place] [address] documented as of this encounter Visit Diagnoses Not on filedocumented in this encounter Additional Health Concerns Assessment Noted Time PHQ-9 Depression Total Score: 1 05/15/19 25 5:42 PM EST documented as of this encounter Care Teams Buttonhole Tacker Relationship Specialty Start Date End Date Philly Headley MD [address] [place] [address] PCP - General Internal Medicine 12/13/21 documented as of this encounter
--- OUTSIDE RECORDS SUMMARY | 2024-06-12 08:52 | XMS_ITS | Encounter Summary ---
Author Organization [facility] [place] [address] Care Team Providers Care Ms Sql Dba Name Role Phone Philly Headley MD Primary Care Prov ider Reason for Visit * Reason Onset Date Comments ER Follow-Up 06/06/2024 [facility] Cough 06/06/2024 With mucus Sore Throat 06/06/2024 sneezing 06/06/2024 Difficulty Urinating 06/06/2024 Encounter Details Date Type Department Care Team (Late st Contact Info) Description 06/06/2024 Telephone Adult Medicine [address] [phone] Philly Headley MD [address] [place] [address] ER Follow-Up ([facility] ); Cough (With mucus); Sore Throat; [...] your loved ones. For example, child development professor or elderly care for an older adult? [...] appointment needed Hospital patient was treated at: [facility] Was this only an ER visit [...] was the injury due to: Not 3rd constitution party related documented in this encounter Plan of Treatment Upcoming Encounters Date Type Department Care Team (Late st Contact Info) Description 06/12/2024 9:45 AM EDT Office Visit Walk-In Clinic - [facility] 305 [place] [address] Adriana Craig NP 305 [place] [address] 06/13/2024 10:00 AM EDT Office Visit Orthopedic Surgery - [place] 250 175 [facility] 250 [place] [address] Carl Bryant, DPM [address] [address] 07/08/2024 1:30 PM EDT Office Visit Orthopedic Surgery - [place] 175 [facility] 140 [place] [address] Yari Bolanos PA [address] [phone] 07/09/2024 11:15 AM EDT Office Visit Obstetrics and Gynecology [address] [phone] Stella Quinonez, [address] 08/09/2024 12:00 PM EDT Office Visit Adult Medicine [address] [phone] Philly Headley MD [address] [place] [address] documented as of this encounter Visit Diagnoses Not on filedocumented in this encounter Additional Health Concerns Assessment Noted Time PHQ-9 Depression Total Score: 1 05/15/19 25 5:42 PM EST documented as of this encounter Care Teams Ms Sql Dba Relationship Specialty Start Date End Date Philly Headley MD [address] [place] [address] PCP - General Internal Medicine 12/13/21 documented as of this encounter
--- OUTSIDE RECORDS SUMMARY | 2024-06-12 08:52 | XMS_ITS | Encounter Summary ---
Author Organization [facility] Address [address] [place] [address] Care Team Providers Care Attendant Child Activity Name Role Phone Philly Headley MD Primary Care Prov ider Encounter Details Date Type Department Care Team (Late st Contact Info) Description 05/20/2024 12:00 PM [facility] Adult Medicine [address] [phone] Philly Headley MD [address] [place] [address] Hypothyroidism, unspecified type (Primary Dx); Mild persistent [...] your loved ones. For example, child care attendant or elderly care for an older adult? [...] as per recommendation of heme-onc. * Philly Healdey MD - 05/20/2024 12:00 PM EST Images [...] patient for final approval. Philly Lama MD [facility] [address] [address] Dept: [phone] Dept Telehealth Statement Patient was identified by [...] AM EDT Office Visit Walk-In Clinic - [facility] 305 [place] [address] Adriana Craig NP 305 [place] [address] 06/13/2024 10:00 AM EDT Office Visit Orthopedic Surgery [facility] [address] [phone] Carl Bryant, DPM [address] [address] 07/08/2024 1:30 PM EDT Office Visit Orthopedic Surgery [facility] [address] [phone] Yari Bolanos PA [address] [address] 07/09/2024 11:15 AM EDT Office Visit Obstetrics and Gynecology - [address] [phone] Stella Quinonez, [address] 08/09/2024 12:00 PM EDT Office Visit Adult Medicine East - [address] [phone] Philly Headley MD [address] [place] [address] Scheduled Orders Name Type Priority Associated Diagnoses [...] documented as of this encounter Care Teams Attendant Child Activity Relationship Specialty Start Date End Date Philly Headley MD [address] [place] [address] PCP - General Internal Medicine 12/13/21 documented as of this encounter
--- OUTSIDE RECORDS SUMMARY | 2024-06-12 08:52 | XMS_ITS | Encounter Summary ---
Author Organization [facility] Address [address] [place] [address] Care Team Providers Care Delivery Supervisor Name Role Phone Philly Headley MD Primary Care Prov ider Reason for Referral * Consultation (Routine) - Pending Review Specialty Diagnoses / Procedures Referred By Wilmar dejesus Referred To Contact Physical Therapy Diagnoses Bursitis of left shoulder Yari Bolanos PA [address] [facility] 140 [place] [address] Phone: tel: fax: Referral ID Status Reason Start Date Expiration Date Visits Requested Visits Authorized [id number] Pending Review Specialty Services Required 05/27/2024 05/27/2025 1 1 Reason for Visit * Reason Comments Pain Encounter Details Date Type Department Care Team (Late st Contact Info) Description 05/27/2024 1:45 PM EST Office Visit Orthopedic Surgery - [place] [address] [facility] [address] [place] [address] Yari Bolanos PA [address] [facility] [address] [place] [address] Bursitis of left shoulder (Primary [...] your loved ones. For example, child support agent or elderly care for an older adult? [...] 04/19/2022 Severe obesity (BMI 35.0-39.9) with comorbidity ([facility]) 04/14/2022 Personal history of COVID-19 05/31/2021 Gastroesophageal [...] side '79 OVARIAN CYST REMOVAL 2011 PROCEDURE: CO OVARIAN [...] AM EDT Office Visit Walk-In Clinic - [facility] 305 [place] [address] Adriana Craig NP 305 [place] [address] 06/13/2024 10:00 AM EDT Office Visit Orthopedic Surgery - [place] [address] [place] [address] [place] [phone] Carl Bryant, DPM 175 [facility] 250 [place] [address] 07/08/2024 1:30 PM EDT Office Visit Orthopedic Surgery - [place] 175 [facility] 140 [place] [address] Yari Bolanos, PA 174 [facility] 140 [place] [address] 07/09/2024 11:15 AM EDT Office Visit Obstetrics and Gynecology [address] [phone] Stella Quinonez, [address] [address] 08/09/2024 12:00 PM EDT Office Visit Adult Medicine East - [address] [phone] Philly Headley MD [address] [place] [address] Scheduled Referrals Name Type Priority Associated Diagnoses [...] documented as of this encounter Care Teams Delivery Supervisor Relationship Specialty Start Date End Date Philly Headley MD [address] [place] [address] PCP - General Internal Medicine 12/13/21 documented as of this encounter
--- OUTSIDE RECORDS SUMMARY | 2024-06-12 08:52 | XMS_ITS | Encounter Summary ---
Author Organization [facility] Address [address] [place] [address] Care Team Providers Care Engineer Rf Deployment Name Role Phone Philly Headley MD Primary Care Prov ider Reason for Visit * Reason Comments Cough Encounter Details Date Type Department Care Team (Late st Contact Info) Description 05/16/2024 2:00 PM EST Office Visit Adult Medicine [address] [phone] Shannon Finn PA 444 [place], [place] Persistent cough (Primary Dx); Mild persistent [...] care for your loved ones. For example, director maternal child or elderly care for an older adult? [...] She has an upcoming appointment with her soldering machine operator this month. She was seen 4x for [...] side '79 OVARIAN CYST REMOVAL 2011 PROCEDURE: NM OVARIAN CYSTECTOMY UNI/BI; COMMENT: possibly right (?) [...] effects. She has an appointment with her soldering machine operator this month. Continue current asthma regimen. Chest CT pending. She is overdue for PFTs, will defer to soldering machine operator. I have applied the code G2211 to [...] AM EDT Office Visit Walk-In Clinic - [facility] 305 [place] [address] Adriana Craig NP 305 [place] [address] 06/13/2024 10:00 AM EDT Office Visit Orthopedic Surgery [facility] [address] [phone] Carl Bryant DPM [address] [address] 07/08/2024 1:30 PM EDT Office Visit Orthopedic [facility] [address] [phone] Yari Bolanos PA 174 [facility] 140 [place] [address] 07/09/2024 11:15 AM EDT Office Visit Obstetrics and Gynecology - [address] [phone] Stella Quinonez, [address] 08/09/2024 12:00 PM EDT Office Visit Adult Medicine [facility] - [address] [phone] Philly Headley MD [address] [place] [address] documented as of this encounter Visit Diagnoses [...] documented as of this encounter Care Teams Engineer Rf Deployment Relationship Specialty Start Date End Date Philly Headley MD [address] [place] [address] PCP - General Internal Medicine 12/13/21 documented as of this encounter
--- OUTSIDE RECORDS SUMMARY | 2024-06-12 08:52 | XMS_ITS | Encounter Summary ---
Author Organization [facility] [place] [address] Care Team Providers Care Production Boring Machine Operator Name Role Phone Philly Headley MD Primary Care Prov ider Encounter Details Date Type Department Care Team (Late st Contact Info) Description 01/03/2024 10:23 AM EDT Hospital Encounter TH HISTORIC ENCOUNTERS EASTERN CONVERSION ONLY Samara Holbrook MD [address] [place] [phone] Social History Tobacco Use Types Packs/Day Years [...] for your loved ones. For example, child and adolescent psychiatrist or elderly care for an older adult? [...] AM EDT Office Visit Walk-In Clinic - [facility] 305 [place] [address] Adriana Craig, MEHRAN 305 [place] [address] 06/13/2024 10:00 AM EDT Office Visit Orthopedic Surgery [facility] [address] [phone] Carl Bryant DPM [address] [address] 07/08/2024 1:30 PM EDT Office Visit Orthopedic Surgery [facility] 175 [facility] 140 [place] [phone] Yari Bolanos PA 174 [facility] 140 [place] [address] 07/09/2024 11:15 AM EDT Office Visit Obstetrics and Gynecology [address] [phone] Stella Quinonez, CN 444 [place], [place] 08/09/2024 12:00 PM EDT Office Visit Adult [address] [address] Philly Headley MD [address] [place] [address] documented as of this encounter Visit Diagnoses Not on filedocumented in this encounter Additional Health Concerns Infection Onset Date Last Indicated Resolved Time Respiratory Rule-Out 03/07/2024 03/07/2024 024 9:32 AM EST COVID-19 Rule-Out 03/07/2024 03/07/2024 03/08/2024 9:32 AM EST Respiratory Rule-Out 03/15/2024 03/15/2024 024 5:39 PM EST COVID-19 Rule-Out 03/15/2024 03/15/2024 03/15/2024 5:39 PM EST documented as of this encounter Care Teams Production Boring Machine Operator Relationship Specialty Start Date End Date Philly Headley MD [address] [place] [address] PCP - General Internal Medicine 12/13/21 documented as of this encounter
--- OUTSIDE RECORDS SUMMARY | 2024-06-12 08:52 | XMS_ITS | Encounter Summary ---
Author Organization [facility] Address [address] [place] [address] Care Team Providers Care Junior Programmer Analyst Name Role Phone Philly Headley MD Primary Care Prov ider Reason for Visit * Reason Comments Follow-up Toenail fungus Encounter Details Date Type Department Care Team ([facility] st Contact Info) Description 05/30/2024 9:15 AM EST Office Visit Orthopedic Surgery - [place] [address] [phone] Carl Bryant, DPM [address] [address] Cellulitis of left foot (Primary Dx); Dermatophytosis [...] for your loved ones. For example, children's minister or elderly care for an older adult? [...] AM EDT Office Visit Walk-In Clinic - [facility] 305 [place] [address] Adriana Craig NP 305 [place] [address] 06/13/2024 10:00 AM EDT Office Visit Orthopedic Surgery [facility] [address] [phone] Carl Bryant DPM [address] [address] 07/08/2024 1:30 PM EDT Office Visit Orthopedic Surgery [facility] 175 [facility] 140 [place] [phone] Yari Bolanos PA [address] [phone] 07/09/2024 11:15 AM EDT Office Visit Obstetrics and Gynecology - [address] [phone] Stella Quinonez, [address] 08/09/2024 12:00 PM EDT Office Visit Adult Medicine East - [address] [phone] Philly Headley MD [address] [place] [address] documented as of this encounter Visit Diagnoses Diagnosis Cellulitis of left foot- Primary Dermatophytosis of nail documented in this encounter Additional Health Concerns Assessment Noted Time PHQ-9 Depression Total Score: 1 05/15/19 25 5:42 PM EST documented as of this encounter Care Teams Junior Programmer Analyst Relationship Specialty Start Date End Date Philly Headley MD [address] [place] [address] PCP - General Internal Medicine 12/13/21 documented as of this encounter
--- OUTSIDE RECORDS SUMMARY | 2024-06-12 08:52 | XMS_ITS | Encounter Summary ---
Author Organization [facility] Address [address] [place] [address] Care Team Providers Care Baby Attendant Name Role Phone Philly Headley MD Primary Care Prov ider Reason for Visit * Reason Comments Consult Nail fungus Encounter Details Date Type Department Care Team ([facility] st Contact Info) Description 05/13/2024 10:00 AM EST Office Visit Orthopedic Surgery - [place] [address] [phone] Carl Bryant, DPM [address] [address] Dermatophytosis of nail (Primary Dx); Ingrowing nail [...] on at this time Yamilex prescribed Procedure 06219: Avulsion single toenail -complete nail removal left great toe informed consent wasobtained from the patient. Partial avulsion with incision and drainage was performed on the toe. Sterile prep was performed. After the site was prepared with Ethyl Chloride spray, 6 ml of 1% Lidocaine was injected without difficulty. Complete nail removal performed with Clark elevator. DSD applied with topical antibiotic ointment. [...] AM EDT Office Visit Walk-In Clinic - [facility] 305 [place] [address] Adriana Craig NP 305 [place] [address] 06/13/2024 10:00 AM EDT Office Visit Orthopedic Surgery [facility] [address] [phone] Carl Bryant DPM [address] [address] 07/08/2024 1:30 PM EDT Office Visit Orthopedic Surgery [facility] [address] [phone] Yari Bolanos PA 174 [facility] 140 [place] [address] 07/09/2024 11:15 AM EDT Office Visit Obstetrics and Gynecology - [address] [phone] Stella Quinonez [address] 08/09/2024 12:00 PM EDT Office Visit Adult Medicine East - [address] [phone] Philly Headley MD [address] [place] [address] documented as of this encounter Visit Diagnoses Diagnosis Dermatophytosis of nail- Primary Ingrowing nail documented in this encounter Additional Health Concerns Assessment Noted Time PHQ-9 Depression Total Score: 1 02/22/20 24 1:01 PM EST documented as of this encounter Care Teams Baby Attendant Relationship Specialty Start Date End Date Philly Headley MD [address] [place] [address] PCP - General Internal Medicine 12/13/21 documented as of this encounter
--- OUTSIDE RECORDS SUMMARY | 2024-06-12 08:52 | XMS_ITS | Clinical Summary ---
Author Organization [facility] Address [address] [place] [address] Care Team Providers Care Drycleaner Name Role Phone Philly Newton MD Primary [...] age to complete this topic Care Teams Drycleaner Relationship Specialty Start Date End Date Philly Newton MD [address] [place] [address] PCP - General Internal Medicine 04/19/22
--- OUTSIDE RECORDS SUMMARY | 2024-06-12 08:52 | XMS_ITS | Clinical Summary ---
Author Organization 175 [facility] Address [address] [place] [address] Phone Care Team Providers Care Chalker Soles Name Role Phone Philly Headley MD Primary [...] Overview (01/04/2024): 05/2018 U/s showing complex cyst; Radio Television Technical Director following Uterine fibroid 08/17/2018 Asthma 09/18/2017 Assessment [...] Encounters Date Type Department Care Team Description 06/10/2024 Telephone Orthopedic [place] [id number] 175 [facility] [address] [place] [phone] Carl Bryant DPM 06/06/2024 Telephone Adult [address] [phone] Philly Headley MD ER Follow-Up ([facility] ); Cough (With mucus); Sore Throat; sneezing; Difficulty Urinating 05/30/2024 9:15 AM EST Office Visit Orthopedic [facility] [address] [phone] Carl Bryant, DPM Cellulitis of left foot (Primary Dx); Dermatophytosis of nail 05/27/2024 1:45 PM EST Office Visit Orthopedic [facility] 175 [facility] 140 [place] [phone] Yari Bolanos PA Bursitis of left shoulder (Primary Dx) 05/20/2024 12:00 PM EST Telemedicine Adult Medicine [address] [phone] Philly Headley MD Hypothyroidism, unspecified type (Primary Dx); Mild persistent asthma without complication; Iron deficiency anemia, unspecified iron deficiency anemia type 05/16/2024 2:00 PM EST Office Visit Adult Medicine [address], [place] [phone] Shannon Finn PA Persistent cough (Primary Dx); Mild persistent asthma without complication; Acute recurrent maxillary sinusitis 05/13/2024 10:00 AM EST Office Visit [facility] [address] [phone] Carl Bryant, DPM Dermatophytosis of nail (Primary Dx); Ingrowing nail 05/09/2024 Telephone Adult Medicine [address] [phone] Shena Jimenez [place] triage (cough) 04/23/2024 Telephone [place] [address] [phone] Yari Bolanos PA 04/15/2024 1:15 PM EST Office Visit Adult Medicine [address] [phone] Shannon Finn PA Persistent cough (Primary Dx); Mild persistent asthma without complication 03/20/2024 Nurse Triage Adult [address] [phone] Philly Headley MD Cough 03/19/2024 Telephone [facility] Hematology Oncology [address] [place] [phone] Valery Hong [place] 03/15/2024 9:45 AM EST Office Visit Adult Medicine [address] [phone] Shannon Finn PA Productive cough (Primary Dx); Mild persistent asthma without complication from Last 3 Months Immunizations Name Administration [...] moles/lesions removed OVARIAN CYST REMOVAL 2011 PROCEDURE: [place] OVARIAN CYSTECTOMY UNI/BI; COMMENT: possibly right (?) OTHER SURGICAL HISTORY Bilateral PROCEDURE: HISTORY OTHER; COMMENT: Bilateral ureteroneocystostomies ', right side ' Medical History Medical History Date Comments Seasonal [...] (BMI) of 40.0 to 44.9 in adult ([facility]) 03/07/2018 DX:Morbid obesity with body mass index (BMI) of 40.0 to 44.9 in adult ([facility]) History of sepsis 08/17/2018 DX:History of sepsis; COMMENT: 05/2018 Pyelonephritis Uterine fibroid 08/17/2018 DX:Uterine fibro id Adnexal mass 08/17/2018 DX:Adnexal mass; COMMENT: 05/2018 U/s showing complex cyst; Radio Television Technical Director following Hx of migraines DX:Hx of migrain [...] your loved ones. For example, child care centre director or elderly care for an older [...] AM EDT Office Visit Walk-In Clinic - [facility] [address] [place] [address] Adriana Craig NP [address] [place] [address] 06/13/2024 10:00 AM EDT Office Visit Orthopedic Surgery - [place] [address] [phone] Carl Bryant, DPM [address] [address] 07/08/2024 1:30 PM EDT Office Visit Orthopedic Surgery - [place] 175 [facility] [address] [place] [phone] Yari Bolanos PA 174 [facility] [address] [place] [address] 07/09/2024 11:15 AM EDT Office Visit Obstetrics and Gynecology - [address] [phone] Stella Quinonez, [facility]4 [place], [place] [phone] 08/09/2024 12:00 PM EDT Office Visit [facility] [address] [phone] Philly Headley MD [address] [place] [address] Health Maintenance Due Date Last Done Comments [...] LAB CHEMISTRY METHOD 03/18/2024 7:18 PM EST [facility] TIBC 383 250 - 450 mcg/dL LAB CHEMISTRY METHOD 03/18/2024 7:18 PM EST [facility] Iron Saturation 5(L) 15 - 50 % LAB CHEMISTRY METHOD 03/18/2024 7:18 PM [facility] Blood Venous blood specimen / Unknown Venipuncture / Unknown 03/18/2024 1:33 PM EST 03/18/2024 4:37 PM EST us Samara Holbrook MD LAB BLOOD ORDERABLES Final R esult [facility] [address] [place] [address], * (ABNORMAL) Complete blood count (03/18/2024 1:33 PM EST) WBC 6.6 4.8 - 10.8 K/mcL LAB HEMETOLOGY METHOD 03/18/2024 4:43 PM [facility] RBC 4.30 3.80 - 4.80 M/mcL LAB HEMETOLOGY METHOD 03/18/2024 4:43 PM [facility] Hemoglobin 11.2(L) 11.5 - 16.0 g/dL LAB HEMETOLOGY METHOD 03/18/2024 4:43 PM [facility] Hematocrit 35.5 35.0 - 47.0 % LAB HEMETOLOGY METHOD 03/18/2024 4:43 PM [facility] MCV 82.0 79.0 - 98.0 FL LAB HEMETOLOGY METHOD 03/18/2024 4:43 PM [facility] MCH 25.9(L) 27.0 - 32.0 pcg LAB HEMETOLOGY METHOD 03/18/2024 4:43 PM [facility] MCHC 31.5(L) 32.0 - 37.0 g/dL LAB HEMETOLOGY METHOD 03/18/2024 4:43 PM [facility] RDW 16.1(H) 11.0 - 15.0 % LAB HEMETOLOGY METHOD 03/18/2024 4:43 PM [facility] Platelets 256 130 - 400 K/mcL LAB HEMETOLOGY METHOD 03/18/2024 4:43 PM EST [facility] MPV 10.2 7.0 - 11.0 FL LAB HEMETOLOGY METHOD 03/18/2024 4:43 PM EST [facility] NRBC 0.0 <1.0 % LAB HEMETOLOGY METHOD 03/18/2024 4:43 PM EST [facility] NRBC Absolute 0.00 <0.10 K/mcL LAB HEMETOLOGY METHOD 03/18/2024 4:43 PM EST [facility] Blood Venous blood specimen / Unknown Venipuncture / Unknown 03/18/2024 1:33 PM EST 03/18/2024 4:36 PM EST us Samara Holbrook MD LAB BLOOD ORDERABLES Final R esult Performing Organization Address City/[facility]/ZIP Co de Phone Number [facility] [address] [place] [address], [place] [phone] * Ferritin (03/18/2024 1:33 PM EST) [facility] Ferritin 14 8 - 252 ng/mL LAB CHEMISTRY METHOD 03/18/2024 7:18 PM EST [facility] Blood Venous blood specimen / Unknown Venipuncture / Unknown 03/18/2024 1:33 PM EST 03/18/2024 4:37 PM EST us Samara Holbrook MD LAB BLOOD ORDERABLES Final R esult Performing Organization Address City/[facility]/ZIP Co de Phone Number [facility] [address] [place] [address], [place] [phone] * Respiratory virus panel molecular study (03/15/2024 11:04 AM EST) [facility] Adenovirus Detection by PCR Not Detected Not Detected LAB MICROBIOLOGY METHOD 03/15/2024 5:39 PM [facility] Influenza A PCR Not Detected Not Detected LAB MICROBIOLOGY METHOD 03/15/2024 5:39 PM [facility] Influenza B PCR Not Detected Not Detected LAB MICROBIOLOGY METHOD 03/15/2024 5:39 PM [facility] Coronavirus 229E Not Detected Not Detected LAB MICROBIOLOGY METHOD 03/15/2024 5:39 PM [facility] Coronavirus HKU1 Not Detected Not Detected LAB MICROBIOLOGY METHOD 03/15/2024 5:39 PM [facility] Coronavirus OC43 Not Detected Not Detected LAB MICROBIOLOGY METHOD 03/15/2024 5:39 PM [facility] Coronavirus NL63 Not Detected Not Detected LAB MICROBIOLOGY METHOD 03/15/2024 5:39 PM [facility] Parainfluenza Virus 1 Not Detected Not Detected LAB MICROBIOLOGY METHOD 03/15/2024 5:39 PM [facility] Parainfluenza Virus 2 Not Detected Not Detected LAB MICROBIOLOGY METHOD 03/15/2024 5:39 PM [facility] Parainfluenza Virus 3 Not Detected Not Detected LAB MICROBIOLOGY METHOD 03/15/2024 5:39 PM [facility] Parainfluenza Virus 4 Not Detected Not Detected LAB MICROBIOLOGY METHOD 03/15/2024 5:39 PM [facility] RSV PCR Not Detected Not Detected LAB MICROBIOLOGY METHOD 03/15/2024 5:39 PM [facility] Human Metapneumovirus A and B Not Detected Not Detected LAB MICROBIOLOGY METHOD 03/15/2024 5:39 PM [facility] Rhinovirus/Entero virus Not Detected Not Detected LAB MICROBIOLOGY METHOD 03/15/2024 5:39 PM [facility] Bordetella pertussis Not Detected Not Detected LAB MICROBIOLOGY METHOD 03/15/2024 5:39 PM [facility] Bordetella parapertussis Not Detected Not Detected LAB MICROBIOLOGY METHOD 03/15/2024 5:39 PM EST [facility] Mycoplasma pneumo by PCR Not Detected Not Detected LAB MICROBIOLOGY METHOD 03/15/2024 5:39 PM EST [facility] Chlamydia pneumoniae Not Detected Not Detected LAB MICROBIOLOGY METHOD 03/15/2024 5:39 PM EST [facility] SARS COV-2 Not Detected Not Detected LAB MICROBIOLOGY METHOD 03/15/2024 5:39 PM EST [facility] Swab Both anterior nares / Unknown Non-blood Collection / Unknown 03/15/2024 11:04 AM EST 03/15/2024 11:04 AM EST [facility] - 03/15/2024 5:39 PM EST Testing was performed using the Bluefly Respiratory Pathogen PCR Assay. All results must [...] MICROBIOLOGY - GENERAL ORDER NICK Final Result [facility] [address] [place] [address], * External Cologuard (FIT-DNA) Report (02/03/2024) Provider Onbase LAB BODY FLUIDS AND STOOLS OR DERABLES Final Result * (ABNORMAL) Lipid panel (11/17/2023) LDL/HDL Ratio 4 0 - 4 Triglycerides 127 0 - 150 mg/dL Cholesterol 211(A) 0 - 200 mg/dL HDL 57 >=40 mg/dL LDL Cholesterol 129(A) 0 - 100 mg/dL Blood Venous blood specimen / Unknown us Historical Provider LAB BLOOD ORDERABLES Carolina l Result * Depression Screening (04/06/2023) Depression Screening abstracted Historical Provider HEALTH MAINTENANCE [...] Result * Cervical Cancer Screening: HPV (06/09/2022) Pathologist [facility] Cervical Cancer Screening: HPV Negative abstracted Result [facility] Historical Provider HEALTH MAINTENANCE Final Result * HIV Screening (06/09/2022) [facility] HIV Screening abstracted [facility] Provider HEALTH MAINTENANCE Final Result * Hepatitis C Screening (06/09/2022) [facility] Hepatitis C Screening abstracted Historical Provider HEALTH MAINTENANCE Final Result from Last 3 Months or Most Recently Relevant to Health Maintenance Insurance [facility] [employer] Care Teams Chalker Soles Relationship Specialty Start Date End Date Philly Headley MD [address] [place] [id number] PCP - General Internal Medicine 12/13/21
== END 2024-06-12 08:25 | disposition home or self-care (01) ==
LOC: HO.HMGCX 08:24
PROVIDERS: PCP Internal Medicine; Visit Provider Nurse Practitioner Family
DX: N20.0 Calculus of kidney (principal)
CPT/HCPCS: 76775

== ENCOUNTER → 2024-06-12 08:29 | Outpatient (BNV) | payer OTHER, SELFPAY | PROVIDERS: PCP Internal Medicine; Visit Provider Radiology Diagnostic Radiology | DX: N20.0 Calculus of kidney (principal) | CPT/HCPCS: 76775 ==

== ENCOUNTER 2024-07-03 14:12 | Outpatient (REF) | payer OTHER, SELFPAY ==
[2024-07-03 14:39] LABS: Appearance Urine Hazy; Color Urine Yellow; Glucose Urine UA Negative (Negative); Leukocyte Esterase Urine Negative (Negative); Nitrite Urine Negative (Negative); UMIC TRIGGER UA YES; Urine Blood Trace (Negative); Urine Ketones Negative (Negative); Urine Protein Negative (Neg-Trace)
[2024-07-03 14:40] LABS: Bacteria Urine None Seen (None Seen); Hyaline Casts Urine 0-2 /LPF (0-2); RBC Urine 0-2 /HPF (0-2); Squamous Epithelial Cell Urine 0-2 /HPF (0-2); WBC Urine 0-5 /HPF (0-5)
--- OUTSIDE RECORDS SUMMARY | 2024-07-03 17:01 | XMS_ITS | Encounter Summary ---
Author Organization [facility] [place] [address] Care Team Providers Care Coastal Tug Mate Name Role Phone Philly Headley MD Primary Care Prov ider Encounter Details Date Type Department Care Team (Late st Contact Info) Description 01/03/2024 10:23 AM EDT Hospital Encounter TH HISTORIC ENCOUNTERS EASTERN CONVERSION ONLY Samara Holbrook MD [address] [place] [id number] Social History Tobacco Use Types Packs/Day Years [...] care for your loved ones. For example, childcare aide or elderly care for an older [...] Care Team (Late st Contact Info) Description 07/08/2024 1:30 PM EDT Office Visit Orthopedic Surgery [facility] 175 [facility] [address] [place] [phone] Yari Bolanos PA [address] [phone] 07/09/2024 11:15 AM EDT Office Visit Obstetrics and Gynecology [address] [phone] Stella Quinonez, [facility] [address] [place] [address] 07/16/2024 10:30 AM EDT Office Visit Orthopedic Surgery [facility] [address] [phone] Carl Bryant DPM [address] [address] 08/09/2024 12:00 PM EDT Office Visit Adult Medicine [address] [phone] Philly Headley MD [address] [place] [address] documented as of this encounter Visit Diagnoses Not on filedocumented in this encounter Additional Health Concerns Infection Onset Date Last Indicated Resolved Time Respiratory Rule-Out 03/07/2024 03/07/2024 024 9:32 AM EST COVID-19 Rule-Out 03/07/2024 03/07/2024 03/08/2024 9:32 AM EST Respiratory Rule-Out 03/15/2024 03/15/2024 024 5:39 PM EST COVID-19 Rule-Out 03/15/2024 03/15/2024 03/15/2024 5:39 PM EST documented as of this encounter Care Teams Coastal Tug Mate Relationship Specialty Start Date End Date Philly Headley MD [address] [place] [id number] PCP - General Internal Medicine 12/13/21 documented as of this encounter
--- OUTSIDE RECORDS SUMMARY | 2024-07-03 17:01 | XMS_ITS | Encounter Summary ---
Author Organization [facility] Address [address] [place] [address] Care Team Providers Care Technical Systems Architect Name Role Phone Philly Headley MD Primary Care Prov ider Encounter Details Date Type Department Care Team (Late st Contact Info) Description 06/10/2024 Telephone Orthopedic Surgery - [place] [address] [phone] Carl Bryant, DPM 175 [facility] [address] [place] [address] Social History Tobacco Use Types Packs/Day Years [...] Office Visit Orthopedic Surgery [facility] 175 [facility] [address] [place] [phone] Yari Bolanos PA 174 [facility] [address] [place] [address] 07/09/2024 11:15 AM EDT Office Visit Obstetrics and Gynecology [address] [phone] Stella Quinonez, [address] [address] 07/16/2024 10:30 AM EDT Office Visit Orthopedic Surgery [facility] [address] [phone] Carl Bryant, DPM [address] [address] 08/09/2024 12:00 PM EDT Office Visit Adult Medicine [place] - [address] [phone] Philly Headley MD [address] [place] [address] documented as of this encounter Visit Diagnoses Not on filedocumented in this encounter Additional Health Concerns Assessment Noted Time PHQ-9 Depression Total Score: 1 05/15/19 25 5:42 PM EST documented as of this encounter Care Teams Technical Systems Architect Relationship Specialty Start Date End Date Philly Hedaley MD [address] [place] [id number] PCP - General Internal Medicine 12/13/21 documented as of this encounter
--- OUTSIDE RECORDS SUMMARY | 2024-07-03 17:01 | XMS_ITS | Clinical Summary ---
Author Organization [facility] Address [address] [place] [address] Care Team Providers Care Area Loss Prevention Manager Name Role Phone Philly Newton MD Primary [...] age to complete this topic Care Teams Area Loss Prevention Manager Relationship Specialty Start Date End Date Philly Newton MD [address] [place] [address] PCP - General Internal Medicine 04/19/22
--- OUTSIDE RECORDS SUMMARY | 2024-07-03 17:02 | XMS_ITS | Clinical Summary ---
Author Organization [facility] Address [address] [place] [address] Phone Care Team Providers Care Air Traffic Supervisor Name Role Phone Philly Headley MD [...] 4 TO 6 HOYURS NEEDED FOR WHEEZING 04/06/19 23 Active albuterol sulfate (ProAir RespiClick) 90 mcg/actuation aerosol powdr breath activated Inhale 2 puffs by mouth. Active fluticasone propion-salmeter oL (AirDuo RespiClick) 232-14 mcg/actuation aerosol powdr breath activated inhaler Inhale 1 puff by mouth 2 (two) times a day. 03/17/20 23 Active cetirizine (ZyrTEC) 10 mg tablet Take 1 tablet (10 mg total) by mouth. 06/28/19 17 Active cholecalciferol (VITAMIN D-3) 25 mcg (1,000 unit) tablet Take 1 tablet (1,000 Units total) by mouth 1 (one) time each day. 07/15/19 22 Active EPINEPHrine (EpiPen 2-Dada) 0.3 mg/0.3 mL injection Inject 0.3 mL (0.3 mg total) as directed. 11/17/19 21 Active famotidine (PEPCID) 20 mg tablet Take 1 tablet (20 mg total) by mouth 2 (two) times a day. 11/27/19 21 Active ferrous sulfate 325 mg (65 mg iron) EC tablet Take 1 tablet (325 mg total) by mouth. 07/20/19 24 Active fluticasone propionate (FLONASE) 50 mcg/actuation nasal spray Administer 2 sprays into affected nostril(s). 07/20/19 24 Active hydrocortisone 2.5 % cream APPLY 1 APPLICATION TOPICAL TWICE A DAY NEEDED FOR ITCHING. 10/07/19 21 Active ketotifen (ZADITOR) 0.025 % ophthalmic solution INSTILL ONE DROP INTO BOTH EYE TWICE A DAY NEEDED FOR ITCH, TEAR OR REDNESS 08/17/19 23 Active levothyroxine (SYNTHROID, LEVOTHROID) 75 mcg tablet Take 1 tablet (75 mcg total) by mouth. 04/14/19 23 Active methenamine hippurate (HIPREX) 1 gram tablet Take 1 tablet (1 g total) by mouth 1 (one) time each day. 08/25/19 23 Active montelukast (SINGULAIR) 10 mg tablet Take 1 tablet (10 mg total) by mouth. 04/14/19 23 Active ibuprofen (ADVIL,MOTRIN) 600 mg tablet Take 1 tablet (600 mg total) by mouth every 6 (six) hours if needed. 10/23/19 24 Active multivitamin with iron (Daily Multiple Vitamins/Iron) Take 1 tablet by mouth 1 (one) time each day. 11/27/19 15 Active triamcinolone (KENALOG) 0.025 % cream Apply topically. Apply to affected area twice daily for 2 weeks. Active Ventolin HFA 90 mcg/actuation inhaler INHALE TWO PUFFS BY MOUTH EVERY 4 TO 6 HOURS NEEDED FOR WHEEZING 03/15/20 18 Active tamsulosin (FLOMAX) 0.4 mg 24 hr capsule 03/13/20 24 Active methylPREDNISolo ne (MEDROL DOSPAK) 4 mg tablet Follow schedule on package instructions 21 each 04/15/19 25 Active hydrOXYzine HCL (ATARAX) 25 mg tablet TAKE ONE TABLET BY MOUTH THREE TIMES A DAY NEEDED FOR ITCHING 90 tablet 05/14/19 25 Active silver sulfADIAZINE (Silvadene) 1 % cream Apply topically 1 (one) time each day. 50 g 05/13/19 25 026 Active clindamycin (Cleocin HCL) 300 mg capsule Take 1 capsule (300 mg total) by mouth 4 (four) times a day for 10 days. 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 Uterine fibroid 08/17/2018 Asthma 09/18/2017 Assessment [...] Encounters Date Type Department Care Team Description 06/13/2024 10:00 AM EDT Office Visit Orthopedic Surgery - [place] [address] [place] [phone] Carl Bryant, DPM Contusion of left great toe without damage to nail, initial encounter (Primary Dx); Follow-up exam; Dermatophytosis of nail; Cellulitis of left foot 06/10/2024 Telephone Orthopedic [facility] [address] [phone] Carl Bryant DPM 06/06/2024 Telephone Adult [address] [phone] Philly Headley MD ER Follow-Up ([facility] ); Cough (With mucus); Sore Throat; sneezing; Difficulty Urinating 05/30/2024 9:15 AM EST Office Visit Orthopedic [place] [phone] [phone] Carl Bryant DPM Cellulitis of left foot (Primary Dx); Dermatophytosis of nail 05/27/2024 1:45 PM EST Office Visit [address] [phone] Yari Bolanos PA Bursitis of left shoulder (Primary Dx) 05/20/2024 12:00 PM EST Telemedicine Adult [address] [phone] Philly Headley MD Hypothyroidism, unspecified type (Primary Dx); Mild persistent asthma without complication; Iron deficiency anemia, unspecified iron deficiency anemia type 05/16/2024 2:00 PM EST Office Visit Adult [address] [phone] Shannon Finn PA Persistent cough (Primary Dx); Mild persistent asthma without complication; Acute recurrent maxillary sinusitis 05/13/2024 10:00 AM EST Office Visit [place] [phone] [phone] Carl Bryant DPM Dermatophytosis of nail (Primary Dx); Ingrowing nail 05/09/2024 Telephone Adult Medicine [address] [phone] Shena Jimenez MA triage (cough) 04/23/2024 Telephone Orthopedic Surgery [facility] [address] [place] [phone] Yari Bolanos PA 04/15/2024 1:15 PM EST Office Visit Adult Medicine [address] [phone] Shannon Finn PA Persistent cough (Primary Dx); [...] moles/lesions removed OVARIAN CYST REMOVAL 2011 PROCEDURE: [place] OVARIAN CYSTECTOMY UNI/BI; COMMENT: possibly right (?) [...] (BMI) of 40.0 to 44.9 in adult ([facility]) 03/07/2018 DX:Morbid obesity with body mass index (BMI) of 40.0 to 44.9 in adult ([facility]) History of sepsis 08/17/2018 DX:History of sepsis; COMMENT: 05/2018 Pyelonephritis Uterine fibroid 08/17/2018 DX:Uterine fibro id Adnexal mass 08/17/2018 DX:Adnexal mass; COMMENT: 05/2018 U/s showing complex cyst; 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 Hx of migraines DX:Hx of migrain [...] - - Weight 96.2 kg (212 lb) 06/13/2024 10:17 AM EDT Height 160 cm (5' 2.99 ) 06/13/2024 10:17 AM EDT Body Mass Index 37.56 06/13/2024 10:17 AM EDT Plan of Treatment Upcoming Encounters Date Type Department Care Team (Late st Contact Info) Description 07/08/2024 1:30 PM EDT Office Visit Orthopedic Surgery [facility] 175 [facility] [address] [place] [phone] Yari Bolanos, PA 174 [facility] [address] [place] [phone] 07/09/2024 11:15 AM EDT Office Visit Obstetrics and Gynecology [address] [phone] Stella Quinonez, CN [address] [place] [address] 07/16/2024 10:30 AM EDT Office Visit Orthopedic Surgery [facility] 250 175 [facility] [address] [place] [phone] Carl Bryant, DPM [address] [phone] 08/09/2024 12:00 PM EDT Office Visit Adult Medicine [facility] - [address] [phone] Philly Headley MD [address] [place] [phone] Health Maintenance Due Date Last Done Comments Hepatitis B Vaccines (1 of 3 - 19+ 3-dose series) 1992 Pneumococcal Vaccine: 50+ Years (2 of 2 - PCV) 11/01/2013 11/01/2012 Pneumococcal Vaccine: Pediatrics (0 to 5 Years) and At-Risk Patients (6 to 64 Years) (2 of 2 - PCV) 11/01/2013 11/01/2012 Zoster Vaccines (1 of 2) 11/30/2023 COVID-19 Vaccine (3 - 4-25 season) 2023 07/21/2020, 06/29/2020 Breast Cancer Screening [...] Name Priority Date/Time Associated Diagnosis Comments XR FOOT 3+ VIEWS LEFT Routine 06/13/2024 10:25 AM EDT Follow-up exam EXTERNAL ULTRASOUND REPORT Routine 06/12/2024 1:46 PM EDT EXTERNAL CLINICAL LAB Routine 06/12/2024 11:04 AM EDT XR SHOULDER 2+ VIEWS LEFT Routine 05/27/2024 2:08 PM EST Pain EXTERNAL COLOGUARD (FIT-DNA) REPORT 02/03/2024 LIPID PANEL Routine 11/17/2023 DEPRESSION SCREENING Routine 04/06/2023 DIAGNOSTIC MAMMOGRAPHY INCLUDING CAD BILATERAL Routine 08/18/2022 9:49 AM EDT Localized swelling, mass and lump, right upper limb HPV Routine 06/09/2022 HEPATITIS C SCREENING Routine 06/09/2022 HIV SCREENING Routine 06/09/2022 from Last 3 Months or Most Recently Relevant to Health Maintenance Results * XR Foot 3+ Views Left (06/13/2024 10:25 AM EDT) Anatomical Region Laterality Modality Lower Extremities, Foot Left Computed Radiography Narrative 06/13/2024 12:46 PM EDT Left foot 3 views No fracture. No radiopaque foreign ?? Irregularity of the distal phalanx noted consistent with anatomic variation Carl Bryant DPM IMG XR PROCEDURES Final R esult * External Ultrasound Report (06/12/2024 1:46 PM EDT) Anatomical Region Laterality Modality Ultrasound Nadya Avila ASSISTANT HEAD CASHIER IMG US PROCEDURES Final Res ult * External clinical lab (06/12/2024 11:04 AM EDT) Historical Provider MD LAB BLOOD ORDERABLES Carolina l Result * XR Shoulder 2+ Views Left (05/27/2024 [...] narrowing of subacromial space no acute findings. Yari LEAVITT IMG XR PROCEDURES Final Resul t * External Cologuard (FIT-DNA) Report (02/03/2024) Result [facility] Provider Onbase LAB BODY FLUIDS AND STOOLS OR DERABLES Final Result * (ABNORMAL) Lipid panel (11/17/2023) LDL/HDL Ratio 4 0 - 4 Triglycerides 127 0 - 150 mg/dL Cholesterol 211(A) 0 - 200 mg/dL HDL 57 >=40 mg/dL LDL Cholesterol 129(A) 0 - 100 mg/dL Blood Venous blood specimen / Unknown Result [facility] Historical Provider LAB BLOOD ORDERABLES Carolina l Result * Depression Screening (04/06/2023) Depression Screening abstracted Result [facility] Historical Provider HEALTH MAINTENANCE Final [...] * Cervical Cancer Screening: HPV (06/09/2022) Pathologist [facility] Cervical Cancer Screening: HPV Negative abstracted Historical Provider HEALTH MAINTENANCE Final Result * HIV Screening (06/09/2022) Pathologist [facility] HIV Screening abstracted Historical Provider HEALTH MAINTENANCE Final Result * Hepatitis C Screening (06/09/2022) Hepatitis C Screening abstracted us Historical Provider HEALTH MAINTENANCE Final Result from Last 3 Months or Most Recently Relevant to Health Maintenance Insurance * Guarantor: Chantel Russell Account Type Relation to Patient Date of Phone Billing Address Personal/Family Self [phone] [phone] [facility] [employer] Care Teams Air Traffic Supervisor Relationship Specialty Start Date End Date Philly Headley MD [address] [place] [id number] PCP - General Internal Medicine 12/13/21
== END 2024-07-03 14:13 | disposition home or self-care (01) ==
LOC: HO.LAB 14:12
PROVIDERS: PCP Internal Medicine; Visit Provider Nurse Practitioner Family
DX: N39.0 Urinary tract infection, site not specified (principal)
CPT/HCPCS: 81001; 87086

== ENCOUNTER → 2024-07-05 09:35 | Outpatient (BNVA) | payer OTHER, SELFPAY | PROVIDERS: PCP Internal Medicine; Visit Provider Nurse Practitioner Family ==

== ENCOUNTER 2024-07-17 15:26 | Outpatient (AMB) | payer OTHER, SELFPAY ==
--- NOTE | 2024-07-17 15:43 | MHC.OFFVIS ---
Vital Signs 07/17/24 15:44 Height 5 ft 3 in Weight 212 lb 11.937 oz BMI 37.7 BP 128/92 H Blood Pressure Location Lt brachial Position Sitting Pulse 79 Pulse Source Pulse Oximeter Pulse Oximetry (%) 98 Oxygen Delivery Method Room Air Intake Visit Reasons: asthma Intake Note: pt is here for follow up and states coughing since the weekend, blowing green, asthma has been good, but feels something could be started.she needs refill on all inhalers and neb meds, Party Director Required: No Allergies doxycycline [DOXYCYCLINE] Allergy (Intermediate, Verified 07/17/24 15:59) ITCHY, itching, itching amoxicillin [Augmentin] Allergy (Unknown, Verified 07/17/24 15:59) itching azithromycin [From ZITHROMAX] Allergy (Unknown, Verified 07/17/24 15:59) HIVES ciprofloxacin [From CIPRO] Allergy (Unknown, Verified 07/17/24 15:59) ITCH clavulanic acid [Augmentin] Allergy (Unknown, Verified 07/17/24 15:59) itching mold [MOLD] Allergy (Unknown, Verified 07/17/24 15:59) STUFFY NOSE mushroom [MUSHROOM] Allergy (Unknown, Verified 07/17/24 15:59) DIARRHEA Yeast [YEAST] Allergy (Unknown, Verified 07/17/24 15:59) DIARRHEA Medication List - Last Reconciled 07/17/24 by Freida Montoya MD albuterol sulfate 2.5 mg (3 mL) PO Q4-6H PRN famotidine (Pepcid) 20 mg PO BID ferrous sulfate 325 mg PO DAILY fluconazole 150 mg PO Q3D 2 doses fluconazole 150 mg PO Q3D 2 doses fluticasone propion-salmeterol 232-14 mcg/actuation (AirDuo RespiClick) 1 inh PO BID fluticasone propionate 50 mcg/actuation 2 sprays intranasal DAILY 90 days hydroxyzine HCl 1 tab PO Q8H PRN ibuprofen (Advil) 200 mg PO DAILY PRN [interdry As directed once daily] ketorolac 10 mg PO Q8H PRN 3 days levofloxacin 500 mg PO DAILY 7 days levothyroxine 1 tab PO QAM linezolid 600 mg PO BID 7 days montelukast 10 mg PO BEDTIME 30 days nitrofurantoin macrocrystal 50 mg PO BEDTIME 90 days nystatin 1 appl topical TID 10 days phenazopyridine 100 mg PO TID PRN 6 doses pseudoephedrine HCl (Sudafed) 30 mg PO BID PRN tamsulosin 0.4 mg PO BEDTIME 14 days Ventolin HFA 90 mcg/actuation (albuterol sulfate) 2 puffs PO Q4-6H PRN NS Do you need a note to return to daycare/school/sports/work: No HPI HPI asthma: Details: Chantel is 48 years old female who is coming for follow-up after almost 1 year. She has intermittent cough, for the past 1 week she is having cough almost on a daily basis. She has had no wheezing attacks. Asthma has been relatively controlled. She has had no respiratory infection during the past year. [facility] Medical History Bronchitis Obesity Allergic rhinitis COVID-19 Thrush Asthma History of urinary tract infection History of urinary reflux Social History Household Members: Spouse and Children Housing: House Do you presently have visiting nurse or other home services: No Alcohol intake: never Patient Tobacco Use Status: Never used Tobacco Advance Directives Date on File: 11/03/21 service: No Current occupational status: unemployed Review of Systems Const All systems reviewed & are unremarkable except as noted in HPI and below Eyes Reports no additional complaints ENT Reports nasal congestion (MILD OFF AND ON ) Card Reports no additional complaints Resp Denies cough and Denies wheezing GI Reports no additional complaints Reports no additional complaints Musc Reports no additional complaints Skin/Breast Reports system reviewed and no additional complaints, except as documented Neuro Reports no additional complaints Psych Reports no additional complaints Sujit/Lymph Reports no additional complaints Aller/Immun Denies wheezing Physical Exam Vital Signs: Last Vital Signs Pulse 79 07/17/24 15:44 BP 128/92 H 07/17/24 15:44 Pulse Ox 98 07/17/24 15:44 Oxygen Delivery Method Room Air 07/17/24 15:44 BMI result Body Mass Index 37.7 She is quite overweight but appears quite comfortable and healthy. Const General: comfortable, no acute distress, alert and awake Orientation/consciousness: patient oriented x3 HEENT Head: Yes normal to inspection General nose exam: No nasal polyps present and No nasal discharge present Face and sinus: Yes sinuses nontender Mouth: oropharynx normal Throat: Yes posterior oropharynx normal Eyes General: appearance normal, both eyes and all related structures Neck Neck: Yes normal visual inspection, Yes no lymphadenopathy, Yes trachea midline and Yes no JVD Thyroid: Thyroid normal Chest Chest palpation & inspection: normal inspection of the chest, normal palpation of entire chest wall and no tenderness Resp Other: Percussion note resonant, breath sounds are equal and vesicular on both sides. No wheezes or rhonchi heard today . Cardio Palpation: normal PMI Rate: regular rate Rhythm: regular rhythm Heart sounds: no gallops and no murmurs Peripheral pulses: Peripheral pulses 2+ throughout GI Palpation (GI): Soft to palpation, nontender, No hepatosplenomegaly present, no masses and Other GI palpation findings present (Abdomen is obese and somewhat protuberant) Auscultation: normal bowel sounds Back/Spine/Pelvis Thoracic/Lumbar Spine: thoracic and lumbar spine normal to inspection Skin General skin exam: no rashes or lesions noted Neuro General: patient oriented x3 and no focal motor deficits Cranial nerves: Yes CN's II-XII intact bilaterally Extrem General: Yes normal to inspection, Yes no clubbing, cyanosis or edema and Yes no calf tenderness Psych Appearance: grossly normal and well kempt Speech and movement: Normal speech and movement present Assessment & Plan Assessment & Plan (1) Asthma: Comment: SHE HAS CHRONIC RESPIRATORY SYMPTOMS, PREDOMINANTLY DUE TO BRONCHIAL ASTHMA , WELL CONTROLLED AT THIS TIME . HAS HAD NO ACUTE EXACERBATION DURING THE PAST 1 YEAR. Code(s): J45.909 - Unspecified asthma, uncomplicated Category: Medical Plan: CONTINUE FLUTICASONE-SALMETEROL 232-14 1 INHALATION B.I.D. ALBUTEROL HFA 2 PUFFS Q 6 HOURS P.R.N. AND ALTERNATIVELY MAY USE ALBUTEROL SOLUTION 2.5 MG IN THE NEBULIZER Q.6 HOURS P.R.N. (2) Allergic rhinitis: Comment: SHE HAS CHRONIC ALLERGIC RHINITIS SYMPTOMS. THE NASAL CONGESTION SYMPTOMS FLUCTUATE DUE TO CHANGE IN THE TEMPERATURE AND WEATHER. THE EXAMINATION AT THIS TIME SHOWS THAT THERE IS NO ACTIVE NASAL CONGESTION. Code(s): J30.9 - Allergic rhinitis, unspecified Category: Medical Plan: OK TO CONTINUE USING FLONASE 2 SPRAY IN EACH NOSTRIL DAILY TAKE CETIRIZINE 10 MG ONCE A DAY. ALSO IT IS OKAY TO CONTINUE USING MONTELUKAST 10 MG DAILY (3) Obesity: Comment: DISCUSSED AND EXPLAINED TO HER THAT SHE IS GROSSLY OVERWEIGHT AND NEEDS TO LOSE WEIGHT. SHE WILL TRY TO WATCH HER DIET AND TRY TO DO SOME PHYSICAL ACTIVITY ON A DAILY BASIS. Code(s): E66.9 - Obesity, unspecified Category: Medical Plan: ABOVE Medications: Changed From albuterol sulfate 2.5 mg (3 mL) PO Q4-6H PRN 180 mL 1RF for wheezing J45.909 - Unspecified asthma, uncomplicated To albuterol sulfate 2.5 mg (3 mL) PO Q4-6H 30 days PRN 180 mL 3RF for wheezing J45.909 - Unspecified asthma, uncomplicated Coding Level of Care Code Est Pt Level 3 (87672) Diagnoses Asthma J45.909 Allergic rhinitis J30.9 Obesity E66.9
[2024-07-17 15:44] VITALS: BP 128/92; PULSE 79; O2SAT 98; BMI 37.7
--- OUTSIDE RECORDS SUMMARY | 2024-07-17 18:00 | XMS_ITS | Clinical Summary ---
Author Organization [facility] Address [address] [place] [address] Care Team Providers Care Attendant Honor Bar Name Role Phone Philly Newton MD Primary [...] age to complete this topic Care Teams Attendant Honor Bar Relationship Specialty Start Date End Date Philly Newton MD [address] [place] [address] PCP - General Internal Medicine 04/19/22
--- OUTSIDE RECORDS SUMMARY | 2024-07-17 18:00 | XMS_ITS | Clinical Summary ---
Author Organization [facility] Address [address] [place] [address] Phone Care Team Providers Care Education Liaison Name Role Phone Philly Headley MD Primary [...] 4 TO 6 HOYURS NEEDED FOR WHEEZING 3 Active albuterol sulfate (ProAir RespiClick) 90 mcg/actuation aerosol powdr breath activated Inhale 2 puffs by mouth. Active fluticasone propion-salmeter oL (AirDuo RespiClick) 232-14 mcg/actuation aerosol powdr breath activated inhaler Inhale 1 puff by mouth 2 (two) times a day. 3 Active cetirizine (ZyrTEC) 10 mg tablet Take 1 tablet (10 mg total) by mouth. 7 Active cholecalciferol (VITAMIN D-3) 25 mcg (1,000 unit) tablet Take 1 tablet (1,000 Units total) by mouth 1 (one) time each day. 2 Active EPINEPHrine (EpiPen 2-Dada) 0.3 mg/0.3 mL injection Inject 0.3 mL (0.3 mg total) as directed. 1 Active famotidine (PEPCID) 20 mg tablet Take 1 tablet (20 mg total) by mouth 2 (two) times a day. 1 Active ferrous sulfate 325 mg (65 mg iron) EC tablet Take 1 tablet (325 mg total) by mouth. 4 Active fluticasone propionate (FLONASE) 50 mcg/actuation nasal spray Administer 2 sprays into affected nostril(s). 4 Active hydrocortisone 2.5 % cream APPLY 1 APPLICATION TOPICAL TWICE A DAY NEEDED FOR ITCHING. 1 Active ketotifen (ZADITOR) 0.025 % ophthalmic solution INSTILL ONE DROP INTO BOTH EYE TWICE A DAY NEEDED FOR ITCH, TEAR OR REDNESS 3 Active levothyroxine (SYNTHROID, LEVOTHROID) 75 mcg tablet Take 1 tablet (75 mcg total) by mouth. 3 Active methenamine hippurate (HIPREX) 1 gram tablet Take 1 tablet (1 g total) by mouth 1 (one) time each day. 3 Active montelukast (SINGULAIR) 10 mg tablet Take 1 tablet (10 mg total) by mouth. 3 Active ibuprofen (ADVIL,MOTRIN) 600 mg tablet Take 1 tablet (600 mg total) by mouth every 6 (six) hours if needed. 4 Active multivitamin with iron (Daily Multiple Vitamins/Iron) Take 1 tablet by mouth 1 (one) time each day. 5 Active triamcinolone (KENALOG) 0.025 % cream Apply topically. Apply to affected area twice daily for 2 weeks. Active Ventolin HFA 90 mcg/actuation inhaler INHALE TWO PUFFS BY MOUTH EVERY 4 TO 6 HOURS NEEDED FOR WHEEZING 8 Active tamsulosin (FLOMAX) 0.4 mg 24 hr capsule 4 Active methylPREDNISolo ne (MEDROL DOSPAK) 4 mg tablet Follow schedule on package instructions 21 each 5 Active hydrOXYzine HCL (ATARAX) 25 mg tablet TAKE ONE TABLET BY MOUTH THREE TIMES A DAY NEEDED FOR ITCHING 90 tablet 5 Active silver sulfADIAZINE (Silvadene) 1 % cream Apply topically 1 (one) time each day. 50 g 5 026 Active Active Problems Problem Noted Date Diagnosed Date Kidney disease 01/04/2024 Overview (01/04/2024): Undefined- chronic; pt states 1 kidney smaller. At risk for renal insufficiency. Dr. Argu[place] in [place], Rosacea 08/31/2023 Microcytic anemia 04/19/2022 Severe obesity (BMI 35.0-39. 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 Uterine fibroid 08/17/2018 Asthma 09/18/2017 Assessment [...] Surgery [facility] [address] [phone] Carl Bryant, DPM Contusion of left great toe without damage to nail, initial encounter (Primary Dx); Follow-up exam; Dermatophytosis of nail; Cellulitis of left foot 06/10/2024 Telephone Orthopedic Surgery [facility] 250 175 [facility] 250 [place] [phone] Carl Bryant DPM 06/06/2024 Telephone Adult Medicine [address] [phone] Philly Headley MD ER Follow-Up ([facility] ); Cough (With mucus); Sore Throat; sneezing; Difficulty Urinating 05/30/2024 9:15 AM EST Office Visit [facility] [address] [phone] Carl Bryant DPM Cellulitis of left foot (Primary Dx); Dermatophytosis of nail 05/27/2024 1:45 PM EST Office Visit [facility] 175 [facility] 140 [place] [phone] Yari Bolanos PA Bursitis of left shoulder (Primary Dx) 05/20/2024 12:00 PM EST Telemedicine Adult Medicine [address] [phone] Philly Headley MD Hypothyroidism, unspecified type (Primary Dx); Mild persistent asthma without complication; Iron deficiency anemia, unspecified iron deficiency anemia type 05/16/2024 2:00 PM EST Office Visit Adult [address] [phone] Shannon Finn PA Persistent cough (Primary Dx); Mild persistent asthma without complication; Acute recurrent maxillary sinusitis 05/13/2024 10:00 AM EST Office Visit [facility] [address] [phone] Carl Bryant DPM Dermatophytosis of nail (Primary Dx); Ingrowing nail 05/09/2024 Telephone Adult Medicine [address] [phone] Shena Jimenez MA triage (cough) 04/23/2024 Telephone Orthopedic Surgery - [place] [address] [phone] Yari Bolanos PA from Last 3 Months Immunizations Name Administration [...] (BMI) of 40.0 to 44.9 in adult (CMS/[facility] V24, 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 For example, salesperson children's shoes or elderly care for an older adult? [...] Care Team (Late st Contact Info) Description 07/29/2024 11:45 AM EDT Office Visit Orthopedic Surgery - [address] [place] [address] Yari Bolanos PA 174 [facility] 140 [place] [address] 08/09/2024 12:00 PM EDT Office Visit Adult Medicine [facility] [address] [place] [phone] Philly Headley MD [address] [place] [phone] Health Maintenance Due Date Last Done Comments [...] Breast Cancer Screening 08/18/2024 08/18/2022 Influenza Vaccine (Season Ended) 2024 04/14/2022, 02/23/2015, 01/19/2014, Additional history exists Social Influencers of Health Screening 02/21/2025 02/22/2024 [...] age to complete this topic Meningococcal B Vaccine Aged Out No l onger eligible based on patient's age to complete [...] distal phalanx noted consistent with anatomic variation us Carl Bryant DPM IMG XR PROCEDURES Final R esult * External Ultrasound Report (06/12/2024 1:46 PM EDT) Anatomical Region Laterality Modality Ultrasound Nadya Avila ENVELOPE STAMPING MACHINE OPERATOR IMG US PROCEDURES Final Res ult * [...] subacromial space no acute findings. us Yari Bolanos PA IMG XR PROCEDURES Final Resul t * External Cologuard (FIT-DNA) Report (02/03/2024) Provider Onbase MD LAB BODY FLUIDS AND STOOLS OR DERABLES [...] * Depression Screening (04/06/2023) Depression Screening abstracted us Historical Provider HEALTH MAINTENANCE Final Result * [...] Breast cancer risk category Low (<15%) Result [facility] Makayla LEAVITT IMG BI PROCEDURES Final Result * Cervical Cancer Screening: HPV (06/09/2022) Pathologist [facility] Cervical Cancer Screening: HPV Negative abstracted Result [facility] Historical Provider HEALTH MAINTENANCE Final Result * HIV Screening (06/09/2022) Pathologist [facility] HIV Screening abstracted Result [facility] Provider HEALTH MAINTENANCE Final Result * Hepatitis C Screening (06/09/2022) Pathologist [facility] Hepatitis C Screening abstracted [facility] Provider HEALTH MAINTENANCE Final Result from Last 3 Months or Most Recently Relevant to Health Maintenance Insurance [facility] [place] [address] Care Teams Education Liaison Relationship Specialty Start Date End Date Philly Headley MD [address] [place] [address] [phone] PCP - General Internal Medicine 12/13/21
--- OUTSIDE RECORDS SUMMARY | 2024-07-17 18:00 | XMS_ITS | Encounter Summary ---
Author Organization [facility] [place] [address] Care Team Providers Care Passenger Brakeman Name Role Phone Philly Headley MD Primary Care Prov ider Encounter Details Date Type Department Care Team (Late st Contact Info) Description 01/03/2024 10:23 AM EDT Hospital Encounter TH HISTORIC ENCOUNTERS EASTERN CONVERSION ONLY Samara Holbrook MD [address] [place] [phone] Social History Tobacco Use Types Packs/Day Years [...] your loved ones. For example, child development assistant or elderly care for an older [...] AM EDT Office Visit Orthopedic Surgery - [place] 175 [facility] [address] [place] [phone] Yari Bolanos PA 174 [facility] [address] [place] [phone] 08/09/2024 12:00 PM EDT Office Visit Adult [address] [phone] Philly Headley MD [address] [place] [phone] documented as of this encounter Visit Diagnoses Not on filedocumented in this encounter Additional Health Concerns Infection Onset Date Last Indicated Resolved Time Respiratory Rule-Out 03/07/2024 03/07/2024 024 9:32 AM EST COVID-19 Rule-Out 03/07/2024 03/07/2024 03/08/2024 9:32 AM EST Respiratory Rule-Out 03/15/2024 03/15/2024 024 5:39 PM EST COVID-19 Rule-Out 03/15/2024 03/15/2024 03/15/2024 5:39 PM EST documented as of this encounter Care Teams Passenger Brakeman Relationship Specialty Start Date End Date Philly Headley MD [address] [place] [id number] PCP - General Internal Medicine 12/13/21 documented as of this encounter
== END 2024-07-17 15:57 | disposition home or self-care (01) ==
LOC: HO.HPS 15:27
PROVIDERS: PCP Internal Medicine; Visit Provider Internal Medicine
DX: J45.909 Unspecified asthma, uncomplicated (principal); J30.9 Allergic rhinitis, unspecified; E66.9 Obesity, unspecified
CPT/HCPCS: 99213

== ENCOUNTER → 2024-07-17 15:26 | Outpatient (BNVA) | payer OTHER, SELFPAY | PROVIDERS: PCP Internal Medicine; Visit Provider Internal Medicine | DX: J45.909 Unspecified asthma, uncomplicated (principal); E66.9 Obesity, unspecified; Z68.37 Body mass index [BMI] 37.0-37.9, adult | CPT/HCPCS: 99212 ==

== ENCOUNTER 2024-09-12 11:22 | Outpatient (REF) | payer OTHER, SELFPAY ==
[2024-09-12 12:14] LABS: Appearance Urine Clear; Color Urine Yellow; Glucose Urine UA Negative (Negative); Leukocyte Esterase Urine Negative (Negative); Nitrite Urine Negative (Negative); PH 6.5 (5.0-9.0); Specific Gravity - Urine <= 1.005 (1.005-1.025); Urine Blood Negative (Negative); Urine Ketones Negative (Negative); Urine Protein Negative (Neg-Trace)
[2024-09-12 12:19] LABS: Bacteria Urine None Seen (None Seen); Hyaline Casts Urine 0-2 /LPF (0-2); RBC Urine 0-2 /HPF (0-2); Squamous Epithelial Cell Urine 0-2 /HPF (0-2); WBC Urine 0-5 /HPF (0-5)
--- OUTSIDE RECORDS SUMMARY | 2024-09-12 13:29 | XMS_ITS | Clinical Summary ---
Author Organization [facility] Address [address] [place] [address] Care Team Providers Care Home Care Consultant Name Role Phone Philly Newton MD Primary [...] 5 season) 2023 07/21/2020, 06/29/2020 Influenza Vaccine (Season Ended) 2024 04/14/2022 DTap / Tdap / Td (4 - Td or Tdap) 06/27/2026 06/27/2016, 02/23/2015, 12/08/2009 Pneumococcal Vaccine Aged Out 11/01/2012 No long er eligible based on patient's age to complete this topic RSV Ped < 20 months Aged Out No longe r eligible based on patient's age to complete this topic Care Teams Home Care Consultant Relationship Specialty Start Date End Date Philly Newton MD [address] [place] [address] PCP - General Internal Medicine 04/19/22
== END 2024-09-12 11:23 | disposition home or self-care (01) ==
LOC: HO.LAB 11:22
PROVIDERS: PCP Internal Medicine; Visit Provider Nurse Practitioner Family
DX: N39.0 Urinary tract infection, site not specified (principal)
CPT/HCPCS: 81001; 87086; 99212

== ENCOUNTER 2024-09-12 15:09 | Outpatient (AMB) | payer OTHER, SELFPAY ==
[2024-09-12 15:18] VITALS: BP 124/78; PULSE 87; O2SAT 96; BMI 38.3
--- NOTE | 2024-09-12 15:18 | MHC.OFFVIS ---
Vital Signs 09/12/24 15:18 Height 5 ft 3 in Weight 216 lb 0.848 oz BMI 38.3 BP 124/78 Blood Pressure Location Lt brachial Position Sitting Pulse 87 Pulse Source Pulse Oximeter Pulse Oximetry (%) 96 Oxygen Delivery Method Room Air Intake Visit Reasons: sob and increased wheezing Intake Note: pt is here for follow up and states her pcp told her she heard some wheeze last week, she is coughing. pt needs refills on albuterol for nebulizer, albuterol hfa and also airduo. Senior Vice President Required: No Allergies doxycycline [DOXYCYCLINE] Allergy (Intermediate, Verified 09/12/24 15:23) ITCHY, itching, itching amoxicillin [Augmentin] Allergy (Unknown, Verified 09/12/24 15:23) itching azithromycin [From ZITHROMAX] Allergy (Unknown, Verified 09/12/24 15:23) HIVES ciprofloxacin [From CIPRO] Allergy (Unknown, Verified 09/12/24 15:23) ITCH clavulanic acid [Augmentin] Allergy (Unknown, Verified 09/12/24 15:23) itching mold [MOLD] Allergy (Unknown, Verified 09/12/24 15:23) STUFFY NOSE mushroom [MUSHROOM] Allergy (Unknown, Verified 09/12/24 15:23) DIARRHEA Yeast [YEAST] Allergy (Unknown, Verified 09/12/24 15:23) DIARRHEA Medication List - Last Reconciled 09/12/24 by Freida Montoya MD albuterol sulfate 2.5 mg (3 mL) PO Q4-6H PRN 30 days famotidine (Pepcid) 20 mg PO BID ferrous sulfate 325 mg PO DAILY fluconazole 150 mg PO Q3D 2 doses fluconazole 150 mg PO Q3D 2 doses fluticasone propion-salmeterol 232-14 mcg/actuation (AirDuo RespiClick) 1 inh PO BID fluticasone propionate 50 mcg/actuation 2 sprays intranasal DAILY 90 days hydroxyzine HCl 1 tab PO Q8H PRN ibuprofen (Advil) 200 mg PO DAILY PRN [interdry As directed once daily] ketorolac 10 mg PO Q8H PRN 3 days levofloxacin 500 mg PO DAILY 7 days levothyroxine 1 tab PO QAM linezolid 600 mg PO BID 7 days montelukast 10 mg PO BEDTIME 30 days nitrofurantoin macrocrystal 50 mg PO BEDTIME 90 days nystatin 1 appl topical TID 10 days nystatin 5 mL PO TID 5 days phenazopyridine 100 mg PO TID PRN 6 doses pseudoephedrine HCl (Sudafed) 30 mg PO BID PRN tamsulosin 0.4 mg PO BEDTIME 14 days Ventolin HFA 90 mcg/actuation (albuterol sulfate) 2 puffs PO Q4-6H PRN NS Do you need a note to return to daycare/school/sports/work: No HPI HPI sob and increased wheezing: Details: THIS 48 YEARS OLD FEMALE IS HERE FOR ROUTINE FOLLOW-UP. SHE IS DOING WELL BUT ALWAYS SHE DOES HAVE COMPLAINED OF NASAL CONGESTION, MILD INTERMITTENT COUGH. .AND SOME WHEEZING LATELY SHE HAS HAD NO ACUTE EXACERBATION. SHE DOES USE HER MEDS REGULARLY. REMAINS GROSSLY OBESE, BUT DENIES SYMPTOMS OF SLEEP [facility] Medical History Bronchitis Obesity Allergic rhinitis COVID-19 Thrush Asthma History of urinary tract infection History of urinary reflux Social History Household Members: Spouse and Children Housing: House Do you presently have visiting nurse or other home services: No Alcohol intake: never Patient Tobacco Use Status: Never used Tobacco Advance Directives Date on File: 11/03/21 service: No Current occupational status: unemployed Review of Systems Const All systems reviewed & are unremarkable except as noted in HPI and below Eyes Reports no additional complaints ENT Reports nasal congestion (MILD OFF AND ON ) Card Reports no additional complaints Resp Denies cough and Denies wheezing GI Reports no additional complaints Reports no additional complaints Musc Reports no additional complaints Skin/Breast Reports system reviewed and no additional complaints, except as documented Neuro Reports no additional complaints Psych Reports no additional complaints Sujit/Lymph Reports no additional complaints Aller/Immun Denies wheezing Physical Exam Vital Signs: Last Vital Signs Pulse 87 09/12/24 15:18 BP 124/78 09/12/24 15:18 Pulse Ox 96 09/12/24 15:18 Oxygen Delivery Method Room Air 09/12/24 15:18 BMI result Body Mass Index 38.3 She is quite overweight but appears quite comfortable and healthy. Const General: comfortable, no acute distress, alert and awake Orientation/consciousness: patient oriented x3 HEENT Head: Yes normal to inspection General nose exam: No nasal polyps present and No nasal discharge present Face and sinus: Yes sinuses nontender Mouth: oropharynx normal Throat: Yes posterior oropharynx normal Eyes General: appearance normal, both eyes and all related structures Neck Neck: Yes normal visual inspection, Yes no lymphadenopathy, Yes trachea midline and Yes no JVD Thyroid: Thyroid normal Chest Chest palpation & inspection: normal inspection of the chest, normal palpation of entire chest wall and no tenderness Resp Other: Percussion note resonant, breath sounds are equal and vesicular on both sides. No wheezes or rhonchi heard today . Cardio Palpation: normal PMI Rate: regular rate Rhythm: regular rhythm Heart sounds: no gallops and no murmurs Peripheral pulses: Peripheral pulses 2+ throughout GI Palpation (GI): Soft to palpation, nontender, No hepatosplenomegaly present, no masses and Other GI palpation findings present (Abdomen is obese and somewhat protuberant) Auscultation: normal bowel sounds Back/Spine/Pelvis Thoracic/Lumbar Spine: thoracic and lumbar spine normal to inspection Skin General skin exam: no rashes or lesions noted Neuro General: patient oriented x3 and no focal motor deficits Cranial nerves: Yes CN's II-XII intact bilaterally Extrem General: Yes normal to inspection, Yes no clubbing, cyanosis or edema and Yes no calf tenderness Psych Appearance: grossly normal and well kempt Speech and movement: Normal speech and movement present Assessment & Plan Assessment & Plan (1) Asthma: Comment: SHE HAS CHRONIC RESPIRATORY SYMPTOMS, PREDOMINANTLY DUE TO BRONCHIAL ASTHMA , WELL CONTROLLED AT THIS TIME . HAS HAD NO ACUTE EXACERBATION DURING THE PAST 1 YEAR. DURING THE SUMMER MONTHS SHE HAS INCREASED, BOUTS OF COUGH AND NASAL CONGESTION. Code(s): J45.909 - Unspecified asthma, uncomplicated Category: Medical Plan: CONTINUE AIR DUO ( 232-14 ) 1 INHALATION B.I.D.. MONTELUKAST 10 MG AT BEDTIME VENTOLIN HFA 2 PUFFS Q 6 HOURS P.R.N.. ALTERNATIVELY MAY USE ALBUTEROL IN THE NEBULIZER Q.4-6 HOURS P.R.N. PRESCRIPTIONS ARE RENEWED (2) Allergic rhinitis: Comment: SHE HAS CHRONIC ALLERGIC RHINITIS SYMPTOMS. THE NASAL CONGESTION SYMPTOMS FLUCTUATE DUE TO CHANGE IN THE TEMPERATURE AND WEATHER. THE EXAMINATION AT THIS TIME SHOWS THAT THERE IS NO ACTIVE NASAL CONGESTION. Code(s): J30.9 - Allergic rhinitis, unspecified Category: Medical Plan: USE FLONASE 2 SPRAY IN EACH NOSTRIL ONCE A DAY P.R.N. CONTINUE TO USE MONTELUKAST 10 MG DAILY SUDAFED 30 MG B.I.D. P.R.N. BUT HE IS ADVISED TO USE IT CAREFULLY (3) Obesity: Comment: DISCUSSED AND EXPLAINED TO HER THAT SHE IS GROSSLY OVERWEIGHT AND NEEDS TO LOSE WEIGHT. SHE WILL TRY TO WATCH HER DIET AND TRY TO DO SOME PHYSICAL ACTIVITY ON A DAILY BASIS. Code(s): E66.9 - Obesity, unspecified Category: Medical Plan: PATIENT IS NOT GOING TO ANY WEIGHT MANAGEMENT PROGRAM. SHE IS ADVISED TO TRY CUTTING DOWN THE PORTIONS AND TRY TO LOSE A FEW LB AT A TIME. Medications: Changed From fluticasone propion-salmeterol 232-14 mcg/actuation (AirDuo RespiClick) 1 inh PO BID 1 ea 5RF Asthma To fluticasone propion-salmeterol 232-14 mcg/actuation (AirDuo RespiClick) 1 inh PO BID 1 ea 5RF Asthma 30 days Refilled Ventolin HFA 90 mcg/actuation (albuterol sulfate) 2 puffs PO Q4-6H PRN 18 grams 2RF for wheezing NS Coding Level of Care Code Est Pt Level 3 (66617) Diagnoses Asthma J45.909 Allergic rhinitis J30.9 Obesity E66.9
== END 2024-09-12 15:30 | disposition home or self-care (01) ==
LOC: HO.HPS 15:10
PROVIDERS: PCP Internal Medicine; Visit Provider Internal Medicine
DX: J45.909 Unspecified asthma, uncomplicated (principal); J30.9 Allergic rhinitis, unspecified; E66.9 Obesity, unspecified
CPT/HCPCS: 99213

== ENCOUNTER 2025-01-06 11:23 | Outpatient (AMB) | payer OTHER, SELFPAY ==
--- OUTSIDE RECORDS SUMMARY | 2024-01-03 10:23 | XMS_ITS | Encounter Summary ---
Author Organization [facility] [place] [address] Care Team Providers Care Slat Pickler Name Role Phone Philly Headley MD Primary Care Prov ider Encounter Details Date Type Department Care Team (Late st Contact Info) Description 01/03/2024 10:23 AM EDT Hospital Encounter TH HISTORIC ENCOUNTERS EASTERN CONVERSION ONLY Samara Holbrook MD [address] [place] [phone] Social History Tobacco Use Types Packs/Day Years Used Date Smoking Tobacco: Never Smokeless Tobacco: Never Alcohol Use Standard Drinks/Week Comments Yes 0 (1 standard drink = 0.6 oz pur e alcohol) Housing Instability Answer Date Recorde d Are you worried that in the next 2 months you may not have stable housing? No 02/22/2024 Food Access & Nutrition Answer Date Rec orded Do you have access to a vari ety of food including fruits and vegetables? Yes 02/22/2024 Access to Healthcare Answer Date Record ed Within the last 3 months, ho w many times did you visit the emergency department for your medical care? 0 02/22/2024 Health Literacy Answer Date Recorded How often do you need to hav e someone help you when you read instructions, pamphlets, or other written material from your doctor or pharmacy? Never 02/22/2024 Caregiver: How often do you need to have someone help you when you read instructions, pamphlets, or other written material from your doctor or pharmacy? Not on file 02/22/2024 Financial Risk Answer Date Recorded How hard is it for you to pa y for the very basics like food, housing, medical care, and air conditioning / heating? Somewhat hard 02/22/2024 Transportation Answer Date Recorded Has the lack of transportati on kept you from meetings, work, or from getting things needed for daily living? No Has the lack of transportati on kept you from medical appointments or from getting medications? No 02/22/2024 Social Isolation Answer Date Recorded How often do you feel lonely or isolated from th ose around you? Never 02/22/2024 Food Risk Answer Date Recorded Within the past 12 months we worried whether our food would run out before we got money to buy more. Never true 02/22/2024 Within the past 12 months th e food we bought just didn't last and we didn't have money to get more. Never true 02/22/2024 Dependent Care Answer Date Recorded Do you need help finding or paying for care for your loved ones. For example, children's author or elderly care for an older adult? No 02/22/2024 Education Answer Date Recorded Do you think completing more education or training, like finishing a GED, going to college, or learning a trade, would be helpful for you? Yes 02/22/2024 Employment and Income Answer Date Recor ded During the last four weeks, have you been actively looking for work? Yes 02/22/2024 Living Situation Answer Date Recorded What is your living situation? Unrecognized valu e 02/22/2024 Comments No Sex and Gender Information Value Date Recorded Sex Assigned at Not on file Legal Sex Female 1:02 PM EST Gender Identity Not on file Sexual Orientation Not on file documented as of this encounter Last Filed Vital Signs Vital Sign Reading Time Taken Comments Blood Pressure 132/84 01/03/2024 10:26 AM EDT Sitting Left arm Pulse 76 01/03/2024 10:26 AM EDT Temperature - - Respiratory Rate - - Oxygen Saturation - - Inhaled Oxygen Concentration - - Weight 98.4 kg (217 lb) 01/03/2024 10:2 6 AM EDT Height - - Body Mass Index 38.44 12/27/2023 10:08 AM EDT documented in this encounter Progress Notes * Samara Holbrook MD - 01/03/2024 10:15 AM EDT CHIEF COMPLAINT: Follow-up IDENTIFIER:Chantel Russell is a 48 y.o. female. HPI: 48-year-old female who had severe microcytic anemia with hypochromia due to menorrhagia last year received intravenous iron infusion with very good response, patient still has been feeling fatigue still having intermittent menorrhagia, recent labs showed hemoglobin 11 g with some depletion of iron stores but much better than before ROS: Has mild fatigue but better than before Still having menses sometimes heavy No black stool blood in stool No significant skin issues or new unusual aches and pain No significant neurological issues PAST MEDICAL HISTORY: Hypothyroidism Asthma Allergies Iron deficiency anemia/B12 deficiency SOCIAL HISTORY: Social History Tobacco Use ??? Smoking status: Never Passive exposure: Past ??? Smokeless tobacco: Never Substance Use Topics ??? Alcohol use: Not Currently Comment: maybe 2 drinks a year FAMILY HISTORY: History reviewed. No pertinent family history. No family status information on file. Current Outpatient Medications: ??? albuterol (PROVENTIL) (2.5 MG/3ML) 0.083% nebulizer solution, USE 1 VIAL 3 ML) INHALED BY NEBULIZATION EVERY 4 TO 6 HOYURS NEEDED FOR WHEEZING, Disp: , Rfl: ??? cetirizine (ZyrTEC) 10 MG tablet, Take 1 tablet (10 mg total) by mouth., Disp: , Rfl: ??? Cholecalciferol 25 MCG (1000 UT) tablet, TAKE ONE TABLET BY MOUTH EVERY DAY., Disp: , Rfl: ??? famotidine (PEPCID) 20 MG tablet, Take 1 tablet (20 mg total) by mouth 2 (two) times a day., Disp: , Rfl: ??? fluticasone (FLONASE) 50 MCG/ACT nasal spray, spray or apply 2 sprays inside Nose., Disp: , Rfl: ??? Fluticasone-Salmeterol 232-14 MCG/ACT AEPB, Take 1 puff by mouth 2 (two) times a day., Disp: , Rfl: ??? hydrocortisone 2.5 % cream, APPLY 1 APPLICATION TOPICAL TWICE A DAY NEEDED FOR ITCHING., Disp: , Rfl: ??? hydrOXYzine (ATARAX) 10 MG tablet, TAKE ONE TABLET BY MOUTH EVERY 8 HOURS NEEDED FOR ITCHING, Disp: , Rfl: ??? levothyroxine (SYNTHROID) tablet 75 mcg, Take 1 tablet (75 mcg total) by mouth daily., Disp: , Rfl: ??? montelukast (SINGULAIR) 10 MG tablet, Take 1 tablet (10 mg total) by mouth every night at bedtime., Disp: , Rfl: ??? Nebulizers (My MDI Portable Nebuliser) MISC, DIRECTED FOUR TIMES DAILY NEEDED, Disp: , Rfl: ??? Ventolin HFA 108 (90 Base) MCG/ACT inhaler, INHALE TWO PUFFS BY MOUTH EVERY 4 TO 6 HOURS NEEDED FOR WHEEZING, Disp: , Rfl: You are allergic to the following Date Reviewed: 01/03/2024 Allergen Reactions Amoxicillin-Pot Clavulanate Itching Ciprofloxacin Itching Doxycycline Itching Zithromax (Azithromycin) Hives PHYSICAL EXAM: BP 132/84 (BP Location: Left arm) Pulse 76 Temp 98 ??F (36.7 ??C) (Temporal) Wt 98.4 kg (217 lb) SpO2 100% ECOG 0 APPEARANCE: Alert and oriented in no acute distress EYES: nonicteric sclera pink conjunctiva ORAL CAVITY: No erythema or exudates NECK: Neck supple, no adenopathy, HEART: normal S1 and S2 LUNG: clear to auscultation bilaterally LYMPH NODES: No palpable superficial adenopathy ABDOMEN: soft, nontender and no organomegaly appreciated EXTREMITIES: No significant edema erythema tenderness LABS: WBC 7.4, hemoglobin 11 g, hematocrit 35%, MCV 80.6 and platelet count 273 Peripheral smear unremarkable TIBC 430, iron saturation 6% and ferritin 13 IMPRESSION: SNOMED CT(R) 1. Microcytic anemia MICROCYTIC ANEMIA 2. Iron deficiency anemia due to chronic blood loss IRON DEFICIENCY ANEMIA DUE TO BLOOD LOSS 48-year-old female who had significant microcytic hypochromic anemia due to significant blood loss/menorrhagia last year when her hemoglobin was only 8 g with severe iron deficiency so I gave her Venofer infusion with significant response/good response, patient lately has been feeling little fatigue still having some menses but not as heavy as last year, recent labs showed hemoglobin 11g with some depletion of iron store so I discussed with the patient that there is a possibility shemay develop significant anemia if she continues to have menorrhagia but if her menses are lightening up or stop, she may not develop anemia and may not need any intervention but since she is 48 now Irecommended strongly that she should have colonoscopy PLAN: If she continued to feel fatigue and tired and continued to have menorrhagia/heavy menses she will have recheck blood count and iron studies and I will probably arrange intravenous iron infusion Samara Holbrook MD documented in this encounter Plan of Treatment Not on file documented as of this encounter Visit Diagnoses Not on filedocumented in this encounter Additional Health Concerns Infection Onset Date Last Indicated Resolved Time Respiratory Rule-Out 03/07/2024 03/07/2024 024 9:32 AM EST COVID-19 Rule-Out 03/07/2024 03/07/2024 03/08/2024 9:32 AM EST Respiratory Rule-Out 03/15/2024 03/15/2024 024 5:39 PM EST COVID-19 Rule-Out 03/15/2024 03/15/2024 03/15/2024 5:39 PM EST Respiratory Rule-Out 12/18/2024 12/18/2024 025 5:04 PM EDT COVID-19 Rule-Out 12/18/2024 12/18/2024 12/18/2024 5:04 PM EDT documented as of this encounter Care Teams Slat Pickler Relationship Specialty Start Date End Date Philly Headley MD [address] [place] [phone] PCP - General Internal Medicine 12/13/21 documented as of this encounter
[2025-01-06 11:26] VITALS: BP 120/80; PULSE 89; O2SAT 98; BMI 38.1
--- NOTE | 2025-01-06 11:26 | MHC.OFFVIS ---
Vital Signs 01/06/25 11:26 Height 5 ft 3 in Weight 214 lb 15.211 oz BMI 38.1 BP 120/80 Blood Pressure Location Lt brachial Position Sitting Pulse 89 Pulse Source Pulse Oximeter Pulse Oximetry (%) 98 Oxygen Delivery Method Room Air Intake Visit Reasons: asthma Intake Note: pt is here for follow up and states she was exposed to mold and is now coughing and sneezing (allergies) Load Dispatcher Required: No Logging Operations Inspector: Logging Operations Inspector offered & declined Allergies doxycycline (DOXYCYCLINE) Allergy (Intermediate, Verified 01/06/25 11:39) ITCHY, itching, itching amoxicillin (Augmentin) Allergy (Unknown, Verified 01/06/25 11:39) itching azithromycin (From ZITHROMAX) Allergy (Unknown, Verified 01/06/25 11:39) HIVES ciprofloxacin (From CIPRO) Allergy (Unknown, Verified 01/06/25 11:39) ITCH clavulanic acid (Augmentin) Allergy (Unknown, Verified 01/06/25 11:39) itching mold (MOLD) Allergy (Unknown, Verified 01/06/25 11:39) STUFFY NOSE mushroom (MUSHROOM) Allergy (Unknown, Verified 01/06/25 11:39) DIARRHEA Yeast (YEAST) Allergy (Unknown, Verified 01/06/25 11:39) DIARRHEA Medication List - Last Reconciled 01/06/25 by Freida Montoya MD albuterol sulfate 2.5 mg (3 mL) PO Q4-6H PRN 30 days epinephrine IM famotidine (Pepcid) 20 mg PO BID ferrous sulfate 325 mg PO DAILY fluticasone propion-salmeterol 232-14 mcg/actuation (AirDuo RespiClick) 1 inh PO BID 30 days fluticasone propionate 50 mcg/actuation 2 sprays intranasal DAILY 90 days hydroxyzine HCl 1 tab PO Q8H PRN ibuprofen (Advil) 200 mg PO DAILY PRN [interdry As directed once daily] levothyroxine 1 tab PO QAM montelukast 10 mg PO BEDTIME 30 days nitrofurantoin macrocrystal 50 mg PO BEDTIME 90 days nystatin 5 mL PO TID PRN nystatin 1 appl topical TID PRN Ventolin HFA 90 mcg/actuation (albuterol sulfate) 2 puffs PO Q4-6H PRN NS Do you need a note to return to daycare/school/sports/work: No HPI HPI asthma: Details: Terri comes after 6 months for follow-up. She has been doing very well during the last 6 months. Had a few bouts of increased nasal congestion cough and some mucus. Every now and then she does get some irritation in the throat and I and usually os for nystatin suspension which works. At present she is doing very well , she uses rescue inhaler only once in a while. Chantel is nonsmoker. [facility] Medical History Bronchitis Obesity Allergic rhinitis COVID-19 Thrush Asthma History of urinary tract infection History of urinary reflux Social History Household Members: Spouse and Children Housing: House Do you presently have visiting nurse or other home services: No Alcohol intake: never Patient Tobacco Use Status: Never used Tobacco Advance Directives Date on File: 11/03/21 service: No Current occupational status: unemployed Review of Systems Const All systems reviewed & are unremarkable except as noted in HPI and below Eyes Reports no additional complaints ENT Reports nasal congestion (MILD OFF AND ON ) Card Reports no additional complaints Resp Denies cough and Denies wheezing GI Reports no additional complaints Reports no additional complaints Musc Reports no additional complaints Skin/Breast Reports system reviewed and no additional complaints, except as documented Neuro Reports no additional complaints Psych Reports no additional complaints Sujit/Lymph Reports no additional complaints Aller/Immun Denies wheezing Physical Exam Vital Signs: BMI result Body Mass Index 38.1 She is quite overweight but appears quite comfortable and healthy. Const General: comfortable, no acute distress, alert and awake Orientation/consciousness: patient oriented x3 HEENT Head: Yes normal to inspection General nose exam: No nasal polyps present and No nasal discharge present Face and sinus: Yes sinuses nontender Mouth: oropharynx normal Throat: Yes posterior oropharynx normal Eyes General: appearance normal, both eyes and all related structures Neck Neck: Yes normal visual inspection, Yes no lymphadenopathy, Yes trachea midline and Yes no JVD Thyroid: Thyroid normal Chest Chest palpation & inspection: normal inspection of the chest, normal palpation of entire chest wall and no tenderness Resp Other: Percussion note resonant, breath sounds are equal and vesicular on both sides. No wheezes or rhonchi heard today . Cardio Palpation: normal PMI Rate: regular rate Rhythm: regular rhythm Heart sounds: no gallops and no murmurs Peripheral pulses: Peripheral pulses 2+ throughout GI Palpation (GI): Soft to palpation, nontender, No hepatosplenomegaly present, no masses and Other GI palpation findings present (Abdomen is obese and somewhat protuberant) Auscultation: normal bowel sounds Back/Spine/Pelvis Thoracic/Lumbar Spine: thoracic and lumbar spine normal to inspection Skin General skin exam: no rashes or lesions noted Neuro General: patient oriented x3 and no focal motor deficits Cranial nerves: Yes CN's II-XII intact bilaterally Extrem General: Yes normal to inspection, Yes no clubbing, cyanosis or edema and Yes no calf tenderness Psych Appearance: grossly normal and well kempt Speech and movement: Normal speech and movement present Assessment & Plan Assessment & Plan (1) Asthma: Comment: SHE HAS CHRONIC RESPIRATORY SYMPTOMS, PREDOMINANTLY DUE TO BRONCHIAL ASTHMA , WELL CONTROLLED AT THIS TIME . HAS HAD NO ACUTE EXACERBATION DURING THE PAST 1 YEAR. DURING THE SUMMER MONTHS SHE HAS INCREASED, BOUTS OF COUGH AND NASAL CONGESTION. SHE REMAINS RELATIVELY BETTER DURING WINTER MONTHS. Code(s): J45.909 - Unspecified asthma, uncomplicated Category: Medical Plan: CONTINUE TO USE FLUTICASONE-SALMETEROL 232-14 ( AIRDUO ) 1 INHALATION B.I.D. ALBUTEROL HFA 2 PUFFS Q 6 HOURS P.R.N. OR ALBUTEROL SOLUTION IN THE NEBULIZER Q 4-6 HOURS P.R.N. WHEN AT HOME (2) Obesity: Comment: DISCUSSED AND EXPLAINED TO HER THAT SHE IS GROSSLY OVERWEIGHT AND NEEDS TO LOSE WEIGHT. SHE WILL TRY TO WATCH HER DIET AND TRY TO DO SOME PHYSICAL ACTIVITY ON A DAILY BASIS. Code(s): E66.9 - Obesity, unspecified Category: Medical Plan: SHE IS ALWAYS TRYING TO CONTROL HER CALORIES INTAKE. BUT SHE IS NOT ABLE TO DO MUCH EXERCISE. (3) Allergic rhinitis: Comment: SHE HAS CHRONIC ALLERGIC RHINITIS SYMPTOMS. THE NASAL CONGESTION SYMPTOMS FLUCTUATE DUE TO CHANGE IN THE TEMPERATURE AND WEATHER. THE EXAMINATION AT THIS TIME SHOWS THAT THERE IS NO ACTIVE NASAL CONGESTION. Code(s): J30.9 - Allergic rhinitis, unspecified Category: Medical Plan: CONTINUE MONTELUKAST 10 MG DAILY AND FLONASE-50 2 SPRAY EACH NOSTRIL DAILY (4) Thrush: Comment: SHE IS PRONE TO HAVE FREQUENT BOUTS OF MILD THRUSH , USUALLY TREATED WITH A SHORT COURSE OF NYSTATIN SWISHES . Code(s): B37.0 - Candidal stomatitis Category: Medical Plan: NYSTATIN SWISHES 5 MALE T.I.D. SWISH AND SWALLOW FOR 5 DAYS P.R.N.. Medications: Changed From nystatin swish and swallow 5 mL PO TID 5 days 75 mL 1RF oral thrush To nystatin swish and swallow 5 mL PO TID PRN oral thrush Freida Montoya MD From fluticasone propion-salmeterol 232-14 mcg/actuation (AirDuo RespiClick) 1 inh PO BID 30 days 1 ea 5RF Asthma To fluticasone propion-salmeterol 232-14 mcg/actuation 1 inh PO BID 1 ea 5RF Asthma 30 days Freida Montoya MD From nystatin Applied to abdominal folds and bilateral groin area; to affected area 1 appl topical TID 10 days 60 grams 0RF To nystatin Applied to abdominal folds and bilateral groin area; to affected area 1 appl topical TID PRN COURTNEY Gunn Refilled Ventolin HFA 90 mcg/actuation (albuterol sulfate) 2 puffs PO Q4-6H PRN 18 grams 4RF for wheezing NS Freida Montoya MD Coding Level of Care Code Est Pt Level 3 (51776) Diagnoses Asthma J45.909 Obesity E66.9 Allergic rhinitis J30.9 Thrush B37.0
--- OUTSIDE RECORDS SUMMARY | 2025-01-06 13:59 | XMS_ITS | Clinical Summary ---
Author Organization [facility] Address [address] [place] [address] [place] [phone] Phone Care Team Providers Care Nail Kegger Name Role Phone Philly Headley MD Primary Care Prov ider Allergies Active Allergy Reactions Criticality Noted Date Comments Amoxicillin-Pot Clavulanate Itching 07/10/19 14 Azithromycin Hives 04/19/2022 Ciprofloxacin Itching 09/18/2017 Doxycycline Itching 09/18/2017 Medications albuterol 2.5 mg /3 mL (0.083 %) nebulizer solution INHALE 2.5 MG 3 ML) BY MOUTH EVERY 4 TO 6 HOURS FOR WHEEZING. Active VENTOLIN HFA 90 mcg/actuation inhaler INHALE TWO PUFFS BY MOUTH EVERY 4 TO 6 HOURS NEEDED FOR WHEEZING 3 Active benzonatate (TESSALON) 200 MG capsule TAKE ONE CAPSULE BY MOUTH TWICE A DAY NEEDED FOR COUGH FOR 15 DAYS. 4 Active EPINEPHrine 0.3 mg/0.3 mL auto-injector USE DIRECTED FOR ANAPHYLAXIS AND CALL 911 AFTER USE 4 Active ferrous sulfate 325 mg (65 mg sun'aq iron) EC tablet TAKE 1 TABLET BY MOUTH DAILY WITH BREAKFAST). 4 Active fluticasone propion-salmete roL (AIRDUO RESPICLICK) 232-14 mcg/actuation inhaler Take 1 puff by mouth. 3 Active fluticasone propionate (FLONASE) 50 mcg/actuation nasal spray 2 sprays by Nasal route daily. 4 Active hydrocortisone 2.5 % cream APPLY 1 APPLICATION TOPICALLY TWICE A DAY NEEDED FOR ITCHING. 4 Active hydrOXYzine (ATARAX) 25 MG tablet TAKE ONE TABLET BY MOUTH THREE TIMES A DAY NEEDED FOR ITCHING 4 Active levothyroxine (SYNTHROID, LEVOTHROID) 75 MCG tablet Take 75 mcg by mouth daily. Active montelukast (SINGULAIR) 10 mg tablet Take 10 mg by mouth. 3 Active nitrofurantoin (MACRODANTIN) 50 MG capsule TAKE ONE CAPSULE BY MOUTH AT BEDTIME MUST ADMINSTER WITH MEAL/FOOD. 4 Active Active Problems No known active problems Social History Tobacco Use Types Packs/Day Years Used Date Smoking Tobacco: Never Smokeless Tobacco: Never Tobacco Cessation:Counseling Given: Not Answered Alcohol Use Standard Drinks/Week Comments Not Asked 0 (1 standard drink = 0.6 oz pur e alcohol) NO Education Answer Date Recorded Are you interested in more education? Not on elaina e 07/06/2023 Are you concerned about learning? Not on file 07/06/2023 No 07/06/2023 No 07/06/2023 Digital Access Answer Date Recorded No 07/06/2023 No 07/06/2023 Reliable internet access at home? Not on file 07/06/2023 Device with a working camera? Not on file Comments Unknown Sex and Gender Information Value Date Recorded Sex Assigned at Female 07/06/2023 2:32 PM EDT Legal Sex Female 2:28 PM EDT Gender Identity Female 07/06/2023 2:32 PM EDT Sexual Orientation Straight 07/06/2023 2: 32 PM EDT Plan of Treatment Health Maintenance Due Date Last Done Comments Adult Td,Tdap Booster 1973 LIPID PANEL 1973 TSH LEVEL 1973 DEPRESSION SCREENING 1985 HEPATITIS C SCREENING 11/30/1991 HIV ONE-TIME SCREENING (18-6 5 YEARS) 11/30/1991 PAP SMEAR 1994 MAMMOGRAM 2013 COLOGUARD 2018 COLONOSCOPY 2018 COLORECTAL CANCER SCREENING 2018 FIT TEST 2018 FOBT 2018 SIGMOIDOSCOPY 2018 VIRTUAL COLONOSCOPY 2018 PNEUMOCOCCAL VACCINES (50+ y ears) (1 of 1 - PCV) 11/30/2023 ZOSTER VACCINES (1 of 2) 11/30/2023 INFLUENZA VACCINE (#1) 2024 COVID-19 VACCINE (1 - 2024-2 6 season) 2024 RSV VACCINE (1 - 1-dose 75+ series) 2048 SMOKING STATUS SCREENING (On ce After 26 Yrs) Completed 09/11/2023 HEPATITIS A VACCINES Aged Out No long er eligible based on patient's age to complete this topic HIB VACCINES Aged Out No longer eligi ble based on patient's age to complete this topic MENINGOCOCCAL VACCINES (ACWY) Aged Out No longer eligible based on patient's age to complete this topic MENINGOCOCCAL VACCINES (B) Aged Out N o longer eligible based on patient's age to complete this topic Medical Devices Not on file Insurance [facility] NET FULL PCP [facility] FULL Member Subscriber Plan / Payer (Ef fective 2023-Present) Name:Chantel Russell Relation to Subscriber:Self Name:Chantel Russell Payer ID:Not on file Group ID:Not on file Type:Medicaid Address: [address] NON [place] PCP [employer] [facility] [facility] [employer] NET FULL Member Subscriber Plan / Payer (Ef fective 2023-Present) Name:Chantel Russell Relation to Subscriber:Self Name:Chantel Russell Payer ID:Not on file Group ID:Not on file Type:Medicaid [address] [place] PCP [facility] [employer] [facility] NET FULL PCP [facility] [place] [facility] NET FULL WELLSENSE NON NSPG PCP [employer] [facility] S[employer]Y NET FULL WELLSENSE NON NSPG PCP [employer] Care Teams Nail Kegger Relationship Specialty Start Date End Date Philly Headley MD [address] [place] [phone] PCP - General Internal Medicine 07/06/23 Additional Source Comments The information contained in this document represents components of the legal health record. It is not the complete legal health record.[facility]
--- OUTSIDE RECORDS SUMMARY | 2025-01-06 13:59 | XMS_ITS | Clinical Summary ---
Author Organization 175 [facility] Address [address] [place] [address] Phone Care Team Providers Care Educational Administration Teacher Name Role Phone Philly Headley MD [...] HOYURS NEEDED FOR WHEEZING 04/06/19 23 Active fluticasone propion-salmete roL (AirDuo RespiClick) 232-14 [...] (one) time each day. 07/15/19 22 Active famotidine (PEPCID) 20 mg tablet Take 1 tablet (20 mg total) by mouth 2 (two) times a day. 11/27/19 21 Active ferrous sulfate 325 mg (65 mg iron) EC tablet Take 1 tablet (325 mg total) by mouth. 07/20/19 24 Active ketotifen (ZADITOR) 0.025 % ophthalmic solution INSTILL ONE DROP INTO BOTH EYE TWICE A DAY NEEDED FOR ITCH, TEAR OR REDNESS 08/17/19 23 Active multivitamin with iron (Daily Multiple Vitamins/Iron) Take 1 tablet by mouth 1 (one) time each day. 11/27/19 15 Active Ventolin HFA 90 mcg/actuation inhaler INHALE TWO PUFFS BY MOUTH EVERY 4 TO 6 HOURS NEEDED FOR WHEEZING 03/15/20 18 Active silver sulfADIAZINE (Silvadene) 1 % cream Apply topically 1 (one) time each day. 50 g 05/13/19 25 2025 Active nystatin (MYCOSTATIN) 100,000 unit/mL suspension Take 5 mL by mouth 3 (three) times a day. Swish in mouth and spit out. 90 mL 09/04/19 25 Active diclofenac (Voltaren Arthritis Pain) 1 % topical gel Apply 2 g topically 2 (two) times a day. 30 g 09/22/19 25 Active EPINEPHrine (EpiPen 2-Dada) 0.3 mg/0.3 mL injection Inject 0.3 mL (0.3 mg total) into the thigh if needed for anaphylaxis. 1 each 1 10/16/19 25 Active hydrOXYzine HCL (ATARAX) 25 mg tablet TAKE ONE TABLET BY MOUTH THREE TIMES A DAY NEEDED FOR ITCHING 90 tablet 1 11/01/19 25 Active levothyroxine (SYNTHROID, LEVOTHROID) 75 mcg tablet Take 1 tablet (75 mcg total) by mouth 1 (one) time each day before breakfast. 90 tablet 1 11/08/19 25 Active montelukast (SINGULAIR) 10 mg tablet Take 1 tablet (10 mg total) by mouth at bedtime. at bedtime 90 tablet 11/12/19 25 Active ibuprofen (ADVIL,MOTRIN) 600 mg tablet Take 1 tablet (600 mg total) by mouth every 6 (six) hours if needed for moderate pain. 40 tablet 11/27/19 25 Active fluticasone propionate (FLONASE) 50 mcg/actuation nasal spray Administer 2 sprays into each nostril 1 (one) time each day. Shake gently. Before first use, prime pump. After use, clean tip and replace cap. 16 g 5 12/19/19 25 2025 Active acetaminophen (TYLENOL) 325 mg tablet Take 2 tablets (650 mg total) by mouth every 6 (six) hours if needed for mild pain. 60 tablet 12/19/19 25 Active fluticasone propionate (FLONASE) 50 mcg/actuation nasal spray Administer 2 sprays into affected nostril(s). 07/20/19 24 2024 Discontinued Active Problems Problem Noted Date Diagnosed Date Obesity, Class II, BMI 35-39.9 10/07/2024 Assessment & Plan (10/15/2024 3:50 PM EDT): BMI is 37.7. Today we discussed about low-carb and fat diet, importance of regular exercise. Will check a thyroid profile today. Orders: Thyroid stimulating hormone with reflex to free t4 and free t3; Future Kidney disease 01/04/2024 Overview (01/04/2024): Undefined- chronic; [...] Overview (01/04/2024): 05/2018 U/s showing complex cyst; Vegetable Tier following Uterine fibroid 08/17/2018 Asthma 09/18/2017 Assessment [...] Eczema 05/10/2011 Hypothyroidism 05/07/2010 Assessment & Plan (10/15/2024 3:50 PM EDT): She is currently on levothyroxine 75 mcg a day. Will check a thyroid profile today. Continue same medication for now. Assessment & Plan (05/20/2024 1:46 PM EST): Currently on levothyroxine 75 mcg a day. Last TSH within normal limits, resulting stable over the last years. We will continue same dose. Orders: Thyroid stimulating hormone; Future Encounters Date Type Department Care Team Description 12/30/2024 1:15 PM EDT Office Visit Orthopedic Surgery - [place] [facility] [address] [place] [phone] Yari Bolanos PA Pain of right forearm (Primary Dx); Bursitis of left shoulder 12/20/2024 Telephone Adult [address] [phone] Philly Headley MD 12/18/2024 11:00 AM EDT Office Visit Adult [address] [phone] Jose Alfredo Hansen PA Upper respiratory tract infection, unspecified type (Primary Dx) 12/17/2024 Telephone Adult [address] [phone] Philly Headley MD 11/27/2024 Telephone [facility] Hematology Oncology [address] [place] [phone] Samara Holbrook MD 11/25/2024 1:15 PM EDT Office Visit [facility] Hematology Oncology [address] [place] [phone] Samara Holbrook MD Iron deficiency anemia, unspecified iron deficiency anemia type (Primary Dx) 11/20/2024 Telephone Obstetrics and Gynecology [address] [phone] Stella Quinonez CNM 11/19/2024 Telephone Adult Medicine [address] [phone] Philly Headley MD 11/06/2024 Telephone [facility] Hematology Oncology [address] [place] [phone] Samara Holbrook MD 10/16/2024 Telephone [facility] Hematology Oncology [address] [place] [phone] Samara Holbrook MD 10/15/2024 1:00 PM EDT Office Visit Adult Medicine [address] [phone] Philly Headley MD Obesity, Class II, BMI 35-39.9 (Primary Dx); Hypothyroidism, unspecified type; Pneumococcal vaccination indicated 10/09/2024 Telephone Adult [address] [phone] Val Galvez MA 10/07/2024 10:00 AM EDT Office Visit Adult Medicine [address] [phone] Bridgette Jernigan PA Insect bite of left ankle, initial encounter (Primary Dx); Insect bite of right ankle, initial encounter; Left ankle effusion; Acute left ankle pain; Obesity, Class II, BMI 35-39.9 from Last 3 Months Immunizations Immunization Administration Dates Next Due Influenza Quadravalent, MDCK , 0.5ml, preservative free (Flucelvax) 6mo and older 04/14/2022 Influenza trivalent, 0.5mL, preservative free (Fluarix; FluLaval; Fluzone) ages 6mo and older (Afluria) 3 years and older 12/08/2009 Influenza trivalent, with pr eservative (Fluzone; Afluria) 6mo and older 01/19/2014,01/14/2013,12/18/2011,12/28 Pneumococcal conjugate 20 va lent (Prevnar 20, PCV 20) 2mo and older 10/15/2024 Pneumococcal polysaccharide 23 valent (Pneumovax 23) 2yo and older 11/01/2012 Tdap Tetanus diptheria acell ular pertussis (Boostrix; Adacel) 7yo and older 06/27/2016,02/23/2015,12/08/2009 Surgical History Surgery Date Site/Laterality Comments HERNIA REPAIR PROCEDURE: HISTORICAL HERNIA REPAIR/ING; COMMENT: child OTHER SURGICAL HISTORY PROCEDURE: HISTORICAL ARM SURGERY; COMMENT: left arm, two benign moles/lesions removed OVARIAN CYST REMOVAL 2011 PROCEDURE: [place] OVARIAN [...] (BMI) of 40.0 to 44.9 in adult ([facility] V24, [facility] V28) 03/07/2018 DX:Morbid obesity with body mass index (BMI) of 40.0 to 44.9 in adult ([facility]) History of sepsis 08/17/2018 DX:History of sepsis; COMMENT: 05/2018 Pyelonephritis Uterine fibroid 08/17/2018 DX:Uterine fibro id Adnexal mass 08/17/2018 DX:Adnexal mass; COMMENT: 05/2018 U/s showing complex cyst; Vegetable Tier following Hx of migraines DX:Hx of migrain [...] care for your loved ones. For example, school childcare attendant or elderly care for an older [...] Sign Reading Time Taken Comments Blood Pressure 118/78 12/18/2024 11:11 AM EDT Pulse 57 12/18/2024 11:11 AM EDT Temperature 35.9 C (96.7 F) 12/18/2024 11:11 AM EDT Respiratory Rate 16 12/30/2024 1:10 PM EDT Oxygen Saturation 99% 12/18/2024 11:11 AM EDT Inhaled Oxygen Concentration - - Weight 96.6 kg (213 lb) 12/30/2024 1:10 PM EDT Height 160 cm (5' 3 ) 12/30/2024 1:10 PM EDT Body Mass Index 37.73 12/30/2024 1:10 PM EDT Plan of Treatment Health Maintenance Due Date Last Done Comments Hepatitis B Vaccines (1 of 3 - 19+ 3-dose series) 1992 Zoster Vaccines (1 of 2) 11/30/2023 Breast Cancer Screening 08/18/2024 08/18/2022 COVID-19 Vaccine ( - season) 2024 07/21/2020, 06/29/2020 Influenza Vaccine (#1) 2024 , 02/23/2015, 01/19/2014, Additional history exists Social Influencers of Health Screening 02/21/2025 02/22/2024 Colorectal Cancer Screening: FIT-DNA (Cologuard) 02/02/2027 02/03/2024 Cervical Cancer Screening: HPV 06/10/2027 06/09/2022 Cholesterol Screening (Lipid Panel) 11/16/2028 11/17/2023, 11/17/2023 DTaP,Tdap,and Td Vaccines (5 - Td or Tdap) 07/24/2034 07/24/2024, 06/27/2016, 02/23/2015, Additional history exists RSV Immunization Adult Patients (1 - 1-dose 75+ series) 2048 HIV Screening Completed 06/09/2022 Hepatitis C Screening Completed 06/09/2022 Depression Screening Completed 05/15/2024, 04/06/19 24 Pneumococcal Vaccine: 50+ Years Completed 10/15/2024, 11/01/2012 HIB Vaccines Aged Out No longer eligi [...] Procedure Name Priority Date/Time Associated Diagnosis Comments [id number], RSV, FLU A AND B QUALITATIVE RT-PCR, LOCAL REFERENCE LAB Routine 12/18/2024 11:48 AM EDT Upper respiratory tract infection, unspecified type CBC WITH AUTO DIFFERENTIAL Routine 11/18/2024 1:37 PM EDT Iron deficiency anemia due to chronic blood loss FERRITIN Routine 11/18/2024 1:37 PM EDT Iron deficiency anemia due to chronic blood loss IRON AND TIBC Routine 11/18/2024 1:37 PM EDT Iron deficiency anemia due to chronic blood loss CBC AND DIFFERENTIAL Routine 11/18/2024 1:37 PM EDT Iron deficiency anemia due to chronic blood loss THYROID STIMULATING HORMONE Routine 10/15/2024 2:02 PM EDT Hypothyroidism, unspecified type THYROID STIMULATING HORMONE WITH REFLEX TO FREE T4 AND FREE T3 Routine 10/15/2024 2:02 PM EDT Obesity, Class II, BMI 35-39.9 EXTERNAL COLOGUARD (FIT-DNA) REPORT 02/03/2024 LIPID PANEL Routine 11/17/2023 DEPRESSION SCREENING Routine 04/06/2023 DIAGNOSTIC MAMMOGRAPHY INCLUDING CAD BILATERAL Routine 08/18/2022 9:49 AM EDT Localized swelling, mass and lump, right upper limb HPV Routine 06/09/2022 HEPATITIS C SCREENING Routine 06/09/2022 HIV SCREENING Routine 06/09/2022 from Last 3 Months or Most Recently Relevant to Health Maintenance Results * [id number], RSV, Influenza A and B qualitative RT-PCR (12/18/2024 11:48 AM EDT) SARS COV-2 Not Detected Not Detected LAB MOLECULAR DIAGNOSTICS METHOD 12/18/2024 5:04 PM EDT [facility] Comment: Disclaimer: The manner in which this information is used to guide patient care is the responsibility of the healthcare provider. Testing was performed using the [employer] m SARS-CoV-2 test. This test has [...] for Healthcare Providers can be found at: https://www.fda.gov/media/713361/download Fact sheet for Patients can be found at: https://www.fda.gov/media/246327/download Influenza A PCR Not Detected Not Detected LAB MOLECULAR DIAGNOSTICS METHOD 12/18/2024 5:04 PM EDT [facility] Influenza B PCR Not Detected Not Detected LAB MOLECULAR DIAGNOSTICS METHOD 12/18/2024 5:04 PM EDT [facility] RSV PCR Not Detected Not Detected LAB MOLECULAR DIAGNOSTICS METHOD 12/18/2024 5:04 PM EDT [facility] Swab Nasopharyngeal structure / Unknown Non-blood Collection / Unknown 12/18/2024 11:48 AM EDT 12/18/2024 12:08 PM EDT us Jose Alfredo LEAVITT LAB MICROBIOLOGY - GENER AL ORDERABLES Final Result [facility] [address] [place] [address], * (ABNORMAL) CBC auto differential (11/18/2024 1:37 PM EDT) WBC 7.9 4.8 - 10.8 K/mcL LAB HEMETOLOGY METHOD 11/18/2024 5:09 PM EDT [facility] RBC 4.50 3.80 - 4.80 M/mcL LAB HEMETOLOGY METHOD 11/18/2024 5:09 PM EDT [facility] Hemoglobin 11.8 11.5 - 16.0 g/dL LAB HEMETOLOGY METHOD 11/18/2024 5:09 PM EDT [facility] Hematocrit 37.5 35.0 - 47.0 % LAB HEMETOLOGY METHOD [facility] MCV 84.3 79.0 - 98.0 FL LAB HEMETOLOGY METHOD [facility]24 [facility] MCH 26.5(L) 27.0 - 32.0 pcg LAB HEMETOLOGY METHOD 11/18/2024 5:09 PM [facility] MCHC 31.5(L) 32.0 - 37.0 g/dL LAB HEMETOLOGY METHOD 11/18/2024 5:09 PM [facility] RDW 15.4(H) 11.0 - 15.0 % LAB HEMETOLOGY METHOD 11/18/2024 5:09 PM [facility] Platelets 254 130 - 400 K/mcL LAB HEMETOLOGY METHOD 11/18/2024 5:09 PM [facility] MPV 10.8 7.0 - 11.0 FL LAB HEMETOLOGY METHOD 11/18/2024 5:09 PM [facility] NRBC 0.0 <1.0 % LAB HEMETOLOGY METHOD 11/18/2024 5:09 PM [facility] NRBC Absolute 0.00 <0.10 K/mcL LAB HEMETOLOGY METHOD 11/18/2024 5:09 PM [facility] Neutrophils Relative 64.6 % LAB HEMETOLOGY METHOD 11/18/2024 5:09 PM [facility] Lymphocytes Relative 19.9 % LAB HEMETOLOGY METHOD 11/18/2024 5:09 PM [facility] Monocytes Relative 11.4 % LAB HEMETOLOGY METHOD 11/18/2024 5:09 PM [facility] Eosinophils Relative 3.3 % LAB HEMETOLOGY METHOD 11/18/2024 5:09 PM [facility] Basophils Relative 0.4 % LAB HEMETOLOGY METHOD 11/18/2024 5:09 PM [facility] Immature Granulocytes Relative 0.4 % LAB HEMETOLOGY METHOD 11/18/2024 5:09 PM [facility] Neutrophils Absolute 5.09 1.50 - 7.00 K/mcL LAB HEMETOLOGY METHOD 11/18/2024 5:09 PM EDT [facility] Lymphocytes Absolute 1.57 1.00 - 5.00 K/mcL LAB HEMETOLOGY METHOD 11/18/2024 5:09 PM EDT [facility] Monocytes Absolute 0.90 0.20 - 1.00 K/mcL LAB HEMETOLOGY METHOD 11/18/2024 5:09 PM EDT [facility] Eosinophils Absolute 0.26 0.00 - 0.50 K/[facility] LAB HEMETOLOGY METHOD 11/18/2024 5:09 PM EDT [facility] Basophils Absolute 0.03 0.00 - 0.20 K/mcL LAB HEMETOLOGY METHOD 11/18/2024 5:09 PM EDT [facility] Immature Granulocytes Absolute 0.03 0.00 - 0.03 K/[facility] LAB HEMETOLOGY METHOD 11/18/2024 5:09 PM EDT [facility] Blood Venous blood specimen / Unknown Venipuncture / Unknown 11/18/2024 1:37 PM EDT 11/18/2024 4:47 PM EDT us Samara Holbrook MD LAB BLOOD ORDERABLES Final R esult [facility] [address] [place] [address], * (ABNORMAL) Iron and TIBC (11/18/2024 1:37 PM EDT) Iron 48 40 - 150 mcg/dL LAB CHEMISTRY METHOD 11/18/2024 5:15 PM EDT [facility] TIBC 406 250 - 450 mcg/dL LAB CHEMISTRY METHOD 11/18/2024 5:15 PM EDT [facility] Iron Saturation 12(L) 15 - 50 % LAB CHEMISTRY METHOD 11/18/2024 5:15 PM EDT [facility] Blood Venous blood specimen / Unknown Venipuncture / Unknown 11/18/2024 1:37 PM EDT 11/18/2024 4:45 PM EDT us Samara Holbrook MD LAB BLOOD ORDERABLES Final R esult [facility] [address] [place] [address], [place] [phone] * Ferritin (11/18/2024 1:37 PM EDT) Ferritin 8 8 - 252 ng/mL LAB CHEMISTRY METHOD 11/18/2024 5:24 PM EDT [facility] Blood Venous blood specimen / Unknown Venipuncture / Unknown 11/18/2024 1:37 PM EDT 11/18/2024 4:45 PM EDT us Samara Holbrook MD LAB BLOOD ORDERABLES Final R esult [facility] [address] [place] [address], [place] [phone] * Thyroid stimulating hormone with reflex to free t4 and free t3 (10/15/2024 2:02 PM EDT) TSH 1.61 0.40 - 4.00 mcIU/mL LAB CHEMISTRY METHOD 10/15/2024 6:17 PM EDT [facility] Blood Venous blood specimen / Unknown Venipuncture / Unknown 10/15/2024 2:02 PM EDT 10/15/2024 2:02 PM EDT Philly Headley MD LAB BLOOD ORDERABL ES Final Result [facility] [address] [place] [address], [place] [phone] * Thyroid stimulating hormone (10/15/2024 2:02 PM EDT) [facility] TSH 1.61 0.40 - 4.00 mcIU/mL LAB CHEMISTRY METHOD 10/15/2024 6:17 PM EDT [facility] Blood Venous blood specimen / Unknown Venipuncture / Unknown 10/15/2024 2:02 PM EDT 10/15/2024 2:02 PM EDT Philly Headley MD LAB BLOOD ORDERABL ES Final Result [facility] [address] [place] [address], [place] [phone] * External Cologuard (FIT-DNA) Report (02/03/2024) Provider Onbase LAB BODY FLUIDS AND STOOLS OR DERABLES Final Result * (ABNORMAL) Lipid panel (11/17/2023) [facility] LDL/HDL Ratio 4 0 - 4 Triglycerides 127 0 - 150 mg/dL Cholesterol 211(A) 0 - 200 mg/dL HDL 57 >=40 mg/dL LDL Cholesterol 129(A) 0 - 100 mg/dL Blood Venous blood specimen / Unknown Historical Provider LAB BLOOD ORDERABLES Carolina l Result * Depression Screening (04/06/2023) [facility] Depression Screening abstracted Historical Provider HEALTH [...] with computer-aided detection and compared to previous. The breasts consist of a mixture of fatty and fibroglandular elements. There are no suspicious masses or microcalcifications. Axillary structures are unchanged and symmetrical. Ultrasound of the right axilla was performed. The area of indicated palpable abnormality was evaluated. There is no appreciable sonographic abnormality. There is no evidence of adenopathy, collection, cyst [...] (06/09/2022) Cervical Cancer Screening: HPV Negative abstracted us Historical Provider HEALTH MAINTENANCE Final Result * HIV Screening (06/09/2022) HIV Screening abstracted Historical Provider HEALTH MAINTENANCE Final Result * Hepatitis C Screening (06/09/2022) Hepatitis C Screening abstracted Historical Provider HEALTH MAINTENANCE Final Result from Last 3 Months or Most Recently Relevant to Health Maintenance Insurance [facility] Care Teams Educational Administration Teacher Relationship Specialty Start Date End Date Philly Headley MD [address] [place] [phone] PCP - General Internal Medicine 12/13/21
--- OUTSIDE RECORDS SUMMARY | 2025-01-06 13:59 | XMS_ITS | Clinical Summary ---
[facility] Address [address] [place] [address] Care Team Providers Care Gis Specialist Name Role Phone Philly Nweton MD Primary Care Prov ider Allergies Active [...] 76 01/03/2024 10:26 AM EDT Temperature 36.7 C (98 F) 01/03/2024 10:26 AM EDT Respiratory Rate 18 [...] f 2) 11/30/2023 COVID-19 Vaccine (3 - 2024-2 6 season) 2024 07/21/2020, 06/29/2020 Influenza Vaccine (#1) 2024 04/14/2022 DTap / Tdap / Td (4 - Td or Tdap) 06/27/2026 06/27/2016, 02/23/2015, 12/08/2009 Pneumococcal Vaccine Aged Out 11/01/2012 No long er eligible based on patient's age to complete this topic RSV Ped < 20 months Aged Out No longe r eligible based on patient's age to complete this topic Care Teams Gis Specialist Relationship Specialty Start Date End Date Philly Newton MD [address] [place] [address] PCP - General Internal Medicine 04/19/22
== END 2025-01-06 11:40 | disposition home or self-care (01) ==
LOC: HO.HPS 11:23
PROVIDERS: PCP Internal Medicine; Visit Provider Internal Medicine
DX: J45.909 Unspecified asthma, uncomplicated (principal); E66.9 Obesity, unspecified; J30.9 Allergic rhinitis, unspecified; B37.0 Candidal stomatitis
CPT/HCPCS: 99213

== ENCOUNTER → 2025-01-06 11:23 | Outpatient (BNVA) | payer OTHER, SELFPAY | PROVIDERS: PCP Internal Medicine; Visit Provider Internal Medicine | DX: J45.909 Unspecified asthma, uncomplicated (principal); E66.9 Obesity, unspecified; B37.0 Candidal stomatitis; Z68.38 Body mass index [BMI] 38.0-38.9, adult | CPT/HCPCS: 99212 ==